=== PATIENT | male | born 1940 | race Caucasian/White ===

== ENCOUNTER 2019-07-18 09:27 | Inpatient (IN) | payer MEDICARE, OTHER ==
--- NOTE | 2019-07-18 09:59 | EDM.PDOC ---
ED HPI GENERAL MEDICAL PROBLEM - General Chief Complaint: Abdominal Pain Stated Complaint: INFECTED COLOSTOMY BAG/MASSES ON LUNGS Time Seen by Provider: 07/18/19 09:49 - History of Present Illness INITIAL COMMENTS - FREE TEXT/NARRATIVE: 78-year-old male presents the emergency room with abdominal discomfort and what he believes is an infected colostomy bag. She has not had any significant fecal output from his colostomy site in 6 days now. He is developed significant swelling around the area he has not noticed any fevers or chills. 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 The patient has had any nausea or vomiting she has had decreased appetite however he has not eaten anything today. Patient has a complicated history he has what sounds like pretty advanced COPD he is on supplemental oxygen 2 to 3 L. He is on 3 L at this point saturating around 90-95 %. 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 He has been evaluated by Dr. Rangel at this time. Abdominal Pain Score (Numeric/FACES): 7 - Related Data Allergies Allergy/AdvReac Type Severity Reaction Status Date / Time ciprofloxacin [From Cipro] Allergy Rash Verified 07/18/19 09:44 ciprofloxacin HCl Allergy Rash Verified 07/18/19 09:44 [From Cipro] shellfish derived Allergy Rash Verified 07/18/19 09:44 ED ROS GENERAL - Review of Systems Review Of Systems: See Below Constitutional: Reports: No Symptoms. Denies: Fever, Chills HEENT: Reports: No Symptoms Respiratory: Reports: Shortness of Breath (This is chronic no new cough. No worsening breathing symptoms at this time) Cardiovascular: Reports: No Symptoms (He does have chronic dyspnea with exertion ). Denies: Chest Pain Endocrine: Reports: No Symptoms GI/Abdominal: Reports: Abdominal Pain, Decreased Appetite. Denies: Nausea, Vomiting : Reports: No Symptoms Musculoskeletal: Reports: No Symptoms Skin: Reports: No Symptoms Neurological: Reports: No Symptoms ED EXAM, GI/ABD - Physical Exam Exam: See Below Exam Limited By: No Limitations General Appearance: Alert, No Apparent Distress, Other (On supplemental oxygen otherwise seems to be doing okay. His pulse was little fast at 110 when he came in I have watched it for short time is down to 105. He will receive some fluids anticipating a CT and given he keeps developing pleural effusions we will give him fluid as needed but watch this cautiously.) Head: Atraumatic, Normocephalic Neck: Normal Inspection, Supple, Non-Tender. No: Lymphadenopathy (L), Lymphadenopathy (R) Respiratory/Chest: No Respiratory Distress, Decreased Breath Sounds (Much more on the R). No: Crackles, Rales, Rhonchi Cardiovascular: Regular Rate, Rhythm, No Edema, No Murmur GI/Abdominal Exam: Normal Bowel Sounds, Soft, Other (Is a reported hernia around his colostomy site he has quite a bit of swelling around this area and fullness. I tried to do a digital exam on this and could not get in deeper than 2 cm he has a piece of hard stool in there that I could not dislodge. He is got significant back up behind this just from exam has another abdominal wall hernia on the right side up a little higher than his colostomy this is nontender with palpation. The area around the colostomy is tender no surrounding redness or warmth.) Course - Vital Signs Last Recorded V/S: Last Vital Signs Temp 36.8 C 07/18/19 09:40 Pulse 110 H 07/18/19 09:40 Resp 20 07/18/19 09:40 BP 125/68 07/18/19 09:40 Pulse Ox 92 L 07/18/19 09:40 - Orders/Labs/Meds Orders: Active Orders 24 hr Category Date Time Status Chest Abdomen Pelvis w Cont [CT] Stat Exams 07/18/19 10:19 Taken Sodium Chloride 0.9% [Normal Saline] 1,000 ml Med 07/18/19 10:30 Active IV ASDIRECTED Sodium Chloride 0.9% [Saline Flush] Med 07/18/19 11:39 Active 10 ml FLUSH ONETIME PRN Medication Orders Sodium Chloride (Normal Saline) 1,000 mls @ 125 mls/hr IV ASDIRECTED OBED Sodium Chloride (Saline Flush) 10 ml FLUSH ONETIME PRN PRN Reason: Keep Vein Open Last Admin: 07/18/19 11:47 Dose: 10 ml Labs: Laboratory Tests 07/18/19 07/18/19 07/18/19 Range/Units 10:15 10:15 12:15 WBC 16.07 H (4.23-9.07) K/mm3 RBC 4.65 (4.63-6.08) M/mm3 Hgb 15.2 (13.7-17.5) gm/dl Hct 45.6 (40.1-51.0) % MCV 98.1 H (79.0-92.2) fl MCH 32.7 H (25.7-32.2) pg MCHC 33.3 (32.2-35.5) g/dl RDW Std Deviation 44.6 H (35.1-43.9) fL Plt Count 260 (163-337) K/mm3 MPV 8.8 L (9.4-12.3) fl Neut % (Auto) 88.5 H (34.0-67.9) % Lymph % (Auto) 2.4 L (21.8-53.1) % [place] % (Auto) 8.6 (5.3-12.2) % Eos % (Auto) 0.1 L (0.8-7.0) Baso % (Auto) 0.2 (0.1-1.2) % Neut # (Auto) 14.21 H (1.78-5.38) K/mm3 Lymph # (Auto) 0.38 L (1.32-3.57) K/mm3 [place] # (Auto) 1.39 H (0.30-0.82) K/mm3 Eos # (Auto) 0.02 L (0.04-0.54) K/mm3 Baso # (Auto) 0.03 (0.01-0.08) K/mm3 Manual Slide Review Abnormal smear Sodium 140 (136-145) mEq/L Potassium 4.1 (3.5-5.1) mEq/L Chloride 101 (98-107) mEq/L Carbon Dioxide 31 (21-32) mEq/L Anion Gap 12.1 (5-15) BUN 17 (7-18) mg/dL Creatinine 0.9 (0.7-1.3) mg/dL Est Cr Clr Drug Dosing 58.65 mL/min Estimated GFR (MDRD) > 60 (>60) mL/min BUN/Creatinine Ratio 18.9 H (14-18) Glucose 114 (83-115) mg/dL Calcium 9.4 (8.5-10.1) mg/dL Total Bilirubin 0.5 (0.2-1.0) mg/dL AST 28 (15-37) U/L ALT 25 (16-63) U/L Alkaline Phosphatase 79 (46-116) U/L Total Protein 6.5 (6.4-8.2) g/dl Albumin 2.6 L (3.4-5.0) g/dl Globulin 3.9 gm/dL Albumin/Globulin Ratio 0.7 L (1-2) Lipase 170 (73-393) U/L Urine Color Yellow (Yellow) Urine Appearance Clear (Clear) Urine pH 7.0 (5.0-8.0) Ur Specific [place] 1.015 (1.005-1.030) Urine Protein Trace H (Negative) Urine Glucose (UA) Negative (Negative) Urine Ketones 1+ H (Negative) Urine Occult Blood Trace-intact H (Negative) Urine Nitrite Negative (Negative) Urine Bilirubin 1+ H (Negative) Urine Urobilinogen 1.0 (0.2-1.0) Ur Leukocyte Esterase Negative (Negative) Urine RBC 0-5 (0-5) /hpf Urine WBC 0-5 (0-5) /hpf Ur Epithelial Cells 0-5 (0-5) /hpf Amorphous Sediment Moderate H (NOT SEEN) /hpf Urine Bacteria Moderate H (FEW) /hpf Urine Mucus Many H (FEW) /hpf Meds: Medications Generic Name Dose Route Start Last Admin Trade Name Freq PRN Reason Stop Dose Admin Sodium Chloride 1,000 mls @ 125 mls/hr 07/18/19 10:30 Normal Saline IV ASDIRECTED OBED Sodium Chloride 10 ml 07/18/19 11:39 07/18/19 11:47 Saline Flush FLUSH 10 ml ONETIME PRN Administration Keep Vein Open Discontinued Medications Generic Name Dose Route Start Last Admin Trade Name Freq PRN Reason Stop Dose Admin Diatrizoate Meglum/Diatrizoate Sod 60 ml 07/18/19 11:47 07/18/19 11:49 Gastrografin 37% PO 07/18/19 11:48 60 ml ONETIME ONE Administration Sodium Chloride 500 mls @ 999 mls/hr 07/18/19 10:18 07/18/19 10:35 Normal Saline IV 07/18/19 10:48 999 mls/hr .BOLUS ONE Administration Iopamidol 100 ml 07/18/19 11:39 07/18/19 11:47 Isovue-300 (61%) IVPUSH 07/18/19 11:40 100 ml ONETIME ONE Administration Ondansetron HCl 4 mg 07/18/19 10:44 07/18/19 10:48 Zofran IVPUSH 07/18/19 10:45 4 mg ONETIME ONE Administration - Re-Assessments/Exams Free Text/Narrative Re-Assessment/Exam: 07/18/19 14:00 Case was discussed with Dr. Thornton regarding his apparent blocked up colostomy of concern on his CT as he is got a complete collapse of the right lung. He had pretty good expansion of the lung on the of this month looking at his x-ray from that time. I did discuss situation with [facility] and they have no recent records on him did discuss situation with [facility] in [place] and a IR saw him on the of this month did a thoracentesis awaiting cytology at which point he is to follow-up with his regular provider, Yumi Buenrostro in [place] for cytology results. With regards to his lung Dr. Thornton to discuss this with the patient and patient's daughter they request that chest to be placed here and Dr. Thornton will assume care of the patient with regards to the chest tube insertion and management as well as treatment. I did attempt to contact the patient's oncologist but had no success with this I discussed it with [facility] who has not seen the patient in nearly 5 years and I discussed it with [facility] who informing that the patient was seen by interventional radiology on the of this month had 1.4 L of chest fluid removed awaiting cytology. Departure - Departure Time of Disposition: 13:04 Disposition: Refer to Observation Clinical Impression: Hemothorax on right, Colostomy complication, Constipation - Discharge Information Referrals: Yumi Buenrostro, [employer] ADVISOR [Primary Care Provider] - Forms: ED Department Discharge Sepsis Event Note - Evaluation Sepsis Screening Result: No Definite Risk - Focused Exam Vital Signs: Vital Signs Temp Pulse Resp BP Pulse Ox 07/18/19 09:40 36.8 C 110 H 20 125/68 92 L Date Exam was Performed: 07/18/19 Time Exam was Performed: 14:00 - My Orders Last 24 Hours: My Active Orders 07/18/19 10:19 Chest Abdomen Pelvis w Cont [CT] Stat 07/18/19 10:30 Sodium Chloride 0.9% [Normal Saline] 1,000 ml IV ASDIRECTED 07/18/19 11:39 Sodium Chloride 0.9% [Saline Flush] 10 ml FLUSH ONETIME PRN - Assessment/Plan Last 24 Hours: My Active Orders 07/18/19 10:19 Chest Abdomen Pelvis w Cont [CT] Stat 07/18/19 10:30 Sodium Chloride 0.9% [Normal Saline] 1,000 ml IV ASDIRECTED 07/18/19 11:39 Sodium Chloride 0.9% [Saline Flush] 10 ml FLUSH ONETIME PRN
[2019-07-18] MEDS ORDERED: Sodium Chloride 0.9% 500 ML IV ONE (10:18)
[2019-07-18] MEDS ORDERED: Sodium Chloride 0.9% 1,000 ML IV SCH (10:30)
[2019-07-18] MEDS ORDERED: Ondansetron 4 MG/2 ML SDV IVPUSH ONE (10:44)
[2019-07-18] MEDS ORDERED: Iopamidol 612 MG/ML 100 ML Bottle IVPUSH ONE (11:39)
[2019-07-18] MEDS ORDERED: Sodium Chloride 0.9% 10 ML Syringe FLUSH PRN (11:39)
[2019-07-18] MEDS ORDERED: Diatrizoate Meglumine/Diatrizoate Sodium 37% 120 ML Bottle PO ONE (11:47)
--- NOTE | 2019-07-18 13:39 | PCM.HP.2 ---
H&P History of Present Illness - General Date of Service: 07/18/19 Admit Problem/Dx: right hydrothorax Source of Information: Patient, Family - History of Present Illness Initial Comments - Free Text/Narative: Mr. Coats is a a chronically ill, complex patient who I was called to evaluate for large bowel obstruction. He has a history of perforated diverticulitis with subsequent partial colectomy/ colostomy which has never been reversed after 10 years. He reports abdominal distention and discomfort for the past 6 days without hardly any stool output. He has had gas come out as recently as today. 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 Of note, the patient was in [place] for right lung biopsy last week, and on imaging today there appears to be complete lung collapse with right hydro/ hemothorax with mediastinal shift to the right. His vitals including O2 saturation are normal on his baseline of 3L/m supplemental oxygen via nasal cannula. Abdominal Pain Score (Numeric/FACES): 7 - Related Data Allergies/Adverse Reactions: Allergies Allergy/AdvReac Type Severity Reaction Status Date / Time ciprofloxacin [From Cipro] Allergy Rash Verified 07/18/19 09:44 ciprofloxacin HCl Allergy Rash Verified 07/18/19 09:44 [From Cipro] shellfish derived Allergy Rash Verified 07/18/19 09:44 Past Medical History Respiratory History: Reports: Other (See Below) Other Respiratory History: reports fluid on his lungs and in testing stages for lung cancer - Past Surgical History GI Surgical History: Reports: Colostomy Social & Family History - Tobacco Use Smoking Status *Q: Current Every Day Smoker Years of Tobacco use: 57 Packs/Tins Daily: 0.1 H&P Review of Systems - Review of Systems: Review Of Systems: See Below General: Reports: Malaise, Weakness HEENT: Reports: No Symptoms Pulmonary: Reports: Shortness of Breath Cardiovascular: Reports: Dyspnea on Exertion Gastrointestinal: Reports: Constipation Genitourinary: Reports: No Symptoms Musculoskeletal: Reports: No Symptoms Skin: Reports: No Symptoms Psychiatric: Reports: No Symptoms Neurological: Reports: No Symptoms Hematologic/Lymphatic: Reports: No Symptoms Immunologic: Reports: No Symptoms Exam - Exam Exam: See Below - Vital Signs Vital Signs: Last Vital Signs Temp 36.8 C 07/18/19 09:40 Pulse 110 H 07/18/19 09:40 Resp 20 07/18/19 09:40 BP 125/68 07/18/19 09:40 Pulse Ox 92 L 07/18/19 09:40 Weight: 60.328 kg - Exam Quality Assessment: Supplemental Oxygen General: Alert, Oriented, Cooperative HEENT: Conjunctiva Clear Neck: Supple Lungs: Other (dull to percussion on right side. [place] on anterior right chest from biopsy site) GI/Abdominal Exam: Other (epigastric hernia, soft and reducible. LLQ colostomy appears healthy, no prolapse. Exam finger passes deep to fascia easily. Lots of inspissated stool. parastomal hernia. No significant tenderness. ) Skin: Warm, Dry Physical Exam Comments:: looks frail and cachectic - Patient Data Lab Results Last 24 hrs: Laboratory Results - last 24 hr 07/18/19 07/18/19 07/18/19 Range/Units 10:15 10:15 12:15 WBC 16.07 H (4.23-9.07) K/mm3 RBC 4.65 (4.63-6.08) M/mm3 Hgb 15.2 (13.7-17.5) gm/dl Hct 45.6 (40.1-51.0) % MCV 98.1 H (79.0-92.2) fl MCH 32.7 H (25.7-32.2) pg MCHC 33.3 (32.2-35.5) g/dl RDW Std Deviation 44.6 H (35.1-43.9) fL Plt Count 260 (163-337) K/mm3 MPV 8.8 L (9.4-12.3) fl Neut % (Auto) 88.5 H (34.0-67.9) % Lymph % (Auto) 2.4 L (21.8-53.1) % [place] % (Auto) 8.6 (5.3-12.2) % Eos % (Auto) 0.1 L (0.8-7.0) Baso % (Auto) 0.2 (0.1-1.2) % Neut # (Auto) 14.21 H (1.78-5.38) K/mm3 Lymph # (Auto) 0.38 L (1.32-3.57) K/mm3 [place] # (Auto) 1.39 H (0.30-0.82) K/mm3 Eos # (Auto) 0.02 L (0.04-0.54) K/mm3 Baso # (Auto) 0.03 (0.01-0.08) K/mm3 Manual Slide Review Abnormal smear Sodium 140 (136-145) mEq/L Potassium 4.1 (3.5-5.1) mEq/L Chloride 101 (98-107) mEq/L Carbon Dioxide 31 (21-32) mEq/L Anion Gap 12.1 (5-15) BUN 17 (7-18) mg/dL Creatinine 0.9 (0.7-1.3) mg/dL Est Cr Clr Drug Dosing 58.65 mL/min Estimated GFR (MDRD) > 60 (>60) mL/min BUN/Creatinine Ratio 18.9 H (14-18) Glucose 114 (83-115) mg/dL Calcium 9.4 (8.5-10.1) mg/dL Total Bilirubin 0.5 (0.2-1.0) mg/dL AST 28 (15-37) U/L ALT 25 (16-63) U/L Alkaline Phosphatase 79 (46-116) U/L Total Protein 6.5 (6.4-8.2) g/dl Albumin 2.6 L (3.4-5.0) g/dl Globulin 3.9 gm/dL Albumin/Globulin Ratio 0.7 L (1-2) Lipase 170 (73-393) U/L Urine Color Yellow (Yellow) Urine Appearance Clear (Clear) Urine pH 7.0 (5.0-8.0) Ur Specific [place] 1.015 (1.005-1.030) Urine Protein Trace H (Negative) Urine Glucose (UA) Negative (Negative) Urine Ketones 1+ H (Negative) Urine Occult Blood Trace-intact H (Negative) Urine Nitrite Negative (Negative) Urine Bilirubin 1+ H (Negative) Urine Urobilinogen 1.0 (0.2-1.0) Ur Leukocyte Esterase Negative (Negative) Urine RBC 0-5 (0-5) /hpf Urine WBC 0-5 (0-5) /hpf Ur Epithelial Cells 0-5 (0-5) /hpf Amorphous Sediment Moderate H (NOT SEEN) /hpf Urine Bacteria Moderate H (FEW) /hpf Urine Mucus Many H (FEW) /hpf Result Diagrams: 07/18/19 10:15 07/18/19 10:15 Sepsis Event Note - Evaluation Sepsis Screening Result: No Definite Risk - Focused Exam Vital Signs: Vital Signs Temp Pulse Resp BP Pulse Ox 07/18/19 09:40 36.8 C 110 H 20 125/68 92 L Date Exam was Performed: 07/18/19 Time Exam was Performed: 13:34 *Q Meaningful Use (ADM) - VTE *Q VTE Mechanical Contraindications *Q: At Risk for Falls - VTE Risk Assess *Q Each Risk Factor Represents 3 Points: Age 75 Years or Greater Total Score 3 Point Risk Factors: 3 Problem List Initiated/Reviewed/Updated: Yes Orders Last 24hrs: Active Orders 24 hr Category Date Time Status Chest Abdomen Pelvis w Cont [CT] Stat Exams 07/18/19 10:19 Taken Sodium Chloride 0.9% [Normal Saline] 1,000 ml Med 07/18/19 10:30 Active IV ASDIRECTED Sodium Chloride 0.9% [Saline Flush] Med 07/18/19 11:39 Active 10 ml FLUSH ONETIME PRN Medication Orders Sodium Chloride (Normal Saline) 1,000 mls @ 125 mls/hr IV ASDIRECTED OBED Sodium Chloride (Saline Flush) 10 ml FLUSH ONETIME PRN PRN Reason: Keep Vein Open Last Admin: 07/18/19 11:47 Dose: 10 ml Assessment/Plan Comment:: Chronically ill, frail, cachectic man presents with iatrogenic right lung collapse following biopsy for suspected malignancy. He also appears to have partial large bowel obstruction related to fecal impaction/constipation. Plan for admission following right tube thoracostomy. Plan to start bowel regimen including miralax and colace. Gentle fluid resuscitation Recheck labs in AM Clear liquid diet for now - Mortality Measure Prognosis:: Poor
[2019-07-18] MEDS ORDERED: Lidocaine 1% 50 ML MDV INJECT ONE (14:00)
[2019-07-18] MEDS ORDERED: Lidocaine 1% 50 ML MDV ONE (14:03)
[2019-07-18] MEDS ORDERED: Docusate Sodium 100 MG Cap PO PRN (14:34)
[2019-07-18] MEDS ORDERED: Polyethylene Glycol 3350 Powder 17 GM Packet PO SCH (14:45)
[2019-07-18] MEDS: Lactated Ringers 1,000 ML IV SCH (16:31)
[2019-07-18] MEDS: Polyethylene Glycol 3350 Powder 17 GM Packet PO SCH ×2 (16:35→20:50)
[2019-07-18] MEDS ORDERED: traZODone 50 MG Tab PO PRN (16:56)
--- NOTE | 2019-07-18 20:08 | PCM.PRNOTE ---
- Free Text/Narrative Note: Date: 07/18/2019 Procedure: Right tube thoracostomy Indication: large pleural effusion with complete right lung collapse Detailed Report: Consent was obtained, and the patient was positioned supine with his right hand held behind his head. The right lateral chest was prepped and draped in sterile fashion. The 5th intercostal space, in line with the nipple, was palpated, and 1 % lidocaine was injected intradermally at this point, in line with the mid- axilla. The tract into the pleural cavity was also anesthetized. The scalpel was used to make a 3 cm transverse incision down to the subcutaneous fat. A Clamp was used to dissect to the intercostal muscle, and the pleural cavity was entered with the clamp.A kwok of serous fluid was encountered. A 28 F chest tube was threaded into the pleural cavity, directed up towards the head. This came to rest at about 14 cm deep. The tube was connected to a PleuraVac container, and immediately about 1300 cc fluid was drained. The tube was secured at the skin with two anchoring silk sutures. A dressing of gauze and tape was applied. A post-procedure CXR showed some improvement in lung aeration with the tube in good position. The patient tolerated the procedure well. Allen Thornton MD General Surgery
[2019-07-18] MEDS ORDERED: Enoxaparin 30 MG/0.3 ML Syringe SUBCUT ONE (22:00)
[2019-07-18] MEDS: Morphine 2 MG/ML Syringe IVPUSH PRN (23:00)
[2019-07-19] MEDS: Morphine 2 MG/ML Syringe IVPUSH PRN ×2 (02:48→08:10)
--- NOTE | 2019-07-19 07:17 | CR ---
Chest: Portable view of the chest was obtained. Comparison: Prior chest x-ray of 07/18/19. Right-sided chest tube is seen. No pneumothorax is appreciated. Decreased pleural effusion is noted from previous exam. Improved aeration of the right lung is seen. Pleural thickening noted along the right lateral chest. Left lung shows no acute parenchymal change. Heart size is normal. Tortuous thoracic aorta is seen. Bony structures are grossly intact. Impression: 1. Right-sided chest tube with no pneumothorax. 2. Slight parenchymal density within the right base remains. Right lung shows better aeration than on prior study. 3. Left lung is clear. 4. Pleural thickening along the right lateral chest. Diagnostic code #3 This report was dictated in MDT
[2019-07-19] MEDS: Polyethylene Glycol 3350 Powder 17 GM Packet PO SCH ×2 (08:11→20:04)
--- NOTE | 2019-07-19 08:46 | PCM.SN.2 ---
- Free Text/Narrative Note: 78 yo man presented to ER yesterday with obstipation and dyspnea, found to have heavy colonic stool burden without evidence of obstruction and marked right hydrothorax with complete lung collapse. S: No acute events. Breathing easier, abdomen less tender. Flatus but no stool from colostomy. O: Afebrile, sinus tachycardia 100s, SBP 100s, SpO2 97=4% on baseline 3 L/m supplemental O2 Chest tube output: ~2400 cc serous output since placement Awake and alert, no distress Right chest tube to suction, no leak, serous output Abdomen soft, nontender, mild distention. Colostomy appears healthy, no stool output noted A: Feeling better with right chest tube placement Still with feelings of obstipation, on miralax and colace BID P: -oral analgesics -continue chest tube to suction and monitor output. Repeat CXR in AM -add Mg citrate to bowel regimen -lovenox 40 mg SC daily for dvt ppx -anticipate discharge to home in 1-2 days when chest tube is ready for removal
[2019-07-19] MEDS ORDERED: Enoxaparin 30 MG/0.3 ML Syringe SUBCUT SCH (09:00)
[2019-07-19] MEDS: Docusate Sodium 100 MG Cap PO SCH ×2 (09:30→20:04)
[2019-07-19] MEDS: Magnesium Citrate Solution 296 ML Bottle PO SCH (09:30)
[2019-07-19] MEDS: Enoxaparin 40 MG/0.4 ML Syringe SUBCUT SCH (09:30)
--- NOTE | 2019-07-19 09:50 | CR ---
Chest: Portable view of the chest was obtained. Comparison: Prior chest CT performed earlier on the same day (11:46 AM). Prior chest x-ray of 07/07/19 is available. Right sided chest tube is seen. Right sided pneumothorax is noted. Collapse of the right lung is seen. Left lungs are clear. Heart size is difficult to evaluate due to shifting into the right chest. Bony structures are grossly intact. Impression: 1. Collapse of the right lung with pneumothorax and right-sided chest tube. 2. Left lung is clear. Diagnostic code #3 Study was dictated in MDT
--- NOTE | 2019-07-19 09:56 | CT ---
CT chest Technique: Multiple axial sections through the chest were obtained. Intravenous contrast was utilized. Comparison: Prior chest x-ray of 07/07/19. Findings: Pleural-based nodularity is seen suspicious for pleural metastasis. Large right-sided pleural effusion is noted. Collapse of the right lung is seen making further evaluation of the right lung and possible. Diffuse emphysematous change is seen within the left lung. Small pleural-based nodule identified within the left upper lung or lingula measuring 4 mm. Parenchymal density noted within the left upper lung with associated spiculation measuring 9 mm. Uncertain if this represents a mass or more likely represents focal scarring. Nodule is identified within the left lower lobe adjacent to the major fissure measuring approximately 8 mm. Enlarged lymph node noted within the right paratracheal region measuring 2.5 cm. Bone window settings were reviewed which shows no acute osseous finding within the chest. Degenerative change is seen within the visualized lower cervical spine. Impression: 1. Nodularity within the right side pleura highly suspicious for pleural metastasis. 2. Multiple nodules within the left chest. These are nonspecific with no previous study available to determine stability. 3. Enlarged right paratracheal lymph node measuring 2.5 cm. 4. Large right-sided pleural effusion causing collapse of the right lung. Further evaluation of the right lung is impossible. Diagnostic code #9 This report was dictated in MDT I agree with preliminary report from [facility], finalized on 07/18/19, 1:[address] Time CT abdomen and pelvis Technique: Multiple axial sections were obtained from above the dome of the diaphragm inferiorly through the pubic symphysis. Intravenous contrast was utilized. Oral contrast has also been given. Findings: Liver shows no discrete abnormality. Spleen appears within normal limits. Adrenal glands show no discrete nodule. Kidneys show symmetric contrast enhancement without hydronephrosis or mass. Aorta shows aneurysmal dilatation with intraluminal thrombus. Maximum AP dimension is 5.0 cm. Aneurysm is 10 cm in length and begins below the renal arteries. No retroperitoneal adenopathy is seen. Ostomy is noted. Fair amount of stool is noted within the cecum and right colon with lesser stool and gas within the transverse and descending colon. Appendix not visualized. Bone window settings were reviewed which shows scattered degenerative change within the spine. No acute osseous finding is appreciated. Impression: 1. Abdominal aortic aneurysm which begins below the abdominal aorta with AP maximal length of 5.0 cm. 2. Ostomy is seen. 3. Moderate amount of increased stool within the right colon as well as lesser stool within the transverse and left colon. Diagnostic code #3 This report was dictated in MDT I agree with preliminary report from [facility], finalized on 07/18/19, 1:16 PM Central Daylight Time
[2019-07-19] MEDS: Lactated Ringers 1,000 ML IV SCH (13:08)
[2019-07-19] MEDS: Aluminum Hydroxide/Magnesium Hydroxide/Simethicone Susp 30 ML Cup PO PRN ×2 (18:16→22:47)
[2019-07-19] MEDS: oxyCODONE 5 MG Tab PO PRN (19:50)
[2019-07-20] MEDS: oxyCODONE 5 MG Tab PO PRN ×3 (04:59→21:27)
--- NOTE | 2019-07-20 08:01 | CR ---
Chest: Portable view of the chest was obtained. Comparison: Prior chest x-ray of 07/19/19. Right-sided chest tube is seen. Minimal blunting of the lateral right costophrenic angle is again noted which is stable. No acute parenchymal change is seen when compared to prior study within either lung. Heart size is normal. There is some shifting of the mediastinum into the right side of the chest. Bony structures are grossly intact. Impression: 1. Right-sided chest tube. 2. Other portions of the chest are felt to be stable. Nothing acute is seen from prior chest x-ray. Diagnostic code #2 This report was dictated in MDT
[2019-07-20] MEDS: Docusate Sodium 100 MG Cap PO SCH ×2 (08:23→21:26)
[2019-07-20] MEDS: Enoxaparin 40 MG/0.4 ML Syringe SUBCUT SCH (08:23)
[2019-07-20] MEDS: Polyethylene Glycol 3350 Powder 17 GM Packet PO SCH ×2 (08:24→21:27)
[2019-07-20] MEDS: Aluminum Hydroxide/Magnesium Hydroxide/Simethicone Susp 30 ML Cup PO PRN (08:24)
--- NOTE | 2019-07-20 08:46 | PCM.SN.2 ---
- Free Text/Narrative Note: Hospital Day 3, presenting with symptomatic right hydrothorax after lung biopsy. S: No acute events. Stool output from colostomy now. O: AF-sinus tachycardia, stable BP, SpO2 mid 90% on 3 L NC O2 Chest tube to wet suction without leak. Output about 1 L since yesterday AM, serous. No significant interval change in CXR. Abdomen less distended, reducible epigastric hernia. Colostomy appears pink and healthy, now with more stool output A: Some symptomatic relief with right chest tube. Right lung appears expanded, though with diminished size and associated right mediastinal shift. Fluid output significant. No air leak on suction. Constipation improved with bowel regimen. P: Place chest tube to water seal and repeat CXR this afternoon. If no significant change, and output is acceptably low, plan for chest tube removal today, possible discharge to home today. Continue current bowel regimen.
[2019-07-20] MEDS ORDERED: Nicotine 14 MG/24 Hr Patch TRDERM PRN (09:00)
[2019-07-20] MEDS: Magnesium Citrate Solution 296 ML Bottle PO SCH (09:46)
--- NOTE | 2019-07-20 12:22 | CR ---
Chest: Portable view of the chest is obtained. Comparison: Prior chest x-ray performed earlier on the same day (7:10 AM). Right-sided chest tube is seen. No pneumothorax is noted. Stable parenchymal densities within the right chest is seen. Left lung is clear. Heart size and mediastinum are unchanged. Continuing shifting of the mediastinum into the right chest is seen. Impression: 1. No pneumothorax is seen. Right-sided chest tube remains in place. 2. Other portions of the chest are stable from previous exam. Diagnostic code # This report was dictated in MDT
[2019-07-20] MEDS ORDERED: Albuterol 6.7 GM Inhaler **PTOM INH PRN (14:34)
[2019-07-20] MEDS: Lactated Ringers 1,000 ML IV SCH (15:54)
--- NOTE | 2019-07-20 17:18 | CR ---
Chest: Portable view of the chest was obtained. Comparison: Prior chest x-ray performed earlier on the same day (11:49 AM). Right chest tube has been removed. Continued increased parenchymal density within right mid and lower lung. Left lung is clear. Heart size is normal. Tortuous thoracic aorta is seen. Impression: 1. Removal of right chest tube. 2. Continuing parenchymal density within the right chest and other stable findings as noted above. Diagnostic code #3 This report was dictated in MDT
[2019-07-20] MEDS: Magnesium Hydroxide 400 MG/5 ML Susp 30 ML Cup PO SCH (18:06)
[2019-07-20] MEDS ORDERED: SALMETEROL IH SCH (21:00)
[2019-07-20] MEDS ORDERED: FLUTICASONE IH SCH (21:00)
[2019-07-20] MEDS: Sennosides 8.6 MG Tab PO SCH (21:27)
[2019-07-21] MEDS: Magnesium Hydroxide 400 MG/5 ML Susp 30 ML Cup PO SCH ×3 (00:35→11:20)
[2019-07-21] MEDS: oxyCODONE 5 MG Tab PO PRN ×4 (07:08→23:47)
[2019-07-21] MEDS: Docusate Sodium 100 MG Cap PO SCH ×2 (08:11→20:22)
[2019-07-21] MEDS: Polyethylene Glycol 3350 Powder 17 GM Packet PO SCH ×2 (08:11→20:23)
[2019-07-21] MEDS: Enoxaparin 40 MG/0.4 ML Syringe SUBCUT SCH (08:13)
[2019-07-21] MEDS: Formoterol/Mometasone 200-5 MCG 8.8 GM Inhaler IH SCH ×2 (08:41→20:00)
--- NOTE | 2019-07-21 10:07 | CR ---
Chest: Portable view of the chest was obtained. Comparison: Prior chest x-ray of 07/13 6-20. Diffuse increased parenchymal density within the right chest is noted. This appears to be stable from recent study. Left lung remains clear. Heart size and mediastinum are unchanged. Bony structures are also unchanged. Impression: 1. Findings as noted above. 2. No significant change from previous chest x-ray is seen. Diagnostic code #2 This report was dictated in MDT
[2019-07-21] MEDS: Sennosides 8.6 MG Tab PO SCH (20:22)
[2019-07-22] MEDS: oxyCODONE 5 MG Tab PO PRN ×3 (03:50→11:46)
[2019-07-22] MEDS: Formoterol/Mometasone 200-5 MCG 8.8 GM Inhaler IH SCH (07:59)
[2019-07-22] MEDS: Docusate Sodium 100 MG Cap PO SCH (08:16)
[2019-07-22] MEDS: Polyethylene Glycol 3350 Powder 17 GM Packet PO SCH (08:17)
[2019-07-22] MEDS: Enoxaparin 40 MG/0.4 ML Syringe SUBCUT SCH (08:17)
--- NOTE | 2019-07-22 08:36 | PCM.SN.2 ---
- Free Text/Narrative Note: Date: 07/21/2019 S: No acute events. More stool output from colostomy. 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 Likely with malignant pleural effusion, parietal pleural involvement and right paratracheal lymph node involvement. Clinically better than when admitted with regard to right hydrothorax and constipation. Working with PT/OT, case management to ensure appropriate discharge. P: Plan for discharge with home health services tomorrow. Follow up planned next week in oncology clinic.
--- NOTE | 2019-07-22 09:05 | PCM.DCSUM1 ---
Discharge Summary - Hospital Course Free Text/Narrative:: Briefly: Admitted with right lung collapse and large pleural effusion after lung biopsy for now-confirmed small cell lung carcinoma. A right chest tube was placed to help lung re-expand. Bowel regimen was started which helped with constipation. The patient's chest tube was removed and subsequent CXRs showed stability. PT/OT and case management evaluated and assisted with appropriate discharge. Plan for follow up in oncology clinic next week. - Discharge Data Discharge Date: 07/22/19 Discharge Disposition: Home, W Home Health Agency 06 Condition: Stable - Referral to Home Health Date of Face to Face Encounter: 07/22/19 Reason for Homebound Status: Face to Face meeting with pt and or family. Pt has cancer, right hemothorax, weakness, difficulty walking and decreased coordination . Pt is in need Home Health Care services for, low activity tolerance, functional mobility, standing balance, strength, transfers. Nursing for pain management, vitals, skilled assessment, disease education, disease management. Physical therapy for pt for balance training, gait training, neuromuscular reduction, therapeutic exercises, and transfer training. Occupational therapy for activity tolerance, self-care training, ADLs and t/f training, functional mobility training, safety education, therapeutic activities and therapeutic exercises. Pt is currently homebound related to decreased activity tolerance and a decreased level of endurance. Pt will be followed by his primary provider. Primary Care Physician: Yumi Buenrostro NP Skilled Need: yes - Patient Summary/Data Consults: Consultations 07/21/19 08:57 Consult to Physical Therapy [PT Evaluation and Treatment] [CONS] Routine 07/21/19 13:43 Consult to Occupational Therapy [OT Evaluation and Treatment] [CONS] Routine - Patient Instructions Diet: Regular Diet as Tolerated Showering/Bathing: May Shower Wound/Incision Care: Keep Operative Site/Wound Site Clean and Dry Wound/Incision, Other: take right chest dressing off today. Apply band-aid. Change daily. - Discharge Plan *PRESCRIPTION DRUG MONITORING PROGRAM REVIEWED*: Not Applicable *COPY OF PRESCRIPTION DRUG MONITORING REPORT IN PATIENT DA: Not Applicable Prescriptions/Med Rec: Docusate Sodium [Colace] 100 mg PO BID #30 capsule oxyCODONE 5 mg PO Q6H PRN #30 tab PRN Reason: Pain polyethylene glycoL 3350 [MiraLAX] 17 gm PO BID #30 packet Home Medications: Home Meds Albuterol [Proventil HFA] 2 puff IH Q4H PRN 07/20/19 [History] Fluticasone/Salmeterol [Advair 250-50] 1 puff IH BID 07/20/19 [History] Docusate Sodium [Colace] 100 mg PO BID #30 capsule 07/22/19 [Rx] oxyCODONE 5 mg PO Q6H PRN #30 tab 07/22/19 [Rx] polyethylene glycoL 3350 [MiraLAX] 17 gm PO BID #30 packet 07/22/19 [Rx] Oxygen Therapy Mode: Nasal Cannula Oxygen Flow Rate (L/min): 3 Patient Handouts: Hemothorax, Constipation, Adult, Steps to Quit Smoking Forms: ED Department Discharge Referrals: Yumi Buenrostro [employer] [Primary Care Provider] - - Discharge Summary/Plan Comment DC Time >30 min.: Yes - Patient Data Vitals - Most Recent: Last Vital Signs Temp 36.6 C 07/22/19 03:48 Pulse 82 07/22/19 03:48 Resp 16 07/22/19 03:48 BP 104/56 L 07/22/19 03:48 Pulse Ox 92 L 07/22/19 07:59 Weight - Most Recent: 59.194 kg I&O - Last 24 hours: Intake & Output 07/21/19 07/22/19 07/22/19 22:59 06:59 14:59 Intake Total 2102 300 240 Output Total 2725 1100 Balance -623 -800 240 Med Orders - Current: Current Medications Al Hydroxide/Mg Hydroxide (Mag-Al Plus) 30 ml PO Q4H PRN PRN Reason: Indigestion Last Admin: 07/20/19 08:24 Dose: 30 ml Albuterol (Proventil Hfa) 0 gm INH Q4H PRN PRN Reason: wheeze Docusate Sodium (Colace) 100 mg PO BID [facility] Last Admin: 07/22/19 08:16 Dose: 100 mg Enoxaparin Sodium (Lovenox) 40 mg SUBCUT DAILY [facility] Last Admin: 07/22/19 08:17 Dose: 40 mg Mometasone Furoate/Formoterol Fumar (Dulera 200-5 Mcg) 2 puff IH BID [facility] Last Admin: 07/22/19 07:59 Dose: 2 puff Nicotine (Habitrol) 14 mg TRDERM DAILY PRN PRN Reason: Withdrawal Symptoms Oxycodone HCl (Oxycodone) 5 mg PO Q4H PRN PRN Reason: Pain (moderate 4-6) Last Admin: 07/22/19 08:33 Dose: 5 mg Polyethylene Glycol (Miralax) 17 gm PO BID [facility] Last Admin: 07/22/19 08:17 Dose: 17 gm Senna (Senna) 17.2 mg PO BEDTIME [facility] Last Admin: 07/21/19 20:22 Dose: 17.2 mg Sodium Chloride (Saline Flush) 10 ml FLUSH ONETIME PRN PRN Reason: Keep Vein Open Last Admin: 07/18/19 11:47 Dose: 10 ml Trazodone HCl (Trazodone) 50 mg PO BEDTIME PRN PRN Reason: Insomnia Last Admin: 07/18/19 22:56 Dose: 50 mg Discontinued Medications Diatrizoate Meglum/Diatrizoate Sod (Gastrografin 37%) 60 ml PO ONETIME ONE Stop: 07/18/19 11:48 Last Admin: 07/18/19 11:49 Dose: 60 ml Docusate Sodium (Colace) 100 mg PO BID PRN PRN Reason: Constipation Enoxaparin Sodium (Lovenox) 30 mg SUBCUT Q12H [facility] Enoxaparin Sodium (Lovenox) 30 mg SUBCUT ONETIME ONE Stop: 07/18/19 22:01 Last Admin: 07/18/19 22:55 Dose: 30 mg Sodium Chloride (Normal Saline) 500 mls @ 999 mls/hr IV .BOLUS ONE Stop: 07/18/19 10:48 Last Admin: 07/18/19 10:35 Dose: 999 mls/hr Sodium Chloride (Normal Saline) 1,000 mls @ 125 mls/hr IV ASDIRECTED [facility] Lactated Ringer's (Ringers, Lactated) 1,000 mls @ 50 mls/hr IV ASDIRECTED [facility] Last Admin: 07/20/19 15:54 Dose: 50 mls/hr Iopamidol (Isovue-300 (61%)) 100 ml IVPUSH ONETIME ONE Stop: 07/18/19 11:40 Last Admin: 07/18/19 11:47 Dose: 100 ml Lidocaine HCl (Xylocaine 1%) Confirm Administered Dose 50 ml .ROUTE .STK-MED ONE Stop: 07/18/19 14:04 Last Admin: 07/18/19 14:33 Dose: Not Given Lidocaine HCl (Xylocaine 1%) 50 ml INJECT ONETIME ONE Stop: 07/18/19 14:01 Last Admin: 07/18/19 16:50 Dose: Not Given Magnesium Citrate (Citrate Of Magnesia) 296 ml PO DAILY [facility] Last Admin: 07/20/19 09:46 Dose: 296 ml Magnesium Hydroxide (Milk Of Magnesia) 30 ml PO Q6H [facility] Last Admin: 07/21/19 11:20 Dose: 30 ml Morphine Sulfate (Morphine) 0.5 mg IVPUSH Q4H PRN PRN Reason: Pain (severe 7-10) Last Admin: 07/19/19 08:10 Dose: 0.5 mg Fluticasone/Salmeterol [Advair 250-50] Ptom 1 puff IH BID [facility] Last Admin: 07/20/19 22:20 Dose: Not Given Ondansetron HCl (Zofran) 4 mg IVPUSH ONETIME ONE Stop: 07/18/19 10:45 Last Admin: 07/18/19 10:48 Dose: 4 mg Polyethylene Glycol (Miralax) 17 gm PO BID [facility] Last Admin: 07/18/19 16:50 Dose: Not Given *Q Meaningful Use (DIS) - VTE *Q VTE Mechanical Contraindications *Q: At Risk for Falls
== END 2019-07-22 11:57 | disposition home health service (06) | DRG 181 ==
LOC: JD.ED 09:27 → JD.MS 14:30 → OBSVTOIN 07-20 14:40
PROVIDERS: ADMIT Surgery; ATTEND Surgery
PROC: 0W9900Z Drainage of Right Pleural Cavity with Drainage Device, Open Approach (ICD-10-PCS; principal; 2019-07-18)
DX: J94.8 Other specified pleural conditions (principal); J94.2 Hemothorax; J98.19 Other pulmonary collapse; K56.690 Other partial intestinal obstruction; Z93.3 Colostomy status; C34.91 Malignant neoplasm of unspecified part of right bronchus or lung; J91.0 Malignant pleural effusion; K59.00 Constipation, unspecified; Z99.81 Dependence on supplemental oxygen; F17.200 Nicotine dependence, unspecified, uncomplicated; Z88.1 Allergy status to other antibiotic agents; Z91.013 Allergy to seafood
CPT/HCPCS: 32551; 36415 ×2; 71045 ×4; 71260; 74177; 80048; 80053; 81001; 83690; 85025 ×2; 96361; 96374; 99285; A9270 ×16; J1650 ×3; J2270 ×3; J2405; J7030; J7120 ×2; Q9963; Q9967; 94640; 94760; 97116-GP; 97162-GP; 97165-GO; 97530-GO; 99284

== ENCOUNTER 2019-07-26 09:36 | Inpatient (IN) | payer MEDICARE, OTHER ==
--- NOTE | 2019-07-26 10:07 | EDM.PDOC ---
<Andrea Toledo - Last Filed: 07/28/19 07:49> ED HPI GENERAL MEDICAL PROBLEM - General Chief Complaint: Respiratory Problem Stated Complaint: SOB Time Seen by Provider: 07/26/19 09:46 - History of Present Illness Onset: Gradual Duration: Day(s): (No bowel movement for 4 days.), Getting Worse Quality: Reports: Other (Dyspnea intermittent cramping abdominal pain) Severity: Moderate Improves with: Reports: None Worsens with: Reports: Eating Context: Denies: Activity, Exercise, Lifting, Sick Contact Associated Symptoms: Reports: Loss of Appetite, Malaise, Nausea/Vomiting, Shortness of Breath (Nausea without vomiting), Other (Cough nonproductive) Treatments [employer]: Reports: Other (see below) - Related Data Allergies Allergy/AdvReac Type Severity Reaction Status Date / Time ciprofloxacin [From Cipro] Allergy Rash Verified 07/26/19 09:47 ciprofloxacin HCl Allergy Rash Verified 07/26/19 09:47 [From Cipro] shellfish derived Allergy Rash Verified 07/26/19 09:47 Home Meds: Home Meds Albuterol [Proventil HFA] 2 puff IH Q4H PRN 07/20/19 [History] Fluticasone/Salmeterol [Advair 250-50] 1 puff IH BID 07/20/19 [History] Docusate Sodium [Colace] 100 mg PO BID #30 capsule 07/22/19 [Rx] polyethylene glycoL 3350 [MiraLAX] 17 gm PO BID #30 packet 07/22/19 [Rx] oxyCODONE 5 mg PO Q6H PRN 07/26/19 [History] Magnesium Oxide 400 mg PO BID #30 tablet 07/27/19 [Rx] Sennosides [Senna] 17.2 mg PO BID #60 tablet 07/27/19 [Rx] oxyCODONE 10 mg PO Q4H PRN tablet 07/27/19 [Rx] Past Medical History Respiratory History: Reports: Other (See Below) (Newly diagnosed with lung cancer) ED ROS GENERAL - Review of Systems Review Of Systems: See Below Course - Vital Signs Last Recorded V/S: Last Vital Signs Temp 36.7 C 07/27/19 12:22 Pulse 84 07/27/19 13:57 Resp 22 H 07/27/19 12:22 BP 122/65 07/27/19 13:57 Pulse Ox 96 07/27/19 13:57 - Orders/Labs/Meds Labs: Laboratory Tests 07/26/19 07/26/19 07/26/19 Range/Units 10:20 10:20 10:20 WBC 8.98 (4.23-9.07) K/mm3 RBC 3.97 L (4.63-6.08) M/mm3 Hgb 12.9 L D (13.7-17.5) gm/dl Hct 40.2 (40.1-51.0) % MCV 101.3 H (79.0-92.2) fl MCH 32.5 H (25.7-32.2) pg MCHC 32.1 L (32.2-35.5) g/dl RDW Std Deviation 44.7 H (35.1-43.9) fL Plt Count 303 (163-337) K/mm3 MPV 8.7 L (9.4-12.3) fl Neutrophils % (Manual) 81 H (40-60) % Band Neutrophils % 0 (0-10) % Lymphocytes % (Manual) 12 L (20-40) % Atypical Lymphs % 0 % Monocytes % (Manual) 7 (2-10) % Eosinophils % (Manual) 0 L (0.8-7.0) % Basophils % (Manual) 0 L (0.2-1.2) Platelet Estimate Adequate Plt Morphology Comment Normal Anisocytosis 1+ slight RBC Morph Comment Not Reportable PT (9.7-12.0) SECONDS INR APTT (22-31) SECONDS Sodium 139 (136-145) mEq/L Potassium 4.4 (3.5-5.1) mEq/L Chloride 103 (98-107) mEq/L Carbon Dioxide 29 (21-32) mEq/L Anion Gap 11.4 (5-15) BUN 18 (7-18) mg/dL Creatinine 1.0 (0.7-1.3) mg/dL Est Cr Clr Drug Dosing 54.77 mL/min Estimated GFR (MDRD) > 60 (>60) mL/min BUN/Creatinine Ratio 18.0 (14-18) Glucose 100 (83-115) mg/dL Lactic Acid (0.4-2.0) mmol/L Calcium 8.9 (8.5-10.1) mg/dL Total Bilirubin 0.3 (0.2-1.0) mg/dL AST 41 H (15-37) U/L ALT 42 (16-63) U/L Alkaline Phosphatase 74 (46-116) U/L Lactate Dehydrogenase (85-227) U/L Troponin I < 0.017 (0.00-0.056) ng/mL C-Reactive Protein (<1.0) mg/dL NT-Pro-B Natriuret Pep 402 (0-450) pg/mL Total Protein 6.0 L (6.4-8.2) g/dl Albumin 2.0 L (3.4-5.0) g/dl Globulin 4.0 gm/dL Albumin/Globulin Ratio 0.5 L (1-2) Triglycerides (<150) mg/dL Cholesterol (<200) mg/dL Lipase (73-393) U/L Procalcitonin (<0.10) ng/mL 07/26/19 07/26/19 07/26/19 Range/Units 10:20 10:20 10:20 WBC (4.23-9.07) K/mm3 RBC (4.63-6.08) M/mm3 Hgb (13.7-17.5) gm/dl Hct (40.1-51.0) % MCV (79.0-92.2) fl MCH (25.7-32.2) pg MCHC (32.2-35.5) g/dl RDW Std Deviation (35.1-43.9) fL Plt Count (163-337) K/mm3 MPV (9.4-12.3) fl Neutrophils % (Manual) (40-60) % Band Neutrophils % (0-10) % Lymphocytes % (Manual) (20-40) % Atypical Lymphs % % Monocytes % (Manual) (2-10) % Eosinophils % (Manual) (0.8-7.0) % Basophils % (Manual) (0.2-1.2) Platelet Estimate Plt Morphology Comment Anisocytosis RBC Morph Comment PT 10.9 (9.7-12.0) SECONDS INR 1.00 APTT 30 (22-31) SECONDS Sodium (136-145) mEq/L Potassium (3.5-5.1) mEq/L Chloride (98-107) mEq/L Carbon Dioxide (21-32) mEq/L Anion Gap (5-15) BUN (7-18) mg/dL Creatinine (0.7-1.3) mg/dL Est Cr Clr Drug Dosing mL/min Estimated GFR (MDRD) (>60) mL/min BUN/Creatinine Ratio (14-18) Glucose (83-115) mg/dL Lactic Acid (0.4-2.0) mmol/L Calcium (8.5-10.1) mg/dL Total Bilirubin (0.2-1.0) mg/dL AST (15-37) U/L ALT (16-63) U/L Alkaline Phosphatase (46-116) U/L Lactate Dehydrogenase (85-227) U/L Troponin I (0.00-0.056) ng/mL C-Reactive Protein 17.2 H* (<1.0) mg/dL NT-Pro-B Natriuret Pep (0-450) pg/mL Total Protein (6.4-8.2) g/dl Albumin (3.4-5.0) g/dl Globulin gm/dL Albumin/Globulin Ratio (1-2) Triglycerides (<150) mg/dL Cholesterol (<200) mg/dL Lipase 163 (73-393) U/L Procalcitonin 0.13 H (<0.10) ng/mL 07/26/19 07/26/19 07/26/19 Range/Units 10:20 10:20 12:42 WBC (4.23-9.07) K/mm3 RBC (4.63-6.08) M/mm3 Hgb (13.7-17.5) gm/dl Hct (40.1-51.0) % MCV (79.0-92.2) fl MCH (25.7-32.2) pg MCHC (32.2-35.5) g/dl RDW Std Deviation (35.1-43.9) fL Plt Count (163-337) K/mm3 MPV (9.4-12.3) fl Neutrophils % (Manual) (40-60) % Band Neutrophils % (0-10) % Lymphocytes % (Manual) (20-40) % Atypical Lymphs % % Monocytes % (Manual) (2-10) % Eosinophils % (Manual) (0.8-7.0) % Basophils % (Manual) (0.2-1.2) Platelet Estimate Plt Morphology Comment Anisocytosis RBC Morph Comment PT (9.7-12.0) SECONDS INR APTT (22-31) SECONDS Sodium (136-145) mEq/L Potassium (3.5-5.1) mEq/L Chloride (98-107) mEq/L Carbon Dioxide (21-32) mEq/L Anion Gap (5-15) BUN (7-18) mg/dL Creatinine (0.7-1.3) mg/dL Est Cr Clr Drug Dosing mL/min Estimated GFR (MDRD) (>60) mL/min BUN/Creatinine Ratio (14-18) Glucose (83-115) mg/dL Lactic Acid 0.9 (0.4-2.0) mmol/L Calcium (8.5-10.1) mg/dL Total Bilirubin (0.2-1.0) mg/dL AST (15-37) U/L ALT (16-63) U/L Alkaline Phosphatase (46-116) U/L Lactate Dehydrogenase 357 H (85-227) U/L Troponin I (0.00-0.056) ng/mL C-Reactive Protein (<1.0) mg/dL NT-Pro-B Natriuret Pep (0-450) pg/mL Total Protein (6.4-8.2) g/dl Albumin (3.4-5.0) g/dl Globulin gm/dL Albumin/Globulin Ratio (1-2) Triglycerides 94 (<150) mg/dL Cholesterol 158 (<200) mg/dL Lipase (73-393) U/L Procalcitonin (<0.10) ng/mL Meds: Medications Discontinued Medications Generic Name Dose Route Start Last Admin Trade Name Freq PRN Reason Stop Dose Admin Acetaminophen/Codeine Phosphate 2 tab 07/26/19 16:50 07/27/19 08:01 Tylenol With Codeine No.3 300mg/30mg PO 2 tab Q6H PRN Administration Pain (mild 1-3) Albuterol 0 gm 07/27/19 08:08 Proventil Hfa INH Q4H PRN wheeze Albuterol/Ipratropium 3 ml 07/26/19 17:37 07/26/19 17:45 Duoneb 3.0-0.5 Mg/3 Ml NEB 06/01/20 17:38 3 ml ONETIME ONE Administration Diatrizoate Meglum/Diatrizoate Sod 120 ml 07/26/19 13:12 07/26/19 15:25 Gastrografin 37% PO 07/26/19 13:13 120 ml ONETIME ONE Administration Docusate Sodium 100 mg 07/27/19 09:00 07/27/19 09:27 Colace PO 100 mg BID OBED Administration Hydromorphone HCl 0.25 mg 07/26/19 12:35 07/26/19 12:44 Dilaudid IVPUSH 07/26/19 12:36 0.25 mg ONETIME ONE Administration Sodium Chloride 1,000 mls @ 125 mls/hr 07/26/19 12:45 07/26/19 12:45 Normal Saline IV 125 mls/hr ASDIRECTED OBED Administration Lactated Ringer's 1,000 mls @ 125 mls/hr 07/26/19 17:00 07/27/19 02:17 Ringers, Lactated IV 125 mls/hr ASDIRECTED OBED Administration Lactulose 20 gm 07/26/19 15:30 07/26/19 16:08 Cephulac PO 07/26/19 15:31 20 gm ONETIME ONE Administration Magnesium Citrate 150 ml 07/26/19 15:30 07/26/19 16:08 Citrate Of Magnesia PO 07/26/19 15:31 150 ml ONETIME ONE Administration Magnesium Oxide 400 mg 07/27/19 09:00 07/27/19 09:27 Magnesium Oxide PO 400 mg BID OBED Administration Metoclopramide HCl 7.5 mg 07/26/19 12:35 07/26/19 12:43 Reglan IVPUSH 07/26/19 12:36 7.5 mg ONETIME ONE Administration Miscellaneous Information 0 ea 07/28/19 09:00 Remove Patch TRDERM DAILY [facility] Morphine Sulfate 2 mg 07/26/19 16:50 07/26/19 17:31 Morphine IVPUSH 07/27/19 16:55 2 mg Q2H PRN Administration Pain (severe 7-10) Nicotine 21 mg 07/27/19 09:00 07/27/19 08:00 Habitrol TRDERM Not Given DAILY [facility] Ondansetron HCl 4 mg 07/26/19 16:50 Zofran IV Q6H PRN Nausea/Vomiting Oxycodone HCl 10 mg 07/26/19 16:50 07/27/19 14:59 Oxycodone PO 10 mg Q4H PRN Administration Pain (moderate 4-6) Polyethylene Glycol 17 gm 07/27/19 09:00 07/27/19 09:27 Miralax PO 17 gm BID OBED Administration Senna 17.2 mg 07/27/19 11:00 07/27/19 11:21 Senna PO 17.2 mg BID OBED Administration - Re-Assessments/Exams Free Text/Narrative Re-Assessment/Exam: 07/26/19 12:[address] Liao at change of shift. Patient is in the ED primarily because of abdominal pain and inability to have a bowel movement for the last 4 days. Was recently hospitalized last week and required disimpaction of his ostomy and josh dismpaction. -- believe through a red rectal tube introduced into the ostomy. Bowels are working well until he went home and then he has become constipated once again. X-rays of the chest reveal recurrence of a moderate right-sided pleural effusion which takes up 45 to 50% of the right lung field. The left lung is clear. The abdomen shows a hernia which is easily reducible medial to the colostomy in the right yoselyn-abdomen in the midline. The ostomy otherwise looks okay. It is in the left mid lower quadrant. Bowel sounds are active. X-rays of the abdomen reveal a large dilated segment of colon in the left upper quadrant of the abdomen. There is scattered air throughout slightly dilated loops of small bowel as well in the mid abdomen suggestive of partial bowel obstruction. Plan patient will be given Dilaudid 0.25 mg IV for pain relief with Reglan 7.5 mg IV. I am going to give him oral contrast and then CT his abdomen to see if there is a true obstruction of the colon i.e. a twist. This may relieve the constipation with oral contrast alone if not I will give him an enema through his ostomy. Dr. Liao had spoken with Dr. Mayo -on-call surgeon and she is requested the patient be admitted via hospitalist and she will consult. 07/26/19 13:04 [address] able to place approximately 30 mils of Fleet enema into his ostomy. I could not palpate any stool in the initial 3 inches of the colon or at least the length of my index finger. Small amount of liquid stool in the ostomy bag which he states has developed over the last 6 hours. 07/26/19 15:12 CT of the abdomen and pelvis has been completed with oral contrast only. There is a moderate right-sided pleural effusion seen. Areas of consolidation are seen within the right lower lung. Left lung is clear. Diffuse emphysematous changes are appreciated. CT of the abdomen shows liver to show no discrete abnormalities. Spleen shows normal note no abnormalities. Adrenal glands show no nodules. Mid and distal abdominal aortic aneurysm is seen measuring 4.5 cm in greatest dimension. This appears similar to previous exam. Kidneys show no abnormality calcifications. Slight vascular calcification is believed to be present. No retroperitoneal adenopathy or mesenteric abnormalities are seen. Ostomy is noted within the left lower abdomen. Probable peristomal hernia is appreciated. Contrast is noted within the small bowel which is slightly prominent in size but no findings of small bowel obstruction are seen. Increased stool is noted within the right hemicolon. Anterior abdominal wall hernia is seen containing a loop of contrast-filled small bowel. No pelvic mass or adenopathy is seen. I will discuss the case with on-call hospitalist Dr. Quintanilla per Dr. Mayo`s request. 07/26/19 15:26 When I check with the patient and his daughter he is starting to pass some flatus into his ostomy bag. he is hungry and asking for something to eat as he has not eaten since yesterday. He is requesting some carbone and eggs in order to see what we can have the kitchen with up for him. I am going to give him 20 g of lactulose mixed with a ounces of magnesium citrate to provide bowel cleanse. These compounds should cause an excess amount of abdominal cramping. We mixed with 6 ounces of Gatorade or Powerade. Present he states the pain is pretty well controlled. Departure - Departure Time of Disposition: 17:00 Disposition: Admitted As Inpatient 67 Condition: Poor Clinical Impression: Recurrent right pleural effusion, Constipation by delayed colonic transit Cancer of right lung Qualifiers: Lung location: lower lobe of lung Qualified Code(s): C34.31 - Malignant neoplasm of lower lobe, right bronchus or lung - Discharge Information Sepsis Event Note - Focused Exam Date Exam was Performed: 07/28/19 Time Exam was Performed: 07:49 <Prakash Liao - Last Filed: 07/28/19 20:02> ED HPI GENERAL MEDICAL PROBLEM - General Source of Information: Reports: Patient, Family (Daughter) History Limitations: Reports: No Limitations - History of Present Illness INITIAL COMMENTS - FREE TEXT/NARRATIVE: Mr. 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 He also has not had any stool output from his ostomy site since approximately , 07/22/2019. The patient had previously had a right -sided chest tube placed for a pleural effusion, but the patient's daughter tells me that it was removed 6 days ago, 07/20/2019. Other than the dyspnea and possible constipation, the patient denies recent fever, chills, sore throat, ear pain, nasal or sinus congestion, cough, chest pain, palpitations, nausea, vomiting, diarrhea, abdominal pain, urinary symptoms , recent weight gain or weight loss, recent bloody bowel movements or black bowel movements, recent joint aches, headaches, or rashes. Here in the ED, the patient is found to be slightly tachypneic at 22 rpm, otherwise, he is hemodynamically stable, afebrile, saturating 97% on 3 L of oxygen per nasal cannula. The patient's PCP is Yumi Buenrostro NP. His Oncologist is Dr. Suleman Swan. His Surgeon is Dr. Allen Thornton. Abdominal Pain Score (Numeric/FACES): 5 Past Medical History Respiratory History: Reports: COPD (3L O2 continuously) Gastrointestinal History: Reports: Diverticulosis (perforated diverticulitis around 2009) Genitourinary History: Reports: BPH (untreated) Musculoskeletal History: Reports: Fracture (left clavicle) Oncologic (Cancer) History: Reports: Lung (small cell) - Infectious Disease History Infectious Disease History: Reports: Chicken Pox, Influenza, Measles - Past Surgical History HEENT Surgical History: Reports: Tonsillectomy GI Surgical History: Reports: Appendectomy (incidental, arond 2009), Colon ( hemicolectomy around 2009), Colostomy (around 2009) Social & Family History - Family History Family Medical History: Noncontributory - Tobacco Use Smoking Status *Q: Former Smoker Tobacco Use Within Last Twelve Months: Cigars (1-2 per day) Years of Tobacco use: 46 Packs/Tins Daily: 1 Month/Year Tobacco Last Used: Quit around 2004 - Caffeine Use Caffeine Use: Reports: Coffee Other Caffeine Use: 1 pot a day - Alcohol Use Alcohol Use History: Yes Alcohol Use Frequency: Rarely - Recreational Drug Use Recreational Drug Use: No - Living Situation & Occupation Living situation: Reports: , Alone Occupation: Retired ED ROS GENERAL - Review of Systems Review Of Systems: Comprehensive ROS is negative, except as noted in HPI. ED EXAM, GENERAL - Physical Exam Exam: See Below Exam Limited By: No Limitations General Appearance: Alert, No Apparent Distress, Thin Eye Exam: Bilateral Eye: EOMI, Normal Inspection Ears: Normal External Exam, Hearing Grossly Normal Nose: Normal Inspection Throat/Mouth: Normal Inspection, Normal Lips, Normal Voice, No Airway Compromise Head: Atraumatic, Normocephalic Neck: Normal Inspection, Full Range of Motion Respiratory/Chest: No Respiratory Distress, Lungs Clear, Normal Breath Sounds, No Accessory Muscle Use Cardiovascular: Normal Peripheral Pulses, Regular Rate, Rhythm, No Edema, No Gallop, No JVD, No Murmur, No Rub Peripheral Pulses: 3+: Radial (L), Radial (R) GI/Abdominal: Normal Bowel Sounds, Soft, Non-Tender, No Organomegaly, No Distention, No Abnormal Bruit, No Mass, Other (There is a colostomy to the left abdomen. There is an easily reducible hernia immediately associated with the colostomy site. 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4-12.3) fl Neutrophils % (Manual) 81 H (40-60) % Band Neutrophils % 0 (0-10) % Lymphocytes % (Manual) 12 L (20-40) % Atypical Lymphs % 0 % Monocytes % (Manual) 7 (2-10) % Eosinophils % (Manual) 0 L (0.8-7.0) % Basophils % (Manual) 0 L (0.2-1.2) Platelet Estimate Adequate Plt Morphology Comment Normal Anisocytosis 1+ slight RBC Morph Comment Not Reportable PT (9.7-12.0) SECONDS INR APTT (22-31) SECONDS Sodium 139 (136-145) mEq/L Potassium 4.4 (3.5-5.1) mEq/L Chloride 103 (98-107) mEq/L Carbon Dioxide 29 (21-32) mEq/L Anion Gap 11.4 (5-15) BUN 18 (7-18) mg/dL Creatinine 1.0 (0.7-1.3) mg/dL Est Cr Clr Drug Dosing 54.77 mL/min Estimated GFR (MDRD) > 60 (>60) mL/min BUN/Creatinine Ratio 18.0 (14-18) Glucose 100 (83-115) mg/dL Lactic Acid (0.4-2.0) mmol/L Calcium 8.9 (8.5-10.1) mg/dL Total Bilirubin 0.3 (0.2-1.0) mg/dL AST 41 H (15-37) U/L ALT 42 (16-63) U/L Alkaline Phosphatase 74 (46-116) U/L Lactate Dehydrogenase (85-227) U/L Troponin I < 0.017 (0.00-0.056) ng/mL C-Reactive Protein (<1.0) mg/dL NT-Pro-B Natriuret Pep 402 (0-450) pg/mL Total Protein 6.0 L (6.4-8.2) g/dl Albumin 2.0 L (3.4-5.0) g/dl Globulin 4.0 gm/dL Albumin/Globulin Ratio 0.5 L (1-2) Triglycerides (<150) mg/dL Cholesterol (<200) mg/dL Lipase (73-393) U/L Procalcitonin (<0.10) ng/mL 07/26/19 07/26/19 07/26/19 Range/Units 10:20 10:20 10:20 WBC (4.23-9.07) K/mm3 RBC (4.63-6.08) M/mm3 Hgb (13.7-17.5) gm/dl Hct (40.1-51.0) % MCV (79.0-92.2) fl MCH (25.7-32.2) pg MCHC (32.2-35.5) g/dl RDW Std Deviation (35.1-43.9) fL Plt Count (163-337) K/mm3 MPV (9.4-12.3) fl Neutrophils % (Manual) (40-60) % Band Neutrophils % (0-10) % Lymphocytes % (Manual) (20-40) % Atypical Lymphs % % Monocytes % (Manual) (2-10) % Eosinophils % (Manual) (0.8-7.0) % Basophils % (Manual) (0.2-1.2) Platelet Estimate Plt Morphology Comment Anisocytosis RBC Morph Comment PT 10.9 (9.7-12.0) SECONDS INR 1.00 APTT 30 (22-31) SECONDS Sodium (136-145) mEq/L Potassium (3.5-5.1) mEq/L Chloride (98-107) mEq/L Carbon Dioxide (21-32) mEq/L Anion Gap (5-15) BUN (7-18) mg/dL Creatinine (0.7-1.3) mg/dL Est Cr Clr Drug Dosing mL/min Estimated GFR (MDRD) (>60) mL/min BUN/Creatinine Ratio (14-18) Glucose (83-115) mg/dL Lactic Acid (0.4-2.0) mmol/L Calcium (8.5-10.1) mg/dL Total Bilirubin (0.2-1.0) mg/dL AST (15-37) U/L ALT (16-63) U/L Alkaline Phosphatase (46-116) U/L Lactate Dehydrogenase (85-227) U/L Troponin I (0.00-0.056) ng/mL C-Reactive Protein 17.2 H* (<1.0) mg/dL NT-Pro-B Natriuret Pep (0-450) pg/mL Total Protein (6.4-8.2) g/dl Albumin (3.4-5.0) g/dl Globulin gm/dL Albumin/Globulin Ratio (1-2) Triglycerides (<150) mg/dL Cholesterol (<200) mg/dL Lipase 163 (73-393) U/L Procalcitonin 0.13 H (<0.10) ng/mL 07/26/19 07/26/19 07/26/19 Range/Units 10:20 10:20 12:42 WBC (4.23-9.07) K/mm3 RBC (4.63-6.08) M/mm3 Hgb (13.7-17.5) gm/dl Hct (40.1-51.0) % MCV (79.0-92.2) fl MCH (25.7-32.2) pg MCHC (32.2-35.5) g/dl RDW Std Deviation (35.1-43.9) fL Plt Count (163-337) K/mm3 MPV (9.4-12.3) fl Neutrophils % (Manual) (40-60) % Band Neutrophils % (0-10) % Lymphocytes % (Manual) (20-40) % Atypical Lymphs % % Monocytes % (Manual) (2-10) % Eosinophils % (Manual) (0.8-7.0) % Basophils % (Manual) (0.2-1.2) Platelet Estimate Plt Morphology Comment Anisocytosis RBC Morph Comment PT (9.7-12.0) SECONDS INR APTT (22-31) SECONDS Sodium (136-145) mEq/L Potassium (3.5-5.1) mEq/L Chloride (98-107) mEq/L Carbon Dioxide (21-32) mEq/L Anion Gap (5-15) BUN (7-18) mg/dL Creatinine (0.7-1.3) mg/dL Est Cr Clr Drug Dosing mL/min Estimated GFR (MDRD) (>60) mL/min BUN/Creatinine Ratio (14-18) Glucose (83-115) mg/dL Lactic Acid 0.9 (0.4-2.0) mmol/L Calcium (8.5-10.1) mg/dL Total Bilirubin (0.2-1.0) mg/dL AST (15-37) U/L ALT (16-63) U/L Alkaline Phosphatase (46-116) U/L Lactate Dehydrogenase 357 H (85-227) U/L Troponin I (0.00-0.056) ng/mL C-Reactive Protein (<1.0) mg/dL NT-Pro-B Natriuret Pep (0-450) pg/mL Total Protein (6.4-8.2) g/dl Albumin (3.4-5.0) g/dl Globulin gm/dL Albumin/Globulin Ratio (1-2) Triglycerides 94 (<150) mg/dL Cholesterol 158 (<200) mg/dL Lipase (73-393) U/L Procalcitonin (<0.10) ng/mL Meds: Medications Discontinued Medications Generic Name Dose Route Start Last Admin Trade Name Freq PRN Reason Stop Dose Admin Acetaminophen/Codeine Phosphate 2 tab 07/26/19 16:50 07/27/19 08:01 Tylenol With Codeine No.3 300mg/30mg PO 2 tab Q6H PRN Administration Pain (mild 1-3) Albuterol 0 gm 06/02/20 08:08 Proventil Hfa INH Q4H PRN wheeze Albuterol/Ipratropium 3 ml 07/26/19 17:37 07/26/19 17:45 Duoneb 3.0-0.5 Mg/3 Ml NEB 07/26/19 17:38 3 ml ONETIME ONE Administration Diatrizoate Meglum/Diatrizoate Sod 120 ml 07/26/19 13:12 07/26/19 15:25 Gastrografin 37% PO 07/26/19 13:13 120 ml ONETIME ONE Administration Docusate Sodium 100 mg 07/27/19 09:00 07/27/19 09:27 Colace PO 100 mg BID OBED Administration Hydromorphone HCl 0.25 mg 07/26/19 12:35 07/26/19 12:44 Dilaudid IVPUSH 07/26/19 12:36 0.25 mg ONETIME ONE Administration Sodium Chloride 1,000 mls @ 125 mls/hr 07/26/19 12:45 07/26/19 12:45 Normal Saline IV 125 mls/hr ASDIRECTED OBED Administration Lactated Ringer's 1,000 mls @ 125 mls/hr 07/26/19 17:00 07/27/19 02:17 Ringers, Lactated IV 125 mls/hr ASDIRECTED OBED Administration Lactulose 20 gm 07/26/19 15:30 07/26/19 16:08 Cephulac PO 07/26/19 15:31 20 gm ONETIME ONE Administration Magnesium Citrate 150 ml 07/26/19 15:30 07/26/19 16:08 Citrate Of Magnesia PO 07/26/19 15:31 150 ml ONETIME ONE Administration Magnesium Oxide 400 mg 07/27/19 09:00 07/27/19 09:27 Magnesium Oxide PO 400 mg BID OBED Administration Metoclopramide HCl 7.5 mg 07/26/19 12:35 07/26/19 12:43 Reglan IVPUSH 07/26/19 12:36 7.5 mg ONETIME ONE Administration Miscellaneous Information 0 ea 07/28/19 09:00 Remove Patch TRDERM DAILY OBED Morphine Sulfate 2 mg 07/26/19 16:50 07/26/19 17:31 Morphine IVPUSH 07/27/19 16:55 2 mg Q2H PRN Administration Pain (severe 7-10) Nicotine 21 mg 07/27/19 09:00 07/27/19 08:00 Habitrol TRDERM Not Given DAILY OBED Ondansetron HCl 4 mg 07/26/19 16:50 Zofran IV Q6H PRN Nausea/Vomiting Oxycodone HCl 10 mg 07/26/19 16:50 07/27/19 14:59 Oxycodone PO 10 mg Q4H PRN Administration Pain (moderate 4-6) Polyethylene Glycol 17 gm 07/27/19 09:00 07/27/19 09:27 Miralax PO 17 gm BID OBED Administration Senna 17.2 mg 07/27/19 11:00 07/27/19 11:21 Senna PO 17.2 mg BID OBED Administration - Re-Assessments/Exams Free Text/Narrative Re-Assessment/Exam: 07/26/19 10:07 As above, the patient has chronic dyspnea that he reports to be worse over the past few days, along with possible constipation with no stool output from his colostomy for the past 4 days. I have ordered a work-up that includes blood work, a chest x-ray, an upright abdominal x-ray, and an ECG. 07/26/19 11:07 Two-view chest radiograph reviewed. The cardiac silhouette is within normal limits. No pulmonary vascular congestion. There is a moderate sized pleural effusion on the right, with likely atelectasis at the right lung base. No focal infiltrate. No pneumothorax. Formal read per the Radiologist pending. 07/26/19 11:10 Upright radiograph of the abdomen is read by Dr. Colon as: 1. Findings suspicious for mid small bowel obstruction. 07/26/19 11:42 With respect to the patient's dyspnea, I do not believe that anything needs to be done at this time. His pleural effusion is not large enough to warrant immediate drainage, and his oxygen requirements are no greater than his baseline. With respect to the patient's constipation, as above, he may have a small bowel obstruction. Dr. Thornton is not on today, but I will discuss the case with Dr. Mayo. 07/26/19 12:[address] Mayo at 12:13. She recommended that the patient be admitted to the Hospitalist, with her on consult. Case discussed with Dr. Toledo, and care of the patient turned over to him at this time, for change of shift. He will arrange for the patient to be admitted. Departure - Discharge Information *PRESCRIPTION DRUG MONITORING PROGRAM REVIEWED*: Not Applicable *COPY OF PRESCRIPTION DRUG MONITORING REPORT IN PATIENT DA: Not Applicable Sepsis Event Note - Evaluation Sepsis Screening Result: No Definite Risk - Focused Exam Date Exam was Performed: 07/28/19 Time Exam was Performed: 20:02
--- NOTE | 2019-07-26 10:49 | CR ---
Abdomen: This upright view of the abdomen was obtained. Comparison: Prior abdominal x-ray of 06/05/09. Small bowel gas is noted with small bowel dilatation. Findings are suspicious for mid small bowel obstruction. No free air is seen. Bony structures are osteopenic with mild degenerative change within the spine. Colostomy noted overlying the left pelvis. Impression: 1. Findings suspicious for mid small bowel obstruction. Diagnostic code #3 This report was dictated in MDT
--- NOTE | 2019-07-26 10:50 | CR ---
Chest: 2 views of the chest were obtained. Comparison: Prior chest x-ray of 07/20/19. Elevated right hemidiaphragm is seen. Difficult to exclude loculated pleural effusion. Increased parenchymal density within the right chest is seen which appears slightly improved from previous exam. Heart size does not appear enlarged. Left lung is clear. Bony structures are grossly intact. Impression: 1. Elevated right hemidiaphragm, difficult to exclude loculated pleural effusion within the right lung base. 2. Increased parenchymal density which is felt to be slightly improved from previous exam. Diagnostic code #3 This report was dictated in MDT
[2019-07-26] MEDS ORDERED: Metoclopramide 10 MG/2 ML SDV IVPUSH ONE (12:35)
[2019-07-26] MEDS ORDERED: HYDROmorphone 0.5 MG/0.5 ML Syringe IVPUSH ONE (12:35)
[2019-07-26] MEDS ORDERED: Sodium Chloride 0.9% 1,000 ML IV SCH (12:45)
[2019-07-26] MEDS ORDERED: Diatrizoate Meglumine/Diatrizoate Sodium 37% 120 ML Bottle PO ONE (13:12)
--- NOTE | 2019-07-26 14:33 | CT ---
CT abdomen and pelvis Technique: Multiple axial sections were obtained from above the dome of the diaphragm inferiorly through the pubic symphysis. Intravenous contrast was not utilized. Oral contrast has been given. Findings: Prior CT abdomen and pelvis exam of 07/18/19. Mild to moderate right-sided pleural effusion is seen. Areas of consolidation is seen within the right lower lung. Left lung is clear. Diffuse emphysematous change is seen. Liver shows no discrete abnormality. Spleen shows no discrete abnormality. Adrenal glands show no nodule. Mid and distal abdominal aortic aneurysm is seen measuring 4.5 cm. This appears similar to previous exam. Kidneys show no abnormal calcifications. Slight vascular calcification is believed to be present. No retroperitoneal adenopathy or mesenteric abnormalities are seen. Ostomy is noted within the left lower abdomen. Probable peristomal hernia is seen. Contrast is noted within small bowel which show slightly prominent size but no findings of small bowel obstruction are seen. Increased stool is noted within the right colon. Anterior abdominal wall hernia is seen containing loop of contrast-filled small bowel. No pelvic mass or adenopathy is seen. Bone window settings were reviewed which shows degenerative change spine. Impression: 1. Anterior abdominal wall hernia containing a loop of small bowel showing contrast. Probable peristomal hernia is noted next to ostomy site. 2. Slightly prominent size of small bowel but no findings of small bowel obstruction is seen. 3. Mild to moderate right-sided pleural effusion with consolidation within portions of the right lung base. Emphysematous change is seen within both lungs. 4. Stable abdominal aortic aneurysm. Diagnostic code #3 This report was dictated in MDT
[2019-07-26] MEDS ORDERED: Magnesium Citrate Solution 296 ML Bottle PO ONE (15:30)
[2019-07-26] MEDS ORDERED: Lactulose Soln 10 GM/15 ML 30 ML UD Cup PO ONE (15:30)
[2019-07-26] MEDS ORDERED: Morphine 2 MG/ML Syringe IVPUSH PRN (16:50)
[2019-07-26] MEDS ORDERED: oxyCODONE 5 MG Tab PO PRN (16:50)
[2019-07-26] MEDS ORDERED: Ondansetron 4 MG/2 ML SDV IV PRN (16:50)
--- NOTE | 2019-07-26 17:02 | PCM.HP.2 ---
H&P History of Present Illness - General Date of Service: 07/26/19 Admit Problem/Dx: Admission Diagnosis/Problem Admission Diagnosis/Problem Constipation - History of Present Illness Initial Comments - Free Text/Narative: Mr. 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 He also has not had any stool output from his ostomy site since approximately , 07/22/2019. The patient had previously had a right -sided chest tube placed for a pleural effusion, but the patient's daughter tells me that it was removed 6 days ago, 07/20/2019. Other than the dyspnea and possible constipation, the patient denies recent fever, chills, sore throat, ear pain, nasal or sinus congestion, cough, chest pain, palpitations, nausea, vomiting, diarrhea, abdominal pain, urinary symptoms , recent weight gain or weight loss, recent bloody bowel movements or black bowel movements, recent joint aches, headaches, or rashes. Here in the ED, the patient is found to be slightly tachypneic at 22 rpm, otherwise, he is hemodynamically stable, afebrile, saturating 97% on 3 L of oxygen per nasal cannula. Abdominal Pain Score (Numeric/FACES): 5 - Related Data Allergies/Adverse Reactions: Allergies Allergy/AdvReac Type Severity Reaction Status Date / Time ciprofloxacin [From Cipro] Allergy Rash Verified 07/26/19 09:47 ciprofloxacin HCl Allergy Rash Verified 07/26/19 09:47 [From Cipro] shellfish derived Allergy Rash Verified 07/26/19 09:47 Home Medications: Home Meds Albuterol [Proventil HFA] 2 puff IH Q4H PRN 07/20/19 [History] Fluticasone/Salmeterol [Advair 250-50] 1 puff IH BID 07/20/19 [History] Docusate Sodium [Colace] 100 mg PO BID #30 capsule 07/22/19 [Rx] polyethylene glycoL 3350 [MiraLAX] 17 gm PO BID #30 packet 07/22/19 [Rx] oxyCODONE 5 mg PO Q6H PRN 07/26/19 [History] Past Medical History Cardiovascular History: Reports: SOB on Exertion Respiratory History: Reports: COPD (3L O2 continuously) Other Respiratory History: reports fluid on his lungs and in testing stages for lung cancer. on 3L/NC at home Gastrointestinal History: Reports: Diverticulosis (perforated diverticulitis around 2009) Other Gastrointestinal History: diverticulitis Genitourinary History: Reports: BPH (untreated) Musculoskeletal History: Reports: Fracture (left clavicle) Oncologic (Cancer) History: Reports: Lung (small cell) Other Oncologic History: in the early stages of receiving Lung cancer diagnosis. stated he will find out his diagnosis next week - Infectious Disease History Infectious Disease History: Reports: Chicken Pox, Influenza, Measles - Past Surgical History HEENT Surgical History: Reports: Tonsillectomy GI Surgical History: Reports: Appendectomy (incidental, arond 2009), Colon ( hemicolectomy around 2009), Colostomy (around 2009) Social & Family History - Family History Family Medical History: Noncontributory - Tobacco Use Smoking Status *Q: Former Smoker Years of Tobacco use: 46 Packs/Tins Daily: 1 Month/Year Tobacco Last Used: Quit around 2004 - Caffeine Use Caffeine Use: Reports: Coffee Other Caffeine Use: 1 pot a day - Recreational Drug Use Recreational Drug Use: No - Living Situation & Occupation Living situation: Reports: , Alone Occupation: Retired H&P Review of Systems - Review of Systems: Review Of Systems: See Below Exam - Exam Exam: See Below - Vital Signs Vital Signs: Last Vital Signs Temp 99.5 F 07/26/19 09:43 Pulse 86 07/26/19 09:43 Resp 22 H 07/26/19 09:43 BP 110/74 07/26/19 09:43 Pulse Ox 97 07/26/19 09:43 Weight: 62.596 kg - Exam Quality Assessment: Supplemental Oxygen General: Alert, Oriented, Cooperative, Moderate Distress, Severe Distress, Other (bitemporal muscle wasting) HEENT: Conjunctiva Clear, EACs Clear, EOMI, Mucosa Moist & Tomas De Castro, Other (eyes sunken in). No: Hearing Intact Neck: Supple, Trachea Midline, +2 Carotid Pulse wo Bruit, Full Range of Motion. No: Lymphadenopathy Lungs: Other (intercostal muscle wasting, unable to asucultate sounds on R lung field; left lung field with crackles throughout, no wheezing, audible gargling cough, unable to expectorate) Cardiovascular: Regular Rate, Regular Rhythm, Other (unable to auscultate clearly over constant coughing) GI/Abdominal Exam: Other (Left hemiabdomen colostomy, no lesions visible, colostomy bag is empty, audible BS, no tenderness to palpation) Extremities: Slow Capillary Refill. No: Normal Inspection (significant muscle wasting) Peripheral Pulses: 2+: Radial (L), Radial (R) Skin: Dry, Cool - Patient Data Result Diagrams: 07/26/19 10:20 07/26/19 10:20 Sepsis Event Note - Evaluation Sepsis Screening Result: No Definite Risk - Problem List (1) Colostomy complication SNOMED Code(s): 86926200602477 ICD Code: K94.00 - COLOSTOMY COMPLICATION, UNSPECIFIED Status: Acute Current Visit: No (2) Constipation SNOMED Code(s): 71772928 ICD Code: K59.00 - CONSTIPATION, UNSPECIFIED Status: Acute Current Visit : No (3) Colostomy in place SNOMED Code(s): 151946388, 372137329 ICD Code: Z93.3 - COLOSTOMY STATUS Status: Acute Current Visit: Yes (4) Small cell lung cancer SNOMED Code(s): 056967627 ICD Code: C34.90 - MALIGNANT NEOPLASM OF UNSP PART OF UNSP BRONCHUS OR LUNG Status: Acute Current Visit: Yes (5) Recurrent right pleural effusion SNOMED Code(s): 14044467, 61813410 ICD Code: J90 - PLEURAL EFFUSION, NOT ELSEWHERE CLASSIFIED Status: Acute Current Visit: Yes (6) Chronic hypoxemic respiratory failure SNOMED Code(s): 794520611 ICD Code: J96.11 - CHRONIC RESPIRATORY FAILURE WITH HYPOXIA Status: Acute Current Visit: Yes (7) Abnormal weight loss SNOMED Code(s): 982049193 ICD Code: R63.4 - ABNORMAL WEIGHT LOSS Status: Acute Current Visit: Yes (8) Cigar smoker SNOMED Code(s): 71653363 ICD Code: F17.290 - NICOTINE DEPENDENCE, OTHER TOBACCO PRODUCT, UNCOMPLICATED Status: Acute Current Visit: Yes (9) Macrocytic anemia SNOMED Code(s): 74881613 ICD Code: D53.9 - NUTRITIONAL ANEMIA, UNSPECIFIED Status: Acute Current Visit: Yes (10) Cachexia SNOMED Code(s): 803380307 ICD Code: R64 - CACHEXIA Status: Acute Current Visit: Yes (11) Ascites SNOMED Code(s): 745639374 ICD Code: R18.8 - OTHER ASCITES Status: Acute Current Visit: Yes Problem List Initiated/Reviewed/Updated: Yes Assessment/Plan Comment:: ASSESSMENT - Worsening shortness of breath and no bowel movements - Once in ED CXR and KUB ordered --> result with possible SBO - CT abdomen without obstruction - 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 - Had an episode of constipation about a week ago for which he came to the ED and required disimpaction by surgery - He was discharged and that day was the last BM he had - Digital examination of colostomy negative for stool - CT abdomen with significant coprostasis, however this is not close to the ostomy location - Given fleet enema and magnesium citrate in ED - Patient had been having worsening shortness of breath for which he was evaluated as an outpatient - Biopsy performed - Diagnosis of small cell lung cancer made 5 days ago - Scheduled appointment with oncology within the next couple of days - Has been having thoracentesis in the past month x 2--> no results were given to family Colostomy complication Constipation - Fleet enema and magnesium citrate - If no response will give Golytely Small cell lung cancer Recurrent right pleural effusion Chronic hypoxemic respiratory failure Abnormal weight loss Cachexia Cigar smoker - Request records - Consult Dr. Swan to see if patient can get some of the imaging needed during admission - Continue O2 via NC - RT assessment and treatment - PRN DuoNebs - Monitor pulse oximetry - Thoracentesis - Dietary consult Macrocytic anemia - Work up PROPHYLAXIS: DVT- compression stockings GI- not indicated CODE STATUS: FULL CODE DISPOSITION: Patient will be admitted to medical floor for thoracentesis as well as laxatives. Lives in [place] by himself. Fully independent in ADLs and IADLs - Mortality Measure Prognosis:: Poor
[2019-07-26] MEDS ORDERED: Albuterol/Ipratropium 3.0-0.5 MG/3 ML Neb Soln NEB ONE (17:37)
--- NOTE | 2019-07-26 18:13 | PCM.PRNOTE ---
- Free Text/Narrative Note: Thoracentesis Date: 07/2019 Time: 17:05 Indication: Large right pleural effusion Attending: Idania Quintanilla MD A time-out was completed verifying correct patient, procedure, site, positioning , and special equipment if applicable. The patients right side was prepped and draped in a sterile manner after the appropriate infiltration level was confirmed by ultrasound. 1% lidocaine was used anesthetize the surrounding skin. A finder needle was then used to locate fluidand clear yellow fluid was obtained. A 10-blade scalpel used to make the incision. The thoracentesis catheter was then threaded without difficulty. The patient had 1750mL of bloody fluid removed A post-procedure chest x-ray was ordered and the fluid will be sent for several studies. Estimated Blood Loss: unable to quantify due to fluid characteristics The patient tolerated the procedure well and there were no complications.
[2019-07-26] MEDS: Lactated Ringers 1,000 ML IV SCH (18:42)
[2019-07-27] MEDS: Acetaminophen/Codeine 300-30 MG Tab PO PRN ×2 (00:58→08:01)
[2019-07-27] MEDS: Lactated Ringers 1,000 ML IV SCH (02:17)
[2019-07-27] MEDS ORDERED: Albuterol 6.7 GM Inhaler INH PRN (08:08)
--- NOTE | 2019-07-27 08:40 | CR ---
Chest: Portable view of the chest was obtained. Comparison: Previous chest x-ray of 07/26/19. Diffuse parenchymal density within the right chest is seen. Decreased pleural effusion is noted from previous exam. Lucency is noted along the left chest wall which shows lung markings within this lucency and this is most likely artifact. Heart does not appear enlarged. Impression: 1. Decreased right-sided pleural effusion. 2. Continuing increased density throughout the right chest. 3. Left lung is clear. Diagnostic code #3 This report was dictated in MDT
[2019-07-27] MEDS ORDERED: Docusate Sodium 100 MG Cap PO SCH (09:00)
[2019-07-27] MEDS ORDERED: Nicotine 21 MG/24 Hr Patch TRDERM SCH (09:00)
[2019-07-27] MEDS ORDERED: Polyethylene Glycol 3350 Powder 17 GM Packet PO SCH (09:00)
[2019-07-27] MEDS ORDERED: Magnesium Oxide 400 MG Tab PO SCH (09:00)
--- NOTE | 2019-07-27 09:26 | PCM.PN ---
- General Info Date of Service: 07/27/19 Admission Dx/Problem (Free Text): Admission Diagnosis/Problem Admission Diagnosis/Problem Constipation Subjective Update: Patient states that he thinks he is slightly better. He is having some stool from his ostomy. He states he is not getting as much air out of it as normal. Patient has an appointment with Dr. Swan at 10 tomorrow. - Review of Systems General: Reports: Fatigue HEENT: Reports: No Symptoms Pulmonary: Reports: Shortness of Breath Cardiovascular: Reports: No Symptoms Gastrointestinal: Reports: Constipation. Denies: Abdominal Pain - Patient Data Vitals - Most Recent: Last Vital Signs Temp 97.3 F 07/27/19 08:00 Pulse 98 07/27/19 08:00 Resp 20 07/27/19 08:00 BP 140/68 07/27/19 08:00 Pulse Ox 93 L 07/27/19 08:00 Weight - Most Recent: 136 lb I&O - Last 24 Hours: Intake & Output 07/26/19 07/27/19 07/27/19 22:59 06:59 14:59 Intake Total 180 1502 Output Total 775 Balance 180 727 Lab Results Last 24 Hours: Laboratory Results - last 24 hr 07/26/19 07/26/19 07/26/19 Range/Units 10:20 10:20 10:20 WBC 8.98 (4.23-9.07) K/mm3 RBC 3.97 L (4.63-6.08) M/mm3 Hgb 12.9 L D (13.7-17.5) gm/dl Hct 40.2 (40.1-51.0) % MCV 101.3 H (79.0-92.2) fl MCH 32.5 H (25.7-32.2) pg MCHC 32.1 L (32.2-35.5) g/dl RDW Std Deviation 44.7 H (35.1-43.9) fL Plt Count 303 (163-337) K/mm3 MPV 8.7 L (9.4-12.3) fl Neut % (Auto) (34.0-67.9) % Lymph % (Auto) (21.8-53.1) % Yates % (Auto) (5.3-12.2) % Eos % (Auto) (0.8-7.0) Baso % (Auto) (0.1-1.2) % Neut # (Auto) (1.78-5.38) K/mm3 Lymph # (Auto) (1.32-3.57) K/mm3 Yates # (Auto) (0.30-0.82) K/mm3 Eos # (Auto) (0.04-0.54) K/mm3 Baso # (Auto) (0.01-0.08) K/mm3 Neutrophils % (Manual) 81 H (40-60) % Band Neutrophils % 0 (0-10) % Lymphocytes % (Manual) 12 L (20-40) % Atypical Lymphs % 0 % Monocytes % (Manual) 7 (2-10) % Eosinophils % (Manual) 0 L (0.8-7.0) % Basophils % (Manual) 0 L (0.2-1.2) Manual Slide Review Platelet Estimate Adequate Plt Morphology Comment Normal Anisocytosis 1+ slight RBC Morph Comment Not Reportable PT (9.7-12.0) SECONDS INR APTT (22-31) SECONDS Sodium 139 (136-145) mEq/L Potassium 4.4 (3.5-5.1) mEq/L Chloride 103 (98-107) mEq/L Carbon Dioxide 29 (21-32) mEq/L Anion Gap 11.4 (5-15) BUN 18 (7-18) mg/dL Creatinine 1.0 (0.7-1.3) mg/dL Est Cr Clr Drug Dosing 54.77 mL/min Estimated GFR (MDRD) > 60 (>60) mL/min BUN/Creatinine Ratio 18.0 (14-18) Glucose 100 (83-115) mg/dL Lactic Acid (0.4-2.0) mmol/L Calcium 8.9 (8.5-10.1) mg/dL Phosphorus (2.6-4.7) mg/dL Magnesium (1.8-2.4) mg/dl Total Bilirubin 0.3 (0.2-1.0) mg/dL AST 41 H (15-37) U/L ALT 42 (16-63) U/L Alkaline Phosphatase 74 (46-116) U/L Lactate Dehydrogenase (85-227) U/L Troponin I < 0.017 (0.00-0.056) ng/mL C-Reactive Protein (<1.0) mg/dL NT-Pro-B Natriuret Pep 402 (0-450) pg/mL Total Protein 6.0 L (6.4-8.2) g/dl Albumin 2.0 L (3.4-5.0) g/dl Globulin 4.0 gm/dL Albumin/Globulin Ratio 0.5 L (1-2) Triglycerides (<150) mg/dL Cholesterol (<200) mg/dL Lipase (73-393) U/L Body Fluid Site Fluid Type Fluid Volume ML Fluid Color Fluid Appearance Fluid pH (4.5-10.0) Fluid WBC (0.20-0.60) k/mm*3 Fluid RBC (0.00-0.010) 10*6/uL Fluid Diff Comment Fluid Seg Neutrophils (0-25) % Fluid Lymphocytes (0-78) % Fluid Monocytes (0-71) % Fl Polymorphonucl Cell Fluid Glucose mg/dL Fluid Total Protein gm/dl Fluid LDH U/L Fluid Amylase U/L Fluid Triglycerides mg/dl 07/26/19 07/26/19 07/26/19 Range/Units 10:20 10:20 10:20 WBC (4.23-9.07) K/mm3 RBC (4.63-6.08) M/mm3 Hgb (13.7-17.5) gm/dl Hct (40.1-51.0) % MCV (79.0-92.2) fl MCH (25.7-32.2) pg MCHC (32.2-35.5) g/dl RDW Std Deviation (35.1-43.9) fL Plt Count (163-337) K/mm3 MPV (9.4-12.3) fl Neut % (Auto) (34.0-67.9) % Lymph % (Auto) (21.8-53.1) % Yates % (Auto) (5.3-12.2) % Eos % (Auto) (0.8-7.0) Baso % (Auto) (0.1-1.2) % Neut # (Auto) (1.78-5.38) K/mm3 Lymph # (Auto) (1.32-3.57) K/mm3 Yates # (Auto) (0.30-0.82) K/mm3 Eos # (Auto) (0.04-0.54) K/mm3 Baso # (Auto) (0.01-0.08) K/mm3 Neutrophils % (Manual) (40-60) % Band Neutrophils % (0-10) % Lymphocytes % (Manual) (20-40) % Atypical Lymphs % % Monocytes % (Manual) (2-10) % Eosinophils % (Manual) (0.8-7.0) % Basophils % (Manual) (0.2-1.2) Manual Slide Review Platelet Estimate Plt Morphology Comment Anisocytosis RBC Morph Comment PT 10.9 (9.7-12.0) SECONDS INR 1.00 APTT 30 (22-31) SECONDS Sodium (136-145) mEq/L Potassium (3.5-5.1) mEq/L Chloride (98-107) mEq/L Carbon Dioxide (21-32) mEq/L Anion Gap (5-15) BUN (7-18) mg/dL Creatinine (0.7-1.3) mg/dL Est Cr Clr Drug Dosing mL/min Estimated GFR (MDRD) (>60) mL/min BUN/Creatinine Ratio (14-18) Glucose (83-115) mg/dL Lactic Acid (0.4-2.0) mmol/L Calcium (8.5-10.1) mg/dL Phosphorus (2.6-4.7) mg/dL Magnesium (1.8-2.4) mg/dl Total Bilirubin (0.2-1.0) mg/dL AST (15-37) U/L ALT (16-63) U/L Alkaline Phosphatase (46-116) U/L Lactate Dehydrogenase 357 H (85-227) U/L Troponin I (0.00-0.056) ng/mL C-Reactive Protein 17.2 H* (<1.0) mg/dL NT-Pro-B Natriuret Pep (0-450) pg/mL Total Protein (6.4-8.2) g/dl Albumin (3.4-5.0) g/dl Globulin gm/dL Albumin/Globulin Ratio (1-2) Triglycerides 94 (<150) mg/dL Cholesterol (<200) mg/dL Lipase 163 (73-393) U/L Body Fluid Site Fluid Type Fluid Volume ML Fluid Color Fluid Appearance Fluid pH (4.5-10.0) Fluid WBC (0.20-0.60) k/mm*3 Fluid RBC (0.00-0.010) 10*6/uL Fluid Diff Comment Fluid Seg Neutrophils (0-25) % Fluid Lymphocytes (0-78) % Fluid Monocytes (0-71) % Fl Polymorphonucl Cell Fluid Glucose mg/dL Fluid Total Protein gm/dl Fluid LDH U/L Fluid Amylase U/L Fluid Triglycerides mg/dl 07/26/19 07/26/19 07/26/19 Range/Units 10:20 12:42 17:30 WBC (4.23-9.07) K/mm3 RBC (4.63-6.08) M/mm3 Hgb (13.7-17.5) gm/dl Hct (40.1-51.0) % MCV (79.0-92.2) fl MCH (25.7-32.2) pg MCHC (32.2-35.5) g/dl RDW Std Deviation (35.1-43.9) fL Plt Count (163-337) K/mm3 MPV (9.4-12.3) fl Neut % (Auto) (34.0-67.9) % Lymph % (Auto) (21.8-53.1) % Yates % (Auto) (5.3-12.2) % Eos % (Auto) (0.8-7.0) Baso % (Auto) (0.1-1.2) % Neut # (Auto) (1.78-5.38) K/mm3 Lymph # (Auto) (1.32-3.57) K/mm3 Yates # (Auto) (0.30-0.82) K/mm3 Eos # (Auto) (0.04-0.54) K/mm3 Baso # (Auto) (0.01-0.08) K/mm3 Neutrophils % (Manual) (40-60) % Band Neutrophils % (0-10) % Lymphocytes % (Manual) (20-40) % Atypical Lymphs % % Monocytes % (Manual) (2-10) % Eosinophils % (Manual) (0.8-7.0) % Basophils % (Manual) (0.2-1.2) Manual Slide Review Platelet Estimate Plt Morphology Comment Anisocytosis RBC Morph Comment PT (9.7-12.0) SECONDS INR APTT (22-31) SECONDS Sodium (136-145) mEq/L Potassium (3.5-5.1) mEq/L Chloride (98-107) mEq/L Carbon Dioxide (21-32) mEq/L Anion Gap (5-15) BUN (7-18) mg/dL Creatinine (0.7-1.3) mg/dL Est Cr Clr Drug Dosing mL/min Estimated GFR (MDRD) (>60) mL/min BUN/Creatinine Ratio (14-18) Glucose (83-115) mg/dL Lactic Acid 0.9 (0.4-2.0) mmol/L Calcium (8.5-10.1) mg/dL Phosphorus (2.6-4.7) mg/dL Magnesium (1.8-2.4) mg/dl Total Bilirubin (0.2-1.0) mg/dL AST (15-37) U/L ALT (16-63) U/L Alkaline Phosphatase (46-116) U/L Lactate Dehydrogenase (85-227) U/L Troponin I (0.00-0.056) ng/mL C-Reactive Protein (<1.0) mg/dL NT-Pro-B Natriuret Pep (0-450) pg/mL Total Protein (6.4-8.2) g/dl Albumin (3.4-5.0) g/dl Globulin gm/dL Albumin/Globulin Ratio (1-2) Triglycerides (<150) mg/dL Cholesterol 158 (<200) mg/dL Lipase (73-393) U/L Body Fluid Site Pleural fluid Fluid Type Pleural fluid Fluid Volume 1960 ML Fluid Color Red Fluid Appearance Turbid Fluid pH 8 (4.5-10.0) Fluid WBC 0.48 (0.20-0.60) k/mm*3 Fluid RBC 0.028 H (0.00-0.010) 10*6/uL Fluid Diff Comment Not Reportable Fluid Seg Neutrophils 14.0 (0-25) % Fluid Lymphocytes 79.0 H (0-78) % Fluid Monocytes 7.0 (0-71) % Fl Polymorphonucl Cell Not Reportable Fluid Glucose 84 mg/dL Fluid Total Protein 2.7 gm/dl Fluid LDH 421 U/L Fluid Amylase 30 U/L Fluid Triglycerides 8 mg/dl 07/27/19 07/27/19 Range/Units 05:14 05:14 WBC 7.64 (4.23-9.07) K/mm3 RBC 3.76 L (4.63-6.08) M/mm3 Hgb 12.2 L (13.7-17.5) gm/dl Hct 37.7 L (40.1-51.0) % MCV 100.3 H (79.0-92.2) fl MCH 32.4 H (25.7-32.2) pg MCHC 32.4 (32.2-35.5) g/dl RDW Std Deviation 43.6 (35.1-43.9) fL Plt Count 284 (163-337) K/mm3 MPV 8.6 L (9.4-12.3) fl Neut % (Auto) 73.6 H (34.0-67.9) % Lymph % (Auto) 9.0 L (21.8-53.1) % Yates % (Auto) 14.4 H (5.3-12.2) % Eos % (Auto) 2.2 (0.8-7.0) Baso % (Auto) 0.3 (0.1-1.2) % Neut # (Auto) 5.62 H (1.78-5.38) K/mm3 Lymph # (Auto) 0.69 L (1.32-3.57) K/mm3 Yates # (Auto) 1.10 H (0.30-0.82) K/mm3 Eos # (Auto) 0.17 (0.04-0.54) K/mm3 Baso # (Auto) 0.02 (0.01-0.08) K/mm3 Neutrophils % (Manual) (40-60) % Band Neutrophils % (0-10) % Lymphocytes % (Manual) (20-40) % Atypical Lymphs % % Monocytes % (Manual) (2-10) % Eosinophils % (Manual) (0.8-7.0) % Basophils % (Manual) (0.2-1.2) Manual Slide Review Abnormal smear Platelet Estimate Plt Morphology Comment Anisocytosis RBC Morph Comment PT (9.7-12.0) SECONDS INR APTT (22-31) SECONDS Sodium 139 (136-145) mEq/L Potassium 4.8 (3.5-5.1) mEq/L Chloride 105 (98-107) mEq/L Carbon Dioxide 30 (21-32) mEq/L Anion Gap 8.8 (5-15) BUN 18 (7-18) mg/dL Creatinine 0.9 (0.7-1.3) mg/dL Est Cr Clr Drug Dosing 59.97 mL/min Estimated GFR (MDRD) > 60 (>60) mL/min BUN/Creatinine Ratio 20.0 H (14-18) Glucose 83 (83-115) mg/dL Lactic Acid (0.4-2.0) mmol/L Calcium 8.4 L (8.5-10.1) mg/dL Phosphorus 2.9 (2.6-4.7) mg/dL Magnesium 1.8 (1.8-2.4) mg/dl Total Bilirubin (0.2-1.0) mg/dL AST (15-37) U/L ALT (16-63) U/L Alkaline Phosphatase (46-116) U/L Lactate Dehydrogenase (85-227) U/L Troponin I (0.00-0.056) ng/mL C-Reactive Protein (<1.0) mg/dL NT-Pro-B Natriuret Pep (0-450) pg/mL Total Protein (6.4-8.2) g/dl Albumin (3.4-5.0) g/dl Globulin gm/dL Albumin/Globulin Ratio (1-2) Triglycerides (<150) mg/dL Cholesterol (<200) mg/dL Lipase (73-393) U/L Body Fluid Site Fluid Type Fluid Volume ML Fluid Color Fluid Appearance Fluid pH (4.5-10.0) Fluid WBC (0.20-0.60) k/mm*3 Fluid RBC (0.00-0.010) 10*6/uL Fluid Diff Comment Fluid Seg Neutrophils (0-25) % Fluid Lymphocytes (0-78) % Fluid Monocytes (0-71) % Fl Polymorphonucl Cell Fluid Glucose mg/dL Fluid Total Protein gm/dl Fluid LDH U/L Fluid Amylase U/L Fluid Triglycerides mg/dl Med Orders - Current: Current Medications Acetaminophen/Codeine Phosphate (Tylenol With Codeine No.3 300mg/30mg) 2 tab PO Q6H PRN PRN Reason: Pain (mild 1-3) Last Admin: 07/27/19 08:01 Dose: 2 tab Albuterol (Proventil Hfa) 0 gm INH Q4H PRN PRN Reason: wheeze Docusate Sodium (Colace) 100 mg PO BID [facility] Magnesium Oxide (Magnesium Oxide) 400 mg PO BID [facility] Miscellaneous Information (Remove Patch) 0 ea TRDERM DAILY [facility] Morphine Sulfate (Morphine) 2 mg IVPUSH Q2H PRN PRN Reason: Pain (severe 7-10) Stop: 07/27/19 16:55 Last Admin: 07/26/19 17:31 Dose: 2 mg Nicotine (Habitrol) 21 mg TRDERM DAILY [facility] Last Admin: 07/27/19 08:00 Dose: Not Given Ondansetron HCl (Zofran) 4 mg IV Q6H PRN PRN Reason: Nausea/Vomiting Oxycodone HCl (Oxycodone) 10 mg PO Q4H PRN PRN Reason: Pain (moderate 4-6) Polyethylene Glycol (Miralax) 17 gm PO BID [facility] Discontinued Medications Albuterol/Ipratropium (Duoneb 3.0-0.5 Mg/3 Ml) 3 ml NEB ONETIME ONE Stop: 07/26/19 17:38 Last Admin: 07/26/19 17:45 Dose: 3 ml Diatrizoate Meglum/Diatrizoate Sod (Gastrografin 37%) 120 ml PO ONETIME ONE Stop: 07/26/19 13:13 Last Admin: 07/26/19 15:25 Dose: 120 ml Hydromorphone HCl (Dilaudid) 0.25 mg IVPUSH ONETIME ONE Stop: 07/26/19 12:36 Last Admin: 07/26/19 12:44 Dose: 0.25 mg Sodium Chloride (Normal Saline) 1,000 mls @ 125 mls/hr IV ASDIRECTED [facility] Last Admin: 07/26/19 12:45 Dose: 125 mls/hr Lactated Ringer's (Ringers, Lactated) 1,000 mls @ 125 mls/hr IV ASDIRECTED [facility] Last Admin: 07/27/19 02:17 Dose: 125 mls/hr Lactulose (Cephulac) 20 gm PO ONETIME ONE Stop: 07/26/19 15:31 Last Admin: 07/26/19 16:08 Dose: 20 gm Magnesium Citrate (Citrate Of Magnesia) 150 ml PO ONETIME ONE Stop: 07/26/19 15:31 Last Admin: 07/26/19 16:08 Dose: 150 ml Metoclopramide HCl (Reglan) 7.5 mg IVPUSH ONETIME ONE Stop: 07/26/19 12:36 Last Admin: 07/26/19 12:43 Dose: 7.5 mg - Exam Quality Assessment: Supplemental Oxygen General: Alert, Oriented HEENT: Pupils Equal, Mucous Membr. Moist/[place] Neck: Supple Lungs: Decreased Breath Sounds (Right middle and lower lobe). No: Normal Respiratory Effort (Increased respiratory rate and effort) Cardiovascular: Regular Rate, Regular Rhythm GI/Abdominal Exam: Normal Bowel Sounds, Soft, Non-Tender, No Distention, Other ( Brown liquid stool out of ostomy) Extremities: Normal Inspection, Normal Range of Motion, Non-Tender, No Pedal Edema, Normal Capillary Refill Skin: Warm, Dry, Intact Neurological: No New Focal Deficit Psy/Mental Status: Alert, Normal Affect, Normal Mood Sepsis Event Note - Evaluation Sepsis Screening Result: No Definite Risk - Focused Exam Vital Signs: Vital Signs Temp Pulse Resp BP Pulse Ox 07/27/19 08:00 97.3 F 98 20 140/68 93 L 07/27/19 04:55 97.7 F 79 20 126/70 98 07/27/19 00:55 97.3 F 91 20 117/62 98 07/26/19 21:59 98.1 F 96 20 119/64 98 Date Exam was Performed: 07/27/19 Time Exam was Performed: 12:08 - Problem List Review Problem List Initiated/Reviewed/Updated: Yes - My Orders Last 24 Hours: My Active Orders 07/27/19 08:08 Albuterol [Proventil HFA] 0 gm INH Q4H PRN 07/27/19 09:00 Docusate Sodium [Colace] 100 mg PO BID Magnesium Oxide 400 mg PO BID polyethylene glycoL 3350 [MiraLAX] 17 gm PO BID - Plan Plan:: ASSESSMENT - Worsening shortness of breath and no bowel movements - Once in ED CXR and KUB ordered --> result with possible SBO - CT abdomen without obstruction - 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 - Had an episode of constipation about a week ago for which he came to the ED and required disimpaction by surgery - He was discharged and that day was the last BM he had - Digital examination of colostomy negative for stool - CT abdomen with significant coprostasis, however this is not close to the ostomy location - Given fleet enema and magnesium citrate in ED - Patient had been having worsening shortness of breath for which he was evaluated as an outpatient - Biopsy performed - Diagnosis of small cell lung cancer made 5 days ago - Scheduled appointment with oncology within the next couple of days - Has been having thoracentesis in the past month x 2--> no results were given to family Colostomy complication Constipation - Fleet enema and magnesium citrate -given yesterday with some response. -300 mL of liquid stool -Start senna 2 tabs twice daily Small cell lung cancer Recurrent right pleural effusion Chronic hypoxemic respiratory failure Abnormal weight loss Cachexia Cigar smoker - Request records - Consult Dr. Swan to see if patient can get some of the imaging needed during admission - Continue O2 via NC - RT assessment and treatment - PRN DuoNebs - Monitor pulse oximetry - Dietary consult -malnourished screen Macrocytic anemia - Work up PROPHYLAXIS: DVT- compression stockings GI- not indicated CODE STATUS: FULL CODE DISPOSITION: Patient will be discharged home with his daughter to follow-up with oncology, Dr. Swan, tomorrow. He may need repeat thoracentesis. Lives in [place] by himself. Fully independent in ADLs and IADLs
[2019-07-27] MEDS ORDERED: Sennosides 8.6 MG Tab PO SCH (11:00)
--- NOTE | 2019-07-27 12:15 | PCM.DCSUM1 ---
Discharge Summary - Hospital Course HPI Initial Comments: Mr. 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 He also has not had any stool output from his ostomy site since approximately , 07/22/2019. The patient had previously had a right -sided chest tube placed for a pleural effusion, but the patient's daughter tells me that it was removed 6 days ago, 07/20/2019. Other than the dyspnea and possible constipation, the patient denies recent fever, chills, sore throat, ear pain, nasal or sinus congestion, cough, chest pain, palpitations, nausea, vomiting, diarrhea, abdominal pain, urinary symptoms , recent weight gain or weight loss, recent bloody bowel movements or black bowel movements, recent joint aches, headaches, or rashes. Here in the ED, the patient is found to be slightly tachypneic at 22 rpm, otherwise, he is hemodynamically stable, afebrile, saturating 97% on 3 L of oxygen per nasal cannula. Brief History: ASSESSMENT. - Worsening shortness of breath and no bowel movements. - Once in ED CXR and KUB ordered --> result with possible SBO. - CT abdomen without obstruction. - 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. - Had an episode of constipation about a week ago for which he came to the ED and required disimpaction by surgery. - He was discharged and that day was the last BM he had. - Digital examination of colostomy negative for stool. - CT abdomen with significant coprostasis, however this is not close to the ostomy location. - Given fleet enema and magnesium citrate in ED. - Patient had been having worsening shortness of breath for which he was evaluated as an outpatient. - Biopsy performed. - Diagnosis of small cell lung cancer made 5 days ago. - Scheduled appointment with oncology within the next couple of days. - Has been having thoracentesis in the past month x 2--> no results were given to family. Colostomy complication. Constipation. - Fleet enema and magnesium citrate. - If no response will give Golytely. Small cell lung cancer. Recurrent right pleural effusion. Chronic hypoxemic respiratory failure. Abnormal weight loss. Cachexia. Cigar smoker. - Request records. - Consult Dr. Swan to see if patient can get some of the imaging needed during admission. - Continue O2 via NC. - RT assessment and treatment. - PRN DuoNebs. - Monitor pulse oximetry. - Thoracentesis. - Dietary consult. Macrocytic anemia. - Work up. PROPHYLAXIS: DVT- compression stockings. GI- not indicated. CODE STATUS: FULL CODE. DISPOSITION: Patient will be admitted to medical floor for thoracentesis as well as laxatives. Lives in [place] by himself. Fully independent in ADLs and IADLs Diagnosis: Stroke: No - Discharge Data Discharge Date: 07/27/19 Discharge Disposition: Home, Self-Care 01 Condition: Fair - Referral to Home Health Primary Care Physician: Yumi Buenrostro NP - Patient Summary/Data Consults: Consultations 07/27/19 10:09 PT Evaluation and Treatment [CONS] Routine Hospital Course: Patient was admitted and started on milk of magnesia and enemas for his constipation. He had a right-sided thoracentesis that removed over 1700 mL. There were no complications. Patient was feeling better the next day and requested to go home. He will follow-up with his oncologist tomorrow. Patient will likely need repeat thoracentesis. Chest x-ray on day of discharge showed significant improvement in the right sided pleural effusion. Continuing increased density throughout the right chest. Left lung is clear. - Patient Instructions Diet: Usual Diet as Tolerated Activity: As Tolerated Driving: Do Not Drive Showering/Bathing: May Shower Notify Provider of: Fever, Nausea and/or Vomiting Other/Special Instructions: Follow-up with Dr. Swan tomorrow. Return to the hospital if you develop worsening shortness of breath. - Discharge Plan *PRESCRIPTION DRUG MONITORING PROGRAM REVIEWED*: Not Applicable *COPY OF PRESCRIPTION DRUG MONITORING REPORT IN PATIENT DA: Not Applicable Prescriptions/Med Rec: Magnesium Oxide 400 mg PO BID #30 tablet Sennosides [Senna] 17.2 mg PO BID #60 tablet Home Medications: Home Meds Albuterol [Proventil HFA] 2 puff IH Q4H PRN 07/20/19 [History] Fluticasone/Salmeterol [Advair 250-50] 1 puff IH BID 07/20/19 [History] Docusate Sodium [Colace] 100 mg PO BID #30 capsule 07/22/19 [Rx] polyethylene glycoL 3350 [MiraLAX] 17 gm PO BID #30 packet 07/22/19 [Rx] oxyCODONE 5 mg PO Q6H PRN 07/26/19 [History] Magnesium Oxide 400 mg PO BID #30 tablet 07/27/19 [Rx] Sennosides [Senna] 17.2 mg PO BID #60 tablet 07/27/19 [Rx] oxyCODONE 10 mg PO Q4H PRN tablet 07/27/19 [Rx] Patient Handouts: Chronic Constipation, Thoracentesis, Care After, Steps to Quit Smoking Referrals: Yumi Buenrostro NP [Primary Care Provider] - (Follow up with Yumi Buenrostro NP as needed. ) Allen Thornton MD [Physician] - Suleman Swan MD [Ordering Only Provider] - (Please keep your appointment with Dr. Swan for tomorrow. ) - Discharge Summary/Plan Comment DC Time >30 min.: Yes Discharge Summary/Plan Comment: Discharged home in fair condition to follow-up with his oncologist. Start senna 2 tablets twice a day as a laxative. - General Info Subjective Update: See progress note from today. - Patient Data Vitals - Most Recent: Last Vital Signs Temp 97.3 F 07/27/19 08:00 Pulse 98 07/27/19 08:00 Resp 20 07/27/19 08:00 BP 140/68 07/27/19 08:00 Pulse Ox 93 L 07/27/19 08:00 Weight - Most Recent: 136 lb I&O - Last 24 hours: Intake & Output 07/26/19 07/27/19 07/27/19 22:59 06:59 14:59 Intake Total 180 1502 Output Total 775 Balance 180 727 Lab Results - Last 24 hrs: Laboratory Results - last 24 hr 07/26/19 07/26/19 07/26/19 Range/Units 10:20 10:20 10:20 WBC (4.23-9.07) K/mm3 RBC (4.63-6.08) M/mm3 Hgb (13.7-17.5) gm/dl Hct (40.1-51.0) % MCV (79.0-92.2) fl MCH (25.7-32.2) pg MCHC (32.2-35.5) g/dl RDW Std Deviation (35.1-43.9) fL Plt Count (163-337) K/mm3 MPV (9.4-12.3) fl Neut % (Auto) (34.0-67.9) % Lymph % (Auto) (21.8-53.1) % Stark % (Auto) (5.3-12.2) % Eos % (Auto) (0.8-7.0) Baso % (Auto) (0.1-1.2) % Neut # (Auto) (1.78-5.38) K/mm3 Lymph # (Auto) (1.32-3.57) K/mm3 Stark # (Auto) (0.30-0.82) K/mm3 Eos # (Auto) (0.04-0.54) K/mm3 Baso # (Auto) (0.01-0.08) K/mm3 Manual Slide Review PT 10.9 (9.7-12.0) SECONDS INR 1.00 APTT 30 (22-31) SECONDS Sodium (136-145) mEq/L Potassium (3.5-5.1) mEq/L Chloride (98-107) mEq/L Carbon Dioxide (21-32) mEq/L Anion Gap (5-15) BUN (7-18) mg/dL Creatinine (0.7-1.3) mg/dL Est Cr Clr Drug Dosing mL/min Estimated GFR (MDRD) (>60) mL/min BUN/Creatinine Ratio (14-18) Glucose (83-115) mg/dL Lactic Acid (0.4-2.0) mmol/L Calcium (8.5-10.1) mg/dL Phosphorus (2.6-4.7) mg/dL Magnesium (1.8-2.4) mg/dl Lactate Dehydrogenase (85-227) U/L C-Reactive Protein 17.2 H* (<1.0) mg/dL NT-Pro-B Natriuret Pep 402 (0-450) pg/mL Triglycerides (<150) mg/dL Cholesterol (<200) mg/dL Lipase 163 (73-393) U/L Body Fluid Site Fluid Type Fluid Volume ML Fluid Color Fluid Appearance Fluid pH (4.5-10.0) Fluid WBC (0.20-0.60) k/mm*3 Fluid RBC (0.00-0.010) 10*6/uL Fluid Diff Comment Fluid Seg Neutrophils (0-25) % Fluid Lymphocytes (0-78) % Fluid Monocytes (0-71) % Fl Polymorphonucl Cell Fluid Glucose mg/dL Fluid Total Protein gm/dl Fluid LDH U/L Fluid Amylase U/L Fluid Triglycerides mg/dl 07/26/19 07/26/19 07/26/19 Range/Units 10:20 10:20 12:42 WBC (4.23-9.07) K/mm3 RBC (4.63-6.08) M/mm3 Hgb (13.7-17.5) gm/dl Hct (40.1-51.0) % MCV (79.0-92.2) fl MCH (25.7-32.2) pg MCHC (32.2-35.5) g/dl RDW Std Deviation (35.1-43.9) fL Plt Count (163-337) K/mm3 MPV (9.4-12.3) fl Neut % (Auto) (34.0-67.9) % Lymph % (Auto) (21.8-53.1) % Stark % (Auto) (5.3-12.2) % Eos % (Auto) (0.8-7.0) Baso % (Auto) (0.1-1.2) % Neut # (Auto) (1.78-5.38) K/mm3 Lymph # (Auto) (1.32-3.57) K/mm3 Stark # (Auto) (0.30-0.82) K/mm3 Eos # (Auto) (0.04-0.54) K/mm3 Baso # (Auto) (0.01-0.08) K/mm3 Manual Slide Review PT (9.7-12.0) SECONDS INR APTT (22-31) SECONDS Sodium (136-145) mEq/L Potassium (3.5-5.1) mEq/L Chloride (98-107) mEq/L Carbon Dioxide (21-32) mEq/L Anion Gap (5-15) BUN (7-18) mg/dL Creatinine (0.7-1.3) mg/dL Est Cr Clr Drug Dosing mL/min Estimated GFR (MDRD) (>60) mL/min BUN/Creatinine Ratio (14-18) Glucose (83-115) mg/dL Lactic Acid 0.9 (0.4-2.0) mmol/L Calcium (8.5-10.1) mg/dL Phosphorus (2.6-4.7) mg/dL Magnesium (1.8-2.4) mg/dl Lactate Dehydrogenase 357 H (85-227) U/L C-Reactive Protein (<1.0) mg/dL NT-Pro-B Natriuret Pep (0-450) pg/mL Triglycerides 94 (<150) mg/dL Cholesterol 158 (<200) mg/dL Lipase (73-393) U/L Body Fluid Site Fluid Type Fluid Volume ML Fluid Color Fluid Appearance Fluid pH (4.5-10.0) Fluid WBC (0.20-0.60) k/mm*3 Fluid RBC (0.00-0.010) 10*6/uL Fluid Diff Comment Fluid Seg Neutrophils (0-25) % Fluid Lymphocytes (0-78) % Fluid Monocytes (0-71) % Fl Polymorphonucl Cell Fluid Glucose mg/dL Fluid Total Protein gm/dl Fluid LDH U/L Fluid Amylase U/L Fluid Triglycerides mg/dl 07/26/19 07/27/19 07/27/19 Range/Units 17:30 05:14 05:14 WBC 7.64 (4.23-9.07) K/mm3 RBC 3.76 L (4.63-6.08) M/mm3 Hgb 12.2 L (13.7-17.5) gm/dl Hct 37.7 L (40.1-51.0) % MCV 100.3 H (79.0-92.2) fl MCH 32.4 H (25.7-32.2) pg MCHC 32.4 (32.2-35.5) g/dl RDW Std Deviation 43.6 (35.1-43.9) fL Plt Count 284 (163-337) K/mm3 MPV 8.6 L (9.4-12.3) fl Neut % (Auto) 73.6 H (34.0-67.9) % Lymph % (Auto) 9.0 L (21.8-53.1) % Stark % (Auto) 14.4 H (5.3-12.2) % Eos % (Auto) 2.2 (0.8-7.0) Baso % (Auto) 0.3 (0.1-1.2) % Neut # (Auto) 5.62 H (1.78-5.38) K/mm3 Lymph # (Auto) 0.69 L (1.32-3.57) K/mm3 Stark # (Auto) 1.10 H (0.30-0.82) K/mm3 Eos # (Auto) 0.17 (0.04-0.54) K/mm3 Baso # (Auto) 0.02 (0.01-0.08) K/mm3 Manual Slide Review Abnormal smear PT (9.7-12.0) SECONDS INR APTT (22-31) SECONDS Sodium 139 (136-145) mEq/L Potassium 4.8 (3.5-5.1) mEq/L Chloride 105 (98-107) mEq/L Carbon Dioxide 30 (21-32) mEq/L Anion Gap 8.8 (5-15) BUN 18 (7-18) mg/dL Creatinine 0.9 (0.7-1.3) mg/dL Est Cr Clr Drug Dosing 59.97 mL/min Estimated GFR (MDRD) > 60 (>60) mL/min BUN/Creatinine Ratio 20.0 H (14-18) Glucose 83 (83-115) mg/dL Lactic Acid (0.4-2.0) mmol/L Calcium 8.4 L (8.5-10.1) mg/dL Phosphorus 2.9 (2.6-4.7) mg/dL Magnesium 1.8 (1.8-2.4) mg/dl Lactate Dehydrogenase (85-227) U/L C-Reactive Protein (<1.0) mg/dL NT-Pro-B Natriuret Pep (0-450) pg/mL Triglycerides (<150) mg/dL Cholesterol (<200) mg/dL Lipase (73-393) U/L Body Fluid Site Pleural fluid Fluid Type Pleural fluid Fluid Volume 1960 ML Fluid Color Red Fluid Appearance Turbid Fluid pH 8 (4.5-10.0) Fluid WBC 0.48 (0.20-0.60) k/mm*3 Fluid RBC 0.028 H (0.00-0.010) 10*6/uL Fluid Diff Comment Not Reportable Fluid Seg Neutrophils 14.0 (0-25) % Fluid Lymphocytes 79.0 H (0-78) % Fluid Monocytes 7.0 (0-71) % Fl Polymorphonucl Cell Not Reportable Fluid Glucose 84 mg/dL Fluid Total Protein 2.7 gm/dl Fluid LDH 421 U/L Fluid Amylase 30 U/L Fluid Triglycerides 8 mg/dl JESSICA Results - Last 24 hrs: Microbiology 07/26/19 17:30 Body Fluid Culture - Preliminary Pleural Fluid NO GROWTH AFTER 1 DAY Med Orders - Current: Current Medications Acetaminophen/Codeine Phosphate (Tylenol With Codeine No.3 300mg/30mg) 2 tab PO Q6H PRN PRN Reason: Pain (mild 1-3) Last Admin: 07/27/19 08:01 Dose: 2 tab Albuterol (Proventil Hfa) 0 gm INH Q4H PRN PRN Reason: wheeze Docusate Sodium (Colace) 100 mg PO BID [facility] Last Admin: 07/27/19 09:27 Dose: 100 mg Magnesium Oxide (Magnesium Oxide) 400 mg PO BID [facility] Last Admin: 07/27/19 09:27 Dose: 400 mg Miscellaneous Information (Remove Patch) 0 ea TRDERM DAILY [facility] Morphine Sulfate (Morphine) 2 mg IVPUSH Q2H PRN PRN Reason: Pain (severe 7-10) Stop: 07/27/19 16:55 Last Admin: 07/26/19 17:31 Dose: 2 mg Nicotine (Habitrol) 21 mg TRDERM DAILY [facility] Last Admin: 07/27/19 08:00 Dose: Not Given Ondansetron HCl (Zofran) 4 mg IV Q6H PRN PRN Reason: Nausea/Vomiting Oxycodone HCl (Oxycodone) 10 mg PO Q4H PRN PRN Reason: Pain (moderate 4-6) Polyethylene Glycol (Miralax) 17 gm PO BID [facility] Last Admin: 07/27/19 09:27 Dose: 17 gm Senna (Senna) 17.2 mg PO BID [facility] Last Admin: 07/27/19 11:21 Dose: 17.2 mg Discontinued Medications Albuterol/Ipratropium (Duoneb 3.0-0.5 Mg/3 Ml) 3 ml NEB ONETIME ONE Stop: 07/26/19 17:38 Last Admin: 07/26/19 17:45 Dose: 3 ml Diatrizoate Meglum/Diatrizoate Sod (Gastrografin 37%) 120 ml PO ONETIME ONE Stop: 07/26/19 13:13 Last Admin: 07/26/19 15:25 Dose: 120 ml Hydromorphone HCl (Dilaudid) 0.25 mg IVPUSH ONETIME ONE Stop: 07/26/19 12:36 Last Admin: 07/26/19 12:44 Dose: 0.25 mg Sodium Chloride (Normal Saline) 1,000 mls @ 125 mls/hr IV ASDIRECTED [facility] Last Admin: 07/26/19 12:45 Dose: 125 mls/hr Lactated Ringer's (Ringers, Lactated) 1,000 mls @ 125 mls/hr IV ASDIRECTED [facility] Last Admin: 07/27/19 02:17 Dose: 125 mls/hr Lactulose (Cephulac) 20 gm PO ONETIME ONE Stop: 07/26/19 15:31 Last Admin: 07/26/19 16:08 Dose: 20 gm Magnesium Citrate (Citrate Of Magnesia) 150 ml PO ONETIME ONE Stop: 07/26/19 15:31 Last Admin: 07/26/19 16:08 Dose: 150 ml Metoclopramide HCl (Reglan) 7.5 mg IVPUSH ONETIME ONE Stop: 07/26/19 12:36 Last Admin: 07/26/19 12:43 Dose: 7.5 mg
== END 2019-07-27 15:00 | disposition home or self-care (01) | DRG 394 ==
LOC: JD.ED 09:36 → JD.MS 16:31
PROVIDERS: ADMIT Internal Medicine; ATTEND Internal Medicine
PROC: 0W993ZZ Drainage of Right Pleural Cavity, Percutaneous Approach (ICD-10-PCS; principal; 2019-07-26)
DX: J90 Pleural effusion, not elsewhere classified (principal); K94.03 Colostomy malfunction; Z93.3 Colostomy status; K56.600 Partial intestinal obstruction, unspecified as to cause; C34.91 Malignant neoplasm of unspecified part of right bronchus or lung; J91.8 Pleural effusion in other conditions classified elsewhere; C34.90 Malignant neoplasm of unspecified part of unspecified bronchus or lung; Z87.891 Personal history of nicotine dependence; J96.11 Chronic respiratory failure with hypoxia; R64 Cachexia; J44.9 Chronic obstructive pulmonary disease, unspecified; Z99.81 Dependence on supplemental oxygen; K59.00 Constipation, unspecified; N40.0 Benign prostatic hyperplasia without lower urinary tract symptoms; Y83.8 Other surgical procedures as the cause of abnormal reaction of the patient, or of later complication, without mention of misadventure at the time of the procedure; D64.9 Anemia, unspecified; F17.210 Nicotine dependence, cigarettes, uncomplicated; Z91.013 Allergy to seafood; Z79.899 Other long term (current) drug therapy; Z90.49 Acquired absence of other specified parts of digestive tract; Z88.1 Allergy status to other antibiotic agents
CPT/HCPCS: 36415; 71046; 74018; 74176; 80053; 82465; 83605; 83615; 83690; 83880; 84145; 84478; 84484; 85007; 85027; 85610; 85730; 86140; 93005; A9270 ×2; J1170; J2765; J7030; Q9963; 71045; 71045-26; 80048; 82150; 82945; 83735; 83986; 84100; 84157; 85025; 87070; 87205; 89050; 93010; 94640; 94760; 96361; 96374; 96375; 97162-GP; 99284; 99285-25; J2270; J7120; J7620-GY

== ENCOUNTER 2019-08-09 05:35 | Emergency (ER) | payer MEDICARE, OTHER ==
--- NOTE | 2019-08-09 05:54 | EDM.PDOC ---
ED HPI GENERAL MEDICAL PROBLEM - General Chief Complaint: Respiratory Problem Stated Complaint: SOB Time Seen by Provider: 08/09/19 05:42 - History of Present Illness INITIAL COMMENTS - FREE TEXT/NARRATIVE: 78-year-old male returns to the emergency room with shortness of breath. Patient was discharged from [facility] a couple days ago. He was started on chemotherapy for his small cell lung cancer. I saw this gentleman little over 2 weeks ago and he was admitted with a large effusion on the right with a new diagnosis of lung cancer. Patient did try his inhaler before coming in this did not seem to help. His shortness of breath is been getting worse over the last couple of days. He has not had good breathing for quite some time he has had a longstanding history of COPD and a long smoking history. He denies any fevers or chills he has some chest discomfort mostly in the right side is been present for some time now but no new chest pain or chest pressure. According to the daughter his appetite is really diminished and never really picked back up after his last admission. Right Chest Pain Score (Numeric/FACES): 4 - Related Data Allergies Allergy/AdvReac Type Severity Reaction Status Date / Time ciprofloxacin [From Cipro] Allergy Rash Verified 08/09/19 05:50 ciprofloxacin HCl Allergy Rash Verified 08/09/19 05:50 [From Cipro] shellfish derived Allergy Rash Verified 08/09/19 05:50 Home Meds: Home Meds Albuterol [Proventil HFA] 2 puff IH Q4H PRN 07/20/19 [History] Fluticasone/Salmeterol [Advair 250-50] 1 puff IH BID 07/20/19 [History] Docusate Sodium [Colace] 100 mg PO BID #30 capsule 07/22/19 [Rx] polyethylene glycoL 3350 [MiraLAX] 17 gm PO BID #30 packet 07/22/19 [Rx] oxyCODONE 5 mg PO Q6H PRN 07/26/19 [History] Magnesium Oxide 400 mg PO BID #30 tablet 07/27/19 [Rx] Sennosides [Senna] 17.2 mg PO BID #60 tablet 07/27/19 [Rx] oxyCODONE 10 mg PO Q4H PRN tablet 07/27/19 [Rx] Albuterol/Ipratropium [DuoNeb 3.0-0.5 MG/3 ML] 3 ml .XX Q6H #120 neb 08/09/19 [ Rx] LORazepam [Ativan] 0.5 mg PO Q6H PRN #60 tablet 08/09/19 [Rx] dexAMETHasone [Dexamethasone] 8 mg PO ASDIRECTED 08/09/19 [History] Past Medical History Cardiovascular History: Reports: SOB on Exertion Respiratory History: Reports: COPD Other Respiratory History: reports fluid on his lungs and in testing stages for lung cancer. on 3L/NC at home Gastrointestinal History: Reports: Diverticulosis Other Gastrointestinal History: diverticulitis Genitourinary History: Reports: BPH Musculoskeletal History: Reports: Fracture Oncologic (Cancer) History: Reports: Lung Other Oncologic History: in the early stages of receiving Lung cancer diagnosis. stated he will find out his diagnosis next week - Infectious Disease History Infectious Disease History: Reports: Chicken Pox, Influenza, Measles - Past Surgical History HEENT Surgical History: Reports: Tonsillectomy GI Surgical History: Reports: Appendectomy, Colon, Colostomy Social & Family History - Family History Family Medical History: Noncontributory - Tobacco Use Smoking Status *Q: Current Some Day Smoker Years of Tobacco use: 50 Packs/Tins Daily: 0.5 - Caffeine Use Caffeine Use: Reports: None Other Caffeine Use: 1 pot a day - Recreational Drug Use Recreational Drug Use: No - Living Situation & Occupation Living situation: Reports: , Alone Occupation: Retired ED ROS GENERAL - Review of Systems Review Of Systems: See Below Constitutional: Reports: Weakness, Fatigue. Denies: Fever, Chills HEENT: Reports: No Symptoms Respiratory: Reports: Shortness of Breath, Pleuritic Chest Pain, Cough. Denies : Wheezing, Sputum, Hemoptysis Cardiovascular: Reports: No Symptoms Endocrine: Reports: No Symptoms GI/Abdominal: Reports: Other (Has a colostomy he has had problems with constipation this seems to be a little bit better however he is not eating much) : Reports: No Symptoms Musculoskeletal: Reports: No Symptoms Skin: Reports: No Symptoms Neurological: Reports: No Symptoms Psychiatric: Reports: Anxiety Hematologic/Lymphatic: Reports: No Symptoms ED EXAM, GENERAL - Physical Exam Exam: See Below Exam Limited By: Other General Appearance: Alert, Mild Distress (Shortness of breath), Cachetic Head: Atraumatic, Normocephalic Neck: Normal Inspection, Supple, Non-Tender, Full Range of Motion Respiratory/Chest: Decreased Breath Sounds (Worse on the right compared to the left) Cardiovascular: Regular Rate, Rhythm, No Edema, No Murmur GI/Abdominal: Normal Bowel Sounds, Soft, Non-Tender Back Exam: Normal Inspection. No: CVA Tenderness (L), CVA Tenderness (R) Extremities: Normal Inspection, No Pedal Edema Neurological: Alert, Oriented, Normal Cognition Psychiatric: Normal Affect, Normal Mood Course - Vital Signs Last Recorded V/S: Last Vital Signs Temp 36.3 C 08/09/19 05:47 Pulse 69 08/09/19 05:47 Resp 26 H 08/09/19 05:47 BP 106/92 H 08/09/19 05:47 Pulse Ox 100 08/09/19 06:17 - Orders/Labs/Meds Orders: Active Orders 24 hr Category Date Time Status EKG Documentation Completion [RC] STAT Care 08/09/19 06:06 Active RT Aerosol Therapy [RC] ASDIRECTED Care 08/09/19 06:05 Active Labs: Laboratory Tests 08/09/19 08/09/19 Range/Units 06:15 06:15 WBC 5.97 (4.23-9.07) K/mm3 RBC 3.57 L (4.63-6.08) M/mm3 Hgb 11.4 L (13.7-17.5) gm/dl Hct 35.1 L (40.1-51.0) % MCV 98.3 H (79.0-92.2) fl MCH 31.9 (25.7-32.2) pg MCHC 32.5 (32.2-35.5) g/dl RDW Std Deviation 42.1 (35.1-43.9) fL Plt Count 180 D (163-337) K/mm3 MPV 8.5 L (9.4-12.3) fl Neut % (Auto) 89.5 H (34.0-67.9) % Lymph % (Auto) 6.5 L (21.8-53.1) % Warren % (Auto) 0.5 L (5.3-12.2) % Eos % (Auto) 1.7 (0.8-7.0) Baso % (Auto) 0.3 (0.1-1.2) % Neut # (Auto) 5.34 (1.78-5.38) K/mm3 Lymph # (Auto) 0.39 L (1.32-3.57) K/mm3 Warren # (Auto) 0.03 L (0.30-0.82) K/mm3 Eos # (Auto) 0.10 (0.04-0.54) K/mm3 Baso # (Auto) 0.02 (0.01-0.08) K/mm3 Manual Slide Review Sodium 135 L (136-145) mEq/L Potassium 4.2 (3.5-5.1) mEq/L Chloride 99 (98-107) mEq/L Carbon Dioxide 28 (21-32) mEq/L Anion Gap 12.2 (5-15) BUN 14 (7-18) mg/dL Creatinine 0.6 L (0.7-1.3) mg/dL Est Cr Clr Drug Dosing 88.64 mL/min Estimated GFR (MDRD) > 60 (>60) mL/min BUN/Creatinine Ratio 23.3 H (14-18) Glucose 88 (83-115) mg/dL Calcium 8.4 L (8.5-10.1) mg/dL Total Bilirubin 0.5 (0.2-1.0) mg/dL AST 34 (15-37) U/L ALT 34 (16-63) U/L Alkaline Phosphatase 82 (46-116) U/L Troponin I < 0.017 (0.00-0.056) ng/mL Total Protein 5.4 L (6.4-8.2) g/dl Albumin 2.0 L (3.4-5.0) g/dl Globulin 3.4 gm/dL Albumin/Globulin Ratio 0.6 L (1-2) Meds: Medications Discontinued Medications Generic Name Dose Route Start Last Admin Trade Name Freq PRN Reason Stop Dose Admin Albuterol/Ipratropium 3 ml 08/09/19 06:05 08/09/19 06:13 Duoneb 3.0-0.5 Mg/3 Ml NEB 08/09/19 06:06 3 ml ONETIME ONE Administration Lorazepam 0.5 mg 08/09/19 06:05 08/09/19 06:20 Ativan IVPUSH 08/09/19 06:06 0.5 mg ONETIME ONE Administration - Re-Assessments/Exams Free Text/Narrative Re-Assessment/Exam: 08/09/19 06:29 Patient is feeling a little bit better after a DuoNeb treatment, he appears to be quite pleased with the improvement. 08/09/19 07:14 Patient is doing somewhat better. He is breathing better after the nebulizer treatment and he was given 1/2 mg of Ativan and this is really helping to I reviewed his chest x-ray and it does not appear acutely worse than what he has been doing the effusion might be slightly larger. I did review the findings of the chest x-ray with the radiologist. I will see if I can get the patient set up for a nebulizer he is using puffers at home, and start him on duo nebs 4 times a day. And given a prescription for Ativan 0.5 mg every 6 hours as needed. I have reviewed his inhalers and he is on a steroid inhaler he will not change the dose of this. He is also on an albuterol inhaler we will change this to 2 puffs as needed between the nebulizers. Discussed the situation with [facility] rehab they will situated with a bubble chamber and a nebulizer machine. The patient has follow-up with Dr. Rangel on Friday. Departure - Departure Time of Disposition: 07:22 Disposition: Home, Self-Care 01 Clinical Impression: Small cell lung cancer, Anxiety, COPD (chronic obstructive pulmonary disease) - Discharge Information Prescriptions: Albuterol/Ipratropium [DuoNeb 3.0-0.5 MG/3 ML] 3 ml .XX Q6H #120 neb LORazepam [Ativan] 0.5 mg PO Q6H PRN #60 tablet PRN Reason: Anxiety Instructions: Shortness of Breath, Adult, [place] Referrals: Yumi Buenrostro SUPPORT TEAM MEMBER [Primary Care Provider] - Forms: ED Department Discharge Additional Instructions: Return to the emergency room with any questions problems or worsening symptoms. Use the nebulizer machine every 6 hours. Use the steroid inhaler as directed. Use the albuterol inhaler as needed in between the nebulizer treatments. You have been given a prescription for lorazepam, Ativan is another name for the same medication. Use this every 6 hours as directed for anxiety. If he is getting very good control you may try backing it off to every 8 hours and see how he does. This medication can be used on an as-needed basis but for now I would use it fairly regularly to ensure good control of his anxiety. Follow-up with Dr. Rangel on Friday as scheduled. Sepsis Event Note (ED) - Evaluation Sepsis Screening Result: No Definite Risk - Focused Exam Vital Signs: Vital Signs Temp Pulse Resp BP Pulse Ox 08/09/19 06:17 100 08/09/19 05:47 36.3 C 69 26 H 106/92 H - My Orders Last 24 Hours: My Active Orders 08/09/19 06:05 RT Aerosol Therapy [RC] ASDIRECTED 08/09/19 06:06 EKG Documentation Completion [RC] STAT - Assessment/Plan Last 24 Hours: My Active Orders 08/09/19 06:05 RT Aerosol Therapy [RC] ASDIRECTED 08/09/19 06:06 EKG Documentation Completion [RC] STAT
[2019-08-09] MEDS ORDERED: LORazepam 2 MG/ML SDV IVPUSH ONE (06:05)
[2019-08-09] MEDS ORDERED: Albuterol/Ipratropium 3.0-0.5 MG/3 ML Neb Soln NEB ONE (06:05)
--- NOTE | 2019-08-09 07:12 | CR ---
Chest: Frontal and lateral views the chest are obtained. Comparison: Prior chest x-ray of 07/27/19. Lucency is seen along portions of the left chest believed to be artifact. Diffuse increased density within the right chest is seen believed to be fairly stable. Pleural thickening is noted noted along the right lateral chest presumably from previous chest tube placement. Minimal blunting of the lateral left costophrenic angle is seen which may represent minimal pleural effusion or atelectasis. Left lung shows emphysematous change. Right-sided PICC line is seen. Tip lies within the superior vena cava. Heart does not appear enlarged. Upper mediastinum is grossly within normal limits. Impression: 1. Emphysematous change. 2. Increased density within the right chest believed to be fairly stable. 3. Minimal left-sided pleural effusion or atelectasis. 4. Satisfactory position of right-sided PICC line. Nothing acute is definitely appreciated. Diagnostic code #3 Study was dictated in MDT
== END 2019-08-09 07:45 | disposition home or self-care (01) ==
LOC: JD.ED 05:35
DX: F41.9 Anxiety disorder, unspecified (principal); J44.9 Chronic obstructive pulmonary disease, unspecified; C34.90 Malignant neoplasm of unspecified part of unspecified bronchus or lung; F17.210 Nicotine dependence, cigarettes, uncomplicated; Z88.1 Allergy status to other antibiotic agents; Z91.013 Allergy to seafood; Z99.81 Dependence on supplemental oxygen; Z79.899 Other long term (current) drug therapy
CPT/HCPCS: 36415; 71046; 80053; 84484; 85025; 93005; 94640; 96374; 99285; J2060; 99284; J7620-GY

== ENCOUNTER 2020-04-02 08:23 | Inpatient (IN) | payer MEDICARE, OTHER ==
[2020-04-02] MEDS ORDERED: Sodium Chloride 0.9% 10 ML Syringe FLUSH PRN ×2 (08:39→10:56)
--- NOTE | 2020-04-02 09:25 | EDM.PDOC ---
ED HPI GENERAL MEDICAL PROBLEM - General Chief Complaint: Chest Pain Stated Complaint: [facility] Time Seen by Provider: 04/02/20 08:28 Source of Information: Reports: Patient, EMS History Limitations: Reports: No Limitations - History of Present Illness INITIAL COMMENTS - FREE TEXT/NARRATIVE: The patient presents by [facility] for chest pain. He has small cell lung cancer and is currently getting chemotherapy every 3 weeks. He is on home oxygen. For the past week he has been getting chest pain in the mornings. He said today was worse so he called the ambulance. They gave him dilaudid and he feels better. He has a cough normally but he has more of one lately. He has no fever, chills, abdominal pain, nausea or vomiting. He has shortness of breath but no more then normal. He is on 3L NC and doing well on that here. The patient has been tested twice and recently for COVID 19. Onset: Gradual Duration: Week(s): Location: Reports: Chest Quality: Reports: Sharp Severity: Moderate Improves with: Reports: None Worsens with: Reports: None Associated Symptoms: Reports: Chest Pain, Cough, Shortness of Breath. Denies: Fever/Chills, Headaches, Nausea/Vomiting Chest Pain Score (Numeric/FACES): 1 - Related Data Allergies Allergy/AdvReac Type Severity Reaction Status Date / Time ciprofloxacin [From Cipro] Allergy Rash Verified 04/02/20 10:48 ciprofloxacin HCl Allergy Rash Verified 04/02/20 10:48 [From Cipro] shellfish derived Allergy Rash Verified 04/02/20 10:48 Home Meds: Home Meds Albuterol [Proventil HFA] 2 puff IH Q4H PRN 07/20/19 [History] Fluticasone/Salmeterol [Advair 250-50] 1 puff IH BID 07/20/19 [History] Docusate Sodium [Colace] 100 mg PO BID #30 capsule 07/22/19 [Rx] oxyCODONE 5 mg PO Q4HR PRN 07/26/19 [History] Sennosides [Senna] 17.2 mg PO BID #60 tablet 07/27/19 [Rx] Albuterol/Ipratropium [DuoNeb 3.0-0.5 MG/3 ML] 3 ml .XX Q6H #120 neb 08/09/19 [Rx] dexAMETHasone [Dexamethasone] 8 mg PO ASDIRECTED 08/09/19 [History] Acetaminophen [Pain Relief] 650 mg PO Q6HR PRN 04/02/20 [History] Doxycycline [Vibramycin] 100 mg PO BID 04/02/20 [History] LORazepam [Ativan] 0.5 mg PO TID 04/02/20 [History] Ondansetron [Zofran] 8 mg PO TID PRN 04/02/20 [History] polyethylene glycoL 3350 [MiraLAX] 17 gm PO DAILY PRN 04/02/20 [History] Past Medical History Cardiovascular History: Reports: SOB on Exertion Respiratory History: Reports: COPD Other Respiratory History: reports fluid on his lungs and in testing stages for lung cancer. on 3L/NC at home Gastrointestinal History: Reports: Diverticulosis Other Gastrointestinal History: diverticulitis, colostomy bag Genitourinary History: Reports: BPH Musculoskeletal History: Reports: Fracture Oncologic (Cancer) History: Reports: Lung Other Oncologic History: in the early stages of receiving Lung cancer diagnosis. stated he will find out his diagnosis next week - Infectious Disease History Infectious Disease History: Reports: Chicken Pox, Influenza, Measles - Past Surgical History HEENT Surgical History: Reports: Tonsillectomy GI Surgical History: Reports: Appendectomy, Colon, Colostomy Social & Family History - Family History Family Medical History: No Pertinent Family History - Tobacco Use Tobacco Use Status *Q: Current Every Day Tobacco User Years of Tobacco use: 65 Packs/Tins Daily: 0.2 - Caffeine Use Caffeine Use: Reports: Coffee Other Caffeine Use: 1 pot a day - Recreational Drug Use Recreational Drug Use: No - Living Situation & Occupation Living situation: Reports: , Alone Occupation: Retired ED ROS GENERAL - Review of Systems Review Of Systems: See Below Constitutional: Reports: No Symptoms HEENT: Reports: No Symptoms Respiratory: Reports: Shortness of Breath, Cough Cardiovascular: Reports: Chest Pain Endocrine: Reports: No Symptoms GI/Abdominal: Reports: No Symptoms : Reports: No Symptoms Musculoskeletal: Reports: No Symptoms Skin: Reports: No Symptoms Neurological: Reports: No Symptoms ED EXAM, GENERAL - Physical Exam Exam: See Below Exam Limited By: No Limitations General Appearance: Alert, No Apparent Distress Ears: Normal External Exam Nose: Normal Inspection Head: Atraumatic, Normocephalic Neck: Normal Inspection Respiratory/Chest: No Respiratory Distress, Decreased Breath Sounds, Wheezing (mild) Cardiovascular: Regular Rate, Rhythm, No Edema, No Murmur GI/Abdominal: Soft, Non-Tender, No Organomegaly, No Mass Back Exam: Normal Inspection Extremities: Normal Inspection #1 Interpretation EKG Date: 04/02/20 Time: 08:30 Rhythm: NSR Rate (Beats/Min): 65 [place]: Normal P-Wave: Present QRS: RBBB ST-T: Normal QT: Normal Course - Vital Signs Last Recorded V/S: Last Vital Signs Temp 97.1 F 04/02/20 10:34 Pulse 67 04/02/20 10:34 Resp 13 04/02/20 10:34 BP 117/58 L 04/02/20 10:34 Pulse Ox 99 04/02/20 10:34 - Orders/Labs/Meds Orders: Active Orders 24 hr Category Date Time Status Cardiac Monitoring [RC] . DIRECTED Care 04/02/20 08:39 Active EKG Documentation Completion [RC] STAT Care 04/02/20 08:39 Active Oxygen Therapy [RC] PRN Care 04/02/20 08:39 Active Peripheral IV Care [RC] . DIRECTED Care 04/02/20 08:40 Active CULTURE BLOOD [BC] Stat Lab 04/02/20 10:30 Received CULTURE BLOOD [BC] Stat Lab 04/02/20 10:37 Received Sodium Chloride 0.9% [Normal Saline] 100 ml Med 04/02/20 11:00 Active IV ASDIRECTED Sodium Chloride 0.9% [Saline Flush] Med 04/02/20 08:39 Active 10 ml FLUSH ASDIRECTED PRN Sodium Chloride 0.9% [Saline Flush] Med 04/02/20 10:56 Active 10 ml FLUSH ONETIME PRN Blood Culture x2 Reflex Set [OM.PC] Stat Oth 04/02/20 10:12 Ordered Peripheral IV Insertion Adult [OM.PC] Stat Oth 04/02/20 08:39 Ordered Code Status [Resuscitation Status] Stat Resus Stat 04/02/20 12:18 Ordered Medication Orders Sodium Chloride (Normal Saline) 100 mls @ 75 mls/hr IV ASDIRECTED OBED Last Admin: 04/02/20 11:27 Dose: 75 mls/hr Documented by: CATHY Sodium Chloride (Saline Flush) 10 ml FLUSH ASDIRECTED PRN PRN Reason: Keep Vein Open Last Admin: 04/02/20 08:51 Dose: 10 ml Documented by: LIV Sodium Chloride (Saline Flush) 10 ml FLUSH ONETIME PRN PRN Reason: IV FLUSH Last Admin: 04/02/20 11:27 Dose: 10 ml Documented by: CATHY Labs: Laboratory Tests 04/02/20 04/02/20 04/02/20 Range/Units 08:40 08:40 10:20 WBC 8.96 (4.23-9.07) K/mm3 RBC 3.80 L (4.63-6.08) M/mm3 Hgb 12.2 L D (13.7-17.5) gm/dl Hct 37.1 L (40.1-51.0) % MCV 97.6 H (79.0-92.2) fl MCH 32.1 (25.7-32.2) pg MCHC 32.9 (32.2-35.5) g/dl RDW Std Deviation 46.7 H (35.1-43.9) fL Plt Count 237 D (163-337) K/mm3 MPV 8.2 L (9.4-12.3) fl Neut % (Auto) 82.9 H (34.0-67.9) % Lymph % (Auto) 4.9 L (21.8-53.1) % Smith % (Auto) 11.5 (5.3-12.2) % Eos % (Auto) 0.3 L (0.8-7.0) Baso % (Auto) 0.1 (0.1-1.2) % Neut # (Auto) 7.42 H (1.78-5.38) K/mm3 Lymph # (Auto) 0.44 L (1.32-3.57) K/mm3 Smith # (Auto) 1.03 H (0.30-0.82) K/mm3 Eos # (Auto) 0.03 L (0.04-0.54) K/mm3 Baso # (Auto) 0.01 (0.01-0.08) K/mm3 Manual Slide Review Abnormal smear Sodium 137 (136-145) mEq/L Potassium 4.0 (3.5-5.1) mEq/L Chloride 99 (98-107) mEq/L Carbon Dioxide 28 (21-32) mEq/L Anion Gap 14.0 (5-15) BUN 18 (7-18) mg/dL Creatinine 0.9 (0.7-1.3) mg/dL Est Cr Clr Drug Dosing 57.29 mL/min Estimated GFR (MDRD) > 60 (>60) mL/min BUN/Creatinine Ratio 20.0 H (14-18) Glucose 102 (83-115) mg/dL Lactic Acid (0.4-2.0) mmol/L Calcium 9.6 (8.5-10.1) mg/dL Total Bilirubin 0.4 (0.2-1.0) mg/dL AST 15 (15-37) U/L ALT 22 (16-63) U/L Alkaline Phosphatase 71 (46-116) U/L Troponin I < 0.017 (0.00-0.056) ng/mL C-Reactive Protein 1.4 H* (<1.0) mg/dL Total Protein 7.1 (6.4-8.2) g/dl Albumin 3.7 (3.4-5.0) g/dl Globulin 3.4 gm/dL Albumin/Globulin Ratio 1.1 (1-2) Influenza Type A RNA Negative (NEGATIVE) Influenza Type B RNA Negative (NEGATIVE) SARS-CoV-2 RNA ([place]) Positive H (NEGATIVE) 04/02/20 Range/Units 10:30 WBC (4.23-9.07) K/mm3 RBC (4.63-6.08) M/mm3 Hgb (13.7-17.5) gm/dl Hct (40.1-51.0) % MCV (79.0-92.2) fl MCH (25.7-32.2) pg MCHC (32.2-35.5) g/dl RDW Std Deviation (35.1-43.9) fL Plt Count (163-337) K/mm3 MPV (9.4-12.3) fl Neut % (Auto) (34.0-67.9) % Lymph % (Auto) (21.8-53.1) % Smith % (Auto) (5.3-12.2) % Eos % (Auto) (0.8-7.0) Baso % (Auto) (0.1-1.2) % Neut # (Auto) (1.78-5.38) K/mm3 Lymph # (Auto) (1.32-3.57) K/mm3 Smith # (Auto) (0.30-0.82) K/mm3 Eos # (Auto) (0.04-0.54) K/mm3 Baso # (Auto) (0.01-0.08) K/mm3 Manual Slide Review Sodium (136-145) mEq/L Potassium (3.5-5.1) mEq/L Chloride (98-107) mEq/L Carbon Dioxide (21-32) mEq/L Anion Gap (5-15) BUN (7-18) mg/dL Creatinine (0.7-1.3) mg/dL Est Cr Clr Drug Dosing mL/min Estimated GFR (MDRD) (>60) mL/min BUN/Creatinine Ratio (14-18) Glucose (83-115) mg/dL Lactic Acid 1.2 (0.4-2.0) mmol/L Calcium (8.5-10.1) mg/dL Total Bilirubin (0.2-1.0) mg/dL AST (15-37) U/L ALT (16-63) U/L Alkaline Phosphatase (46-116) U/L Troponin I (0.00-0.056) ng/mL C-Reactive Protein (<1.0) mg/dL Total Protein (6.4-8.2) g/dl Albumin (3.4-5.0) g/dl Globulin gm/dL Albumin/Globulin Ratio (1-2) Influenza Type A RNA (NEGATIVE) Influenza Type B RNA (NEGATIVE) SARS-CoV-2 RNA ([place]) (NEGATIVE) Meds: Medications Generic Name Dose Route Start Last Admin Trade Name Freq PRN Reason Stop Dose Admin Sodium Chloride 100 mls @ 75 mls/hr 04/02/20 11:00 04/02/20 11:27 Normal Saline IV 75 mls/hr ASDIRECTED OBED Administration Sodium Chloride 10 ml 04/02/20 08:39 04/02/20 08:51 Saline Flush FLUSH 10 ml ASDIRECTED PRN Administration Keep Vein Open Sodium Chloride 10 ml 04/02/20 10:56 04/02/20 11:27 Saline Flush FLUSH 10 ml ONETIME PRN Administration IV FLUSH Discontinued Medications Generic Name Dose Route Start Last Admin Trade Name Elsi PRN Reason Stop Dose Admin Ceftriaxone Sodium 2 gm/ 100 mls @ 200 mls/hr 04/02/20 10:12 04/02/20 10:38 Sodium Chloride IV 04/02/20 10:41 200 mls/hr ONETIME ONE Administration Iopamidol 100 ml 04/02/20 10:56 04/02/20 11:27 Isovue-370 (76%) IVPUSH 04/02/20 10:57 100 ml ONETIME ONE Administration - Re-Assessments/Exams Free Text/Narrative Re-Assessment/Exam: 04/02/20 10:01 I ordered oxygen, IV saline lock, CXR, EKG, and labs. His EKG shows a NSR RBBB with no acute changes. His WBC was normal. His Hgb was low slightly at 12.2. His CMP was negative. His troponin was normal. His CRP was slightly elevated at 1.4. His CXR shows an old density to the mid right lung. There is a new appearing infiltrate at the base of the lung on the right. He does have a cough. 04/02/20 10:17 I talked to his daughter and she said he is getting immunologic therapy for the cancer every 3 weeks. She did not have his med list with her. She is out of town. I have ordered a CT angio of his chest, blood cultures, lactic acid, COVID 19 with influenza and rocephin 2 grams IV. 04/02/20 12:[address] of his chest shows no findings of pulmonary embolism. Right hilar adenopathy. Mild adenopathy suggested to the inferior subcarinal region. Nodular pleural thickening on the right side which most likely representing metastatic disease. Old healed right-sided rib fractures with previous healed bony trauma. Diffuse emphysematous change is seen. No acute parenchymal change is seen within either lung. Stable 5.1 cm mid abdominal aortic aneurysm. I talked with Dr Quinonez our hospitalist and he agreed to the admission. I called his daughter Kary to update her. Departure - Departure Time of Disposition: 12:30 Disposition: Admitted As Inpatient 67 Condition: Fair Clinical Impression: COVID-19, Small cell lung cancer COPD (chronic obstructive pulmonary disease) Qualifiers: COPD type: unspecified COPD Qualified Code(s): J44.9 - Chronic obstructive pulmonary disease, unspecified Cancer of right lung Qualifiers: Lung location: lower lobe of lung Qualified Code(s): C34.31 - Malignant neoplasm of lower lobe, right bronchus or lung Referrals: Suleman Swan MD [Primary Care Provider] - Forms: ED Department Discharge Sepsis Event Note (ED) - Evaluation Sepsis Screening Result: No Definite Risk - Focused Exam Vital Signs: Vital Signs Temp Pulse Resp BP Pulse Ox 04/02/20 10:34 97.1 F 67 13 117/58 L 99 04/02/20 09:30 97.1 F 70 12 113/64 100 04/02/20 08:28 97.1 F 76 13 132/70 97 - My Orders Last 24 Hours: My Active Orders 04/02/20 08:39 Cardiac Monitoring [RC] . DIRECTED EKG Documentation Completion [RC] STAT Oxygen Therapy [RC] PRN Sodium Chloride 0.9% [Saline Flush] 10 ml FLUSH ASDIRECTED PRN Peripheral IV Insertion Adult [OM.PC] Stat 04/02/20 08:40 Peripheral IV Care [RC] . DIRECTED 04/02/20 10:12 Blood Culture x2 Reflex Set [OM.PC] Stat 04/02/20 10:30 CULTURE BLOOD [BC] Stat 04/02/20 10:37 CULTURE BLOOD [BC] Stat 04/02/20 10:56 Sodium Chloride 0.9% [Saline Flush] 10 ml FLUSH ONETIME PRN 04/02/20 11:00 Sodium Chloride 0.9% [Normal Saline] 100 ml IV ASDIRECTED 04/02/20 12:18 Code Status [Resuscitation Status] Stat - Assessment/Plan Last 24 Hours: My Active Orders 04/02/20 08:39 Cardiac Monitoring [RC] . DIRECTED EKG Documentation Completion [RC] STAT Oxygen Therapy [RC] PRN Sodium Chloride 0.9% [Saline Flush] 10 ml FLUSH ASDIRECTED PRN Peripheral IV Insertion Adult [OM.PC] Stat 04/02/20 08:40 Peripheral IV Care [RC] . DIRECTED 04/02/20 10:12 Blood Culture x2 Reflex Set [OM.PC] Stat 04/02/20 10:30 CULTURE BLOOD [BC] Stat 04/02/20 10:37 CULTURE BLOOD [BC] Stat 04/02/20 10:56 Sodium Chloride 0.9% [Saline Flush] 10 ml FLUSH ONETIME PRN 04/02/20 11:00 Sodium Chloride 0.9% [Normal Saline] 100 ml IV ASDIRECTED 04/02/20 12:18 Code Status [Resuscitation Status] Stat
[2020-04-02] MEDS ORDERED: cefTRIAXone 2 GM in Sodium Chloride 0.9% 100 ML IV ONE (10:12)
--- NOTE | 2020-04-02 10:39 | CR ---
Chest: Portable view of the chest was obtained. Comparison: Prior chest imaging of 08/09/19. Heart size and mediastinum are within normal limits. Slight area of increased density within the right lung base. Uncertain if this is chronic or due to a small area of new infiltrate. Lesser density is noted within other portions of the right chest which are most likely chronic. Left lung is clear. Right-sided PICC line is seen with tip lying within the superior vena cava. No acute bony abnormality is appreciated. Impression: 1. Slight density within the right chest most of which appears to represent chronic change. Slight increased density within the right lung base is either due to chronic change or new area of small pneumonia if patient has infectious symptoms. 2. Right-sided PICC line. 3. Nothing acute is otherwise seen. Diagnostic code #3
[2020-04-02] MEDS ORDERED: Iopamidol 755 Mg/ML 100 ML Bottle IVPUSH ONE (10:56)
[2020-04-02] MEDS ORDERED: Sodium Chloride 0.9% 100 ML IV SCH (11:00)
[2020-04-02 11:28] LABS: CORONAVIRUS COVID-19 NAA POSITIVE (NEGATIVE)
--- NOTE | 2020-04-02 12:06 | CT ---
CT chest Technique: Multiple axial sections through the chest were obtained. Intravenous contrast was utilized. Study performed as a pulmonary angiogram protocol. Comparison: Prior chest CT of 07/18/19. Findings: Old right-sided rib fractures with evidence of old healed surgery is noted. Mediastinum is shifted to the right side which is stable. There is mild adenopathy within the right hilar region measuring up to 3.3 cm. Diffuse nodular pleural thickening is noted on the right side which is most likely metastatic. Slightly prominent subcarinal is seen presumably due to slight adenopathy. Both lungs show diffuse emphysematous change. No definite acute parenchymal change is appreciated. There is a partially visualized mid abdominal aortic aneurysm measuring approximately 5.1 cm which is stable from prior exam. Slight increased stool is seen within visualized portions of the colon. Pulmonary arteries show no filling defects to indicate pulmonary embolism. Impression: 1. No findings of pulmonary embolism. 2. Right hilar adenopathy. Mild adenopathy suggested to the inferior subcarinal region. 3. Nodular pleural thickening on the right side which most likely representing metastatic disease. 4. Old healed right-sided rib fractures with previous healed bony trauma. 5. Diffuse emphysematous change is seen. No acute parenchymal change is seen within either lung. 6. Stable 5.1 cm mid abdominal aortic aneurysm. Diagnostic code #9
[2020-04-02] MEDS ORDERED: Morphine 2 MG/ML SYRINGE IVPUSH PRN (12:29)
[2020-04-02] MEDS ORDERED: Promethazine 12.5 MG in Sodium Chloride 0.9% 50 ML IV PRN (12:29)
[2020-04-02] MEDS ORDERED: Polyethylene Glycol 3350 Powder 17 GM Packet PO PRN (12:56)
[2020-04-02] MEDS ORDERED: Doxycycline 100 MG in Sodium Chloride 0.9% 100 ML IV SCH (13:00)
--- NOTE | 2020-04-02 13:03 | PCM.HP.2 ---
H&P History of Present Illness - General Date of Service: 04/02/20 Admit Problem/Dx: Admission Diagnosis/Problem Admission Diagnosis/Problem Hypoxia Source of Information: Patient History Limitations: Reports: Other (ER physician) - History of Present Illness Initial Comments - Free Text/Narative: Patient is a 79-year-old male with history of COPD, small cell lung cancer, r eceiving any new therapy every 3 weeks who was brought to the ER due to chest pain and worsening shortness of breath. As per patient, patient has been having chest pain at times over the past 2 weeks. He has baseline shortness of breath which has been worsening over the past 2 weeks associated with dry cough. She is on home oxygen 3 L. She she had a positive COVID-19 test. In the ER, CT angio chest negative for PE. Chest x-ray showed possible right lower lobe pneumonia. 1 dose of ceftriaxone was given in the ER. She has been on oral doxycycline 100 mg twice daily at home. EKG no ST elevation and troponin was negative when in the ER. Chest Pain Score (Numeric/FACES): 1 - Related Data Allergies/Adverse Reactions: Allergies Allergy/AdvReac Type Severity Reaction Status Date / Time ciprofloxacin [From Cipro] Allergy Rash Verified 04/02/20 10:48 ciprofloxacin HCl Allergy Rash Verified 04/02/20 10:48 [From Cipro] shellfish derived Allergy Rash Verified 04/02/20 10:48 Home Medications: Home Meds Albuterol [Proventil HFA] 2 puff IH Q4H PRN 07/20/19 [History] Fluticasone/Salmeterol [Advair 250-50] 1 puff IH BID 07/20/19 [History] Docusate Sodium [Colace] 100 mg PO BID #30 capsule 07/22/19 [Rx] oxyCODONE 5 mg PO Q4HR PRN 07/26/19 [History] Sennosides [Senna] 17.2 mg PO BID #60 tablet 07/27/19 [Rx] Albuterol/Ipratropium [DuoNeb 3.0-0.5 MG/3 ML] 3 ml .XX Q6H #120 neb 08/09/19 [Rx] dexAMETHasone [Dexamethasone] 8 mg PO ASDIRECTED 08/09/19 [History] Acetaminophen [Pain Relief] 650 mg PO Q6HR PRN 02/07/21 [History] Doxycycline [Vibramycin] 100 mg PO BID 04/02/20 [History] LORazepam [Ativan] 0.5 mg PO TID 04/02/20 [History] Ondansetron [Zofran] 8 mg PO TID PRN 04/02/20 [History] polyethylene glycoL 3350 [MiraLAX] 17 gm PO DAILY PRN 04/02/20 [History] Past Medical History Cardiovascular History: Reports: SOB on Exertion Respiratory History: Reports: COPD, SOB Other Respiratory History: reports fluid on his lungs and in testing stages for lung cancer. on 3L/NC at home Gastrointestinal History: Reports: Diverticulosis Other Gastrointestinal History: diverticulitis, colostomy bag Genitourinary History: Reports: BPH Musculoskeletal History: Reports: Fracture Oncologic (Cancer) History: Reports: Lung Other Oncologic History: in the early stages of receiving Lung cancer diagnosis. stated he will find out his diagnosis next week - Infectious Disease History Infectious Disease History: Reports: Chicken Pox, Influenza, Measles - Past Surgical History HEENT Surgical History: Reports: Tonsillectomy GI Surgical History: Reports: Appendectomy, Colon, Colostomy Social & Family History - Family History Family Medical History: No Pertinent Family History - Tobacco Use Tobacco Use Status *Q: Current Every Day Tobacco User Years of Tobacco use: 65 Packs/Tins Daily: 0.2 - Caffeine Use Caffeine Use: Reports: Coffee Other Caffeine Use: 1 pot a day - Recreational Drug Use Recreational Drug Use: No - Living Situation & Occupation Living situation: Reports: , Alone Occupation: Retired H&P Review of Systems - Review of Systems: Review Of Systems: See Below (Positive for shortness of breath and chest pain. All other systems were reviewed and negative.) Exam - Exam Exam: See Below - Vital Signs Vital Signs: Last Vital Signs Temp 36.2 C 04/02/20 10:34 Pulse 67 04/02/20 10:34 Resp 13 04/02/20 10:34 BP 117/58 L 04/02/20 10:34 Pulse Ox 99 04/02/20 10:34 Weight: 59.874 kg - Exam Physical Exam Comments:: Physical Exam: General: No acute distress HEENT: Conjunctiva Clear, EOMI, Mucosa Moist & [place] Neck: Supple, Trachea Midline, NO JVD Lungs: Diminished breathing sounds, normal Respiratory Effort, no Wheezing Cardiovascular: Regular Rate, Regular Rhythm GI/Abdominal Exam: Normal Bowel Sounds, Soft, Non-Tender, No Organomegaly, No Distention, No Abnormal Bruit, No Mass Extremities: Normal Inspection, Non-Tender, No Pedal Edema, Normal Capillary Refill Skin: Warm, Dry, Intact Neurology: A+O x 3, no focal neurological deficits Psychiatric: Normal Mood - Patient Data Lab Results Last 24 hrs: Laboratory Results - last 24 hr 04/02/20 04/02/20 04/02/20 Range/Units 08:40 08:40 10:20 WBC 8.96 (4.23-9.07) K/mm3 RBC 3.80 L (4.63-6.08) M/mm3 Hgb 12.2 L D (13.7-17.5) gm/dl Hct 37.1 L (40.1-51.0) % MCV 97.6 H (79.0-92.2) fl MCH 32.1 (25.7-32.2) pg MCHC 32.9 (32.2-35.5) g/dl RDW Std Deviation 46.7 H (35.1-43.9) fL Plt Count 237 D (163-337) K/mm3 MPV 8.2 L (9.4-12.3) fl Neut % (Auto) 82.9 H (34.0-67.9) % Lymph % (Auto) 4.9 L (21.8-53.1) % [place] % (Auto) 11.5 (5.3-12.2) % Eos % (Auto) 0.3 L (0.8-7.0) Baso % (Auto) 0.1 (0.1-1.2) % Neut # (Auto) 7.42 H (1.78-5.38) K/mm3 Lymph # (Auto) 0.44 L (1.32-3.57) K/mm3 [place] # (Auto) 1.03 H (0.30-0.82) K/mm3 Eos # (Auto) 0.03 L (0.04-0.54) K/mm3 Baso # (Auto) 0.01 (0.01-0.08) K/mm3 Manual Slide Review Abnormal smear Sodium 137 (136-145) mEq/L Potassium 4.0 (3.5-5.1) mEq/L Chloride 99 (98-107) mEq/L Carbon Dioxide 28 (21-32) mEq/L Anion Gap 14.0 (5-15) BUN 18 (7-18) mg/dL Creatinine 0.9 (0.7-1.3) mg/dL Est Cr Clr Drug Dosing 57.29 mL/min Estimated GFR (MDRD) > 60 (>60) mL/min BUN/Creatinine Ratio 20.0 H (14-18) Glucose 102 (83-115) mg/dL Lactic Acid (0.4-2.0) mmol/L Calcium 9.6 (8.5-10.1) mg/dL Total Bilirubin 0.4 (0.2-1.0) mg/dL AST 15 (15-37) U/L ALT 22 (16-63) U/L Alkaline Phosphatase 71 (46-116) U/L Troponin I < 0.017 (0.00-0.056) ng/mL C-Reactive Protein 1.4 H* (<1.0) mg/dL Total Protein 7.1 (6.4-8.2) g/dl Albumin 3.7 (3.4-5.0) g/dl Globulin 3.4 gm/dL Albumin/Globulin Ratio 1.1 (1-2) Influenza Type A RNA Negative (NEGATIVE) Influenza Type B RNA Negative (NEGATIVE) SARS-CoV-2 RNA ([place]) Positive H (NEGATIVE) 04/02/20 Range/Units 10:30 WBC (4.23-9.07) K/mm3 RBC (4.63-6.08) M/mm3 Hgb (13.7-17.5) gm/dl Hct (40.1-51.0) % MCV (79.0-92.2) fl MCH (25.7-32.2) pg MCHC (32.2-35.5) g/dl RDW Std Deviation (35.1-43.9) fL Plt Count (163-337) K/mm3 MPV (9.4-12.3) fl Neut % (Auto) (34.0-67.9) % Lymph % (Auto) (21.8-53.1) % [place] % (Auto) (5.3-12.2) % Eos % (Auto) (0.8-7.0) Baso % (Auto) (0.1-1.2) % Neut # (Auto) (1.78-5.38) K/mm3 Lymph # (Auto) (1.32-3.57) K/mm3 [place] # (Auto) (0.30-0.82) K/mm3 Eos # (Auto) (0.04-0.54) K/mm3 Baso # (Auto) (0.01-0.08) K/mm3 Manual Slide Review Sodium (136-145) mEq/L Potassium (3.5-5.1) mEq/L Chloride (98-107) mEq/L Carbon Dioxide (21-32) mEq/L Anion Gap (5-15) BUN (7-18) mg/dL Creatinine (0.7-1.3) mg/dL Est Cr Clr Drug Dosing mL/min Estimated GFR (MDRD) (>60) mL/min BUN/Creatinine Ratio (14-18) Glucose (83-115) mg/dL Lactic Acid 1.2 (0.4-2.0) mmol/L Calcium (8.5-10.1) mg/dL Total Bilirubin (0.2-1.0) mg/dL AST (15-37) U/L ALT (16-63) U/L Alkaline Phosphatase (46-116) U/L Troponin I (0.00-0.056) ng/mL C-Reactive Protein (<1.0) mg/dL Total Protein (6.4-8.2) g/dl Albumin (3.4-5.0) g/dl Globulin gm/dL Albumin/Globulin Ratio (1-2) Influenza Type A RNA (NEGATIVE) Influenza Type B RNA (NEGATIVE) SARS-CoV-2 RNA ([place]) (NEGATIVE) Result Diagrams: 04/02/20 08:40 04/02/20 08:40 Sepsis Event Note - Evaluation Sepsis Screening Result: No Definite Risk - Focused Exam Vital Signs: Vital Signs Temp Pulse Resp BP Pulse Ox 04/02/20 10:34 36.2 C 67 13 117/58 L 99 04/02/20 09:30 36.2 C 70 12 113/64 100 04/02/20 08:28 36.2 C 76 13 132/70 97 Problem List Initiated/Reviewed/Updated: Yes Orders Last 24hrs: Active Orders 24 hr Category Date Time Status Admission Status [Patient Status] [ADT] Routine ADT 04/02/20 12:57 Ordered Bedrest Bedside Commode [RC] ASDIRECTED Care 04/02/20 12:29 Ordered Cardiac Monitoring [RC] . DIRECTED Care 04/02/20 08:39 Active Cardiac Monitoring [RC] CONTINUOUS Care 04/02/20 12:41 Ordered EKG Documentation Completion [RC] STAT Care 04/02/20 08:39 Active Intake and Output [RC] QSHIFT Care 04/02/20 12:41 Ordered Oxygen Therapy [RC] PRN Care 04/02/20 08:39 Active Oxygen Therapy [RC] PRN Care 04/02/20 12:30 Ordered Peripheral IV Care [RC] . DIRECTED Care 04/02/20 08:40 Active Pulse Oximetry [RC] CONTINUOUS Care 04/02/20 12:41 Ordered RT Aerosol Therapy [RC] ASDIRECTED Care 04/02/20 12:46 Ordered Up to Chair [RC] ASDIRECTED Care 04/02/20 12:29 Ordered VTE/DVT Education [RC] PER UNIT ROUTINE Care 04/02/20 12:30 Ordered Vital Signs [RC] Q4H Care 04/02/20 12:30 Ordered OT Evaluation and Treatment [CONS] Routine Cons 04/02/20 12:46 Ordered PT Evaluation and Treatment [CONS] Routine Cons 04/02/20 12:46 Ordered Regular Diet [DIET] Diet 04/02/20 Lunch Ordered A1C [GLYCOSYLATED HEMOGLOBIN,HGBA1C] [CHEM] Stat Lab 04/02/20 12:53 Ordered CBC WITH AUTO DIFF [HEME] DAILY Lab 04/03/20 05:00 Ordered CBC WITH AUTO DIFF [HEME] DAILY Lab 04/04/20 05:00 Ordered CBC WITH AUTO DIFF [HEME] DAILY Lab 04/05/20 05:00 Ordered CBC WITH AUTO DIFF [HEME] DAILY Lab 04/06/20 05:00 Ordered CBC WITH AUTO DIFF [HEME] DAILY Lab 04/07/20 05:00 Ordered COMPREHENSIVE METABOLIC PN,CMP [CHEM] DAILY Lab 04/03/20 05:00 Ordered COMPREHENSIVE METABOLIC PN,CMP [CHEM] DAILY Lab 04/04/20 05:00 Ordered COMPREHENSIVE METABOLIC PN,CMP [CHEM] DAILY Lab 04/05/20 05:00 Ordered COMPREHENSIVE METABOLIC PN,CMP [CHEM] DAILY Lab 04/06/20 05:00 Ordered COMPREHENSIVE METABOLIC PN,CMP [CHEM] DAILY Lab 04/07/20 05:00 Ordered CRP [C-REACTIVE PROTEIN] [CHEM] DAILY Lab 04/03/20 05:00 Ordered CRP [C-REACTIVE PROTEIN] [CHEM] DAILY Lab 04/04/20 05:00 Ordered CRP [C-REACTIVE PROTEIN] [CHEM] DAILY Lab 04/05/20 05:00 Ordered CRP [C-REACTIVE PROTEIN] [CHEM] DAILY Lab 04/06/20 05:00 Ordered CRP [C-REACTIVE PROTEIN] [CHEM] DAILY Lab 04/07/20 05:00 Ordered CULTURE BLOOD [BC] Stat Lab 04/02/20 10:30 Received CULTURE BLOOD [BC] Stat Lab 04/02/20 10:37 Received CULTURE MRSA [RM] Stat Lab 04/02/20 12:46 Ordered CULTURE SPUTUM + SMEAR [RM] Stat Lab 04/02/20 12:46 Ordered D-DIMER QUANTITATIVE [COAG] DAILY Lab 04/03/20 05:00 Ordered D-DIMER QUANTITATIVE [COAG] DAILY Lab 04/04/20 05:00 Ordered D-DIMER QUANTITATIVE [COAG] DAILY Lab 04/05/20 05:00 Ordered D-DIMER QUANTITATIVE [COAG] DAILY Lab 04/06/20 05:00 Ordered D-DIMER QUANTITATIVE [COAG] DAILY Lab 04/07/20 05:00 Ordered FERRITIN [CHEM] Stat Lab 04/02/20 12:55 Ordered INFLUENZA A+B AG SCREEN [RM] Stat Lab 04/02/20 12:56 Ordered INR,PT,PROTHROMBIN TIME [COAG] Routine Lab 04/02/20 12:46 Ordered LACTIC ACID [CHEM] Stat Lab 04/02/20 12:55 Ordered MAGNESIUM [CHEM] Routine Lab 04/02/20 12:46 Ordered PHOSPHORUS [CHEM] Routine Lab 04/02/20 12:46 Ordered TROPONIN I [CHEM] Routine Lab 04/02/20 12:46 Ordered VITAMIN D,25-HYDROXY [CHEM] Stat Lab 04/02/20 12:53 Ordered Acetaminophen [TylenoL] Med 04/02/20 12:29 Ordered 650 mg PO Q6H PRN Acetaminophen/oxyCODONE [Percocet 325-5 MG] Med 04/02/20 12:29 Ordered 1 tab PO Q8H PRN Albuterol Med 04/02/20 12:56 Ordered 2 puff IH Q4H PRN Albuterol/Ipratropium [DuoNeb 3.0-0.5 MG/3 ML] Med 04/02/20 12:29 Ordered 3 ml NEB Q4H PRN Azithromycin [Zithromax] 500 mg Med 04/02/20 13:00 Ordered Sodium Chloride 0.9% [Normal Saline (AdvBag)] 250 ml IV Q24H Docusate Sodium [Colace] Med 04/02/20 21:00 Ordered 100 mg PO BID Enoxaparin [Lovenox] Med 04/02/20 12:45 Ordered 40 mg SUBCUT DAILY Fluticasone/Salmeterol Med 04/02/20 21:00 Ordered 1 puff IH BID LORazepam Med 04/02/20 15:00 Ordered 0.5 mg PO TID Morphine Med 04/02/20 12:29 Ordered 2 mg IVPUSH Q4H PRN Promethazine [Phenergan] 12.5 mg Med 04/02/20 12:29 Ordered Sodium Chloride 0.9% [Normal Saline] 50 ml IV Q6H Sennosides [Senna] Med 04/02/20 21:00 Ordered 17.2 mg PO BID Sodium Chloride 0.9% [Normal Saline] 100 ml Med 04/02/20 11:00 Active IV ASDIRECTED Sodium Chloride 0.9% [Saline Flush] Med 04/02/20 08:39 Active 10 ml FLUSH ASDIRECTED PRN Sodium Chloride 0.9% [Saline Flush] Med 04/02/20 10:56 Active 10 ml FLUSH ONETIME PRN cefTRIAXone [Rocephin] 1 gm Med 04/02/20 13:00 Ordered Sodium Chloride 0.9% [Normal Saline] 100 ml IV Q24H dexAMETHasone Med 04/02/20 13:00 Ordered 8 mg PO ASDIRECTED polyethylene glycoL 3350 [MiraLAX] Med 04/02/20 12:56 Ordered 17 gm PO DAILY PRN Blood Culture x2 Reflex Set [OM.PC] Stat Oth 04/02/20 10:12 Ordered Isolation [COMM] Routine Oth 04/02/20 12:56 Ordered Peripheral IV Insertion Adult [OM.PC] Stat Oth 04/02/20 08:39 Ordered Code Status [Resuscitation Status] Stat Resus Stat 04/02/20 12:18 Ordered Medication Orders Acetaminophen (Tylenol) 650 mg PO Q6H PRN PRN Reason: Pain (Mild 1-3)/fever Albuterol/Ipratropium (Duoneb 3.0-0.5 Mg/3 Ml) 3 ml NEB Q4H PRN PRN Reason: Shortness Of Breath/wheezing Dexamethasone (Dexamethasone) 8 mg PO ASDIRECTED [facility] Docusate Sodium (Colace) 100 mg PO BID [facility] Enoxaparin Sodium (Lovenox) 40 mg SUBCUT DAILY [facility] Sodium Chloride (Normal Saline) 100 mls @ 75 mls/hr IV ASDIRECTED OBED Last Admin: 04/02/20 11:27 Dose: 75 mls/hr Documented by: CATHY Promethazine HCl 12.5 mg/ (Sodium Chloride) 50.5 mls @ 100 mls/hr IV Q6H PRN PRN Reason: Nausea/Vomiting Ceftriaxone Sodium 1 gm/ (Sodium Chloride) 100 mls @ 200 mls/hr IV Q24H OBED Azithromycin 500 mg/ Sodium (Chloride) 250 mls @ 250 mls/hr IV Q24H [facility] Lorazepam (Ativan) 0.5 mg PO TID [facility] Morphine Sulfate (Morphine) 2 mg IVPUSH Q4H PRN PRN Reason: Pain (severe 7-10) Stop: 04/03/20 12:44 Non-Formulary Medication (Albuterol) 2 puff IH Q4H PRN PRN Reason: wheeze Non-Formulary Medication (Fluticasone/Salmeterol) 1 puff IH BID [facility] Oxycodone/Acetaminophen (Percocet 325-5 Mg) 1 tab PO Q8H PRN PRN Reason: Pain (moderate 4-6) Polyethylene Glycol (Miralax) 17 gm PO DAILY PRN PRN Reason: Constipation Senna (Senna) 17.2 mg PO BID [facility] Sodium Chloride (Saline Flush) 10 ml FLUSH ASDIRECTED PRN PRN Reason: Keep Vein Open Last Admin: 04/02/20 08:51 Dose: 10 ml Documented by: LIV Sodium Chloride (Saline Flush) 10 ml FLUSH ONETIME PRN PRN Reason: IV FLUSH Last Admin: 04/02/20 11:27 Dose: 10 ml Documented by: CATHY Assessment/Plan Comment:: Assessment and plan: Assessment: 1. Acute on chronic hypoxic respiratory failure on home oxygen 3L Etiologies include lung cancer, possible COPD and pneumonia. Pulse ox Oxygen therapy, high flow and BiPAP as needed 2. Pneumonia, RLL, obstructive/CAP or Covid 19 3. Covid 19 positive 4. COPD exacerbation Chest x-ray showed possible right lower lobe pneumonia CT angio chest -no PE Blood culture Sputum culture Influenza screen MRSA screen Patient had been on oral doxycycline 100 mg twice daily at home Unasyn 1.5g iv Q6hrs azithromycin 500mg iv Q24hrs IV fluid mycin 500 mg IV every 24 hours Continue home dexamethasone Lovenox 40 mg subcutaneous daily (therapeutic Lovenox given none ordered because of high risk of bleeding from small cell lung cancer) I did not order Remdesivir based on NIH quideline. CRP and D-dimer daily Hemoglobin A1c Ferritin Vitamin D level 5. 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 Anemia Etiology could be due to malignancy Monitor CBC in morning 7. Chest pain Etiology unknown EKG no ST elevation Troponin negative in the ER, repeat a troponin CT angio chest negative for PE. But imaging did show possible right lower lobe pneumonia Aspirin and Lipitor 8. Abdominal aortic aneurysm, relatively stable Control blood pressure Follow with PCP as an outpatient 9. S/p Colectomy due to perforated bowel routine management 10. DVT prophylaxis: Lovenox - Mortality Measure Prognosis:: Poor
[2020-04-02 13:15] LABS: HEMOGLOBIN A1C 5.3 %
[2020-04-02] MEDS ORDERED: hydrALAZINE 20 MG/ML SDV IVPUSH PRN (13:26)
[2020-04-02] MEDS: Azithromycin 500 MG in Sodium Chloride 0.9% 250 ML IV SCH (13:55)
[2020-04-02] MEDS: Sodium Chloride 0.9% 1,000 ML IV SCH (13:56)
[2020-04-02] MEDS: Enoxaparin 40 MG/0.4 ML Syringe SUBCUT SCH (13:56)
[2020-04-02] MEDS: Ampicillin/Sulbactam Na 1.5 GM in Sodium Chloride 0.9% 100 ML IV SCH ×2 (15:49→20:24)
[2020-04-02] MEDS: LORazepam 0.5 MG Tab PO SCH ×2 (15:49→20:28)
[2020-04-02] MEDS: Acetaminophen/oxyCODONE 325-5 MG Tab PO PRN (18:31)
[2020-04-02] MEDS: Albuterol 6.7 GM Inhaler INH PRN (20:19)
[2020-04-02] MEDS: Formoterol/Mometasone 200-5 MCG 8.8 GM Inhaler IH SCH (20:19)
[2020-04-02] MEDS: Aspirin 81 MG Tab.Chew PO SCH (20:26)
[2020-04-02] MEDS: Simvastatin 10 MG Tab PO SCH (20:27)
[2020-04-02] MEDS: Docusate Sodium 100 MG Cap PO SCH (20:27)
[2020-04-02] MEDS: Sennosides 8.6 MG Tab PO SCH (20:28)
[2020-04-02] MEDS: HYDROmorphone 1 MG/ML Syringe IVPUSH PRN (23:05)
[2020-04-03] MEDS: Ampicillin/Sulbactam Na 1.5 GM in Sodium Chloride 0.9% 100 ML IV SCH ×4 (03:29→20:30)
[2020-04-03] MEDS: HYDROmorphone 1 MG/ML Syringe IVPUSH PRN ×4 (03:29→21:49)
[2020-04-03] MEDS: Enoxaparin 40 MG/0.4 ML Syringe SUBCUT SCH (08:26)
[2020-04-03] MEDS: Sennosides 8.6 MG Tab PO SCH ×2 (08:27→20:19)
[2020-04-03] MEDS: Docusate Sodium 100 MG Cap PO SCH ×2 (08:27→20:20)
[2020-04-03] MEDS: Cholecalciferol (Vitamin D3) 5,000 UNIT Cap PO SCH (08:27)
[2020-04-03] MEDS: LORazepam 0.5 MG Tab PO SCH ×3 (08:28→20:20)
[2020-04-03] MEDS: Formoterol/Mometasone 200-5 MCG 8.8 GM Inhaler IH SCH ×2 (08:50→20:12)
[2020-04-03] MEDS ORDERED: Ampicillin/Sulbactam Na 1.5 GM in Sodium Chloride 0.9% 100 ML IV SCH (09:30)
[2020-04-03] MEDS: Sodium Chloride 0.9% 1,000 ML IV SCH (09:40)
[2020-04-03] MEDS: Nicotine 14 MG/24 Hr Patch TRDERM SCH (09:47)
[2020-04-03] MEDS ORDERED: cefTRIAXone 1 GM in Sodium Chloride 0.9% 100 ML IV SCH (10:00)
--- NOTE | 2020-04-03 10:04 | PCM.PN ---
- General Info Date of Service: 04/03/20 Admission Dx/Problem (Free Text): Admission Diagnosis/Problem Admission Diagnosis/Problem Hypoxia Subjective Update: Patient does not have any new complaints. He still has a right-sided test the pain. Patient told me that he had been having right-sided chest pain for the past 2 to 3 months but it has been worsening over the past 3 to 4 days. Denies fever, chills, nausea, or vomiting. He is on home oxygen. He is now on 3 L with good oxygen saturation WBC 5.31, hemoglobin 11.5 D-dimer 3.27, CRP 1.5 Ferritin 986, Vitamin D 13.2 Troponin less than 0.0 17 x 2 - Review of Systems Systems Review Comment:: Positive for chest pain and shortness of breath. All other systems were reviewed and negative. - Patient Data Vitals - Most Recent: Last Vital Signs Temp 36.4 C 04/03/20 07:47 Pulse 65 04/03/20 07:47 Resp 20 04/03/20 07:47 BP 124/90 04/03/20 07:47 Pulse Ox 88 L 04/03/20 09:28 Weight - Most Recent: 56.608 kg I&O - Last 24 Hours: Intake & Output 04/02/20 04/03/20 04/03/20 22:59 06:59 14:59 Intake Total 630 1100 Output Total 100 750 Balance 530 350 Lab Results Last 24 Hours: Laboratory Results - last 24 hr 04/02/20 04/02/20 04/02/20 Range/Units 08:40 10:20 10:30 WBC (4.23-9.07) K/mm3 RBC (4.63-6.08) M/mm3 Hgb (13.7-17.5) gm/dl Hct (40.1-51.0) % MCV (79.0-92.2) fl MCH (25.7-32.2) pg MCHC (32.2-35.5) g/dl RDW Std Deviation (35.1-43.9) fL Plt Count (163-337) K/mm3 MPV (9.4-12.3) fl Neut % (Auto) (34.0-67.9) % Lymph % (Auto) (21.8-53.1) % [place] % (Auto) (5.3-12.2) % Eos % (Auto) (0.8-7.0) Baso % (Auto) (0.1-1.2) % Neut # (Auto) (1.78-5.38) K/mm3 Lymph # (Auto) (1.32-3.57) K/mm3 [place] # (Auto) (0.30-0.82) K/mm3 Eos # (Auto) (0.04-0.54) K/mm3 Baso # (Auto) (0.01-0.08) K/mm3 Manual Slide Review PT (9.7-12.0) SECONDS INR D-Dimer, Quantitative (0.19-0.50) mg/L Sodium (136-145) mEq/L Potassium (3.5-5.1) mEq/L Chloride (98-107) mEq/L Carbon Dioxide (21-32) mEq/L Anion Gap (5-15) BUN (7-18) mg/dL Creatinine (0.7-1.3) mg/dL Est Cr Clr Drug Dosing mL/min Estimated GFR (MDRD) (>60) mL/min BUN/Creatinine Ratio (14-18) Glucose (83-115) mg/dL Hemoglobin A1c 5.3 ( - 5.6) % Lactic Acid 1.2 (0.4-2.0) mmol/L Calcium (8.5-10.1) mg/dL Phosphorus (2.6-4.7) mg/dL Magnesium (1.8-2.4) mg/dl Ferritin (26-388) ng/ml Total Bilirubin (0.2-1.0) mg/dL AST (15-37) U/L ALT (16-63) U/L Alkaline Phosphatase (46-116) U/L Troponin I (0.00-0.056) ng/mL C-Reactive Protein (<1.0) mg/dL Total Protein (6.4-8.2) g/dl Albumin (3.4-5.0) g/dl Globulin gm/dL Albumin/Globulin Ratio (1-2) Vitamin D 25-Hydroxy (30.0-100.0) ng/ml Influenza Type A RNA Negative (NEGATIVE) Influenza Type B RNA Negative (NEGATIVE) SARS-CoV-2 RNA ([place]) Positive H (NEGATIVE) MRSA (PCR) 04/02/20 04/02/20 04/02/20 Range/Units 10:30 13:08 13:08 WBC (4.23-9.07) K/mm3 RBC (4.63-6.08) M/mm3 Hgb (13.7-17.5) gm/dl Hct (40.1-51.0) % MCV (79.0-92.2) fl MCH (25.7-32.2) pg MCHC (32.2-35.5) g/dl RDW Std Deviation (35.1-43.9) fL Plt Count (163-337) K/mm3 MPV (9.4-12.3) fl Neut % (Auto) (34.0-67.9) % Lymph % (Auto) (21.8-53.1) % [place] % (Auto) (5.3-12.2) % Eos % (Auto) (0.8-7.0) Baso % (Auto) (0.1-1.2) % Neut # (Auto) (1.78-5.38) K/mm3 Lymph # (Auto) (1.32-3.57) K/mm3 [place] # (Auto) (0.30-0.82) K/mm3 Eos # (Auto) (0.04-0.54) K/mm3 Baso # (Auto) (0.01-0.08) K/mm3 Manual Slide Review PT 11.5 (9.7-12.0) SECONDS INR 1.08 D-Dimer, Quantitative (0.19-0.50) mg/L Sodium (136-145) mEq/L Potassium (3.5-5.1) mEq/L Chloride (98-107) mEq/L Carbon Dioxide (21-32) mEq/L Anion Gap (5-15) BUN (7-18) mg/dL Creatinine (0.7-1.3) mg/dL Est Cr Clr Drug Dosing mL/min Estimated GFR (MDRD) (>60) mL/min BUN/Creatinine Ratio (14-18) Glucose (83-115) mg/dL Hemoglobin A1c ( - 5.6) % Lactic Acid (0.4-2.0) mmol/L Calcium (8.5-10.1) mg/dL Phosphorus 3.7 (2.6-4.7) mg/dL Magnesium 2.0 (1.8-2.4) mg/dl Ferritin (26-388) ng/ml Total Bilirubin (0.2-1.0) mg/dL AST (15-37) U/L ALT (16-63) U/L Alkaline Phosphatase (46-116) U/L Troponin I < 0.017 (0.00-0.056) ng/mL C-Reactive Protein (<1.0) mg/dL Total Protein (6.4-8.2) g/dl Albumin (3.4-5.0) g/dl Globulin gm/dL Albumin/Globulin Ratio (1-2) Vitamin D 25-Hydroxy 13.2 L (30.0-100.0) ng/ml Influenza Type A RNA (NEGATIVE) Influenza Type B RNA (NEGATIVE) SARS-CoV-2 RNA ([place]) (NEGATIVE) MRSA (PCR) 04/02/20 04/02/20 04/02/20 Range/Units 13:08 13:08 13:50 WBC (4.23-9.07) K/mm3 RBC (4.63-6.08) M/mm3 Hgb (13.7-17.5) gm/dl Hct (40.1-51.0) % MCV (79.0-92.2) fl MCH (25.7-32.2) pg MCHC (32.2-35.5) g/dl RDW Std Deviation (35.1-43.9) fL Plt Count (163-337) K/mm3 MPV (9.4-12.3) fl Neut % (Auto) (34.0-67.9) % Lymph % (Auto) (21.8-53.1) % [place] % (Auto) (5.3-12.2) % Eos % (Auto) (0.8-7.0) Baso % (Auto) (0.1-1.2) % Neut # (Auto) (1.78-5.38) K/mm3 Lymph # (Auto) (1.32-3.57) K/mm3 [place] # (Auto) (0.30-0.82) K/mm3 Eos # (Auto) (0.04-0.54) K/mm3 Baso # (Auto) (0.01-0.08) K/mm3 Manual Slide Review PT (9.7-12.0) SECONDS INR D-Dimer, Quantitative (0.19-0.50) mg/L Sodium (136-145) mEq/L Potassium (3.5-5.1) mEq/L Chloride (98-107) mEq/L Carbon Dioxide (21-32) mEq/L Anion Gap (5-15) BUN (7-18) mg/dL Creatinine (0.7-1.3) mg/dL Est Cr Clr Drug Dosing mL/min Estimated GFR (MDRD) (>60) mL/min BUN/Creatinine Ratio (14-18) Glucose (83-115) mg/dL Hemoglobin A1c ( - 5.6) % Lactic Acid 1.6 (0.4-2.0) mmol/L Calcium (8.5-10.1) mg/dL Phosphorus (2.6-4.7) mg/dL Magnesium (1.8-2.4) mg/dl Ferritin 986 H (26-388) ng/ml Total Bilirubin (0.2-1.0) mg/dL AST (15-37) U/L ALT (16-63) U/L Alkaline Phosphatase (46-116) U/L Troponin I (0.00-0.056) ng/mL C-Reactive Protein (<1.0) mg/dL Total Protein (6.4-8.2) g/dl Albumin (3.4-5.0) g/dl Globulin gm/dL Albumin/Globulin Ratio (1-2) Vitamin D 25-Hydroxy (30.0-100.0) ng/ml Influenza Type A RNA (NEGATIVE) Influenza Type B RNA (NEGATIVE) SARS-CoV-2 RNA ([place]) (NEGATIVE) MRSA (PCR) Negative 04/02/20 04/03/20 04/03/20 Range/Units 17:40 06:12 06:12 WBC 5.31 (4.23-9.07) K/mm3 RBC 3.65 L (4.63-6.08) M/mm3 Hgb 11.5 L (13.7-17.5) gm/dl Hct 36.6 L (40.1-51.0) % MCV 100.3 H (79.0-92.2) fl MCH 31.5 (25.7-32.2) pg MCHC 31.4 L (32.2-35.5) g/dl RDW Std Deviation 48.9 H (35.1-43.9) fL Plt Count 214 (163-337) K/mm3 MPV 8.3 L (9.4-12.3) fl Neut % (Auto) 63.3 (34.0-67.9) % Lymph % (Auto) 15.4 L (21.8-53.1) % [place] % (Auto) 17.3 H (5.3-12.2) % Eos % (Auto) 3.0 (0.8-7.0) Baso % (Auto) 0.6 (0.1-1.2) % Neut # (Auto) 3.36 (1.78-5.38) K/mm3 Lymph # (Auto) 0.82 L (1.32-3.57) K/mm3 [place] # (Auto) 0.92 H (0.30-0.82) K/mm3 Eos # (Auto) 0.16 (0.04-0.54) K/mm3 Baso # (Auto) 0.03 (0.01-0.08) K/mm3 Manual Slide Review Abnormal smear PT (9.7-12.0) SECONDS INR D-Dimer, Quantitative (0.19-0.50) mg/L Sodium 142 (136-145) mEq/L Potassium 4.0 (3.5-5.1) mEq/L Chloride 103 (98-107) mEq/L Carbon Dioxide 29 (21-32) mEq/L Anion Gap 14.0 (5-15) BUN 18 (7-18) mg/dL Creatinine 0.8 (0.7-1.3) mg/dL Est Cr Clr Drug Dosing 60.93 mL/min Estimated GFR (MDRD) > 60 (>60) mL/min BUN/Creatinine Ratio 22.5 H (14-18) Glucose 86 (83-115) mg/dL Hemoglobin A1c ( - 5.6) % Lactic Acid (0.4-2.0) mmol/L Calcium 9.2 (8.5-10.1) mg/dL Phosphorus (2.6-4.7) mg/dL Magnesium (1.8-2.4) mg/dl Ferritin (26-388) ng/ml Total Bilirubin 0.3 (0.2-1.0) mg/dL AST 16 (15-37) U/L ALT 20 (16-63) U/L Alkaline Phosphatase 62 (46-116) U/L Troponin I < 0.017 (0.00-0.056) ng/mL C-Reactive Protein 1.5 H* (<1.0) mg/dL Total Protein 6.2 L (6.4-8.2) g/dl Albumin 3.2 L (3.4-5.0) g/dl Globulin 3.0 gm/dL Albumin/Globulin Ratio 1.1 (1-2) Vitamin D 25-Hydroxy (30.0-100.0) ng/ml Influenza Type A RNA (NEGATIVE) Influenza Type B RNA (NEGATIVE) SARS-CoV-2 RNA ([place]) (NEGATIVE) MRSA (PCR) 04/03/20 Range/Units 06:12 WBC (4.23-9.07) K/mm3 RBC (4.63-6.08) M/mm3 Hgb (13.7-17.5) gm/dl Hct (40.1-51.0) % MCV (79.0-92.2) fl MCH (25.7-32.2) pg MCHC (32.2-35.5) g/dl RDW Std Deviation (35.1-43.9) fL Plt Count (163-337) K/mm3 MPV (9.4-12.3) fl Neut % (Auto) (34.0-67.9) % Lymph % (Auto) (21.8-53.1) % [place] % (Auto) (5.3-12.2) % Eos % (Auto) (0.8-7.0) Baso % (Auto) (0.1-1.2) % Neut # (Auto) (1.78-5.38) K/mm3 Lymph # (Auto) (1.32-3.57) K/mm3 [place] # (Auto) (0.30-0.82) K/mm3 Eos # (Auto) (0.04-0.54) K/mm3 Baso # (Auto) (0.01-0.08) K/mm3 Manual Slide Review PT (9.7-12.0) SECONDS INR D-Dimer, Quantitative 3.27 H (0.19-0.50) mg/L Sodium (136-145) mEq/L Potassium (3.5-5.1) mEq/L Chloride (98-107) mEq/L Carbon Dioxide (21-32) mEq/L Anion Gap (5-15) BUN (7-18) mg/dL Creatinine (0.7-1.3) mg/dL Est Cr Clr Drug Dosing mL/min Estimated GFR (MDRD) (>60) mL/min BUN/Creatinine Ratio (14-18) Glucose (83-115) mg/dL Hemoglobin A1c ( - 5.6) % Lactic Acid (0.4-2.0) mmol/L Calcium (8.5-10.1) mg/dL Phosphorus (2.6-4.7) mg/dL Magnesium (1.8-2.4) mg/dl Ferritin (26-388) ng/ml Total Bilirubin (0.2-1.0) mg/dL AST (15-37) U/L ALT (16-63) U/L Alkaline Phosphatase (46-116) U/L Troponin I (0.00-0.056) ng/mL C-Reactive Protein (<1.0) mg/dL Total Protein (6.4-8.2) g/dl Albumin (3.4-5.0) g/dl Globulin gm/dL Albumin/Globulin Ratio (1-2) Vitamin D 25-Hydroxy (30.0-100.0) ng/ml Influenza Type A RNA (NEGATIVE) Influenza Type B RNA (NEGATIVE) SARS-CoV-2 RNA ([place]) (NEGATIVE) MRSA (PCR) Med Orders - Current: Current Medications Acetaminophen (Tylenol) 650 mg PO Q6H PRN PRN Reason: Pain (Mild 1-3)/fever Albuterol (Proventil Hfa) 0 gm INH Q4H PRN PRN Reason: wheeze Last Admin: 04/02/20 20:19 Dose: 2 puff Documented by: Albuterol/Ipratropium (Duoneb 3.0-0.5 Mg/3 Ml) 3 ml NEB Q4H PRN PRN Reason: Shortness Of Breath/wheezing Aspirin (Aspirin) 81 mg PO BEDTIME OBED Last Admin: 04/02/20 20:26 Dose: 81 mg Documented by: Cholecalciferol (Vitamin D3) 5,000 unit PO DAILY [facility] Last Admin: 04/03/20 08:27 Dose: 5,000 unit Documented by: Dexamethasone (Dexamethasone) 8 mg PO ASDIRECTED [facility] Docusate Sodium (Colace) 100 mg PO BID [facility] Last Admin: 04/03/20 08:27 Dose: 100 mg Documented by: Enoxaparin Sodium (Lovenox) 40 mg SUBCUT DAILY [facility] Last Admin: 04/03/20 08:26 Dose: 40 mg Documented by: Hydralazine HCl (Apresoline) 10 mg IVPUSH Q4H PRN PRN Reason: Hypertension Hydromorphone HCl (Dilaudid) 0.5 - 1 mg IVPUSH Q4H PRN PRN Reason: Pain Last Admin: 04/03/20 08:23 Dose: 1 mg Documented by: Promethazine HCl 12.5 mg/ (Sodium Chloride) 50.5 mls @ 100 mls/hr IV Q6H PRN PRN Reason: Nausea/Vomiting Azithromycin 500 mg/ Sodium (Chloride) 250 mls @ 250 mls/hr IV Q24H [facility] Last Admin: 04/02/20 13:55 Dose: 250 mls/hr Documented by: Sodium Chloride (Normal Saline) 1,000 mls @ 50 mls/hr IV ASDIRECTED [facility] Last Admin: 04/03/20 09:40 Dose: 50 mls/hr Documented by: Ampicillin Sodium/Sulbactam (Sodium 1.5 gm/ Sodium Chloride) 100 mls @ 200 mls/hr IV Q6H [facility] Last Admin: 04/03/20 08:31 Dose: 200 mls/hr Documented by: Lorazepam (Ativan) 0.5 mg PO TID [facility] Last Admin: 04/03/20 08:28 Dose: 0.5 mg Documented by: Miscellaneous Information (Remove Patch) 0 ea TRDERM Q24H [facility] Mometasone Furoate/Formoterol Fumar (Dulera 200-5 Mcg) 2 puff IH BID [facility] Last Admin: 04/03/20 08:50 Dose: 2 puff Documented by: Nicotine (Habitrol) 14 mg TRDERM DAILY [facility] Last Admin: 04/03/20 09:47 Dose: Not Given Documented by: Oxycodone/Acetaminophen (Percocet 325-5 Mg) 1 tab PO Q8H PRN PRN Reason: Pain (moderate 4-6) Last Admin: 04/02/20 18:31 Dose: 1 tab Documented by: Polyethylene Glycol (Miralax) 17 gm PO DAILY PRN PRN Reason: Constipation Senna (Senna) 17.2 mg PO BID [facility] Last Admin: 04/03/20 08:27 Dose: 17.2 mg Documented by: Simvastatin (Zocor) 10 mg PO BEDTIME [facility] Last Admin: 04/02/20 20:27 Dose: 10 mg Documented by: Sodium Chloride (Saline Flush) 10 ml FLUSH ASDIRECTED PRN PRN Reason: Keep Vein Open Last Admin: 04/02/20 08:51 Dose: 10 ml Documented by: Sodium Chloride (Saline Flush) 10 ml FLUSH ONETIME PRN PRN Reason: IV FLUSH Last Admin: 04/02/20 11:27 Dose: 10 ml Documented by: Discontinued Medications Ceftriaxone Sodium 2 gm/ (Sodium Chloride) 100 mls @ 200 mls/hr IV ONETIME ONE Stop: 04/02/20 10:41 Last Admin: 04/02/20 10:38 Dose: 200 mls/hr Documented by: Sodium Chloride (Normal Saline) 100 mls @ 75 mls/hr IV ASDIRECTED [facility] Last Admin: 04/02/20 11:27 Dose: 75 mls/hr Documented by: Ceftriaxone Sodium 1 gm/ (Sodium Chloride) 100 mls @ 200 mls/hr IV Q24H [facility] Doxycycline Hyclate 100 mg/ (Sodium Chloride) 100 mls @ 100 mls/hr IV Q12HR [facility] Ampicillin Sodium/Sulbactam (Sodium 1.5 gm/ Sodium Chloride) 100 mls @ 200 mls/hr IV Q6H [facility] Last Admin: 04/03/20 03:29 Dose: 200 mls/hr Documented by: Ampicillin Sodium/Sulbactam (Sodium 1.5 gm/ Sodium Chloride) 100 mls @ 200 mls/hr IV Q6H [facility] Iopamidol (Isovue-370 (76%)) 100 ml IVPUSH ONETIME ONE Stop: 04/02/20 10:57 Last Admin: 04/02/20 11:27 Dose: 100 ml Documented by: Morphine Sulfate (Morphine) 2 mg IVPUSH Q4H PRN PRN Reason: Pain (severe 7-10) Stop: 04/03/20 12:44 Last Admin: 04/02/20 20:29 Dose: 2 mg Documented by: - Exam Physical Findings Comments:: Physical Exam: General: No acute distress, cachectic HEENT: Conjunctiva Clear, EOMI, Mucosa Moist & [place] Neck: Supple, Trachea Midline, NO JVD Chest: No tenderness Lungs: Diminished breathing sounds, normal Respiratory Effort, no Wheezing Cardiovascular: Regular Rate, Regular Rhythm GI/Abdominal Exam: Normal Bowel Sounds, Soft, Non-Tender, No Organomegaly, No Distention, No Abnormal Bruit, No Mass Extremities: Normal Inspection, Non-Tender, No Pedal Edema, Normal Capillary Refill Skin: Warm, Dry, Intact Neurology: A+O x 3, no focal neurological deficits Psychiatric: Normal Mood Sepsis Event Note - Evaluation Sepsis Screening Result: No Definite Risk - Focused Exam Vital Signs: Vital Signs Temp Pulse Resp BP Pulse Ox Pulse Ox 04/03/20 09:28 88 L 04/03/20 08:50 98 04/03/20 07:47 36.4 C 65 20 124/90 98 04/03/20 03:26 36.7 C 76 14 112/65 100 04/02/20 23:11 36.7 C 78 14 99/57 L 100 - Problem List Review Problem List Initiated/Reviewed/Updated: Yes - My Orders Last 24 Hours: My Active Orders 04/02/20 Lunch Regular Diet [DIET] 04/02/20 12:29 Bedrest Bedside Commode [RC] ASDIRECTED Up to Chair [RC] ASDIRECTED Acetaminophen [TylenoL] 650 mg PO Q6H PRN Acetaminophen/oxyCODONE [Percocet 325-5 MG] 1 tab PO Q8H PRN Albuterol/Ipratropium [DuoNeb 3.0-0.5 MG/3 ML] 3 ml NEB Q4H PRN Promethazine [Phenergan] 12.5 mg Sodium Chloride 0.9% [Normal Saline] 50 ml IV Q6H 04/02/20 12:30 Oxygen Therapy [RC] PRN VTE/DVT Education [RC] PER UNIT ROUTINE Vital Signs [RC] Q4HR 04/02/20 12:41 Cardiac Monitoring [RC] CONTINUOUS Intake and Output [RC] 04,16 Pulse Oximetry [RC] CONTINUOUS 04/02/20 12:45 Enoxaparin [Lovenox] 40 mg SUBCUT DAILY 04/02/20 12:46 RT Aerosol Therapy [RC] ASDIRECTED OT Evaluation and Treatment [CONS] Routine PT Evaluation and Treatment [CONS] Routine CULTURE SPUTUM + SMEAR [RM] Stat 04/02/20 12:56 Albuterol [Proventil HFA] 0 gm INH Q4H PRN polyethylene glycoL 3350 [MiraLAX] 17 gm PO DAILY PRN Isolation [COMM] Routine 04/02/20 13:00 Azithromycin [Zithromax] 500 mg Sodium Chloride 0.9% [Normal Saline (AdvBag)] 250 ml IV Q24H dexAMETHasone 8 mg PO ASDIRECTED 04/02/20 13:26 hydrALAZINE [Apresoline] 10 mg IVPUSH Q4H PRN 04/02/20 13:30 Sodium Chloride 0.9% [Normal Saline] 1,000 ml IV ASDIRECTED 04/02/20 15:00 LORazepam [Ativan] 0.5 mg PO TID 04/02/20 21:00 Aspirin 81 mg PO BEDTIME Docusate Sodium [Colace] 100 mg PO BID Mometasone/Formoterol [Dulera 200-5 MCG] 2 puff IH BID Sennosides [Senna] 17.2 mg PO BID Simvastatin [Zocor] 10 mg PO BEDTIME 04/02/20 22:51 HYDROmorphone [Dilaudid] 0.5 - 1 mg IVPUSH Q4H PRN 04/03/20 09:00 Cholecalciferol (Vitamin D3) [Vitamin D3] 5,000 unit PO DAILY 04/03/20 09:15 Nicotine [Habitrol] 14 mg TRDERM DAILY 04/03/20 09:30 Ampicillin/Sulbactam Na [Unasyn] 1.5 gm Sodium Chloride 0.9% [Normal Saline] 100 ml IV Q6H 04/04/20 05:00 CBC WITH AUTO DIFF [HEME] DAILY COMPREHENSIVE METABOLIC PN,CMP [CHEM] DAILY CRP [C-REACTIVE PROTEIN] [CHEM] DAILY D-DIMER QUANTITATIVE [COAG] DAILY 04/04/20 09:15 Remove Patch 0 ea TRDERM Q24H 04/05/20 05:00 CBC WITH AUTO DIFF [HEME] DAILY COMPREHENSIVE METABOLIC PN,CMP [CHEM] DAILY CRP [C-REACTIVE PROTEIN] [CHEM] DAILY D-DIMER QUANTITATIVE [COAG] DAILY 04/06/20 05:00 CBC WITH AUTO DIFF [HEME] DAILY COMPREHENSIVE METABOLIC PN,CMP [CHEM] DAILY CRP [C-REACTIVE PROTEIN] [CHEM] DAILY D-DIMER QUANTITATIVE [COAG] DAILY 04/07/20 05:00 CBC WITH AUTO DIFF [HEME] DAILY COMPREHENSIVE METABOLIC PN,CMP [CHEM] DAILY CRP [C-REACTIVE PROTEIN] [CHEM] DAILY D-DIMER QUANTITATIVE [COAG] DAILY - Plan Plan:: Assessment and plan: Assessment: 1. Acute on chronic hypoxic respiratory failure on home oxygen 3L Etiologies include lung cancer, possible COPD and pneumonia. Pulse ox Oxygen therapy, high flow and BiPAP as needed 2. Pneumonia, RLL, obstructive/CAP or Covid 19 3. Covid 19 positive 4. COPD exacerbation Chest x-ray showed possible right lower lobe pneumonia CT angio chest -no PE Blood culture - no growth so far Sputum culture - no growth so far Influenza screen - negative MRSA screen - negative Patient had been on oral doxycycline 100 mg twice daily at home Unasyn 1.5g iv Q6hrs azithromycin 500mg iv Q24hrs Continue home dexamethasone Lovenox 40 mg subcutaneous daily (therapeutic Lovenox given none ordered because of high risk of bleeding from small cell lung cancer) I did not order Remdesivir based on NIH quideline. CRP and D-dimer daily 5. 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 Anemia Etiology could be due to malignancy Monitor CBC in morning 7. Chest pain Etiology unknown. I feel the pain is less likely related to the cardiac ischemia. As per patient, he has been having the right-sided chest pain for 2 to 3 months, worsening over the past 3 to [address] elevation Troponin < 0.[address] angio chest negative for PE. But imaging did show possible right lower lobe pneumonia Pain management including IV Dilaudid Aspirin and Lipitor 8. Abdominal aortic aneurysm, relatively stable Control blood pressure Follow with PCP as an outpatient 9. S/p Colectomy due to perforated bowel routine management 10. Tobacco dependence Smoking cessation counseling Nicotine patch 11. Vitamin D deficiency Vitamin d 12. DVT prophylaxis: Lovenox
[2020-04-03] MEDS: Dexamethasone 4 MG Tab PO SCH (12:10)
[2020-04-03] MEDS: Azithromycin 500 MG in Sodium Chloride 0.9% 250 ML IV SCH (12:10)
[2020-04-03] MEDS: Acetaminophen/oxyCODONE 325-5 MG Tab PO PRN (12:11)
[2020-04-03] MEDS ORDERED: Ondansetron 4 MG/2 ML SDV IVPUSH ONE (14:00)
[2020-04-03] MEDS: Albuterol 6.7 GM Inhaler INH PRN (20:12)
[2020-04-03] MEDS: Aspirin 81 MG Tab.Chew PO SCH (20:19)
[2020-04-03] MEDS: Simvastatin 10 MG Tab PO SCH (20:20)
[2020-04-04] MEDS: Ampicillin/Sulbactam Na 1.5 GM in Sodium Chloride 0.9% 100 ML IV SCH ×4 (04:47→20:47)
[2020-04-04] MEDS: Sodium Chloride 0.9% 1,000 ML IV SCH (05:28)
[2020-04-04] MEDS: Acetaminophen/oxyCODONE 325-5 MG Tab PO PRN ×2 (05:28→14:33)
[2020-04-04] MEDS: Dexamethasone 4 MG Tab PO SCH (08:36)
[2020-04-04] MEDS: Sennosides 8.6 MG Tab PO SCH ×2 (08:38→20:10)
[2020-04-04] MEDS: LORazepam 0.5 MG Tab PO SCH ×3 (08:38→21:10)
[2020-04-04] MEDS: Cholecalciferol (Vitamin D3) 5,000 UNIT Cap PO SCH (08:39)
[2020-04-04] MEDS: Docusate Sodium 100 MG Cap PO SCH ×2 (08:39→20:10)
[2020-04-04] MEDS: Enoxaparin 40 MG/0.4 ML Syringe SUBCUT SCH (08:43)
[2020-04-04] MEDS: Nicotine 14 MG/24 Hr Patch TRDERM SCH (08:47)
[2020-04-04] MEDS: Formoterol/Mometasone 200-5 MCG 8.8 GM Inhaler IH SCH ×2 (09:21→20:36)
[2020-04-04] MEDS: HYDROmorphone 1 MG/ML Syringe IVPUSH PRN ×3 (09:39→22:10)
[2020-04-04] MEDS: Azithromycin 500 MG in Sodium Chloride 0.9% 250 ML IV SCH (13:17)
--- NOTE | 2020-04-04 15:27 | PCM.PN ---
- General Info Date of Service: 04/04/20 Admission Dx/Problem (Free Text): Admission Diagnosis/Problem Admission Diagnosis/Problem Hypoxia Subjective Update: Patient does not have any new complaints. He still has shortness of breath and right-sided test the pain which seems to be improved. Denies fever, chills, nausea, or vomiting. He is on home oxygen, 3 L. He is now on 3 L with good oxygen saturation Hemoglobin 11.0 CRP 1.9, D-dimer 4.24 - Review of Systems Systems Review Comment:: Positive for shortness of breath and right-sided chest pain. All other systems were reviewed and negative. - Patient Data Vitals - Most Recent: Last Vital Signs Temp 36.3 C 04/04/20 11:27 Pulse 73 04/04/20 11:27 Resp 20 04/04/20 11:27 BP 114/47 L 04/04/20 11:27 Pulse Ox 98 04/04/20 11:27 Weight - Most Recent: 58.105 kg I&O - Last 24 Hours: Intake & Output 04/04/20 04/04/20 04/04/20 06:59 14:59 22:59 Intake Total 1595 120 Output Total 450 Balance 1145 120 Lab Results Last 24 Hours: Laboratory Results - last 24 hr 04/04/20 04/04/20 04/04/20 Range/Units 06:03 06:03 06:03 WBC 7.64 (4.23-9.07) K/mm3 RBC 3.41 L (4.63-6.08) M/mm3 Hgb 11.0 L (13.7-17.5) gm/dl Hct 33.5 L (40.1-51.0) % MCV 98.2 H (79.0-92.2) fl MCH 32.3 H (25.7-32.2) pg MCHC 32.8 (32.2-35.5) g/dl RDW Std Deviation 45.7 H (35.1-43.9) fL Plt Count 219 (163-337) K/mm3 MPV 8.5 L (9.4-12.3) fl Neut % (Auto) 80.8 H (34.0-67.9) % Lymph % (Auto) 8.4 L (21.8-53.1) % [place] % (Auto) 10.2 (5.3-12.2) % Eos % (Auto) 0.1 L (0.8-7.0) Baso % (Auto) 0.1 (0.1-1.2) % Neut # (Auto) 6.17 H (1.78-5.38) K/mm3 Lymph # (Auto) 0.64 L (1.32-3.57) K/mm3 [place] # (Auto) 0.78 (0.30-0.82) K/mm3 Eos # (Auto) 0.01 L (0.04-0.54) K/mm3 Baso # (Auto) 0.01 (0.01-0.08) K/mm3 Manual Slide Review Abnormal smear D-Dimer, Quantitative 4.24 H (0.19-0.50) mg/L Sodium 137 (136-145) mEq/L Potassium 4.3 (3.5-5.1) mEq/L Chloride 101 (98-107) mEq/L Carbon Dioxide 26 (21-32) mEq/L Anion Gap 14.3 (5-15) BUN 15 (7-18) mg/dL Creatinine 0.8 (0.7-1.3) mg/dL Est Cr Clr Drug Dosing 62.54 mL/min Estimated GFR (MDRD) > 60 (>60) mL/min BUN/Creatinine Ratio 18.8 H (14-18) Glucose 95 (83-115) mg/dL Calcium 9.3 (8.5-10.1) mg/dL Total Bilirubin 0.3 (0.2-1.0) mg/dL AST 14 L (15-37) U/L ALT 21 (16-63) U/L Alkaline Phosphatase 65 (46-116) U/L C-Reactive Protein 1.9 H* (<1.0) mg/dL Total Protein 6.2 L (6.4-8.2) g/dl Albumin 3.1 L (3.4-5.0) g/dl Globulin 3.1 gm/dL Albumin/Globulin Ratio 1.0 (1-2) Js Results Last 24 Hours: Microbiology 04/03/20 13:50 Gram Stain - Final Sputum - Expectorated Sputum Culture - Preliminary 04/02/20 10:37 Aerobic Blood Culture - Preliminary Blood - Venous - Lab Draw NO GROWTH AFTER 2 DAYS Anaerobic Blood Culture - Preliminary NO GROWTH AFTER 2 DAYS 04/02/20 10:30 Aerobic Blood Culture - Preliminary Blood - Venous NO GROWTH AFTER 2 DAYS Anaerobic Blood Culture - Preliminary NO GROWTH AFTER 2 DAYS Med Orders - Current: Current Medications Acetaminophen (Tylenol) 650 mg PO Q6H PRN PRN Reason: Pain (Mild 1-3)/fever Albuterol (Proventil Hfa) 0 gm INH Q4H PRN PRN Reason: wheeze Last Admin: 04/03/20 20:12 Dose: 2 puff Documented by: Albuterol/Ipratropium (Duoneb 3.0-0.5 Mg/3 Ml) 3 ml NEB Q4H PRN PRN Reason: Shortness Of Breath/wheezing Aspirin (Aspirin) 81 mg PO BEDTIME [facility] Last Admin: 04/03/20 20:19 Dose: 81 mg Documented by: Cholecalciferol (Vitamin D3) 5,000 unit PO DAILY [facility] Last Admin: 04/04/20 08:39 Dose: 5,000 unit Documented by: Dexamethasone (Dexamethasone) 6 mg PO DAILY [facility] Stop: 04/12/20 09:01 Last Admin: 04/04/20 08:36 Dose: 6 mg Documented by: Docusate Sodium (Colace) 100 mg PO BID [facility] Last Admin: 04/04/20 08:39 Dose: 100 mg Documented by: Enoxaparin Sodium (Lovenox) 40 mg SUBCUT DAILY [facility] Last Admin: 04/04/20 08:43 Dose: 40 mg Documented by: Hydralazine HCl (Apresoline) 10 mg IVPUSH Q4H PRN PRN Reason: Hypertension Hydromorphone HCl (Dilaudid) 0.5 - 1 mg IVPUSH Q4H PRN PRN Reason: Pain Last Admin: 04/04/20 09:39 Dose: 0.5 mg Documented by: Promethazine HCl 12.5 mg/ (Sodium Chloride) 50.5 mls @ 100 mls/hr IV Q6H PRN PRN Reason: Nausea/Vomiting Azithromycin 500 mg/ Sodium (Chloride) 250 mls @ 250 mls/hr IV Q24H [facility] Last Admin: 04/04/20 13:17 Dose: 250 mls/hr Documented by: Sodium Chloride (Normal Saline) 1,000 mls @ 50 mls/hr IV ASDIRECTED [facility] Last Admin: 04/04/20 05:28 Dose: 50 mls/hr Documented by: Ampicillin Sodium/Sulbactam (Sodium 1.5 gm/ Sodium Chloride) 100 mls @ 200 mls/hr IV Q6H [facility] Last Admin: 04/04/20 14:34 Dose: 200 mls/hr Documented by: Lorazepam (Ativan) 0.5 mg PO TID [facility] Last Admin: 04/04/20 14:33 Dose: 0.5 mg Documented by: Miscellaneous Information (Remove Patch) 0 ea TRDERM Q24H [facility] Last Admin: 04/04/20 08:47 Dose: Not Given Documented by: Mometasone Furoate/Formoterol Fumar (Dulera 200-5 Mcg) 2 puff IH BID [facility] Last Admin: 04/04/20 09:21 Dose: 2 puff Documented by: Nicotine (Habitrol) 14 mg TRDERM DAILY [facility] Last Admin: 04/04/20 08:47 Dose: Not Given Documented by: Oxycodone/Acetaminophen (Percocet 325-5 Mg) 1 tab PO Q8H PRN PRN Reason: Pain (moderate 4-6) Last Admin: 04/04/20 14:33 Dose: 1 tab Documented by: Polyethylene Glycol (Miralax) 17 gm PO DAILY PRN PRN Reason: Constipation Senna (Senna) 17.2 mg PO BID [facility] Last Admin: 04/04/20 08:38 Dose: 17.2 mg Documented by: Simvastatin (Zocor) 10 mg PO BEDTIME [facility] Last Admin: 04/03/20 20:20 Dose: 10 mg Documented by: Sodium Chloride (Saline Flush) 10 ml FLUSH ASDIRECTED PRN PRN Reason: Keep Vein Open Last Admin: 04/02/20 08:51 Dose: 10 ml Documented by: Discontinued Medications Ceftriaxone Sodium 2 gm/ (Sodium Chloride) 100 mls @ 200 mls/hr IV ONETIME ONE Stop: 04/02/20 10:41 Last Admin: 04/02/20 10:38 Dose: 200 mls/hr Documented by: Sodium Chloride (Normal Saline) 100 mls @ 75 mls/hr IV ASDIRECTED [facility] Last Admin: 04/02/20 11:27 Dose: 75 mls/hr Documented by: Ceftriaxone Sodium 1 gm/ (Sodium Chloride) 100 mls @ 200 mls/hr IV Q24H [facility] Doxycycline Hyclate 100 mg/ (Sodium Chloride) 100 mls @ 100 mls/hr IV Q12HR [facility] Ampicillin Sodium/Sulbactam (Sodium 1.5 gm/ Sodium Chloride) 100 mls @ 200 mls/hr IV Q6H [facility] Last Admin: 04/03/20 03:29 Dose: 200 mls/hr Documented by: Ampicillin Sodium/Sulbactam (Sodium 1.5 gm/ Sodium Chloride) 100 mls @ 200 mls/hr IV Q6H [facility] Iopamidol (Isovue-370 (76%)) 100 ml IVPUSH ONETIME ONE Stop: 04/02/20 10:57 Last Admin: 04/02/20 11:27 Dose: 100 ml Documented by: Morphine Sulfate (Morphine) 2 mg IVPUSH Q4H PRN PRN Reason: Pain (severe 7-10) Stop: 04/03/20 12:44 Last Admin: 04/02/20 20:29 Dose: 2 mg Documented by: Ondansetron HCl (Zofran) 4 mg IVPUSH ONETIME ONE Stop: 04/03/20 14:01 Last Admin: 04/03/20 14:00 Dose: 4 mg Documented by: Sodium Chloride (Saline Flush) 10 ml FLUSH ONETIME PRN PRN Reason: IV FLUSH Last Admin: 04/02/20 11:27 Dose: 10 ml Documented by: - Exam Physical Findings Comments:: Physical Exam: General: No acute distress, cachectic HEENT: Conjunctiva Clear, EOMI, Mucosa Moist & [place] Neck: Supple, Trachea Midline, NO JVD Chest: No tenderness Lungs: Diminished breathing sounds, normal Respiratory Effort, no Wheezing Cardiovascular: Regular Rate, Regular Rhythm GI/Abdominal Exam: Normal Bowel Sounds, Soft, Non-Tender, No Organomegaly, No Distention, No Abnormal Bruit, No Mass. Colostomy bag in place with dark-green fecal matter. Extremities: Normal Inspection, Non-Tender, No Pedal Edema, Normal Capillary Refill Skin: Warm, Dry, Intact Neurology: A+O x 3, no focal neurological deficits Psychiatric: Normal Mood Sepsis Event Note - Evaluation Sepsis Screening Result: No Definite Risk - Focused Exam Vital Signs: Vital Signs Temp Pulse Resp BP Pulse Ox Pulse Ox 04/04/20 11:27 36.3 C 73 20 114/47 L 98 04/04/20 09:23 97 04/04/20 08:39 36.5 C 80 22 H 90/59 L 96 - Problem List Review Problem List Initiated/Reviewed/Updated: Yes - My Orders Last 24 Hours: My Active Orders 04/03/20 Dinner Regular Diet [DIET] 04/04/20 09:15 Remove Patch 0 ea TRDERM Q24H 04/05/20 05:00 CBC WITH AUTO DIFF [HEME] DAILY COMPREHENSIVE METABOLIC PN,CMP [CHEM] DAILY CRP [C-REACTIVE PROTEIN] [CHEM] DAILY D-DIMER QUANTITATIVE [COAG] DAILY 04/06/20 05:00 CBC WITH AUTO DIFF [HEME] DAILY COMPREHENSIVE METABOLIC PN,CMP [CHEM] DAILY CRP [C-REACTIVE PROTEIN] [CHEM] DAILY D-DIMER QUANTITATIVE [COAG] DAILY 04/07/20 05:00 CBC WITH AUTO DIFF [HEME] DAILY COMPREHENSIVE METABOLIC PN,CMP [CHEM] DAILY CRP [C-REACTIVE PROTEIN] [CHEM] DAILY D-DIMER QUANTITATIVE [COAG] DAILY - Plan Plan:: Assessment and plan: Assessment: 1. Acute on chronic hypoxic respiratory failure on home oxygen 3L Etiologies include lung cancer, possible COPD and pneumonia. Pulse ox Oxygen therapy, he is now on 3 L via nasal cannula 2. Pneumonia, RLL, obstructive/CAP or Covid 19 3. Covid 19 positive 4. COPD exacerbation Chest x-ray showed possible right lower lobe pneumonia CT angio chest -no PE Blood culture - no growth so far Sputum culture - no growth so far Influenza screen - negative MRSA screen - negative Patient had been on oral doxycycline 100 mg twice daily at home Unasyn 1.5g iv Q6hrs and azithromycin 500mg iv Q24hrs Continue home dexamethasone 6 mg p.o. daily (pharmacy verified) Aspirin 81 mg daily Lovenox 40 mg subcutaneous daily (did not order therapeutic Lovenox because of high risk of bleeding from small cell lung cancer) I did not order Remdesivir based on NIH quideline. CRP and D-dimer daily 5. 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 Anemia Etiology could be due to malignancy Monitor CBC in morning 7. Chest pain Etiology unknown. I feel the pain is less likely related to the cardiac ischemia. As per patient, he has been having the right-sided chest pain for 2 to 3 months, worsening over the past 3 to [address] elevation Troponin < 0.[address] angio chest negative for PE. But CXR did show possible right lower lobe pneumonia Pain management including IV Dilaudid Aspirin and Lipitor 8. Abdominal aortic aneurysm, relatively stable Control blood pressure Follow with PCP as an outpatient 9. S/p Colectomy due to perforated bowel routine management 10. Tobacco dependence Smoking cessation counseling Nicotine patch 11. Vitamin D deficiency Vitamin d 12. DVT prophylaxis: Lovenox
[2020-04-04] MEDS: Albuterol 6.7 GM Inhaler INH PRN (15:30)
[2020-04-04] MEDS: Albuterol/Ipratropium 3.0-0.5 MG/3 ML Neb Soln NEB PRN (17:52)
[2020-04-04] MEDS: Aspirin 81 MG Tab.Chew PO SCH (20:09)
[2020-04-04] MEDS: Simvastatin 10 MG Tab PO SCH (20:11)
[2020-04-05] MEDS: Sodium Chloride 0.9% 1,000 ML IV SCH (02:06)
[2020-04-05] MEDS: HYDROmorphone 1 MG/ML Syringe IVPUSH PRN ×3 (02:27→17:57)
[2020-04-05] MEDS: Ampicillin/Sulbactam Na 1.5 GM in Sodium Chloride 0.9% 100 ML IV SCH ×2 (02:31→08:29)
[2020-04-05] MEDS: Acetaminophen/oxyCODONE 325-5 MG Tab PO PRN ×2 (03:17→11:50)
[2020-04-05] MEDS: Formoterol/Mometasone 200-5 MCG 8.8 GM Inhaler IH SCH ×2 (08:09→20:57)
[2020-04-05] MEDS: Acetaminophen 325 MG Tab PO PRN (08:22)
[2020-04-05] MEDS: Sennosides 8.6 MG Tab PO SCH ×2 (08:23→20:08)
[2020-04-05] MEDS: Dexamethasone 4 MG Tab PO SCH (08:23)
[2020-04-05] MEDS: LORazepam 0.5 MG Tab PO SCH ×3 (08:23→20:08)
[2020-04-05] MEDS: Nicotine 14 MG/24 Hr Patch TRDERM SCH (08:23)
[2020-04-05] MEDS: Docusate Sodium 100 MG Cap PO SCH ×2 (08:23→20:08)
[2020-04-05] MEDS: Cholecalciferol (Vitamin D3) 5,000 UNIT Cap PO SCH (08:23)
[2020-04-05] MEDS: Enoxaparin 40 MG/0.4 ML Syringe SUBCUT SCH (08:24)
--- NOTE | 2020-04-05 10:57 | PCM.PN ---
- General Info Date of Service: 04/05/20 Admission Dx/Problem (Free Text): Admission Diagnosis/Problem Admission Diagnosis/Problem Hypoxia - Patient Data Vitals - Most Recent: Last Vital Signs Temp 97.7 F 04/05/20 08:37 Pulse 71 04/05/20 08:37 Resp 23 H 04/05/20 08:37 BP 114/54 L 04/05/20 08:37 Pulse Ox 93 L 04/05/20 08:37 Weight - Most Recent: 129 lb 14.4 oz I&O - Last 24 Hours: Intake & Output 04/04/20 04/05/20 04/05/20 22:59 06:59 14:59 Intake Total 1600 1493 Output Total 815 905 Balance 785 588 Lab Results Last 24 Hours: Laboratory Results - last 24 hr 04/05/20 04/05/20 04/05/20 Range/Units 05:57 05:57 05:57 WBC 8.17 (4.23-9.07) K/mm3 RBC 3.53 L (4.63-6.08) M/mm3 Hgb 11.2 L (13.7-17.5) gm/dl Hct 34.8 L (40.1-51.0) % MCV 98.6 H (79.0-92.2) fl MCH 31.7 (25.7-32.2) pg MCHC 32.2 (32.2-35.5) g/dl RDW Std Deviation 46.4 H (35.1-43.9) fL Plt Count 227 (163-337) K/mm3 MPV 8.8 L (9.4-12.3) fl Neut % (Auto) 80.1 H (34.0-67.9) % Lymph % (Auto) 9.2 L (21.8-53.1) % [place] % (Auto) 9.8 (5.3-12.2) % Eos % (Auto) 0.4 L (0.8-7.0) Baso % (Auto) 0.1 (0.1-1.2) % Neut # (Auto) 6.55 H (1.78-5.38) K/mm3 Lymph # (Auto) 0.75 L (1.32-3.57) K/mm3 [place] # (Auto) 0.80 (0.30-0.82) K/mm3 Eos # (Auto) 0.03 L (0.04-0.54) K/mm3 Baso # (Auto) 0.01 (0.01-0.08) K/mm3 Manual Slide Review Normal smear D-Dimer, Quantitative 4.11 H (0.19-0.50) mg/L Sodium 139 (136-145) mEq/L Potassium 3.9 (3.5-5.1) mEq/L Chloride 101 (98-107) mEq/L Carbon Dioxide 30 (21-32) mEq/L Anion Gap 11.9 (5-15) BUN 15 (7-18) mg/dL Creatinine 0.8 (0.7-1.3) mg/dL Est Cr Clr Drug Dosing 63.42 mL/min Estimated GFR (MDRD) > 60 (>60) mL/min BUN/Creatinine Ratio 18.8 H (14-18) Glucose 87 (83-115) mg/dL Calcium 9.2 (8.5-10.1) mg/dL Total Bilirubin 0.3 (0.2-1.0) mg/dL AST 15 (15-37) U/L ALT 19 (16-63) U/L Alkaline Phosphatase 64 (46-116) U/L C-Reactive Protein 1.2 H* (<1.0) mg/dL Total Protein 6.3 L (6.4-8.2) g/dl Albumin 3.2 L (3.4-5.0) g/dl Globulin 3.1 gm/dL Albumin/Globulin Ratio 1.0 (1-2) Js Results Last 24 Hours: Microbiology 04/02/20 10:37 Aerobic Blood Culture - Preliminary Blood - Venous - Lab Draw NO GROWTH AFTER 3 DAYS Anaerobic Blood Culture - Preliminary NO GROWTH AFTER 3 DAYS 04/02/20 10:30 Aerobic Blood Culture - Preliminary Blood - Venous NO GROWTH AFTER 3 DAYS Anaerobic Blood Culture - Preliminary NO GROWTH AFTER 3 DAYS 04/03/20 13:50 Gram Stain - Final Sputum - Expectorated Sputum Culture - Preliminary NORMAL RESPIRATORY LEAH 2 DAYS Med Orders - Current: Current Medications Acetaminophen (Tylenol) 650 mg PO Q6H PRN PRN Reason: Pain (Mild 1-3)/fever Last Admin: 04/05/20 08:22 Dose: 650 mg Documented by: Albuterol (Proventil Hfa) 0 gm INH Q4H PRN PRN Reason: wheeze Last Admin: 04/04/20 15:30 Dose: 2 puff Documented by: Albuterol/Ipratropium (Duoneb 3.0-0.5 Mg/3 Ml) 3 ml NEB Q4H PRN PRN Reason: Shortness Of Breath/wheezing Last Admin: 04/04/20 17:52 Dose: 3 ml Documented by: Aspirin (Aspirin) 81 mg PO BEDTIME [facility] Last Admin: 04/04/20 20:09 Dose: 81 mg Documented by: Cholecalciferol (Vitamin D3) 5,000 unit PO DAILY [facility] Last Admin: 04/05/20 08:23 Dose: 5,000 unit Documented by: Dexamethasone (Dexamethasone) 6 mg PO DAILY [facility] Stop: 04/12/20 09:01 Last Admin: 04/05/20 08:23 Dose: 6 mg Documented by: Docusate Sodium (Colace) 100 mg PO BID [facility] Last Admin: 04/05/20 08:23 Dose: 100 mg Documented by: Enoxaparin Sodium (Lovenox) 40 mg SUBCUT DAILY [facility] Last Admin: 04/05/20 08:24 Dose: 40 mg Documented by: Hydralazine HCl (Apresoline) 10 mg IVPUSH Q4H PRN PRN Reason: Hypertension Hydromorphone HCl (Dilaudid) 0.5 - 1 mg IVPUSH Q4H PRN PRN Reason: Pain Last Admin: 04/05/20 08:22 Dose: 1 mg Documented by: Promethazine HCl 12.5 mg/ (Sodium Chloride) 50.5 mls @ 100 mls/hr IV Q6H PRN PRN Reason: Nausea/Vomiting Azithromycin 500 mg/ Sodium (Chloride) 250 mls @ 250 mls/hr IV Q24H [facility] Last Admin: 04/04/20 13:17 Dose: 250 mls/hr Documented by: Sodium Chloride (Normal Saline) 1,000 mls @ 50 mls/hr IV ASDIRECTED [facility] Last Admin: 04/05/20 02:06 Dose: 50 mls/hr Documented by: Ampicillin Sodium/Sulbactam (Sodium 1.5 gm/ Sodium Chloride) 100 mls @ 200 mls/hr IV Q6H [facility] Last Admin: 04/05/20 08:29 Dose: 200 mls/hr Documented by: Lorazepam (Ativan) 0.5 mg PO TID [facility] Last Admin: 04/05/20 08:23 Dose: 0.5 mg Documented by: Miscellaneous Information (Remove Patch) 0 ea TRDERM Q24H [facility] Last Admin: 04/05/20 08:24 Dose: Not Given Documented by: Mometasone Furoate/Formoterol Fumar (Dulera 200-5 Mcg) 2 puff IH BID [facility] Last Admin: 04/05/20 08:09 Dose: 2 puff Documented by: Nicotine (Habitrol) 14 mg TRDERM DAILY [facility] Last Admin: 04/05/20 08:23 Dose: Not Given Documented by: Oxycodone/Acetaminophen (Percocet 325-5 Mg) 1 tab PO Q8H PRN PRN Reason: Pain (moderate 4-6) Last Admin: 04/05/20 03:17 Dose: 1 tab Documented by: Polyethylene Glycol (Miralax) 17 gm PO DAILY PRN PRN Reason: Constipation Senna (Senna) 17.2 mg PO BID [facility] Last Admin: 04/05/20 08:23 Dose: 17.2 mg Documented by: Simvastatin (Zocor) 10 mg PO BEDTIME [facility] Last Admin: 04/04/20 20:11 Dose: 10 mg Documented by: Sodium Chloride (Saline Flush) 10 ml FLUSH ASDIRECTED PRN PRN Reason: Keep Vein Open Last Admin: 04/02/20 08:51 Dose: 10 ml Documented by: Discontinued Medications Ceftriaxone Sodium 2 gm/ (Sodium Chloride) 100 mls @ 200 mls/hr IV ONETIME ONE Stop: 04/02/20 10:41 Last Admin: 04/02/20 10:38 Dose: 200 mls/hr Documented by: Sodium Chloride (Normal Saline) 100 mls @ 75 mls/hr IV ASDIRECTED [facility] Last Admin: 04/02/20 11:27 Dose: 75 mls/hr Documented by: Ceftriaxone Sodium 1 gm/ (Sodium Chloride) 100 mls @ 200 mls/hr IV Q24H [facility] Doxycycline Hyclate 100 mg/ (Sodium Chloride) 100 mls @ 100 mls/hr IV Q12HR [facility] Ampicillin Sodium/Sulbactam (Sodium 1.5 gm/ Sodium Chloride) 100 mls @ 200 mls/hr IV Q6H [facility] Last Admin: 04/03/20 03:29 Dose: 200 mls/hr Documented by: Ampicillin Sodium/Sulbactam (Sodium 1.5 gm/ Sodium Chloride) 100 mls @ 200 mls/hr IV Q6H [facility] Iopamidol (Isovue-370 (76%)) 100 ml IVPUSH ONETIME ONE Stop: 04/02/20 10:57 Last Admin: 04/02/20 11:27 Dose: 100 ml Documented by: Morphine Sulfate (Morphine) 2 mg IVPUSH Q4H PRN PRN Reason: Pain (severe 7-10) Stop: 04/03/20 12:44 Last Admin: 04/02/20 20:29 Dose: 2 mg Documented by: Ondansetron HCl (Zofran) 4 mg IVPUSH ONETIME ONE Stop: 04/03/20 14:01 Last Admin: 04/03/20 14:00 Dose: 4 mg Documented by: Sodium Chloride (Saline Flush) 10 ml FLUSH ONETIME PRN PRN Reason: IV FLUSH Last Admin: 04/02/20 11:27 Dose: 10 ml Documented by: Sepsis Event Note - Evaluation Sepsis Screening Result: No Definite Risk - Focused Exam Vital Signs: Vital Signs Temp Pulse Resp BP Pulse Ox Pulse Ox 04/05/20 08:37 97.7 F 71 23 H 114/54 L 93 L 04/05/20 08:14 99 04/05/20 06:02 98 04/05/20 03:23 97.3 F 59 L 20 142/70 H 99 04/04/20 23:54 128/61 04/04/20 23:19 97.5 F 70 16 86/32 L 100 - Problem List & Annotations (1) COPD (chronic obstructive pulmonary disease) SNOMED Code(s): 17651157 Code(s): J44.9 - CHRONIC OBSTRUCTIVE PULMONARY DISEASE, UNSPECIFIED Status: Acute Current Visit: Yes Qualifiers: COPD type: unspecified COPD Qualified Code(s): J44.9 - Chronic obstructive pulmonary disease, unspecified (2) COVID-19 SNOMED Code(s): 590722329 Code(s): U07.1 - COVID-19 Status: Acute Current Visit: Yes (3) Cancer of right lung SNOMED Code(s): 314794638 Code(s): C34.91 - MALIGNANT NEOPLASM OF UNSP PART OF RIGHT BRONCHUS OR LUNG Status: Acute Current Visit: Yes Qualifiers: Lung location: lower lobe of lung Qualified Code(s): C34.31 - Malignant neoplasm of lower lobe, right bronchus or lung (4) Small cell lung cancer SNOMED Code(s): 448557167 Code(s): C34.90 - MALIGNANT NEOPLASM OF UNSP PART OF UNSP BRONCHUS OR LUNG Status: Acute Current Visit: Yes - Problem List Review Problem List Initiated/Reviewed/Updated: Yes - Plan Plan:: Assessment and plan: April 04, 2020 Assessment: 1. Acute on chronic hypoxic respiratory failure on home oxygen 3L Etiologies include lung cancer, possible COPD and pneumonia. Pulse ox Oxygen therapy, he is now on 3 L via nasal cannula 2. Pneumonia, RLL, obstructive/CAP or Covid 19 3. Covid 19 positive 4. COPD exacerbation Chest x-ray showed possible right lower lobe pneumonia CT angio chest -no PE Blood culture - no growth so far Sputum culture - no growth so far Influenza screen - negative MRSA screen - negative Patient had been on oral doxycycline 100 mg twice daily at home Unasyn 1.5g iv Q6hrs and azithromycin 500mg iv Q24hrs Continue home dexamethasone 6 mg p.o. daily (pharmacy verified) Aspirin 81 mg daily Lovenox 40 mg subcutaneous daily (did not order therapeutic Lovenox because of high risk of bleeding from small cell lung cancer) I did not order Remdesivir based on NIH quideline. CRP and D-dimer daily 5. 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 Anemia Etiology could be due to malignancy Monitor CBC in morning 7. Chest pain Etiology unknown. I feel the pain is less likely related to the cardiac ischemia. As per patient, he has been having the right-sided chest pain for 2 to 3 months, worsening over the past 3 to [address] elevation Troponin < 0.[address] angio chest negative for PE. But CXR did show possible right lower lobe pneumonia Pain management including IV Dilaudid Aspirin and Lipitor 8. Abdominal aortic aneurysm, relatively stable Control blood pressure Follow with PCP as an outpatient 9. S/p Colectomy due to perforated bowel routine management 10. Tobacco dependence Smoking cessation counseling Nicotine patch 11. Vitamin D deficiency Vitamin d 12. DVT prophylaxis: Lovenox April 05, 2020 1. Acute on chronic hypoxic respiratory failure -acute aspect resolved. on home oxygen 3L Likely secondary to some bronchitis but majority from his carcinoma. Oxygen therapy, he is now on 3 L via nasal cannula 2. Pneumonia, RLL, ruled out based on CT angiogram 3. Covid 19 positive 4. COPD exacerbationimproved CT angio chest -no PE, no infiltrate, Right hilar adenopathy. Mild adenopathy suggested to the inferior subcarinal region. Nodular pleural thickening on the right side which most likely represents metastatic disease. This is also possibly the cause of his right-sided chest pain. Old healed right-sided rib fractures with previous healed bony trauma. Diffuse emphysematous change is seen. No acute parenchymal change is seen within either lung. Stable 5.1 cm mid abdominal aortic aneurysm. Blood culture - no growth so far Sputum culture - no growth so far Influenza screen - negative MRSA screen - negative Switch Unasyn 1.5g iv Q6hrs to Augmentin 875 mg twice daily Completed course of azithromycin Continue home dexamethasone 6 mg p.o. daily Lovenox 40 mg subcutaneous daily CRP Stop D-dimer daily and switch to every second or third day. D-dimer will continue to be elevated secondary to his cancer. 5. 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 Anemia Etiology could be due to malignancy Monitor CBC in morning 7. Chest pain Etiology unknown. I feel the pain is less likely related to the cardiac ischemia. As per patient, he has been having the right-sided chest pain for 2 to 3 months, worsening over the past 3 to [address] elevation Troponin < 0.[address] angio chest negative for PE. But CXR did show possible right lower lobe pneumonia Pain management including IV Dilaudid Aspirin and Lipitor 8. Abdominal aortic aneurysm, relatively stable Control blood pressure Follow with PCP as an outpatient 9. S/p Colectomy due to perforated bowel routine management 10. Tobacco dependence Smoking cessation counseling Nicotine patch 11. Vitamin D deficiency Vitamin d 5,000 units daily 12. DVT prophylaxis: Lovenox Length of stay greater than 96 hours secondary to weakness and cachexia from his cancer.
[2020-04-05] MEDS ORDERED: fentaNYL 12 MCG/HR Transdermal Patch TRDERM SCH (15:00)
[2020-04-05] MEDS: oxyCODONE 5 MG Tab PO PRN ×2 (16:11→20:09)
[2020-04-05] MEDS ORDERED: Amoxicillin/Clavulanate K 875-125 MG Tab PO ONE (17:00)
[2020-04-05] MEDS: Albuterol/Ipratropium 3.0-0.5 MG/3 ML Neb Soln NEB PRN (18:18)
[2020-04-05] MEDS: Simvastatin 10 MG Tab PO SCH (20:08)
[2020-04-05] MEDS: Aspirin 81 MG Tab.Chew PO SCH (20:08)
[2020-04-05] MEDS: Albuterol 6.7 GM Inhaler INH PRN (20:57)
[2020-04-06] MEDS: HYDROmorphone 1 MG/ML Syringe IVPUSH PRN ×2 (00:13→06:54)
[2020-04-06] MEDS: Formoterol/Mometasone 200-5 MCG 8.8 GM Inhaler IH SCH ×3 (07:53→21:32)
[2020-04-06] MEDS: Enoxaparin 40 MG/0.4 ML Syringe SUBCUT SCH (08:40)
[2020-04-06] MEDS: oxyCODONE 5 MG Tab PO PRN ×2 (08:42→12:41)
[2020-04-06] MEDS: LORazepam 0.5 MG Tab PO SCH ×3 (08:42→20:25)
[2020-04-06] MEDS: Cholecalciferol (Vitamin D3) 5,000 UNIT Cap PO SCH (08:42)
[2020-04-06] MEDS: Amoxicillin/Clavulanate K 875-125 MG Tab PO SCH ×2 (08:43→20:23)
[2020-04-06] MEDS: Docusate Sodium 100 MG Cap PO SCH ×2 (08:43→21:49)
[2020-04-06] MEDS: Sennosides 8.6 MG Tab PO SCH ×2 (08:43→20:24)
[2020-04-06] MEDS: Dexamethasone 4 MG Tab PO SCH (08:43)
[2020-04-06] MEDS: Acetaminophen 325 MG Tab PO PRN (08:43)
[2020-04-06] MEDS: Nicotine 14 MG/24 Hr Patch TRDERM SCH (08:49)
--- NOTE | 2020-04-06 11:35 | PCM.PN ---
- General Info Date of Service: 04/06/20 Admission Dx/Problem (Free Text): Admission Diagnosis/Problem Admission Diagnosis/Problem Hypoxia Subjective Update: Karel continues to complain of right sided chest pain. Patient did tell nursing that his pain was 2 out of 10, but there certainly seems to be exacerbations where it is more severe. He is concerned that he is not ready to go home because of the pain and shortness of breath. Unfortunate this is chronic in nature and is not likely to be able to be resolved in a few days in the hospital. He was started on fentanyl just last night which will take 3 days for study state. He will also likely need a higher dose than the 12 mcg dose. Functional Status: Denies: Pain Controlled - Review of Systems General: Reports: Fatigue HEENT: Reports: No Symptoms Pulmonary: Reports: Shortness of Breath Cardiovascular: Reports: No Symptoms Gastrointestinal: Reports: No Symptoms Psychiatric: Reports: Depression - Patient Data Vitals - Most Recent: Last Vital Signs Temp 98.4 F 04/06/20 07:19 Pulse 77 04/06/20 07:19 Resp 16 04/06/20 07:19 BP 112/67 04/06/20 07:19 Pulse Ox 98 04/06/20 09:31 Weight - Most Recent: 128 lb 4.8 oz I&O - Last 24 Hours: Intake & Output 04/05/20 04/06/20 04/06/20 22:59 06:59 14:59 Intake Total 955 600 180 Output Total 600 750 Balance 355 -150 180 Lab Results Last 24 Hours: Laboratory Results - last 24 hr 04/06/20 04/06/20 Range/Units 06:13 06:13 WBC 7.54 (4.23-9.07) K/mm3 RBC 3.65 L (4.63-6.08) M/mm3 Hgb 11.4 L (13.7-17.5) gm/dl Hct 35.9 L (40.1-51.0) % MCV 98.4 H (79.0-92.2) fl MCH 31.2 (25.7-32.2) pg MCHC 31.8 L (32.2-35.5) g/dl RDW Std Deviation 47.5 H (35.1-43.9) fL Plt Count 199 (163-337) K/mm3 MPV 8.4 L (9.4-12.3) fl Neut % (Auto) 75.5 H (34.0-67.9) % Lymph % (Auto) 11.5 L (21.8-53.1) % [place] % (Auto) 12.1 (5.3-12.2) % Eos % (Auto) 0.5 L (0.8-7.0) Baso % (Auto) 0.1 (0.1-1.2) % Neut # (Auto) 5.69 H (1.78-5.38) K/mm3 Lymph # (Auto) 0.87 L (1.32-3.57) K/mm3 [place] # (Auto) 0.91 H (0.30-0.82) K/mm3 Eos # (Auto) 0.04 (0.04-0.54) K/mm3 Baso # (Auto) 0.01 (0.01-0.08) K/mm3 Sodium 138 (136-145) mEq/L Potassium 4.1 (3.5-5.1) mEq/L Chloride 101 (98-107) mEq/L Carbon Dioxide 30 (21-32) mEq/L Anion Gap 11.1 (5-15) BUN 14 (7-18) mg/dL Creatinine 0.8 (0.7-1.3) mg/dL Est Cr Clr Drug Dosing 62.64 mL/min Estimated GFR (MDRD) > 60 (>60) mL/min BUN/Creatinine Ratio 17.5 (14-18) Glucose 85 (83-115) mg/dL Calcium 9.0 (8.5-10.1) mg/dL Total Bilirubin 0.3 (0.2-1.0) mg/dL AST 17 (15-37) U/L ALT 23 (16-63) U/L Alkaline Phosphatase 60 (46-116) U/L C-Reactive Protein 0.9 (<1.0) mg/dL Total Protein 6.2 L (6.4-8.2) g/dl Albumin 3.1 L (3.4-5.0) g/dl Globulin 3.1 gm/dL Albumin/Globulin Ratio 1.0 (1-2) Js Results Last 24 Hours: Microbiology 04/02/20 10:37 Aerobic Blood Culture - Preliminary Blood - Venous - Lab Draw NO GROWTH AFTER 4 DAYS Anaerobic Blood Culture - Preliminary NO GROWTH AFTER 4 DAYS 04/02/20 10:30 Aerobic Blood Culture - Preliminary Blood - Venous NO GROWTH AFTER 4 DAYS Anaerobic Blood Culture - Preliminary NO GROWTH AFTER 4 DAYS 04/03/20 13:50 Gram Stain - Final Sputum - Expectorated Sputum Culture - Final Normal [place] Med Orders - Current: Current Medications Acetaminophen (Tylenol) 650 mg PO Q6H [facility] Albuterol (Proventil Hfa) 0 gm INH Q4H PRN PRN Reason: wheeze Last Admin: 04/05/20 20:57 Dose: 2 puff Documented by: Albuterol/Ipratropium (Duoneb 3.0-0.5 Mg/3 Ml) 3 ml NEB Q4H PRN PRN Reason: Shortness Of Breath/wheezing Last Admin: 04/05/20 18:18 Dose: 3 ml Documented by: Amoxicillin/Clavulanate Potassium (Augmentin 875 Mg/125 Mg) 1 tab PO BID [facility] Last Admin: 04/06/20 08:43 Dose: 1 tab Documented by: Aspirin (Aspirin) 81 mg PO BEDTIME [facility] Last Admin: 04/05/20 20:08 Dose: 81 mg Documented by: Cholecalciferol (Vitamin D3) 5,000 unit PO DAILY [facility] Last Admin: 04/06/20 08:42 Dose: 5,000 unit Documented by: Dexamethasone (Dexamethasone) 6 mg PO DAILY [facility] Stop: 04/12/20 09:01 Last Admin: 04/06/20 08:43 Dose: 6 mg Documented by: Docusate Sodium (Colace) 100 mg PO BID [facility] Last Admin: 04/06/20 08:43 Dose: 100 mg Documented by: Enoxaparin Sodium (Lovenox) 40 mg SUBCUT DAILY [facility] Last Admin: 04/06/20 08:40 Dose: 40 mg Documented by: Fentanyl (Duragesic) 12 mcg TRDERM Q72H [facility] Last Admin: 04/05/20 14:47 Dose: 12 mcg Documented by: Hydralazine HCl (Apresoline) 10 mg IVPUSH Q4H PRN PRN Reason: Hypertension Promethazine HCl 12.5 mg/ (Sodium Chloride) 50.5 mls @ 100 mls/hr IV Q6H PRN PRN Reason: Nausea/Vomiting Lorazepam (Ativan) 0.5 mg PO TID [facility] Last Admin: 04/06/20 08:42 Dose: 0.5 mg Documented by: Miscellaneous Information (Remove Patch) 0 ea TRDERM Q24H [facility] Last Admin: 04/06/20 08:49 Dose: Not Given Documented by: Miscellaneous Information (Remove Patch) 1 ea TRDERM Q72H [facility] Mometasone Furoate/Formoterol Fumar (Dulera 200-5 Mcg) 2 puff IH BID [facility] Last Admin: 04/06/20 08:16 Dose: Not Given Documented by: Nicotine (Habitrol) 14 mg TRDERM DAILY [facility] Last Admin: 04/06/20 08:49 Dose: Not Given Documented by: Oxycodone HCl (Oxycodone) 10 mg PO Q4H PRN PRN Reason: Pain Polyethylene Glycol (Miralax) 17 gm PO DAILY PRN PRN Reason: Constipation Senna (Senna) 17.2 mg PO BID [facility] Last Admin: 04/06/20 08:43 Dose: 17.2 mg Documented by: Simvastatin (Zocor) 10 mg PO BEDTIME [facility] Last Admin: 04/05/20 20:08 Dose: 10 mg Documented by: Sodium Chloride (Saline Flush) 10 ml FLUSH ASDIRECTED PRN PRN Reason: Keep Vein Open Last Admin: 04/02/20 08:51 Dose: 10 ml Documented by: Discontinued Medications Acetaminophen (Tylenol) 650 mg PO Q6H PRN PRN Reason: Pain (Mild 1-3)/fever Last Admin: 04/06/20 08:43 Dose: 650 mg Documented by: Amoxicillin/Clavulanate Potassium (Augmentin 875 Mg/125 Mg) 1 tab PO ONETIME ONE Stop: 04/05/20 17:01 Last Admin: 04/05/20 16:11 Dose: 1 tab Documented by: Hydromorphone HCl (Dilaudid) 0.5 - 1 mg IVPUSH Q4H PRN PRN Reason: Pain Last Admin: 04/06/20 06:54 Dose: 1 mg Documented by: Ceftriaxone Sodium 2 gm/ (Sodium Chloride) 100 mls @ 200 mls/hr IV ONETIME ONE Stop: 04/02/20 10:41 Last Admin: 04/02/20 10:38 Dose: 200 mls/hr Documented by: Sodium Chloride (Normal Saline) 100 mls @ 75 mls/hr IV ASDIRECTED [facility] Last Admin: 04/02/20 11:27 Dose: 75 mls/hr Documented by: Ceftriaxone Sodium 1 gm/ (Sodium Chloride) 100 mls @ 200 mls/hr IV Q24H [facility] Doxycycline Hyclate 100 mg/ (Sodium Chloride) 100 mls @ 100 mls/hr IV Q12HR [facility] Azithromycin 500 mg/ Sodium (Chloride) 250 mls @ 250 mls/hr IV Q24H [facility] Last Admin: 04/04/20 13:17 Dose: 250 mls/hr Documented by: Sodium Chloride (Normal Saline) 1,000 mls @ 50 mls/hr IV ASDIRECTED [facility] Last Admin: 04/05/20 02:06 Dose: 50 mls/hr Documented by: Ampicillin Sodium/Sulbactam (Sodium 1.5 gm/ Sodium Chloride) 100 mls @ 200 mls/hr IV Q6H [facility] Last Admin: 04/03/20 03:29 Dose: 200 mls/hr Documented by: Ampicillin Sodium/Sulbactam (Sodium 1.5 gm/ Sodium Chloride) 100 mls @ 200 mls/hr IV Q6H [facility] Ampicillin Sodium/Sulbactam (Sodium 1.5 gm/ Sodium Chloride) 100 mls @ 200 mls/hr IV Q6H [facility] Last Admin: 04/05/20 08:29 Dose: 200 mls/hr Documented by: Iopamidol (Isovue-370 (76%)) 100 ml IVPUSH ONETIME ONE Stop: 04/02/20 10:57 Last Admin: 04/02/20 11:27 Dose: 100 ml Documented by: Morphine Sulfate (Morphine) 2 mg IVPUSH Q4H PRN PRN Reason: Pain (severe 7-10) Stop: 04/03/20 12:44 Last Admin: 04/02/20 20:29 Dose: 2 mg Documented by: Ondansetron HCl (Zofran) 4 mg IVPUSH ONETIME ONE Stop: 04/03/20 14:01 Last Admin: 04/03/20 14:00 Dose: 4 mg Documented by: Oxycodone HCl (Oxycodone) 5 mg PO Q4H PRN PRN Reason: Pain Last Admin: 04/06/20 08:42 Dose: 5 mg Documented by: Oxycodone/Acetaminophen (Percocet 325-5 Mg) 1 tab PO Q8H PRN PRN Reason: Pain (moderate 4-6) Last Admin: 04/05/20 11:50 Dose: 1 tab Documented by: Sodium Chloride (Saline Flush) 10 ml FLUSH ONETIME PRN PRN Reason: IV FLUSH Last Admin: 04/02/20 11:27 Dose: 10 ml Documented by: - Exam Quality Assessment: Supplemental Oxygen General: Alert, Oriented HEENT: Pupils Equal, Mucous Membr. Moist/[place] Neck: Supple Lungs: Normal Respiratory Effort, Rales Cardiovascular: Regular Rate, Regular Rhythm GI/Abdominal Exam: Normal Bowel Sounds, Soft, Non-Tender, No Distention Extremities: Normal Inspection, Normal Range of Motion, Non-Tender, No Pedal Edema, Normal Capillary Refill Skin: Warm, Dry, Intact Psy/Mental Status: Alert, Depressed Sepsis Event Note - Evaluation Sepsis Screening Result: No Definite Risk - Focused Exam Vital Signs: Vital Signs Temp Pulse Resp BP Pulse Ox Pulse Ox 04/06/20 09:31 98 04/06/20 07:53 97 04/06/20 07:19 98.4 F 77 16 112/67 95 04/06/20 03:47 97.5 F 60 16 119/70 100 - Problem List & Annotations (1) COPD (chronic obstructive pulmonary disease) SNOMED Code(s): 42974999 Code(s): J44.9 - CHRONIC OBSTRUCTIVE PULMONARY DISEASE, UNSPECIFIED Status: Acute Current Visit: Yes Qualifiers: COPD type: unspecified COPD Qualified Code(s): J44.9 - Chronic obstructive pulmonary disease, unspecified (2) COVID-19 SNOMED Code(s): 119719144 Code(s): U07.1 - COVID-19 Status: Acute Current Visit: Yes (3) Cancer of right lung SNOMED Code(s): 396643534 Code(s): C34.91 - MALIGNANT NEOPLASM OF UNSP PART OF RIGHT BRONCHUS OR LUNG Status: Acute Current Visit: Yes Qualifiers: Lung location: lower lobe of lung Qualified Code(s): C34.31 - Malignant neoplasm of lower lobe, right bronchus or lung (4) Small cell lung cancer SNOMED Code(s): 816775677 Code(s): C34.90 - MALIGNANT NEOPLASM OF UNSP PART OF UNSP BRONCHUS OR LUNG Status: Acute Current Visit: Yes - Problem List Review Problem List Initiated/Reviewed/Updated: Yes - My Orders Last 24 Hours: My Active Orders 04/05/20 15:00 fentaNYL [Duragesic] 12 mcg TRDERM Q72H 04/06/20 09:00 Amoxicillin/Clavulanate K [Augmentin 875 MG/125 MG] 1 tab PO BID 04/06/20 10:59 oxyCODONE 10 mg PO Q4H PRN 04/06/20 15:00 Acetaminophen [TylenoL] 650 mg PO Q6H 04/08/20 15:00 Remove Patch 1 ea TRDERM Q72H - Plan Plan:: Assessment and plan: April 04, 2020 Assessment: 1. Acute on chronic hypoxic respiratory failure on home oxygen 3L Etiologies include lung cancer, possible COPD and pneumonia. Pulse ox Oxygen therapy, he is now on 3 L via nasal cannula 2. Pneumonia, RLL, obstructive/CAP or Covid 19 3. Covid 19 positive 4. COPD exacerbation Chest x-ray showed possible right lower lobe pneumonia CT angio chest -no PE Blood culture - no growth so far Sputum culture - no growth so far Influenza screen - negative MRSA screen - negative Patient had been on oral doxycycline 100 mg twice daily at home Unasyn 1.5g iv Q6hrs and azithromycin 500mg iv Q24hrs Continue home dexamethasone 6 mg p.o. daily (pharmacy verified) Aspirin 81 mg daily Lovenox 40 mg subcutaneous daily (did not order therapeutic Lovenox because of high risk of bleeding from small cell lung cancer) I did not order Remdesivir based on NIH quideline. CRP and D-dimer daily 5. 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 Anemia Etiology could be due to malignancy Monitor CBC in morning 7. Chest pain Etiology unknown. I feel the pain is less likely related to the cardiac ische russ. As per patient, he has been having the right-sided chest pain for 2 to 3 months, worsening over the past 3 to [address] elevation Troponin < 0.[address] angio chest negative for PE. But CXR did show possible right lower lobe pneumonia Pain management including IV Dilaudid Aspirin and Lipitor 8. Abdominal aortic aneurysm, relatively stable Control blood pressure Follow with PCP as an outpatient 9. S/p Colectomy due to perforated bowel routine management 10. Tobacco dependence Smoking cessation counseling Nicotine patch 11. Vitamin D deficiency Vitamin d 12. DVT prophylaxis: Lovenox April 05, 2020 1. Acute on chronic hypoxic respiratory failure -acute aspect resolved. on home oxygen 3L Likely secondary to some bronchitis but majority from his carcinoma. Oxygen therapy, he is now on 3 L via nasal cannula 2. Pneumonia, RLL, ruled out based on CT angiogram 3. Covid 19 positive 4. COPD exacerbationimproved CT angio chest -no PE, no infiltrate, Right hilar adenopathy. Mild adenopathy suggested to the inferior subcarinal region. Nodular pleural thickening on the right side which most likely represents metastatic disease. This is also possibly the cause of his right-sided chest pain. Old healed right-sided rib fractures with previous healed bony trauma. Diffuse emphysematous change is seen. No acute parenchymal change is seen within either lung. Stable 5.1 cm mid abdominal aortic aneurysm. Blood culture - no growth so far Sputum culture - no growth so far Influenza screen - negative MRSA screen - negative Switch Unasyn 1.5g iv Q6hrs to Augmentin 875 mg twice daily Completed course of azithromycin Continue home dexamethasone 6 mg p.o. daily Lovenox 40 mg subcutaneous daily CRP Stop D-dimer daily and switch to every second or third day. D-dimer will continue to be elevated secondary to his cancer. 5. 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 Anemia Etiology could be due to malignancy Monitor CBC in morning 7. Chest pain Etiology unknown. I feel the pain is less likely related to the cardiac ischemia. As per patient, he has been having the right-sided chest pain for 2 to 3 months, worsening over the past 3 to [address] elevation Troponin < 0.[address] angio chest negative for PE. But CXR did show possible right lower lobe pneumonia Pain management including IV Dilaudid Aspirin and Lipitor 8. Abdominal aortic aneurysm, relatively stable Control blood pressure Follow with PCP as an outpatient 9. S/p Colectomy due to perforated bowel routine management 10. Tobacco dependence Smoking cessation counseling Nicotine patch 11. Vitamin D deficiency Vitamin d 5,000 units daily 12. DVT prophylaxis: Lovenox 04/06/2020 1. Acute on chronic hypoxic respiratory failure -acute aspect resolved. COPD exacerbation COVID-19 positiveno signs of parenchymal change consistent with Covid pneumonia on CT scan On home amount of O2 of 3 L Continue Augmentin Continue home dexamethasone 6 mg p.o. daily Lovenox 40 mg subcutaneous daily 2. Small cell lung cancer, possibly metastatic status, on immunotherapy every 3 weeks. Last dose was 3 weeks ago. He was scheduled for his most recent dose yesterday. Follow with PCP and oncologist after he is discharged 3. Anemia Hemoglobin stable at 11.4 Etiology likely be due to malignancy Stop daily monitoring of lab work secondary to iatrogenic anemia 4. Chest pain Likely secondary to nodular pleural thickening on the right side seen on CT angio. This is likely metastatic disease. As per patient, he has been having the right-sided chest pain for 2 to 3 months, worsening over the past 3 to 4 days Increase oxycodone to 10 mg every 4 hours as needed. Started fentanyl patch 12 mcg yesterday. 5. Abdominal aortic aneurysm, 5.1 cm, stable from prior exam Follow with PCP as an outpatient 6. Tobacco dependence Smoking cessation counseling Nicotine patch 7. Vitamin D deficiency Vitamin d 5,000 units daily 8. DVT prophylaxis: Lovenox Length of stay greater than 96 hours secondary to weakness and cachexia from his cancer.
[2020-04-06] MEDS ORDERED: Magnesium Hydroxide 400 MG/5 ML Susp 30 ML Cup PO ONE (12:45)
[2020-04-06] MEDS: Acetaminophen 325 MG Tab PO SCH ×2 (15:03→20:25)
[2020-04-06] MEDS: Aspirin 81 MG Tab.Chew PO SCH (20:23)
[2020-04-06] MEDS: Simvastatin 10 MG Tab PO SCH (20:26)
[2020-04-06] MEDS: Albuterol 6.7 GM Inhaler INH PRN (21:32)
[2020-04-07] MEDS: oxyCODONE 5 MG Tab PO PRN ×3 (04:02→11:40)
[2020-04-07] MEDS: Acetaminophen 325 MG Tab PO SCH ×2 (04:03→08:55)
[2020-04-07] MEDS: Formoterol/Mometasone 200-5 MCG 8.8 GM Inhaler IH SCH (08:22)
[2020-04-07] MEDS: Cholecalciferol (Vitamin D3) 5,000 UNIT Cap PO SCH (08:54)
[2020-04-07] MEDS: Sennosides 8.6 MG Tab PO SCH (08:54)
[2020-04-07] MEDS: Dexamethasone 4 MG Tab PO SCH (08:55)
[2020-04-07] MEDS: Docusate Sodium 100 MG Cap PO SCH (08:56)
[2020-04-07] MEDS: LORazepam 0.5 MG Tab PO SCH (08:56)
[2020-04-07] MEDS: Enoxaparin 40 MG/0.4 ML Syringe SUBCUT SCH (08:56)
[2020-04-07] MEDS: Nicotine 14 MG/24 Hr Patch TRDERM SCH (09:00)
--- NOTE | 2020-04-07 10:10 | PCM.DCSUM1 ---
Discharge Summary - Hospital Course HPI Initial Comments: Patient is a 79-year-old male with history of COPD, small cell lung cancer, receiving any new therapy every 3 weeks who was brought to the ER due to chest pain and worsening shortness of breath. As per patient, patient has been having chest pain at times over the past 2 weeks. He has baseline shortness of breath which has been worsening over the past 2 weeks associated with dry cough. She is on home oxygen 3 L. She she had a positive COVID-19 test. In the ER, CT angio chest negative for PE. Chest x-ray showed possible right lower lobe pneumonia. 1 dose of ceftriaxone was given in the ER. She has been on oral doxycycline 100 mg twice daily at home. EKG no ST elevation and troponin was negative when in the ER. Assessment: 1. Acute on chronic hypoxic respiratory failure on home oxygen 3L Etiologies include lung cancer, possible COPD and pneumonia. Pulse ox Oxygen therapy, high flow and BiPAP as needed 2. Pneumonia, RLL, obstructive/CAP or Covid 19 3. Covid 19 positive 4. COPD exacerbation Chest x-ray showed possible right lower lobe pneumonia CT angio chest -no PE Blood culture Sputum culture Influenza screen MRSA screen Patient had been on oral doxycycline 100 mg twice daily at home Unasyn 1.5g iv Q6hrs azithromycin 500mg iv Q24hrs IV fluid mycin 500 mg IV every 24 hours Continue home dexamethasone Lovenox 40 mg subcutaneous daily (therapeutic Lovenox given none ordered because of high risk of bleeding from small cell lung cancer) I did not order Remdesivir based on NIH quideline. CRP and D-dimer daily Hemoglobin A1c Ferritin Vitamin D level 5. 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 Anemia Etiology could be due to malignancy Monitor CBC in morning 7. Chest pain Etiology unknown EKG no ST elevation Troponin negative in the ER, repeat a troponin CT angio chest negative for PE. But imaging did show possible right lower lobe pneumonia Aspirin and Lipitor 8. Abdominal aortic aneurysm, relatively stable Control blood pressure Follow with PCP as an outpatient 9. S/p Colectomy due to perforated bowel routine management 10. DVT prophylaxis: Lovenox - Mortality Measure Prognosis:: Poor Diagnosis: Stroke: No - Discharge Data Discharge Date: 04/07/20 Discharge Disposition: Home, Self-Care 01 Condition: Good - Referral to Home Health Primary Care Physician: Suleman Swan MD - Discharge Diagnosis/Problem(s) (1) COPD (chronic obstructive pulmonary disease) SNOMED Code(s): 34855576 ICD Code: J44.9 - CHRONIC OBSTRUCTIVE PULMONARY DISEASE, UNSPECIFIED Status: Acute Current Visit: Yes Qualifiers: COPD type: unspecified COPD Qualified Code(s): J44.9 - Chronic obstructive pulmonary disease, unspecified (2) COVID-19 SNOMED Code(s): 650693121 ICD Code: U07.1 - COVID-19 Status: Acute Current Visit: Yes (3) Cancer of right lung SNOMED Code(s): 530584678 ICD Code: C34.91 - MALIGNANT NEOPLASM OF UNSP PART OF RIGHT BRONCHUS OR LUNG Status: Acute Current Visit: Yes Qualifiers: Lung location: lower lobe of lung Qualified Code(s): C34.31 - Malignant neoplasm of lower lobe, right bronchus or lung (4) Small cell lung cancer SNOMED Code(s): 057578278 ICD Code: C34.90 - MALIGNANT NEOPLASM OF UNSP PART OF UNSP BRONCHUS OR LUNG Status: Acute Current Visit: Yes - Patient Summary/Data Consults: Consultations 04/02/20 12:46 OT Evaluation and Treatment [CONS] Routine PT Evaluation and Treatment [CONS] Routine Hospital Course: Assessment and plan: April 04, 2020 Assessment: 1. Acute on chronic hypoxic respiratory failure on home oxygen 3L Etiologies include lung cancer, possible COPD and pneumonia. Pulse ox Oxygen therapy, he is now on 3 L via nasal cannula 2. Pneumonia, RLL, obstructive/CAP or Covid 19 3. Covid 19 positive 4. COPD exacerbation Chest x-ray showed possible right lower lobe pneumonia CT angio chest -no PE Blood culture - no growth so far Sputum culture - no growth so far Influenza screen - negative MRSA screen - negative Patient had been on oral doxycycline 100 mg twice daily at home Unasyn 1.5g iv Q6hrs and azithromycin 500mg iv Q24hrs Continue home dexamethasone 6 mg p.o. daily (pharmacy verified) Aspirin 81 mg daily Lovenox 40 mg subcutaneous daily (did not order therapeutic Lovenox because of high risk of bleeding from small cell lung cancer) I did not order Remdesivir based on NIH quideline. CRP and D-dimer daily 5. 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 Anemia Etiology could be due to malignancy Monitor CBC in morning 7. Chest pain Etiology unknown. I feel the pain is less likely related to the cardiac ischemia. As per patient, he has been having the right-sided chest pain for 2 to 3 months, worsening over the past 3 to [address] elevation Troponin < 0.[address] angio chest negative for PE. But CXR did show possible right lower lobe pneumonia Pain management including IV Dilaudid Aspirin and Lipitor 8. Abdominal aortic aneurysm, relatively stable Control blood pressure Follow with PCP as an outpatient 9. S/p Colectomy due to perforated bowel routine management 10. Tobacco dependence Smoking cessation counseling Nicotine patch 11. Vitamin D deficiency Vitamin d 12. DVT prophylaxis: Lovenox April 05, 2020 1. Acute on chronic hypoxic respiratory failure -acute aspect resolved. on home oxygen 3L Likely secondary to some bronchitis but majority from his carcinoma. Oxygen therapy, he is now on 3 L via nasal cannula 2. Pneumonia, RLL, ruled out based on CT angiogram 3. Covid 19 positive 4. COPD exacerbationimproved CT angio chest -no PE, no infiltrate, Right hilar adenopathy. Mild adenopathy suggested to the inferior subcarinal region. Nodular pleural thickening on the right side which most likely represents metastatic disease. This is also possibly the cause of his right-sided chest pain. Old healed right-sided rib fractures with previous healed bony trauma. Diffuse emphysematous change is seen. No acute parenchymal change is seen within either lung. Stable 5.1 cm mid abdominal aortic aneurysm. Blood culture - no growth so far Sputum culture - no growth so far Influenza screen - negative MRSA screen - negative Switch Unasyn 1.5g iv Q6hrs to Augmentin 875 mg twice daily Completed course of azithromycin Continue home dexamethasone 6 mg p.o. daily Lovenox 40 mg subcutaneous daily CRP Stop D-dimer daily and switch to every second or third day. D-dimer will continue to be elevated secondary to his cancer. 5. 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 Anemia Etiology could be due to malignancy Monitor CBC in morning 7. Chest pain Etiology unknown. I feel the pain is less likely related to the cardiac ischemia. As per patient, he has been having the right-sided chest pain for 2 to 3 months, worsening over the past 3 to [address] elevation Troponin < 0.[address] angio chest negative for PE. But CXR did show possible right lower lobe pneumonia Pain management including IV Dilaudid Aspirin and Lipitor 8. Abdominal aortic aneurysm, relatively stable Control blood pressure Follow with PCP as an outpatient 9. S/p Colectomy due to perforated bowel routine management 10. Tobacco dependence Smoking cessation counseling Nicotine patch 11. Vitamin D deficiency Vitamin d 5,000 units daily 12. DVT prophylaxis: Lovenox 04/06/2020 1. Acute on chronic hypoxic respiratory failure -acute aspect resolved. COPD exacerbation COVID-19 positiveno signs of parenchymal change consistent with Covid pneumonia on CT scan On home amount of O2 of 3 L Continue Augmentin Continue home dexamethasone 6 mg p.o. daily Lovenox 40 mg subcutaneous daily 2. Small cell lung cancer, possibly metastatic status, on immunotherapy every 3 weeks. Last dose was 3 weeks ago. He was scheduled for his most recent dose yesterday. Follow with PCP and oncologist after he is discharged 3. Anemia Hemoglobin stable at 11.4 Etiology likely be due to malignancy Stop daily monitoring of lab work secondary to iatrogenic anemia 4. Chest pain Likely secondary to nodular pleural thickening on the right side seen on CT angio. This is likely metastatic disease. As per patient, he has been having the right-sided chest pain for 2 to 3 months, worsening over the past 3 to 4 days Increase oxycodone to 10 mg every 4 hours as needed. Started fentanyl patch 12 mcg yesterday. 5. Abdominal aortic aneurysm, 5.1 cm, stable from prior exam Follow with PCP as an outpatient 6. Tobacco dependence Smoking cessation counseling Nicotine patch 7. Vitamin D deficiency Vitamin d 5,000 units daily 8. DVT prophylaxis: Lovenox 04/07/2020 Patient is doing very well. His respiratory failure has resolved and he is on home O2 of 3 L. Anemia has stabilized, and pain has improved. He is now on fentanyl patch 12 mcg/h every 72 hours and oxycodone 10 mg every 4 hours as needed. He is also getting Tylenol. Patient will be discharged today to assisted living. - Patient Instructions Diet: Regular Diet as Tolerated Activity: As Tolerated Driving: Do Not Drive Showering/Bathing: May Shower Other/Special Instructions: Follow-up with your oncologist and primary care provider within 1 week. - Discharge Plan *PRESCRIPTION DRUG MONITORING PROGRAM REVIEWED*: No *COPY OF PRESCRIPTION DRUG MONITORING REPORT IN PATIENT DA: No Prescriptions/Med Rec: Fluticasone/Salmeterol [Advair 250-50] 1 puff IH BID #1 inhaler Aspirin 81 mg PO BEDTIME #30 tab.chew LORazepam [Ativan] 0.5 mg PO TID #10 Amoxicillin/Clavulanate K [Augmentin 875-125 MG] 1 tab PO BID #4 tablet Docusate Sodium [Colace] 100 mg PO BID #30 capsule dexAMETHasone [Dexamethasone] 8 mg PO ASDIRECTED #6 Albuterol/Ipratropium [DuoNeb 3.0-0.5 MG/3 ML] 3 ml NEB Q4H PRN #90 neb PRN Reason: Shortness Of Breath/wheezing fentaNYL [Duragesic] 12 mcg TRDERM Q72H #10 patch Nicotine [Habitrol] 14 mg TRDERM DAILY #30 patch polyethylene glycoL 3350 [MiraLAX] 17 gm PO DAILY PRN #30 packet PRN Reason: Constipation oxyCODONE 10 mg PO Q4H PRN #30 tablet PRN Reason: Pain Albuterol [Proventil HFA] 2 puff IH Q4H PRN #100 inhaler PRN Reason: wheeze Sennosides [Senna] 17.2 mg PO BID #60 tablet Cholecalciferol (Vitamin D3) [Vitamin D3] 5,000 unit PO DAILY #30 cap Home Medications: Home Meds Albuterol [Proventil HFA] 2 puff IH Q4H PRN #100 inhaler 04/07/20 [Rx] Albuterol/Ipratropium [DuoNeb 3.0-0.5 MG/3 ML] 3 ml NEB Q4H PRN #90 neb 04/07/20 [Rx] Amoxicillin/Clavulanate K [Augmentin 875-125 MG] 1 tab PO BID #4 tablet 04/07/20 [Rx] Aspirin 81 mg PO BEDTIME #30 tab.chew 04/07/20 [Rx] Cholecalciferol (Vitamin D3) [Vitamin D3] 5,000 unit PO DAILY #30 cap 04/07/20 [Rx] Docusate Sodium [Colace] 100 mg PO BID #30 capsule 04/07/20 [Rx] Fluticasone/Salmeterol [Advair 250-50] 1 puff IH BID #1 inhaler 04/07/20 [Rx] LORazepam [Ativan] 0.5 mg PO TID #10 04/07/20 [Rx] Nicotine [Habitrol] 14 mg TRDERM DAILY #30 patch 04/07/20 [Rx] Remove Patch 0 ea TRDERM Q24H each 04/07/20 [Rx] Remove Patch 1 ea TRDERM Q72H each 04/07/20 [Rx] Sennosides [Senna] 17.2 mg PO BID #60 tablet 04/07/20 [Rx] dexAMETHasone [Dexamethasone] 8 mg PO ASDIRECTED #6 04/07/20 [Rx] fentaNYL [Duragesic] 12 mcg TRDERM Q72H #10 patch 04/07/20 [Rx] oxyCODONE 10 mg PO Q4H PRN #30 tablet 04/07/20 [Rx] polyethylene glycoL 3350 [MiraLAX] 17 gm PO DAILY PRN #30 packet 04/07/20 [Rx] Patient Handouts: 10 Things You Can Do to Manage Your COVID-19 Symptoms at Home - CDC, Sepsis, Diagnosis, Adult, Steps to Quit Smoking Forms: ED Department Discharge Referrals: Audra Li PA-C [Physician Dot Compliance Manager] - 04/13/20 10:00 am (come 10 minutes prior to the appointment to register.) Suleman Swan MD [Primary Care Provider] - (Keep your schedule appts) - Discharge Summary/Plan Comment DC Time >30 min.: Yes - General Info Date of Service: 04/07/20 Admission Dx/Problem (Free Text: Admission Diagnosis/Problem Admission Diagnosis/Problem Hypoxia Subjective Update: Patient is doing well. Functional Status: Reports: Pain Controlled - Review of Systems General: Reports: No Symptoms HEENT: Reports: No Symptoms Pulmonary: Reports: No Symptoms Cardiovascular: Reports: No Symptoms Gastrointestinal: Reports: No Symptoms Musculoskeletal: Reports: No Symptoms Neurological: Reports: No Symptoms Psychiatric: Reports: No Symptoms - Patient Data Vitals - Most Recent: Last Vital Signs Temp 97.9 F 04/07/20 07:30 Pulse 65 04/07/20 07:30 Resp 16 04/07/20 07:30 BP 117/82 04/07/20 07:30 Pulse Ox 99 04/07/20 08:22 Weight - Most Recent: 126 lb 6.4 oz I&O - Last 24 hours: Intake & Output 04/06/20 04/07/20 04/07/20 22:59 06:59 14:59 Intake Total 760 200 Output Total 700 450 Balance 60 -250 Lab Results - Last 24 hrs: Laboratory Results - last 24 hr 04/07/20 Range/Units 06:00 Urine Color Yellow (Yellow) Urine Appearance Slt cloudy H (Clear) Urine pH 7.0 (5.0-8.0) Ur Specific [place] 1.025 (1.005-1.030) Urine Protein Negative (Negative) Urine Glucose (UA) Negative (Negative) Urine Ketones Negative (Negative) Urine Occult Blood Negative (Negative) Urine Nitrite Negative (Negative) Urine Bilirubin Negative (Negative) Urine Urobilinogen 0.2 (0.2-1.0) Ur Leukocyte Esterase Negative (Negative) JESSICA Results - Last 24 hrs: Microbiology 04/02/20 10:37 Aerobic Blood Culture - Preliminary Blood - Venous - Lab Draw NO GROWTH AFTER 4 DAYS Anaerobic Blood Culture - Preliminary NO GROWTH AFTER 4 DAYS 04/02/20 10:30 Aerobic Blood Culture - Preliminary Blood - Venous NO GROWTH AFTER 4 DAYS Anaerobic Blood Culture - Preliminary NO GROWTH AFTER 4 DAYS 04/03/20 13:50 Gram Stain - Final Sputum - Expectorated Sputum Culture - Final Normal [place] Med Orders - Current: Current Medications Acetaminophen (Tylenol) 650 mg PO Q6H [facility] Last Admin: 04/07/20 08:55 Dose: 650 mg Documented by: Albuterol (Proventil Hfa) 0 gm INH Q4H PRN PRN Reason: wheeze Last Admin: 04/06/20 21:32 Dose: 2 puff Documented by: Albuterol/Ipratropium (Duoneb 3.0-0.5 Mg/3 Ml) 3 ml NEB Q4H PRN PRN Reason: Shortness Of Breath/wheezing Last Admin: 04/05/20 18:18 Dose: 3 ml Documented by: Amoxicillin/Clavulanate Potassium (Augmentin 875 Mg/125 Mg) 1 tab PO BID [facility] Last Admin: 04/06/20 20:23 Dose: 1 tab Documented by: Aspirin (Aspirin) 81 mg PO BEDTIME [facility] Last Admin: 04/06/20 20:23 Dose: 81 mg Documented by: Cholecalciferol (Vitamin D3) 5,000 unit PO DAILY [facility] Last Admin: 04/07/20 08:54 Dose: 5,000 unit Documented by: Dexamethasone (Dexamethasone) 6 mg PO DAILY [facility] Stop: 04/12/20 09:01 Last Admin: 04/07/20 08:55 Dose: 6 mg Documented by: Docusate Sodium (Colace) 100 mg PO BID [facility] Last Admin: 04/07/20 08:56 Dose: 100 mg Documented by: Enoxaparin Sodium (Lovenox) 40 mg SUBCUT DAILY [facility] Last Admin: 04/07/20 08:56 Dose: 40 mg Documented by: Fentanyl (Duragesic) 12 mcg TRDERM Q72H [facility] Last Admin: 04/05/20 14:47 Dose: 12 mcg Documented by: Hydralazine HCl (Apresoline) 10 mg IVPUSH Q4H PRN PRN Reason: Hypertension Promethazine HCl 12.5 mg/ (Sodium Chloride) 50.5 mls @ 100 mls/hr IV Q6H PRN PRN Reason: Nausea/Vomiting Lorazepam (Ativan) 0.5 mg PO TID [facility] Last Admin: 04/07/20 08:56 Dose: 0.5 mg Documented by: Miscellaneous Information (Remove Patch) 0 ea TRDERM Q24H [facility] Last Admin: 04/07/20 09:00 Dose: Not Given Documented by: Miscellaneous Information (Remove Patch) 1 ea TRDERM Q72H [facility] Mometasone Furoate/Formoterol Fumar (Dulera 200-5 Mcg) 2 puff IH BID [facility] Last Admin: 04/07/20 08:22 Dose: 2 puff Documented by: Nicotine (Habitrol) 14 mg TRDERM DAILY [facility] Last Admin: 04/07/20 09:00 Dose: Not Given Documented by: Oxycodone HCl (Oxycodone) 10 mg PO Q4H PRN PRN Reason: Pain Last Admin: 04/07/20 08:55 Dose: 10 mg Documented by: Polyethylene Glycol (Miralax) 17 gm PO DAILY PRN PRN Reason: Constipation Senna (Senna) 17.2 mg PO BID [facility] Last Admin: 04/07/20 08:54 Dose: 17.2 mg Documented by: Simvastatin (Zocor) 10 mg PO BEDTIME [facility] Last Admin: 04/06/20 20:26 Dose: 10 mg Documented by: Sodium Chloride (Saline Flush) 10 ml FLUSH ASDIRECTED PRN PRN Reason: Keep Vein Open Last Admin: 04/02/20 08:51 Dose: 10 ml Documented by: Discontinued Medications Acetaminophen (Tylenol) 650 mg PO Q6H PRN PRN Reason: Pain (Mild 1-3)/fever Last Admin: 04/06/20 08:43 Dose: 650 mg Documented by: Amoxicillin/Clavulanate Potassium (Augmentin 875 Mg/125 Mg) 1 tab PO ONETIME ONE Stop: 04/05/20 17:01 Last Admin: 04/05/20 16:11 Dose: 1 tab Documented by: Hydromorphone HCl (Dilaudid) 0.5 - 1 mg IVPUSH Q4H PRN PRN Reason: Pain Last Admin: 04/06/20 06:54 Dose: 1 mg Documented by: Ceftriaxone Sodium 2 gm/ (Sodium Chloride) 100 mls @ 200 mls/hr IV ONETIME ONE Stop: 04/02/20 10:41 Last Admin: 04/02/20 10:38 Dose: 200 mls/hr Documented by: Sodium Chloride (Normal Saline) 100 mls @ 75 mls/hr IV ASDIRECTED [facility] Last Admin: 04/02/20 11:27 Dose: 75 mls/hr Documented by: Ceftriaxone Sodium 1 gm/ (Sodium Chloride) 100 mls @ 200 mls/hr IV Q24H [facility] Doxycycline Hyclate 100 mg/ (Sodium Chloride) 100 mls @ 100 mls/hr IV Q12HR [facility] Azithromycin 500 mg/ Sodium (Chloride) 250 mls @ 250 mls/hr IV Q24H [facility] Last Admin: 04/04/20 13:17 Dose: 250 mls/hr Documented by: Sodium Chloride (Normal Saline) 1,000 mls @ 50 mls/hr IV ASDIRECTED [facility] Last Admin: 04/05/20 02:06 Dose: 50 mls/hr Documented by: Ampicillin Sodium/Sulbactam (Sodium 1.5 gm/ Sodium Chloride) 100 mls @ 200 mls/hr IV Q6H [facility] Last Admin: 04/03/20 03:29 Dose: 200 mls/hr Documented by: Ampicillin Sodium/Sulbactam (Sodium 1.5 gm/ Sodium Chloride) 100 mls @ 200 mls/hr IV Q6H OBED Ampicillin Sodium/Sulbactam (Sodium 1.5 gm/ Sodium Chloride) 100 mls @ 200 mls/hr IV Q6H OBED Last Admin: 04/05/20 08:29 Dose: 200 mls/hr Documented by: Iopamidol (Isovue-370 (76%)) 100 ml IVPUSH ONETIME ONE Stop: 04/02/20 10:57 Last Admin: 04/02/20 11:27 Dose: 100 ml Documented by: Magnesium Hydroxide (Milk Of Magnesia) 30 ml PO ONETIME ONE Stop: 04/06/20 12:46 Last Admin: 04/06/20 12:41 Dose: 30 ml Documented by: Morphine Sulfate (Morphine) 2 mg IVPUSH Q4H PRN PRN Reason: Pain (severe 7-10) Stop: 04/03/20 12:44 Last Admin: 04/02/20 20:29 Dose: 2 mg Documented by: Ondansetron HCl (Zofran) 4 mg IVPUSH ONETIME ONE Stop: 04/03/20 14:01 Last Admin: 04/03/20 14:00 Dose: 4 mg Documented by: Oxycodone HCl (Oxycodone) 5 mg PO Q4H PRN PRN Reason: Pain Last Admin: 04/06/20 08:42 Dose: 5 mg Documented by: Oxycodone/Acetaminophen (Percocet 325-5 Mg) 1 tab PO Q8H PRN PRN Reason: Pain (moderate 4-6) Last Admin: 04/05/20 11:50 Dose: 1 tab Documented by: Sodium Chloride (Saline Flush) 10 ml FLUSH ONETIME PRN PRN Reason: IV FLUSH Last Admin: 04/02/20 11:27 Dose: 10 ml Documented by: - Exam Quality Assessment: Reports: Supplemental Oxygen General: Reports: Alert, Oriented HEENT: Reports: Pupils Equal, Mucous Membr. Moist/Broussard Neck: Reports: Supple Lungs: Reports: Clear to Auscultation, Normal Respiratory Effort Cardiovascular: Reports: Regular Rate, Regular Rhythm GI/Abdominal Exam: Normal Bowel Sounds, Non-Tender, No Distention, No Abnormal Bruit Extremities: Normal Inspection, Normal Range of Motion, No Pedal Edema, Normal Capillary Refill Psy/Mental Status: Reports: Alert, Normal Affect, Normal Mood
[2020-04-07] MEDS: Amoxicillin/Clavulanate K 875-125 MG Tab PO SCH (11:40)
== END 2020-04-07 11:57 | disposition home or self-care (01) | DRG 177 ==
LOC: JD.ED 08:23 → JD.MS 12:57
PROVIDERS: ADMIT Internal Medicine; ATTEND Internal Medicine
PROC: 8E0ZXY6 Isolation (ICD-10-PCS; principal; 2020-04-02)
DX: U07.1 COVID-19 (principal); J44.9 Chronic obstructive pulmonary disease, unspecified; J12.82 Pneumonia due to coronavirus disease 2019; J96.21 Acute and chronic respiratory failure with hypoxia; C34.31 Malignant neoplasm of lower lobe, right bronchus or lung; Z99.81 Dependence on supplemental oxygen; J44.1 Chronic obstructive pulmonary disease with (acute) exacerbation; C34.90 Malignant neoplasm of unspecified part of unspecified bronchus or lung; D63.0 Anemia in neoplastic disease; Z93.3 Colostomy status; R07.9 Chest pain, unspecified; F17.200 Nicotine dependence, unspecified, uncomplicated; I71.4 Abdominal aortic aneurysm, without rupture; F17.210 Nicotine dependence, cigarettes, uncomplicated; E55.9 Vitamin D deficiency, unspecified; Z98.890 Other specified postprocedural states; Z79.82 Long term (current) use of aspirin; Z79.899 Other long term (current) drug therapy; Z88.1 Allergy status to other antibiotic agents; Z91.013 Allergy to seafood; N40.0 Benign prostatic hyperplasia without lower urinary tract symptoms; K57.90 Diverticulosis of intestine, part unspecified, without perforation or abscess without bleeding; Z90.89 Acquired absence of other organs; Z90.49 Acquired absence of other specified parts of digestive tract
CPT/HCPCS: 0240U; 36415; 51798; 71045; 71275; 80053; 81003; 82306; 82728; 83036; 83605; 83735; 84100; 84484; 85025; 85379; 85610; 86140; 87040; 87070; 87205; 87641; 93005; 94640; 94667; 94668; 94761; 94762; 96365; 97110; 97162; 97165; 97530; 97535; 99285; 93010; 99223; 99233; 99239; A9270-GY; J0295; J0456; J0696; J1170; J1650; J2270; J2405; J7030; J7050; J7620-GY; J8540; Q9967

== ENCOUNTER 2020-07-20 07:06 | Inpatient (IN) | payer MEDICARE, OTHER ==
[2020-07-20] MEDS ORDERED: Albuterol/Ipratropium 3.0-0.5 MG/3 ML Neb Soln NEB PRN ×3 (07:12→09:54)
[2020-07-20] MEDS ORDERED: Dextrose 5%-0.9% NaCl 1,000 ML IV SCH (07:15)
--- NOTE | 2020-07-20 07:22 | EDM.PDOC ---
ED HPI GENERAL MEDICAL PROBLEM - General Chief Complaint: Respiratory Problem Stated Complaint: [facility] Time Seen by Provider: 07/20/20 07:11 Source of Information: Reports: Patient History Limitations: Reports: No Limitations - History of Present Illness INITIAL COMMENTS - FREE TEXT/NARRATIVE: 79-year-old male presents to the ED per [facility]. He states that he fell in his own home last evening when a chair went out from underneath him as he was sitting down. He landed hard on his posterior back particularly on the left posterior lateral ribs. Increased pain with breathing all night long. He has not been able to sleep. 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 He has a diagnosis of underlying Rt lung cancer. He came in with a good deal of 02 tubing hose --greater than 25 feet connected apparently to his oxygen concentrator. He has a chronic cough usually white sputum. Denies fever or chills. Apparently had 2 mg of Dilaudid IM given to him in route to the ED per paramedics. I have to confirm this. His oxygen was increased to 3 L/min by nasal cannula. His chief complaint is pain posterior lateral ribs and increased dyspnea. He denies hitting his head or losing consciousness. Denies hurting his hips wrists hands or elbows. Injury occurred about 8:00 last night. Patient reports he has not on any blood thinners. He is on a fentanyl patch for chronic pain. Appears this is a 12 mcg/h patch. Onset: Sudden Onset Date: 07/19/20 Onset Time: 20:00 Duration: Hour(s):, Getting Worse Location: Reports: Chest (Left posterior lateral chest pain.) Quality: Reports: Ache, Sharp (Sharp stabbing pain with deep inspiration), Stabbing, Other Severity: Moderate Improves with: Reports: Rest (8 out of 10) Worsens with: Reports: Other, Movement Context: Reports: Trauma (Basically fell backwards as he was going to sit on a chair that move backwards while he was going to sit. Fell hard on his left posterior lateral chest.). Denies: Activity, Exercise, Lifting, Sick Contact Associated Symptoms: Reports: Chest Pain, Cough, cough w sputum, Loss of Appetite, Malaise, Shortness of Breath, Weakness. 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: Other (see below) (He took no medicine for pain overnight.) Left Back Pain Score (Numeric/FACES): 6 - Related Data Allergies Allergy/AdvReac Type Severity Reaction Status Date / Time ciprofloxacin [From Cipro] Allergy Rash Verified 07/20/20 07:15 ciprofloxacin HCl Allergy Rash Verified 07/20/20 07:15 [From Cipro] shellfish derived Allergy Rash Verified 07/20/20 07:15 Home Meds: Home Meds Albuterol [Proventil HFA] 2 puff IH Q4H PRN #100 inhaler 04/07/20 [Rx] Albuterol/Ipratropium [DuoNeb 3.0-0.5 MG/3 ML] 3 ml NEB Q4H PRN #90 neb 04/07/20 [Rx] Amoxicillin/Clavulanate K [Augmentin 875-125 MG] 1 tab PO BID #4 tablet 04/07/20 [Rx] Aspirin 81 mg PO BEDTIME #30 tab.chew 04/07/20 [Rx] Cholecalciferol (Vitamin D3) [Vitamin D3] 5,000 unit PO DAILY #30 cap 04/07/20 [Rx] Docusate Sodium [Colace] 100 mg PO BID #30 capsule 04/07/20 [Rx] Fluticasone/Salmeterol [Advair 250-50] 1 puff IH BID #1 inhaler 04/07/20 [Rx] LORazepam [Ativan] 0.5 mg PO TID #10 04/07/20 [Rx] Nicotine [Habitrol] 14 mg TRDERM DAILY #30 patch 04/07/20 [Rx] Remove Patch 0 ea TRDERM Q24H each 04/07/20 [Rx] Remove Patch 1 ea TRDERM Q72H each 04/07/20 [Rx] Sennosides [Senna] 17.2 mg PO BID #60 tablet 04/07/20 [Rx] dexAMETHasone [Dexamethasone] 8 mg PO ASDIRECTED #6 04/07/20 [Rx] fentaNYL [Duragesic] 12 mcg TRDERM Q72H #10 patch 04/07/20 [Rx] oxyCODONE 10 mg PO Q4H PRN #30 tablet 04/07/20 [Rx] polyethylene glycoL 3350 [MiraLAX] 17 gm PO DAILY PRN #30 packet 04/07/20 [Rx] Past Medical History HEENT History: Reports: Hard of Hearing, Other (See Below) Other HEENT History: has upper dentures Cardiovascular History: Reports: SOB on Exertion Respiratory History: Reports: COPD, SOB Other Respiratory History: lung cancer; chronic O2 use on 3L/NC at home.. Patient was admitted to our hospital in March of this year with COVID-19 illness. Gastrointestinal History: Reports: Diverticulosis, Hiatal Hernia Other Gastrointestinal History: diverticulitis, colostomy bag Genitourinary History: Reports: BPH Musculoskeletal History: Reports: Back Pain, Chronic, Fracture, Osteoarthritis Oncologic (Cancer) History: Reports: Lung Other Oncologic History: in the early stages of receiving Lung cancer diagnosis. stated he will find out his diagnosis next week - Infectious Disease History Infectious Disease History: Reports: Chicken Pox, Influenza, Measles, Novel Coronavirus - Past Surgical History HEENT Surgical History: Reports: Tonsillectomy Cardiovascular Surgical History: Reports: None GI Surgical History: Reports: Appendectomy, Colonoscopy, Colostomy Male Surgical History: Reports: None Oncologic Surgical History: Reports: None Social & Family History - Family History Family Medical History: No Pertinent Family History - Caffeine Use Caffeine Use: Reports: Coffee Other Caffeine Use: 1 pot a day - Living Situation & Occupation Living situation: Reports: , Alone Occupation: Retired ED [employer] - Review of Systems Review Of Systems: See Below Constitutional: Reports: Malaise, Weakness, Fatigue, Decreased Appetite, Weight Loss. Denies: Fever, Chills HEENT: Reports: Glasses (For reading.). Denies: Vertigo Respiratory: Reports: Shortness of Breath, Wheezing, Cough (Posterior lateral chest pain from falling last night. Injury to posterior lateral ribs.), Other (Patient is oxygen dependent at 3 L/min by nasal cannula. Patient has underlying lung cancer.). Denies: Pleuritic Chest Pain, Hemoptysis (Usually thick white sputum.) Cardiovascular: Reports: Chest Pain, Dyspnea on Exertion. Denies: Blood Pressure Problem, Claudication, Edema, Lightheadedness, Orthopnea, Palpitations Endocrine: Reports: Fatigue GI/Abdominal: Reports: Constipation, Decreased Appetite. Denies: Difficulty Swallowing, Distension, Flatus, Hematemesis, Hematochezia, Melena, Mucous in Stool : Reports: Frequency, Other Musculoskeletal: Reports: Neck Pain, Shoulder Pain, Back Pain (Nocturia x3. Known BPH.), Joint Pain Skin: Reports: Bruising (Knees and hips at times.) Neurological: Reports: No Symptoms, Difficulty Walking, Weakness. Denies: Confusion, Dizziness, Headache, Numbness, Syncope, Tingling Psychiatric: Reports: No Symptoms Hematologic/Lymphatic: Reports: No Symptoms Immunologic: Reports: No Symptoms ED EXAM, GENERAL - Physical Exam Exam: See Below Exam Limited By: Physical Impairment (Patient is splinting respirations due to pain posterior lateral left thorax. Can speak in about 3-4 word sentences.) General Appearance: Alert, Moderate Distress, Cachetic, Other (Temperature is 36.6 degrees. Heart rate 90 and sinus respiratory rate is 18 with O2 sats of 100% on 3 L/min by nasal cannula BP 137/69.) Eye Exam: Bilateral Eye: Normal Inspection (Mild blepharal pallor. No scleral icterus.), PERRL Ears: Normal External Exam Nose: Normal Inspection Throat/Mouth: Other (Dentition in poor shape. Tongue is dry and coated. No injury to the tongue noted) Head: Atraumatic, Normocephalic, Other (No outward signs of head trauma) Neck: Limited Range of Motion (Crepitus on the lateral rotation.), Tender Lateral (Mildly tender bilateral lateral neck no worse than normal.). No: Supple, Full Range of Motion, Lymphadenopathy (L), Lymphadenopathy (R) Respiratory/Chest: Respiratory Distress, Decreased Breath Sounds (Some rhonchi both upper anterior chest that clears slightly with coughing.), Rhonchi, Wheezing, Splinting (Tachypnea 18 to 24/min at rest splinting respirations), Other (Pain throughout the posterior ribs 10,11 and 12. No overlying subcutaneous emphysema or abrasions.). No: Lungs Clear ( Diminished breath sounds at lower 50% lung cook posteriorly.), Normal Breath Sounds, Rales (Wheezing throughout all lung cook.) Peripheral Pulses: 1+: Posterior Tibial (L), Posterior Tibial (R), Dorsalis Pedis (L), Dorsalis Pedis (R), 2+: Carotid (L), Carotid (R) GI/Abdominal: Normal Bowel Sounds, Soft, Non-Tender, No Organomegaly, No Mass, Pelvis Stable, Other (Patient has a colostomy left lower quadrant in the abdomen. He has an abdominal hernia adjacent to the colostomy right lower quadrant of the abdomen which is easily reducible. Scaphoid abdomen with multiple surgical scars.) Back Exam: Other (Tenderness throughout the posterior lateral ribs with minimal abrasion over ribs 6 7 and 8 posterior laterally. No subcutaneous emphysema. No palpable crepitus.). No: Normal Inspection, Full Range of Motion, CVA Tenderness (L), CVA Tenderness (R) Extremities: No Pedal Edema, Other (Osteoarthritic changes appreciated in both knees. Patient has a Neulasta sponge which is placed subcutaneously posterior aspect of his left arm.) Neurological: Alert ( No obvious injuries to his hands wrists or elbows or shoulders.), Oriented, CN II-XII Intact, Normal Cognition, No Motor/Sensory Deficits. No: Normal Gait (Not able to assess.) Psychiatric: Anxious, Other Skin Exam: Warm (And a good deal of pain.), Dry, Intact, Ecchymosis (Ecchymoses dorsal hands bilaterally worse on the right side similarly to the forearms.) #1 Interpretation EKG Date: 07/20/20 Time: 07:24 Rhythm: NSR Rate (Beats/Min): 86 [place]: RAD-Right [place] Deviation (Right axis deviation of -151 degrees) P-Wave: Present QRS: RBBB ST-T: Other (Lead aVL was not used for interpretation.) QT: Normal EKG Interpretation Comments: Abnormal ECG Course - Vital Signs Last Recorded V/S: Last Vital Signs Temp 36.6 C 07/20/20 07:15 Pulse 90 07/20/20 07:15 Resp BP 137/69 07/20/20 07:15 Pulse Ox 100 07/20/20 07:15 - Orders/Labs/Meds Orders: Active Orders 24 hr Category Date Time Status Admission Status [Patient Status] [ADT] Routine ADT 07/20/20 08:58 Active EKG Documentation Completion [RC] STAT Care 07/20/20 07:14 Active Oxygen Therapy [RC] ASDIRECTED Care 07/20/20 07:15 Active RT Aerosol Therapy [RC] ASDIRECTED Care 07/20/20 07:12 Active C-REACTIVE PROTEIN [CHEM] Stat Lab 07/20/20 07:25 Results CKMB [CHEM] Stat Lab 07/20/20 07:25 Results COMPREHENSIVE METABOLIC PN,CMP [CHEM] Stat Lab 07/20/20 07:25 Results CPK [CREATINE KINASE,CK] [CHEM] Stat Lab 07/20/20 07:25 Results CULTURE BLOOD [BC] Stat Lab 07/20/20 07:25 Received CULTURE BLOOD [BC] Stat Lab 07/20/20 07:39 Received LACTATE DEHYDROGENASE,LDH [CHEM] Stat Lab 07/20/20 07:25 Results MAGNESIUM [CHEM] Stat Lab 07/20/20 07:25 Results TROPONIN I [CHEM] Stat Lab 07/20/20 07:25 Results URINALYSIS W/MICROSCOPIC [UA W/MICROSCOPIC] [URIN] Stat Lab 07/20/20 08:55 Results Albuterol/Ipratropium [DuoNeb 3.0-0.5 MG/3 ML] Med 07/20/20 07:12 Active 3 ml NEB Q4H PRN Albuterol/Ipratropium [DuoNeb 3.0-0.5 MG/3 ML] Med 07/20/20 07:45 Active 3 ml NEB Q4H PRN Dextrose 5%-0.9% NaCl [Dextrose 5%-Normal Saline] 1,000 Med 07/20/20 08:45 Active ml IV ASDIRECTED Blood Culture x2 Reflex Set [OM.PC] Stat Oth 07/20/20 07:14 Ordered Medication Orders Albuterol/Ipratropium (Albuterol/Ipratropium 3.0-0.5 Mg/3 Ml Neb Soln) 3 ml NEB Q4H PRN PRN Reason: Shortness Of Breath/wheezing Last Admin: 07/20/20 07:36 Dose: 3 ml Documented by: YONY Albuterol/Ipratropium (Albuterol/Ipratropium 3.0-0.5 Mg/3 Ml Neb Soln) 3 ml NEB Q4H PRN PRN Reason: Shortness Of Breath/wheezing Dextrose/Sodium Chloride (Dextrose 5%-Normal Saline) 1,000 mls @ 125 mls/hr IV ASDIRECTED OBED Labs: Laboratory Tests 07/20/20 07/20/20 07/20/20 Range/Units 07:25 07:25 07:25 WBC 17.27 H (4.23-9.07) K/mm3 RBC 2.80 L (4.63-6.08) M/mm3 Hgb 9.4 L D (13.7-17.5) gm/dl Hct 30.2 L (40.1-51.0) % MCV 107.9 H D (79.0-92.2) fl MCH 33.6 H (25.7-32.2) pg MCHC 31.1 L (32.2-35.5) g/dl RDW Std Deviation 65.7 H (35.1-43.9) fL Plt Count 210 (163-337) K/mm3 MPV 8.3 L (9.4-12.3) fl Neut % (Auto) 91.9 H (34.0-67.9) % Lymph % (Auto) 3.3 L (21.8-53.1) % [place] % (Auto) 4.1 L (5.3-12.2) % Eos % (Auto) 0.3 L (0.8-7.0) Baso % (Auto) 0.2 (0.1-1.2) % Neut # (Auto) 15.89 H (1.78-5.38) K/mm3 Lymph # (Auto) 0.57 L (1.32-3.57) K/mm3 [place] # (Auto) 0.70 (0.30-0.82) K/mm3 Eos # (Auto) 0.05 (0.04-0.54) K/mm3 Baso # (Auto) 0.03 (0.01-0.08) K/mm3 Manual Slide Review Abnormal smear PT 10.7 (9.7-12.0) SECONDS INR 1.00 Puncture Site ABG pH (7.35-7.45) ABG pCO2 (35.0-45.0) mmHg ABG pO2 (80.0-100.0) mmHg ABG HCO3 (22.0-26.0) meq/L ABG O2 Saturation (96.0-97.0) % ABG Base Excess (-2-2.0) A-a Gradient mmHg O2 Delivery Device Oxygen Flow Rate FiO2 (21.00-100.00) % Sodium 140 (136-145) mEq/L Potassium 4.2 (3.5-5.1) mEq/L Chloride 105 (98-107) mEq/L Carbon Dioxide 25 (21-32) mEq/L Anion Gap 14.2 (5-15) BUN 30 H (7-18) mg/dL Creatinine 1.0 (0.7-1.3) mg/dL Est Cr Clr Drug Dosing 46.87 mL/min Estimated GFR (MDRD) > 60 (>60) mL/min BUN/Creatinine Ratio 30.0 H (14-18) Glucose 104 H (70-99) mg/dL Calcium 8.7 (8.5-10.1) mg/dL Magnesium 2.0 (1.8-2.4) mg/dL Total Bilirubin 0.4 (0.2-1.0) mg/dL AST 17 (15-37) U/L ALT 16 (16-63) U/L Alkaline Phosphatase 71 (46-116) U/L Creatine Kinase 51 (39-308) U/L CK-MB (CK-2) 1.7 (0-3.6) ng/ml Troponin I < 0.017 (0.00-0.056) ng/mL C-Reactive Protein 1.6 H* (<1.0) mg/dL NT-Pro-B Natriuret Pep (0-450) pg/mL Total Protein 6.3 L (6.4-8.2) g/dl Albumin 3.4 (3.4-5.0) g/dl Globulin 2.9 gm/dL Albumin/Globulin Ratio 1.2 (1-2) Urine Color (Yellow) Urine Appearance (Clear) Urine pH (5.0-8.0) Ur Specific [place] (1.005-1.030) Urine Protein (Negative) Urine Glucose (UA) (Negative) Urine Ketones (Negative) Urine Occult Blood (Negative) Urine Nitrite (Negative) Urine Bilirubin (Negative) Urine Urobilinogen (0.2-1.0) Ur Leukocyte Esterase (Negative) SARS-CoV-2 RNA ([place]) (NEGATIVE) 07/20/20 07/20/20 07/20/20 Range/Units 07:25 07:41 07:42 WBC (4.23-9.07) K/mm3 RBC (4.63-6.08) M/mm3 Hgb (13.7-17.5) gm/dl Hct (40.1-51.0) % MCV (79.0-92.2) fl MCH (25.7-32.2) pg MCHC (32.2-35.5) g/dl RDW Std Deviation (35.1-43.9) fL Plt Count (163-337) K/mm3 MPV (9.4-12.3) fl Neut % (Auto) (34.0-67.9) % Lymph % (Auto) (21.8-53.1) % [place] % (Auto) (5.3-12.2) % Eos % (Auto) (0.8-7.0) Baso % (Auto) (0.1-1.2) % Neut # (Auto) (1.78-5.38) K/mm3 Lymph # (Auto) (1.32-3.57) K/mm3 [place] # (Auto) (0.30-0.82) K/mm3 Eos # (Auto) (0.04-0.54) K/mm3 Baso # (Auto) (0.01-0.08) K/mm3 Manual Slide Review PT (9.7-12.0) SECONDS INR Puncture Site Lt radial ABG pH 7.37 (7.35-7.45) ABG pCO2 42.3 (35.0-45.0) mmHg ABG pO2 66.0 L (80.0-100.0) mmHg ABG HCO3 24.0 (22.0-26.0) meq/L ABG O2 Saturation 93.4 L (96.0-97.0) % ABG Base Excess -0.7 (-2-2.0) A-a Gradient 81 mmHg O2 Delivery Device Nasal cannula Oxygen Flow Rate 2.0 FiO2 28.00 (21.00-100.00) % Sodium (136-145) mEq/L Potassium (3.5-5.1) mEq/L Chloride (98-107) mEq/L Carbon Dioxide (21-32) mEq/L Anion Gap (5-15) BUN (7-18) mg/dL Creatinine (0.7-1.3) mg/dL Est Cr Clr Drug Dosing mL/min Estimated GFR (MDRD) (>60) mL/min BUN/Creatinine Ratio (14-18) Glucose (70-99) mg/dL Calcium (8.5-10.1) mg/dL Magnesium (1.8-2.4) mg/dL Total Bilirubin (0.2-1.0) mg/dL AST (15-37) U/L ALT (16-63) U/L Alkaline Phosphatase (46-116) U/L Creatine Kinase (39-308) U/L CK-MB (CK-2) (0-3.6) ng/ml Troponin I (0.00-0.056) ng/mL C-Reactive Protein (<1.0) mg/dL NT-Pro-B Natriuret Pep 441 (0-450) pg/mL Total Protein (6.4-8.2) g/dl Albumin (3.4-5.0) g/dl Globulin gm/dL Albumin/Globulin Ratio (1-2) Urine Color (Yellow) Urine Appearance (Clear) Urine pH (5.0-8.0) Ur Specific [place] (1.005-1.030) Urine Protein (Negative) Urine Glucose (UA) (Negative) Urine Ketones (Negative) Urine Occult Blood (Negative) Urine Nitrite (Negative) Urine Bilirubin (Negative) Urine Urobilinogen (0.2-1.0) Ur Leukocyte Esterase (Negative) SARS-CoV-2 RNA ([place]) Negative (NEGATIVE) 07/20/20 Range/Units 08:55 WBC (4.23-9.07) K/mm3 RBC (4.63-6.08) M/mm3 Hgb (13.7-17.5) gm/dl Hct (40.1-51.0) % MCV (79.0-92.2) fl MCH (25.7-32.2) pg MCHC (32.2-35.5) g/dl RDW Std Deviation (35.1-43.9) fL Plt Count (163-337) K/mm3 MPV (9.4-12.3) fl Neut % (Auto) (34.0-67.9) % Lymph % (Auto) (21.8-53.1) % [place] % (Auto) (5.3-12.2) % Eos % (Auto) (0.8-7.0) Baso % (Auto) (0.1-1.2) % Neut # (Auto) (1.78-5.38) K/mm3 Lymph # (Auto) (1.32-3.57) K/mm3 [place] # (Auto) (0.30-0.82) K/mm3 Eos # (Auto) (0.04-0.54) K/mm3 Baso # (Auto) (0.01-0.08) K/mm3 Manual Slide Review PT (9.7-12.0) SECONDS INR Puncture Site ABG pH (7.35-7.45) ABG pCO2 (35.0-45.0) mmHg ABG pO2 (80.0-100.0) mmHg ABG HCO3 (22.0-26.0) meq/L ABG O2 Saturation (96.0-97.0) % ABG Base Excess (-2-2.0) A-a Gradient mmHg O2 Delivery Device Oxygen Flow Rate FiO2 (21.00-100.00) % Sodium (136-145) mEq/L Potassium (3.5-5.1) mEq/L Chloride (98-107) mEq/L Carbon Dioxide (21-32) mEq/L Anion Gap (5-15) BUN (7-18) mg/dL Creatinine (0.7-1.3) mg/dL Est Cr Clr Drug Dosing mL/min Estimated GFR (MDRD) (>60) mL/min BUN/Creatinine Ratio (14-18) Glucose (70-99) mg/dL Calcium (8.5-10.1) mg/dL Magnesium (1.8-2.4) mg/dL Total Bilirubin (0.2-1.0) mg/dL AST (15-37) U/L ALT (16-63) U/L Alkaline Phosphatase (46-116) U/L Creatine Kinase (39-308) U/L CK-MB (CK-2) (0-3.6) ng/ml Troponin I (0.00-0.056) ng/mL C-Reactive Protein (<1.0) mg/dL NT-Pro-B Natriuret Pep (0-450) pg/mL Total Protein (6.4-8.2) g/dl Albumin (3.4-5.0) g/dl Globulin gm/dL Albumin/Globulin Ratio (1-2) Urine Color Yellow (Yellow) Urine Appearance Clear (Clear) Urine pH 6.0 (5.0-8.0) Ur Specific [place] 1.025 (1.005-1.030) Urine Protein 1+ H (Negative) Urine Glucose (UA) Negative (Negative) Urine Ketones Negative (Negative) Urine Occult Blood Trace-intact H (Negative) Urine Nitrite Negative (Negative) Urine Bilirubin 1+ H (Negative) Urine Urobilinogen 0.2 (0.2-1.0) Ur Leukocyte Esterase Negative (Negative) SARS-CoV-2 RNA ([place]) (NEGATIVE) Meds: Medications Generic Name Dose Route Start Last Admin Trade Name Freq PRN Reason Stop Dose Admin Albuterol/Ipratropium 3 ml 07/20/20 07:12 07/20/20 07:36 Albuterol/Ipratropium 3.0-0.5 Mg/3 Ml Neb Soln NEB 3 ml Q4H PRN Administration Shortness Of Breath/wheezing Albuterol/Ipratropium 3 ml 07/20/20 07:45 Albuterol/Ipratropium 3.0-0.5 Mg/3 Ml Neb Soln NEB Q4H PRN Shortness Of Breath/wheezing Dextrose/Sodium Chloride 1,000 mls @ 125 mls/hr 07/20/20 08:45 Dextrose 5%-Normal Saline IV ASDIRECTED OBED Discontinued Medications Generic Name Dose Route Start Last Admin Trade Name Freq PRN Reason Stop Dose Admin Hydromorphone HCl 0.5 mg 07/20/20 08:34 Hydromorphone 0.5 Mg/0.5 Ml Syringe IVPUSH 07/20/20 08:35 ONETIME ONE Dextrose/Sodium Chloride 1,000 mls @ 100 mls/hr 07/20/20 07:15 07/20/20 07:35 Dextrose 5%-Normal Saline IV 100 mls/hr ASDIRECTED OBED Administration - Radiology Interpretation Free Text/Narrative:: 79-year-old male presents to the ED by [facility] from his own home in [place]. He states the chair he was going to sit on last evening squirted out backwards behind him causing him to fall to the floor landing hard on his left posterior lateral chest. He has developed increased shortness of breath with splinting respirations and exquisite pain in the posterior lateral chest overnight. States he did not sleep at all. Of note the patient has end-stage COPD and is on oxygen at 3 L/min by nasal cannula at all times. He also carries a history of underlying lung cancer. He has a PICC line in his right upper extremity. Apparently he is still receiving chemotherapy. He denies hitting his head or losing consciousness. He is not on any blood thinners. I could find no other injuries other than to the posterior lateral left ribs particular painful for ribs 10-12 on that side. Mild overlying erythema but no ecchymoses or subcutaneous emphysema identified. Plan he is extremely wheezy at the time of my exam. Apparently paramedics gave him 2 mg of Dilaudid IM in route to [place]. He is maintained on fentanyl patch 12 mcg/h. He will have blood gases drawn. IV fluids will be normal saline 75 mils per hour. Routine labs including coags to be obtained and BNP. He will have CT of his chest without contrast. - Re-Assessments/Exams Free Text/Narrative Re-Assessment/Exam: 07/20/20 08:11 Labs reveal a elevated white count at 17.27 with a 91.9% neutrophils on the auto differential. Hemoglobin is low at 9.4 with hematocrit of 30.2. MCV elevated 107.9. Platelet count 210,000. The smear reveals 2+ macrocytosis with neutropenia and lymphopenia. ABGs revealed a pH of 7.37 with a PCO2 of 42.3 and a PO2 of 66.0. Bicarb is 24 saturations were 93.4% on 2 L by nasal cannula. Blood pressure remains low at 96/54 which he states is his normal. 07/20/20 08:12 CT scan of the chest has been performed without IV contrast.. It reveals extensive panlobular emphysema. There are numerous large blebs particularly in the right lung field. No acute parenchymal change appreciated. There is interstitial change within the right lung base representing either atelectasis or scar tissue. Cannot rule out a small pleural effusion. Nodularity that was noted on the right side on the previous study appears to be less prominent on current study. No pneumothorax identified. Patient does have fractures involving the posterior lateral aspects of ribs 11 and 12 on the left side. Diffuse atherosclerotic changes noted within the thoracic aorta. No aneurysm is seen. Coronary artery calcification is appreciated. Mediastinum shows no discrete adenopathy. Prior right hilar adenopathy is not as well seen as on current exam. No pericardial thickening is seen. Spleen appears normal. Visualized portions of the liver appears unchanged from previous exam. Patient does have a an abdominal aortic aneurysm measuring 4.3 cm. The radiologist did not comment on fractures of posterior lateral ribs 11 and 12. 07/20/20 08:17 blood pressure is fallen to 86/48. Patient will receive 100 mill normal saline fluid bolus. 07/20/20 08:34 Blood pressure is now improved to 103/52. O2 sats remained 95% on 3 L/min by nasal cannula. Patient states he was to see oncologist in [place] on July 17. It indicated that his lung cancer was responded to chemotherapy. States his pain is starting to come back in his left posterior lateral ribs. Will repeat Dilaudid 0.5 mg IV. 07/20/20 08:41 PT is 10.7 with an INR of 1.0. Sodium 140 with a potassium of 4.2. Chloride 105 with a bicarb of 25. Anion gap is 14.2. BUN is 30 with a creatinine of 1.0. GFR is greater than 60. BUN/creatinine ratio is 30.0 suggesting he is volume depleted. Glucose 104. Calcium 8.7 magnesium 2.0 liver function normal total CPK is 51. CK-MB fraction is 1.7 troponin I is less than 0.017. C-reactive protein is 1.6 total protein 6.3 with an albumin fraction of 3.4 COVID-19 screen is negative. 07/20/20 08:46 his daughter is here now and I discussed the findings with her. Decision made to admit Mr. Coats to the hospital for pain control since he has such bad COPD. His Neulasta patch that he has on the back of his left arm should come off later today. I therefore did speak with on-call hospitalist Dr. Chago Huang and the patient will be admitted to the [facility] surgery floor. Departure - Departure Time of Disposition: 09:45 Disposition: Admitted As Inpatient 67 Condition: Poor Clinical Impression: Dependence on supplemental oxygen, Primary cancer of right lung Fall as cause of accidental injury at home as place of occurrence Qualifiers: Encounter type: initial encounter Qualified Code(s): W19.XXXA - Unspecified fall, initial encounter Rib fractures Qualifiers: Encounter type: initial encounter Fracture type: closed Laterality: left Qualified Code(s): S22.42XA - Multiple fractures of ribs, left side, initial encounter for closed fracture COPD (chronic obstructive pulmonary disease) Qualifiers: COPD type: emphysema Emphysema type: panlobular Qualified Code(s): J43.1 - Panlobular emphysema Malnutrition Qualifiers: Malnutrition type: protein-calorie malnutrition Protein-calorie malnutrition severity: mild Qualified Code(s): E44.1 - Mild protein-calorie malnutrition - Discharge Information *PRESCRIPTION DRUG MONITORING PROGRAM REVIEWED*: Not Applicable *COPY OF PRESCRIPTION DRUG MONITORING REPORT IN PATIENT DA: Not Applicable Instructions: Chronic Obstructive Pulmonary Disease, Rib Fracture, Lung Cancer Referrals: Suleman Swan MD [Primary Care Provider] - Forms: ED Department Discharge Sepsis Event Note (ED) - Focused Exam Vital Signs: Vital Signs Temp Pulse BP Pulse Ox Pulse Ox 07/20/20 07:15 36.6 C 90 137/69 100 07/20/20 07:12 100 - My Orders Last 24 Hours: My Active Orders 07/20/20 07:12 RT Aerosol Therapy [RC] ASDIRECTED Albuterol/Ipratropium [DuoNeb 3.0-0.5 MG/3 ML] 3 ml NEB Q4H PRN 07/20/20 07:14 EKG Documentation Completion [RC] STAT Blood Culture x2 Reflex Set [OM.PC] Stat 07/20/20 07:15 Oxygen Therapy [RC] ASDIRECTED 07/20/20 07:25 C-REACTIVE PROTEIN [CHEM] Stat CKMB [CHEM] Stat COMPREHENSIVE METABOLIC PN,CMP [CHEM] Stat CPK [CREATINE KINASE,CK] [CHEM] Stat CULTURE BLOOD [BC] Stat LACTATE DEHYDROGENASE,LDH [CHEM] Stat MAGNESIUM [CHEM] Stat TROPONIN I [CHEM] Stat 07/20/20 07:39 CULTURE BLOOD [BC] Stat 07/20/20 07:45 Albuterol/Ipratropium [DuoNeb 3.0-0.5 MG/3 ML] 3 ml NEB Q4H PRN 07/20/20 08:45 Dextrose 5%-0.9% NaCl [Dextrose 5%-Normal Saline] 1,000 ml IV ASDIRECTED 07/20/20 08:55 URINALYSIS W/MICROSCOPIC [UA W/MICROSCOPIC] [URIN] Stat 07/20/20 08:58 Admission Status [Patient Status] [ADT] Routine - Assessment/Plan Last 24 Hours: My Active Orders 07/20/20 07:12 RT Aerosol Therapy [RC] ASDIRECTED Albuterol/Ipratropium [DuoNeb 3.0-0.5 MG/3 ML] 3 ml NEB Q4H PRN 07/20/20 07:14 EKG Documentation Completion [RC] STAT Blood Culture x2 Reflex Set [OM.PC] Stat 07/20/20 07:15 Oxygen Therapy [RC] ASDIRECTED 07/20/20 07:25 C-REACTIVE PROTEIN [CHEM] Stat CKMB [CHEM] Stat COMPREHENSIVE METABOLIC PN,CMP [CHEM] Stat CPK [CREATINE KINASE,CK] [CHEM] Stat CULTURE BLOOD [BC] Stat LACTATE DEHYDROGENASE,LDH [CHEM] Stat MAGNESIUM [CHEM] Stat TROPONIN I [CHEM] Stat 07/20/20 07:39 CULTURE BLOOD [BC] Stat 07/20/20 07:45 Albuterol/Ipratropium [DuoNeb 3.0-0.5 MG/3 ML] 3 ml NEB Q4H PRN 07/20/20 08:45 Dextrose 5%-0.9% NaCl [Dextrose 5%-Normal Saline] 1,000 ml IV ASDIRECTED 07/20/20 08:55 URINALYSIS W/MICROSCOPIC [UA W/MICROSCOPIC] [URIN] Stat 07/20/20 08:58 Admission Status [Patient Status] [ADT] Routine
--- NOTE | 2020-07-20 08:20 | CT ---
CT chest Technique: Multiple axial sections through the chest were obtained. No intravenous contrast was utilized. Reconstructed coronal and sagittal images were obtained. Comparison: Prior chest CT study of 04/02/20. Findings: Diffuse atherosclerotic change is noted within the thoracic aorta. No aneurysm is seen. Coronary artery calcification is noted. Mediastinum shows no discrete adenopathy. Prior right hilar adenopathy is not as well-seen on current exam. No pericardial thickening is seen. Interstitial change is noted within the right lung base which most likely represents fibrosis. Nodularity that was noted on the right side on previous study appears less prominent on current study. Diffuse emphysematous changes are seen. No acute parenchymal change is appreciated. No definite acute osseous abnormality is appreciated. Partially visualized abdominal aortic aneurysm of 4.3 cm is seen. Impression: 1. Adenopathy seen within the mediastinum and hilar regions appear slightly less prominent on this noncontrast study than was seen previously. 2. Nodularity within the right chest has slightly diminished from prior exam. 3. Fibrosis within the right lung base. 4. Diffuse emphysematous changes are seen. 5. Partially visualized 4.3 cm aneurysm within the abdominal aorta. 6. No acute osseous finding is seen. Diagnostic code #3
[2020-07-20] MEDS ORDERED: HYDROmorphone 0.5 MG/0.5 ML Syringe IVPUSH ONE (08:34)
--- NOTE | 2020-07-20 09:42 | PCM.HP.2 ---
<Zechariah Jauregui - Last Filed: 07/20/20 14:02> H&P History of Present Illness - General Date of Service: 07/20/20 Admit Problem/Dx: Admission Diagnosis/Problem Admission Diagnosis/Problem Fall as cause of accidental injury in home as place of occurrence Source of Information: Patient, Old Records, Provider, RN, RN Notes Reviewed History Limitations: Reports: No Limitations - History of Present Illness Initial Comments - Free Text/Narative: This is a 79-year-old male who presents to ED on 07/20/2020 via [facility] after a fall. Patient reports that he went to go sit down in the chair and the chair rolled out from under him and he fell hard on his posterior back on the left side. Since then he has been unable to sleep and has had significant pain with breathing. 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 He has right lung cancer and per the family there metastasis to other areas including the liver. He reports a chronic cough with white sputum but denies any fever or chills. He was given 2 mg of Dilaudid in route. Denies hitting his head or losing consciousness. Denies any wrist, arm, or hip pain. Reports injury occurred around 8 PM last night. Denies any blood thinner use but he is on a fentanyl patch for chronic pain. He does have a PICC line in place in his right upper extremity. He has been receiving chemotherapy for his lung cancer. In the ED twelve-lead EKG is obtained showing a sinus rhythm at 86 bpm with right axis deviation and a right bundle branch block. Temp is 36.6 Celsius. Pulse 90. Blood pressure 137/69. Pulse ox 100% on 3 L. Labs are obtained showing a leukocytosis of 17.27. Hemoglobin is 9.4. Platelet 210,000. Neutrophils are elevated 91.9%. INR is 1.0. Sodium 140. Potassium 4.2. Chloride 105. Carbon oxide 25. Anion gap 14.2. BUN is 30, creatinine 1.0, GFR greater than 60. Glucose is 104. Magnesium 2.0. Total bilirubin 0.4. AST 17, ALT 16, alkaline phosphatase 71. CK is 51. CK-MB is 1.7. Troponin is less than 0.017. CRP is 1.6. Protein is 6.3. Albumin is 3.4. proBNP is 441. ABGs obtained in the left radial with a pH of 7.37. PCO2 of 42.3. PO2 of 66.0. HCO3 is 24.0. Oxygen saturation is 93.4. Base excess is -0.7. AA gradient is 81. This is obtained while on 2 L via nasal cannula. UA is obtained and is negative however 1+ protein, trace intact occult blood, 1+ bilirubin are noted. He is given DuoNeb's and started on 125 mils of D5 NS. He is also given 0.5 mg Dilaudid for pain. CT scan of his chest shows adenopathy within the mediastinum and hilar regions which appear slightly less prominent on this noncontrast study than was seen previously. There is nodularity within the right chest which is slightly diminished from prior exam. There is fibrosis within the right lung base and diffuse emphysematous changes are noted. There is a partially visualized 4.3 cm aneurysm within the abdominal aorta. The radiologist does note that no acute osseous finding is seen however in reviewing CT scan there is an apparent fracture of the 11th and 12th ribs on the left side. He is noted to have hypotension in the ED with a blood pressure of 86/48 and this does improve with a bolus. He does have a Neulasta patch on his arm which will come off later today. He carries a history of COPD, lung cancer, chronic O2 use on 2 to 3 L at home, diverticulosis, hiatal hernia, colostomy bag, BPH, chronic back pain, osteoarthritis, prior COVID-19 pneumonia. He currently lives by himself at home in [place] and has a paid teacher vocal who splits time with the patient's daughter in providing care. He is a DNR/DNI. His primary care provider is Audra Li PA-c. His oncologist is Dr. Swan. Left Back Pain Score (Numeric/FACES): 6 - Related Data Allergies/Adverse Reactions: Allergies Allergy/AdvReac Type Severity Reaction Status Date / Time ciprofloxacin [From Cipro] Allergy Rash Verified 07/20/20 11:31 ciprofloxacin HCl Allergy Rash Verified 07/20/20 11:31 [From Cipro] shellfish derived Allergy Rash Verified 07/20/20 11:31 Home Medications: Home Meds Acetaminophen [Acetaminophen Extra Strength] 500 mg PO ASDIRECTED PRN 07/20/20 [History] Albuterol [Ventolin HFA] 2 puff INH Q4H PRN 07/20/20 [History] Aspirin [Aspirin EC] 81 mg PO BEDTIME 07/20/20 [History] Fluticasone Propion/Salmeterol [Advair 250-50 Diskus] 1 puff INH BID 07/20/20 [History] Ipratropium/Albuterol Sulfate [Iprat-Albut 0.5-3(2.5) MG/3 ML] 3 ml INH Q2H PRN 07/20/20 [History] LORazepam [Ativan] 1 - 2 tab PO QID PRN 07/20/20 [History] Ondansetron [Zofran ODT] 4 mg PO TID PRN 07/20/20 [History] Prochlorperazine [Compazine] 10 mg PO QID PRN 07/20/20 [History] fentaNYL [Duragesic] 12 mcg TRDERM Q72H 07/20/20 [History] fentaNYL [Duragesic] 25 mcg TRDERM Q72H 07/20/20 [History] oxyCODONE HCl [Oxycodone HCl] 1 - 1.5 tab PO Q4H PRN 07/20/20 [History] polyethylene glycoL 3350 [MiraLAX] 17 g PO Q48H 07/20/20 [History] Past Medical History HEENT History: Reports: Hard of Hearing, Other (See Below) Other HEENT History: has upper dentures Cardiovascular History: Reports: SOB on Exertion Respiratory History: Reports: COPD, SOB Other Respiratory History: lung cancer; chronic O2 use on 3L/NC at home.. Patient was admitted to our hospital in March of this year with COVID-19 illness. Gastrointestinal History: Reports: Diverticulosis, Hiatal Hernia Other Gastrointestinal History: diverticulitis, colostomy bag Genitourinary History: Reports: BPH Musculoskeletal History: Reports: Back Pain, Chronic, Fracture, Osteoarthritis Psychiatric History: Reports: Addiction, Other (See Below) Other Psychiatric History: smokes cigars Oncologic (Cancer) History: Reports: Lung Other Oncologic History: in the early stages of receiving Lung cancer diagnosis. stated he will find out his diagnosis next week Dermatologic History: Reports: Other (See Below) Other Dermatologic History: scattered bruising to bilateral arms - Infectious Disease History Infectious Disease History: Reports: Chicken Pox, Influenza, Measles, Novel Coronavirus - Past Surgical History HEENT Surgical History: Reports: Tonsillectomy Cardiovascular Surgical History: Reports: None GI Surgical History: Reports: Appendectomy, Colonoscopy, Colostomy Male Surgical History: Reports: None Oncologic Surgical History: Reports: None Social & Family History - Family History Family Medical History: No Pertinent Family History - Caffeine Use Caffeine Use: Reports: Coffee Other Caffeine Use: 1 pot a day - Recreational Drug Use Recreational Drug Use: No - Living Situation & Occupation Living situation: Reports: , Alone Occupation: Retired H&P Review of Systems - Review of Systems: Review Of Systems: See Below General: Reports: Malaise, Weakness, Fatigue, Decreased Appetite, Weight Loss. Denies: Fever, Chills HEENT: Reports: No Symptoms. Denies: Headaches, Sore Throat Pulmonary: Reports: Shortness of Breath, Wheezing, Pleuritic Chest Pain (Rib Fx), Cough, Sputum Cardiovascular: Reports: Chest Pain (Rib Fx ), Dyspnea on Exertion. Denies: Palpitations, Edema Gastrointestinal: Reports: Anorexia. Denies: Abdominal Pain, Constipation, Diarrhea, Nausea, Vomiting Genitourinary: Reports: No Symptoms. Denies: Pain Musculoskeletal: Reports: Back Pain (chronic ) Skin: Reports: No Symptoms Psychiatric: Reports: No Symptoms. Denies: Confusion Neurological: Reports: Difficulty Walking, Weakness, Gait Disturbance. Denies: Confusion Hematologic/Lymphatic: Reports: No Symptoms Immunologic: Reports: No Symptoms Exam - Exam Exam: See Below - Vital Signs Vital Signs: Last Vital Signs Temp 97.8 F 07/20/20 07:15 Pulse 90 07/20/20 07:15 Resp BP 137/69 07/20/20 07:15 Pulse Ox 100 07/20/20 07:15 Weight: 54.431 kg - Exam Quality Assessment: Supplemental Oxygen, DVT Prophylaxis General: Alert, Oriented, Cooperative, Other (Cachectic) HEENT: Conjunctiva Clear, EACs Clear, Mucosa Moist & [place], Posterior Pharynx Clear Neck: Supple, Trachea Midline Lungs: Decreased Breath Sounds, Rhonchi, Wheezing Cardiovascular: Regular Rate, Regular Rhythm GI/Abdominal Exam: Normal Bowel Sounds, Soft, Non-Tender, No Distention, Hernia (Bilateral hernias to left and right of ostomy), Other (Colostomy midline of abd omen) (Male) Exam: Deferred Rectal (Males) Exam: Deferred Back Exam: Normal Inspection, Decreased Range of Motion Extremities: Normal Inspection, Normal Range of Motion, Non-Tender, No Pedal Edema, Normal Capillary Refill Peripheral Pulses: 3+: Radial (L), Radial (R), Dorsalis Pedis (L), Dorsalis Pedis (R) Skin: Warm, Dry, Intact Neurological: Cranial Nerves Intact (Grossly) - Patient Data Lab Results Last 24 hrs: Laboratory Results - last 24 hr 07/20/20 07/20/20 07/20/20 Range/Units 07:25 07:25 07:25 WBC 17.27 H (4.23-9.07) K/mm3 RBC 2.80 L (4.63-6.08) M/mm3 Hgb 9.4 L D (13.7-17.5) gm/dl Hct 30.2 L (40.1-51.0) % MCV 107.9 H D (79.0-92.2) fl MCH 33.6 H (25.7-32.2) pg MCHC 31.1 L (32.2-35.5) g/dl RDW Std Deviation 65.7 H (35.1-43.9) fL Plt Count 210 (163-337) K/mm3 MPV 8.3 L (9.4-12.3) fl Neut % (Auto) 91.9 H (34.0-67.9) % Lymph % (Auto) 3.3 L (21.8-53.1) % Mccracken % (Auto) 4.1 L (5.3-12.2) % Eos % (Auto) 0.3 L (0.8-7.0) Baso % (Auto) 0.2 (0.1-1.2) % Neut # (Auto) 15.89 H (1.78-5.38) K/mm3 Lymph # (Auto) 0.57 L (1.32-3.57) K/mm3 Mccracken # (Auto) 0.70 (0.30-0.82) K/mm3 Eos # (Auto) 0.05 (0.04-0.54) K/mm3 Baso # (Auto) 0.03 (0.01-0.08) K/mm3 Manual Slide Review Abnormal smear PT 10.7 (9.7-12.0) SECONDS INR 1.00 Puncture Site ABG pH (7.35-7.45) ABG pCO2 (35.0-45.0) mmHg ABG pO2 (80.0-100.0) mmHg ABG HCO3 (22.0-26.0) meq/L ABG O2 Saturation (96.0-97.0) % ABG Base Excess (-2-2.0) A-a Gradient mmHg O2 Delivery Device Oxygen Flow Rate FiO2 (21.00-100.00) % Sodium 140 (136-145) mEq/L Potassium 4.2 (3.5-5.1) mEq/L Chloride 105 (98-107) mEq/L Carbon Dioxide 25 (21-32) mEq/L Anion Gap 14.2 (5-15) BUN 30 H (7-18) mg/dL Creatinine 1.0 (0.7-1.3) mg/dL Est Cr Clr Drug Dosing 46.87 mL/min Estimated GFR (MDRD) > 60 (>60) mL/min BUN/Creatinine Ratio 30.0 H (14-18) Glucose 104 H (70-99) mg/dL Calcium 8.7 (8.5-10.1) mg/dL Magnesium 2.0 (1.8-2.4) mg/dL Total Bilirubin 0.4 (0.2-1.0) mg/dL AST 17 (15-37) U/L ALT 16 (16-63) U/L Alkaline Phosphatase 71 (46-116) U/L Creatine Kinase 51 (39-308) U/L CK-MB (CK-2) 1.7 (0-3.6) ng/ml Troponin I < 0.017 (0.00-0.056) ng/mL C-Reactive Protein 1.6 H* (<1.0) mg/dL NT-Pro-B Natriuret Pep (0-450) pg/mL Total Protein 6.3 L (6.4-8.2) g/dl Albumin 3.4 (3.4-5.0) g/dl Globulin 2.9 gm/dL Albumin/Globulin Ratio 1.2 (1-2) Urine Color (Yellow) Urine Appearance (Clear) Urine pH (5.0-8.0) Ur Specific [place] (1.005-1.030) Urine Protein (Negative) Urine Glucose (UA) (Negative) Urine Ketones (Negative) Urine Occult Blood (Negative) Urine Nitrite (Negative) Urine Bilirubin (Negative) Urine Urobilinogen (0.2-1.0) Ur Leukocyte Esterase (Negative) Urine RBC (0-5) /hpf Urine WBC (0-5) /hpf Ur Squamous Epith Cells (0-5) /hpf Urine Bacteria (FEW) /hpf Urine Mucus (FEW) /hpf SARS-CoV-2 RNA ([place]) (NEGATIVE) 07/20/20 07/20/20 07/20/20 Range/Units 07:25 07:41 07:42 WBC (4.23-9.07) K/mm3 RBC (4.63-6.08) M/mm3 Hgb (13.7-17.5) gm/dl Hct (40.1-51.0) % MCV (79.0-92.2) fl MCH (25.7-32.2) pg MCHC (32.2-35.5) g/dl RDW Std Deviation (35.1-43.9) fL Plt Count (163-337) K/mm3 MPV (9.4-12.3) fl Neut % (Auto) (34.0-67.9) % Lymph % (Auto) (21.8-53.1) % Mccracken % (Auto) (5.3-12.2) % Eos % (Auto) (0.8-7.0) Baso % (Auto) (0.1-1.2) % Neut # (Auto) (1.78-5.38) K/mm3 Lymph # (Auto) (1.32-3.57) K/mm3 M[place]racken # (Auto) (0.30-0.82) K/mm3 Eos # (Auto) (0.04-0.54) K/mm3 Baso # (Auto) (0.01-0.08) K/mm3 Manual Slide Review PT (9.7-12.0) SECONDS INR Puncture Site Lt radial ABG pH 7.37 (7.35-7.45) ABG pCO2 42.3 (35.0-45.0) mmHg ABG pO2 66.0 L (80.0-100.0) mmHg ABG HCO3 24.0 (22.0-26.0) meq/L ABG O2 Saturation 93.4 L (96.0-97.0) % ABG Base Excess -0.7 (-2-2.0) A-a Gradient 81 mmHg O2 Delivery Device Nasal cannula Oxygen Flow Rate 2.0 FiO2 28.00 (21.00-100.00) % Sodium (136-145) mEq/L Potassium (3.5-5.1) mEq/L Chloride (98-107) mEq/L Carbon Dioxide (21-32) mEq/L Anion Gap (5-15) BUN (7-18) mg/dL Creatinine (0.7-1.3) mg/dL Est Cr Clr Drug Dosing mL/min Estimated GFR (MDRD) (>60) mL/min BUN/Creatinine Ratio (14-18) Glucose (70-99) mg/dL Calcium (8.5-10.1) mg/dL Magnesium (1.8-2.4) mg/dL Total Bilirubin (0.2-1.0) mg/dL AST (15-37) U/L ALT (16-63) U/L Alkaline Phosphatase (46-116) U/L Creatine Kinase (39-308) U/L CK-MB (CK-2) (0-3.6) ng/ml Troponin I (0.00-0.056) ng/mL C-Reactive Protein (<1.0) mg/dL NT-Pro-B Natriuret Pep 441 (0-450) pg/mL Total Protein (6.4-8.2) g/dl Albumin (3.4-5.0) g/dl Globulin gm/dL Albumin/Globulin Ratio (1-2) Urine Color (Yellow) Urine Appearance (Clear) Urine pH (5.0-8.0) Ur Specific [place] (1.005-1.030) Urine Protein (Negative) Urine Glucose (UA) (Negative) Urine Ketones (Negative) Urine Occult Blood (Negative) Urine Nitrite (Negative) Urine Bilirubin (Negative) Urine Urobilinogen (0.2-1.0) Ur Leukocyte Esterase (Negative) Urine RBC (0-5) /hpf Urine WBC (0-5) /hpf Ur Squamous Epith Cells (0-5) /hpf Urine Bacteria (FEW) /hpf Urine Mucus (FEW) /hpf SARS-CoV-2 RNA ([place]) Negative (NEGATIVE) 07/20/20 Range/Units 08:55 WBC (4.23-9.07) K/mm3 RBC (4.63-6.08) M/mm3 Hgb (13.7-17.5) gm/dl Hct (40.1-51.0) % MCV (79.0-92.2) fl MCH (25.7-32.2) pg MCHC (32.2-35.5) g/dl RDW Std Deviation (35.1-43.9) fL Plt Count (163-337) K/mm3 MPV (9.4-12.3) fl Neut % (Auto) (34.0-67.9) % Lymph % (Auto) (21.8-53.1) % Mccracken % (Auto) (5.3-12.2) % Eos % (Auto) (0.8-7.0) Baso % (Auto) (0.1-1.2) % Neut # (Auto) (1.78-5.38) K/mm3 Lymph # (Auto) (1.32-3.57) K/mm3 [place]rack[place] # (Auto) (0.30-0.82) K/mm3 Eos # (Auto) (0.04-0.54) K/mm3 Baso # (Auto) (0.01-0.08) K/mm3 Manual Slide Review PT (9.7-12.0) SECONDS INR Puncture Site ABG pH (7.35-7.45) ABG pCO2 (35.0-45.0) mmHg ABG pO2 (80.0-100.0) mmHg ABG HCO3 (22.0-26.0) meq/L ABG O2 Saturation (96.0-97.0) % ABG Base Excess (-2-2.0) A-a Gradient mmHg O2 Delivery Device Oxygen Flow Rate FiO2 (21.00-100.00) % Sodium (136-145) mEq/L Potassium (3.5-5.1) mEq/L Chloride (98-107) mEq/L Carbon Dioxide (21-32) mEq/L Anion Gap (5-15) BUN (7-18) mg/dL Creatinine (0.7-1.3) mg/dL Est Cr Clr Drug Dosing mL/min Estimated GFR (MDRD) (>60) mL/min BUN/Creatinine Ratio (14-18) Glucose (70-99) mg/dL Calcium (8.5-10.1) mg/dL Magnesium (1.8-2.4) mg/dL Total Bilirubin (0.2-1.0) mg/dL AST (15-37) U/L ALT (16-63) U/L Alkaline Phosphatase (46-116) U/L Creatine Kinase (39-308) U/L CK-MB (CK-2) (0-3.6) ng/ml Troponin I (0.00-0.056) ng/mL C-Reactive Protein (<1.0) mg/dL NT-Pro-B Natriuret Pep (0-450) pg/mL Total Protein (6.4-8.2) g/dl Albumin (3.4-5.0) g/dl Globulin gm/dL Albumin/Globulin Ratio (1-2) Urine Color Yellow (Yellow) Urine Appearance Clear (Clear) Urine pH 6.0 (5.0-8.0) Ur Specific [place] 1.025 (1.005-1.030) Urine Protein 1+ H (Negative) Urine Glucose (UA) Negative (Negative) Urine Ketones Negative (Negative) Urine Occult Blood Trace-intact H (Negative) Urine Nitrite Negative (Negative) Urine Bilirubin 1+ H (Negative) Urine Urobilinogen 0.2 (0.2-1.0) Ur Leukocyte Esterase Negative (Negative) Urine RBC 5-10 H (0-5) /hpf Urine WBC 0-5 (0-5) /hpf Ur Squamous Epith Cells 0-5 (0-5) /hpf Urine Bacteria Few (FEW) /hpf Urine Mucus Few (FEW) /hpf SARS-CoV-2 RNA ([place]) (NEGATIVE) Result Diagrams: 07/20/20 07:25 07/20/20 07:25 Sepsis Event Note - Evaluation Sepsis Screening Result: No Definite Risk Current Stage of Sepsis: Ruled Out Reason for Ruling Out Sepsis: No signs of active infection. Patient is afebrile. UA and CT scan were negative. It is felt leukocytosis and vital sign changes are likely result of patient's end-stage COPD and cancer. Patient also has rib fractures. - Focused Exam Vital Signs: Vital Signs Temp Pulse BP Pulse Ox Pulse Ox 07/20/20 07:15 97.8 F 90 137/69 100 07/20/20 07:12 100 - Problem List (1) Pulmonary cachexia due to chronic obstructive pulmonary disease SNOMED Code(s): 040949242 ICD Code: J44.9 - CHRONIC OBSTRUCTIVE PULMONARY DISEASE, UNSPECIFIED; R64 - [place] Status: Chronic Priority: High Current Visit: Yes (2) Cachexia associated with pulmonary fibrosis SNOMED Code(s): 372748278 ICD Code: J84.10 - PULMONARY FIBROSIS, UNSPECIFIED; R64 - [place] Status: Chronic Priority: High Current Visit: Yes (3) COPD exacerbation SNOMED Code(s): 801854604 ICD Code: J44.1 - CHRONIC OBSTRUCTIVE PULMONARY DISEASE W (ACUTE) EXACERBATION Status: Acute Priority: High Current Visit: Yes (4) BPH (benign prostatic hyperplasia) SNOMED Code(s): 020675238 ICD Code: N40.0 - BENIGN PROSTATIC HYPERPLASIA WITHOUT LOWER URINRY TRACT SYMP Status: Chronic Priority: Low Current Visit: No Qualifiers: Lower urinary tract symptom presence: unspecified whether lower urinary tract symptoms present Qualified Code(s): N40.0 - Benign prostatic hyperplasia without lower urinary tract symptoms (5) Chronic back pain SNOMED Code(s): 916995831 ICD Code: M54.9 - DORSALGIA, UNSPECIFIED; G89.29 - OTHER CHRONIC PAIN Status: Chronic Priority: Medium Current Visit: No Qualifiers: Back pain location: back pain in unspecified location Back pain laterality: unspecified Qualified Code(s): M54.9 - Dorsalgia, unspecified; G89.29 - Other chronic pain (6) Osteoarthritis SNOMED Code(s): 996022198 ICD Code: M19.90 - UNSPECIFIED OSTEOARTHRITIS, UNSPECIFIED SITE Status: Chronic Priority: Medium Current Visit: No Qualifiers: Osteoarthritis location: unspecified site Osteoarthritis type: unspecified Qualified Code(s): M19.90 - Unspecified osteoarthritis, unspecified site (7) COPD (chronic obstructive pulmonary disease) SNOMED Code(s): 58652510 ICD Code: J44.9 - CHRONIC OBSTRUCTIVE PULMONARY DISEASE, UNSPECIFIED Status: Chronic Priority: High Current Visit: Yes Qualifiers: COPD type: emphysema Emphysema type: panlobular Qualified Code(s): J43.1 - Panlobular emphysema (8) Dependence on supplemental oxygen SNOMED Code(s): 337009294719 ICD Code: Z99.81 - DEPENDENCE ON SUPPLEMENTAL OXYGEN Status: Chronic Priority: High Current Visit: Yes (9) Fall as cause of accidental injury at home as place of occurrence SNOMED Code(s): 68478949 ICD Code: W19.XXXA - UNSPECIFIED FALL, INITIAL ENCOUNTER; Y92.009 - UNSP PLACE IN UNSP NON-INSTITUT (PRIVATE) RESIDENCE PLACE Status: Acute Priority: High Current Visit: Yes Qualifiers: Encounter type: initial encounter Qualified Code(s): W19.XXXA - Unspecified fall, initial encounter; Y92.009 - Unspecified place in unspecified non- institutional (private) residence as the place of occurrence of the external cause (10) Malnutrition SNOMED Code(s): 38697768 ICD Code: E46 - UNSPECIFIED PROTEIN-CALORIE MALNUTRITION Status: Acute Current Visit: Yes Qualifiers: Malnutrition type: protein-calorie malnutrition Protein-calorie malnutrition severity: severe Qualified Code(s): E43 - Unspecified severe protein-calorie malnutrition (11) Primary cancer of right lung SNOMED Code(s): 812426317 ICD Code: C34.91 - MALIGNANT NEOPLASM OF UNSP PART OF RIGHT BRONCHUS OR LUNG Status: Chronic Priority: High Current Visit: Yes (12) Rib fractures SNOMED Code(s): 1033795 ICD Code: S22.49XA - MULTIPLE FRACTURES OF RIBS, UNSP SIDE, INIT FOR CLOS FX Status: Acute Priority: High Current Visit: Yes Qualifiers: Encounter type: initial encounter Fracture type: closed Laterality: left Qualified Code(s): S22.42XA - Multiple fractures of ribs, left side, initial encounter for closed fracture (13) Abnormal weight loss SNOMED Code(s): 185876111 ICD Code: R63.4 - ABNORMAL WEIGHT LOSS Status: Chronic Priority: High Current Visit: Yes (14) Anxiety SNOMED Code(s): 50566548 ICD Code: F41.9 - ANXIETY DISORDER, UNSPECIFIED Status: Chronic Priority: Medium Current Visit: Yes (15) Chronic hypoxemic respiratory failure SNOMED Code(s): 003356121 ICD Code: J96.11 - CHRONIC RESPIRATORY FAILURE WITH HYPOXIA Status: Chronic Priority: High Current Visit: Yes (16) Colostomy in place SNOMED Code(s): 849786901, 176584279 ICD Code: Z93.3 - COLOSTOMY STATUS Status: Chronic Priority: Medium Current Visit: No (17) Abdominal hernia SNOMED Code(s): 80778524 ICD Code: K46.9 - UNSPECIFIED ABDOMINAL HERNIA WITHOUT OBSTRUCTION OR GANGRENE Status: Chronic Priority: Low Current Visit: No Qualifiers: Hernia type: unspecified Obstruction and gangrene presence: without obstruction or gangrene Recurrence: not specified as recurrent Qualified Code(s): K46.9 - Unspecified abdominal hernia without obstruction or gangrene (18) Generalized weakness SNOMED Code(s): 66268447 ICD Code: R53.1 - WEAKNESS Status: Acute Priority: High Current Visit: Yes (19) Failure to thrive SNOMED Code(s): 77441687 ICD Code: SDA5953 - Status: Acute Priority: High Current Visit: Yes Qualifiers: Failure to thrive age range: in adult Qualified Code(s): R62.7 - Adult failure to thrive (20) S/P PICC central line placement SNOMED Code(s): 077737658, 284212803, 396071050, 231543305 ICD Code: Z95.828 - PRESENCE OF OTHER VASCULAR IMPLANTS AND GRAFTS Status: Chronic Priority: Low Current Visit: No (21) Aortic aneurysm SNOMED Code(s): 46216026 ICD Code: I71.9 - AORTIC ANEURYSM OF UNSPECIFIED SITE, WITHOUT RUPTURE Status: Chronic Priority: Medium Current Visit: Yes Qualifiers: Aortic location: unspecified Presence of rupture: without rupture Qualified Code(s): I71.9 - Aortic aneurysm of unspecified site, without rupture Problem List Initiated/Reviewed/Updated: Yes Orders Last 24hrs: Active Orders 24 hr Category Date Time Status Admission Status [Patient Status] [ADT] Routine ADT 07/20/20 08:58 Active EKG Documentation Completion [RC] STAT Care 07/20/20 07:14 Active Oxygen Therapy [RC] ASDIRECTED Care 07/20/20 07:15 Active RT Aerosol Therapy [RC] ASDIRECTED Care 07/20/20 07:12 Active C-REACTIVE PROTEIN [CHEM] Stat Lab 07/20/20 07:25 Results CKMB [CHEM] Stat Lab 07/20/20 07:25 Results COMPREHENSIVE METABOLIC PN,CMP [CHEM] Stat Lab 07/20/20 07:25 Results CPK [CREATINE KINASE,CK] [CHEM] Stat Lab 07/20/20 07:25 Results CULTURE BLOOD [BC] Stat Lab 07/20/20 07:25 Received CULTURE BLOOD [BC] Stat Lab 07/20/20 07:39 Received LACTATE DEHYDROGENASE,LDH [CHEM] Stat Lab 07/20/20 07:25 Results MAGNESIUM [CHEM] Stat Lab 07/20/20 07:25 Results TROPONIN I [CHEM] Stat Lab 07/20/20 07:25 Results Albuterol/Ipratropium [DuoNeb 3.0-0.5 MG/3 ML] Med 07/20/20 07:12 Active 3 ml NEB Q4H PRN Albuterol/Ipratropium [DuoNeb 3.0-0.5 MG/3 ML] Med 07/20/20 07:45 Active 3 ml NEB Q4H PRN Dextrose 5%-0.9% NaCl [Dextrose 5%-Normal Saline] 1,000 Med 07/20/20 08:45 Active ml IV ASDIRECTED Blood Culture x2 Reflex Set [OM.PC] Stat Oth 07/20/20 07:14 Ordered Medication Orders Albuterol/Ipratropium (Albuterol/Ipratropium 3.0-0.5 Mg/3 Ml Neb Soln) 3 ml NEB Q4H PRN PRN Reason: Shortness Of Breath/wheezing Last Admin: 07/20/20 07:36 Dose: 3 ml Documented by: YONY Albuterol/Ipratropium (Albuterol/Ipratropium 3.0-0.5 Mg/3 Ml Neb Soln) 3 ml NEB Q4H PRN PRN Reason: Shortness Of Breath/wheezing Dextrose/Sodium Chloride (Dextrose 5%-Normal Saline) 1,000 mls @ 125 mls/hr IV ASDIRECTED OBED Assessment/Plan Comment:: Assessment - day of admission 07/20/2020 * 79-year-old male presents via [facility] after fall at home * Reports chair rolled out from underneath him and he fell on left back with resulting pain with inspiration * History of COPD on 2 to 3 L chronic O2, prior COVID-19 illness, diverticulosis, hiatal hernia, colostomy bag, BPH, chronic back pain, osteo arthritis, lung cancer, abdominal hernia. Has PICC line in place and right arm. Neulasta sponge in place on posterior left arm. * He is reportedly undergoing chemotherapy for his lung cancer with Dr. Swan. * Denies any infectious symptoms but states he does have a chronic productive cough and chronic dyspnea. * Twelve-lead EKG obtained in ED shows sinus rhythm at 86 bpm with right axis deviation and a left bundle branch block. * CT of the chest shows adenopathy within the mediastinum and hilar regions which appear less prominent on this noncontrast study than was seen previously. Nodularity within the right chest has slightly diminished from prior exam. Fibrosis is noted within the right lung base and there is diffuse emphysematous change noted. There is a partially visualized 4.3 cm aneurysm within the abdominal aorta. Radiologist states no acute osseous finding is seen however there is fracture noted in 11th and 12th left posterior ribs. * Labs are obtained: * WBC 17.27 (likely elevated from stress and neulasta sponge) * Hemoglobin 9.4 * Platelet 210,000 * Neutrophils 91.9% * INR 1.0 * Sodium 140 * Potassium 4.2 * Chloride 105 * Carbon dioxide 25 * Anion gap 14.2 * BUN 30, creatinine 1.0, GFR greater than 60. * Glucose 104 * Calcium 8.7 * Magnesium 2.0 * Total bilirubin 0.4 * AST 17, ALT 16, alkaline phosphatase 71. * Creatinine kinase 51 * CK-MB 1.7 * Troponin less than 0.017 * CRP 1.6 * Protein 6.3 * Albumin 3.4 * proBNP 441 * SARS Covid 2 RNA negative * ABG obtained in the left radial with pH of 7.37, PCO2 42.3, PO2 of 66.0, HCO3 of 24, O2 saturation 93.4, base excess -0.7, AA gradient 81, obtained on 2 L via NC * Patient given Dilaudid for pain and DuoNebs in the ED. Started on IV fluids. * Patient admitted to medical surgical floor for pain management due to rib f ractures and worsening dyspnea. Patient also is severely malnourished. 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 Swan - patient reportedly recently underwent a PET scan * PT/OT * Access PICC Line * Await blood cultures BPH (benign prostatic hyperplasia) * No acute concerns * Continue home Flomax Chronic back pain * No acute concerns * Continue home fentanyl patch * Pain medications as ordered * PT/OT Anxiety * No acute cancers * Home Ativan PRN as ordered Colostomy in place Abdominal hernia Chronic constipation * Home and PRN laxatives/stool softeners as ordered * Colostomy cares by nursing * Monitor intake and output Aortic aneurism * No acute concerns * PCP to monitor Code Status: DNR/DNI PCP: Audra Li PA-C Oncology: Dr. Swan DVT prophylaxis: Lovenox Social[place] and has paid teacher vocal and daughter who check in on him and help him with things. Will likely require placement. Disposition: Patient admitted to medical floor for management of his acute rib fractures and CHF exacerbation. Length of stay likely 3 to 4 days. Patient and daughter aware overall prognosis is very poor. - Mortality Measure Prognosis:: Poor (Given patient's severe cachexia, chronic lung disease, and cancer patient has very grim overall prognosis.) <Chago Huang - Last Filed: 07/20/20 17:45> H&P History of Present Illness - General Admit Problem/Dx: Admission Diagnosis/Problem Admission Diagnosis/Problem Fall as cause of accidental injury in home as place of occurrence Exam - Vital Signs Vital Signs: Last Vital Signs Temp 36.6 C 07/20/20 10:24 Pulse 88 07/20/20 13:30 Resp 20 07/20/20 13:30 BP 150/70 H 07/20/20 12:24 Pulse Ox 98 07/20/20 17:40 - Patient Data Lab Results Last 24 hrs: Laboratory Results - last 24 hr 07/20/20 07/20/20 07/20/20 Range/Units 07:25 07:25 07:25 WBC 17.27 H (4.23-9.07) K/mm3 RBC 2.80 L (4.63-6.08) M/mm3 Hgb 9.4 L D (13.7-17.5) gm/dl Hct 30.2 L (40.1-51.0) % MCV 107.9 H D (79.0-92.2) fl MCH 33.6 H (25.7-32.2) pg MCHC 31.1 L (32.2-35.5) g/dl RDW Std Deviation 65.7 H (35.1-43.9) fL Plt Count 210 (163-337) K/mm3 MPV 8.3 L (9.4-12.3) fl Neut % (Auto) 91.9 H (34.0-67.9) % Lymph % (Auto) 3.3 L (21.8-53.1) % Mccracken % (Auto) 4.1 L (5.3-12.2) % Eos % (Auto) 0.3 L (0.8-7.0) Baso % (Auto) 0.2 (0.1-1.2) % Neut # (Auto) 15.89 H (1.78-5.38) K/mm3 Lymph # (Auto) 0.57 L (1.32-3.57) K/mm3 Mccracken # (Auto) 0.70 (0.30-0.82) K/mm3 Eos # (Auto) 0.05 (0.04-0.54) K/mm3 Baso # (Auto) 0.03 (0.01-0.08) K/mm3 Manual Slide Review Abnormal smear PT 10.7 (9.7-12.0) SECONDS INR 1.00 Puncture Site ABG pH (7.35-7.45) ABG pCO2 (35.0-45.0) mmHg ABG pO2 (80.0-100.0) mmHg ABG HCO3 (22.0-26.0) meq/L ABG O2 Saturation (96.0-97.0) % ABG Base Excess (-2-2.0) A-a Gradient mmHg O2 Delivery Device Oxygen Flow Rate FiO2 (21.00-100.00) % Sodium 140 (136-145) mEq/L Potassium 4.2 (3.5-5.1) mEq/L Chloride 105 (98-107) mEq/L Carbon Dioxide 25 (21-32) mEq/L Anion Gap 14.2 (5-15) BUN 30 H (7-18) mg/dL Creatinine 1.0 (0.7-1.3) mg/dL Est Cr Clr Drug Dosing 46.87 mL/min Estimated GFR (MDRD) > 60 (>60) mL/min BUN/Creatinine Ratio 30.0 H (14-18) Glucose 104 H (70-99) mg/dL Calcium 8.7 (8.5-10.1) mg/dL Magnesium 2.0 (1.8-2.4) mg/dL Total Bilirubin 0.4 (0.2-1.0) mg/dL AST 17 (15-37) U/L ALT 16 (16-63) U/L Alkaline Phosphatase 71 (46-116) U/L Lactate Dehydrogenase 144 (85-227) U/L Creatine Kinase 51 (39-308) U/L CK-MB (CK-2) 1.7 (0-3.6) ng/ml Troponin I < 0.017 (0.00-0.056) ng/mL C-Reactive Protein 1.6 H* (<1.0) mg/dL NT-Pro-B Natriuret Pep (0-450) pg/mL Total Protein 6.3 L (6.4-8.2) g/dl Albumin 3.4 (3.4-5.0) g/dl Globulin 2.9 gm/dL Albumin/Globulin Ratio 1.2 (1-2) Urine Color (Yellow) Urine Appearance (Clear) Urine pH (5.0-8.0) Ur Specific [place] (1.005-1.030) Urine Protein (Negative) Urine Glucose (UA) (Negative) Urine Ketones (Negative) Urine Occult Blood (Negative) Urine Nitrite (Negative) Urine Bilirubin (Negative) Urine Urobilinogen (0.2-1.0) Ur Leukocyte Esterase (Negative) Urine RBC (0-5) /hpf Urine WBC (0-5) /hpf Ur Squamous Epith Cells (0-5) /hpf Urine Bacteria (FEW) /hpf Urine Mucus (FEW) /hpf SARS-CoV-2 RNA ([place]) (NEGATIVE) 07/20/20 07/20/20 07/20/20 Range/Units 07:25 07:41 07:42 WBC (4.23-9.07) K/mm3 RBC (4.63-6.08) M/mm3 Hgb (13.7-17.5) gm/dl Hct (40.1-51.0) % MCV (79.0-92.2) fl MCH (25.7-32.2) pg MCHC (32.2-35.5) g/dl RDW Std Deviation (35.1-43.9) fL Plt Count (163-337) K/mm3 MPV (9.4-12.3) fl Neut % (Auto) (34.0-67.9) % Lymph % (Auto) (21.8-53.1) % Mccracken % (Auto) (5.3-12.2) % Eos % (Auto) (0.8-7.0) Baso % (Auto) (0.1-1.2) % Neut # (Auto) (1.78-5.38) K/mm3 Lymph # (Auto) (1.32-3.57) K/mm3 M[place]racken # (Auto) (0.30-0.82) K/mm3 Eos # (Auto) (0.04-0.54) K/mm3 Baso # (Auto) (0.01-0.08) K/mm3 Manual Slide Review PT (9.7-12.0) SECONDS INR Puncture Site Lt radial ABG pH 7.37 (7.35-7.45) ABG pCO2 42.3 (35.0-45.0) mmHg ABG pO2 66.0 L (80.0-100.0) mmHg ABG HCO3 24.0 (22.0-26.0) meq/L ABG O2 Saturation 93.4 L (96.0-97.0) % ABG Base Excess -0.7 (-2-2.0) A-a Gradient 81 mmHg O2 Delivery Device Nasal cannula Oxygen Flow Rate 2.0 FiO2 28.00 (21.00-100.00) % Sodium (136-145) mEq/L Potassium (3.5-5.1) mEq/L Chloride (98-107) mEq/L Carbon Dioxide (21-32) mEq/L Anion Gap (5-15) BUN (7-18) mg/dL Creatinine (0.7-1.3) mg/dL Est Cr Clr Drug Dosing mL/min Estimated GFR (MDRD) (>60) mL/min BUN/Creatinine Ratio (14-18) Glucose (70-99) mg/dL Calcium (8.5-10.1) mg/dL Magnesium (1.8-2.4) mg/dL Total Bilirubin (0.2-1.0) mg/dL AST (15-37) U/L ALT (16-63) U/L Alkaline Phosphatase (46-116) U/L Lactate Dehydrogenase (85-227) U/L Creatine Kinase (39-308) U/L CK-MB (CK-2) (0-3.6) ng/ml Troponin I (0.00-0.056) ng/mL C-Reactive Protein (<1.0) mg/dL NT-Pro-B Natriuret Pep 441 (0-450) pg/mL Total Protein (6.4-8.2) g/dl Albumin (3.4-5.0) g/dl Globulin gm/dL Albumin/Globulin Ratio (1-2) Urine Color (Yellow) Urine Appearance (Clear) Urine pH (5.0-8.0) Ur Specific [place] (1.005-1.030) Urine Protein (Negative) Urine Glucose (UA) (Negative) Urine Ketones (Negative) Urine Occult Blood (Negative) Urine Nitrite (Negative) Urine Bilirubin (Negative) Urine Urobilinogen (0.2-1.0) Ur Leukocyte Esterase (Negative) Urine RBC (0-5) /hpf Urine WBC (0-5) /hpf Ur Squamous Epith Cells (0-5) /hpf Urine Bacteria (FEW) /hpf Urine Mucus (FEW) /hpf SARS-CoV-2 RNA ([place]) Negative (NEGATIVE) 07/20/20 Range/Units 08:55 WBC (4.23-9.07) K/mm3 RBC (4.63-6.08) M/mm3 Hgb (13.7-17.5) gm/dl Hct (40.1-51.0) % MCV (79.0-92.2) fl MCH (25.7-32.2) pg MCHC (32.2-35.5) g/dl RDW Std Deviation (35.1-43.9) fL Plt Count (163-337) K/mm3 MPV (9.4-12.3) fl Neut % (Auto) (34.0-67.9) % Lymph % (Auto) (21.8-53.1) % Mccracken % (Auto) (5.3-12.2) % Eos % (Auto) (0.8-7.0) Baso % (Auto) (0.1-1.2) % Neut # (Auto) (1.78-5.38) K/mm3 Lymph # (Auto) (1.32-3.57) K/mm3 M[place]racken # (Auto) (0.30-0.82) K/mm3 Eos # (Auto) (0.04-0.54) K/mm3 Baso # (Auto) (0.01-0.08) K/mm3 Manual Slide Review PT (9.7-12.0) SECONDS INR Puncture Site ABG pH (7.35-7.45) ABG pCO2 (35.0-45.0) mmHg ABG pO2 (80.0-100.0) mmHg ABG HCO3 (22.0-26.0) meq/L ABG O2 Saturation (96.0-97.0) % ABG Base Excess (-2-2.0) A-a Gradient mmHg O2 Delivery Device Oxygen Flow Rate FiO2 (21.00-100.00) % Sodium (136-145) mEq/L Potassium (3.5-5.1) mEq/L Chloride (98-107) mEq/L Carbon Dioxide (21-32) mEq/L Anion Gap (5-15) BUN (7-18) mg/dL Creatinine (0.7-1.3) mg/dL Est Cr Clr Drug Dosing mL/min Estimated GFR (MDRD) (>60) mL/min BUN/Creatinine Ratio (14-18) Glucose (70-99) mg/dL Calcium (8.5-10.1) mg/dL Magnesium (1.8-2.4) mg/dL Total Bilirubin (0.2-1.0) mg/dL AST (15-37) U/L ALT (16-63) U/L Alkaline Phosphatase (46-116) U/L Lactate Dehydrogenase (85-227) U/L Creatine Kinase (39-308) U/L CK-MB (CK-2) (0-3.6) ng/ml Troponin I (0.00-0.056) ng/mL C-Reactive Protein (<1.0) mg/dL NT-Pro-B Natriuret Pep (0-450) pg/mL Total Protein (6.4-8.2) g/dl Albumin (3.4-5.0) g/dl Globulin gm/dL Albumin/Globulin Ratio (1-2) Urine Color Yellow (Yellow) Urine Appearance Clear (Clear) Urine pH 6.0 (5.0-8.0) Ur Specific [place] 1.025 (1.005-1.030) Urine Protein 1+ H (Negative) Urine Glucose (UA) Negative (Negative) Urine Ketones Negative (Negative) Urine Occult Blood Trace-intact H (Negative) Urine Nitrite Negative (Negative) Urine Bilirubin 1+ H (Negative) Urine Urobilinogen 0.2 (0.2-1.0) Ur Leukocyte Esterase Negative (Negative) Urine RBC 5-10 H (0-5) /hpf Urine WBC 0-5 (0-5) /hpf Ur Squamous Epith Cells 0-5 (0-5) /hpf Urine Bacteria Few (FEW) /hpf Urine Mucus Few (FEW) /hpf SARS-CoV-2 RNA ([place]) (NEGATIVE) Result Diagrams: 07/20/20 07:25 07/20/20 07:25 Sepsis Event Note - Focused Exam Vital Signs: Vital Signs Temp Temp Pulse Pulse Resp BP BP 07/20/20 17:40 07/20/20 13:30 88 20 07/20/20 12:24 113 H 2 L 150/70 H 07/20/20 10:24 36.6 C 95 20 114/54 L 07/20/20 08:00 93 22 H 07/20/20 07:15 36.6 C 90 137/69 07/20/20 07:12 Pulse Ox Pulse Ox 07/20/20 17:40 98 07/20/20 13:30 97 07/20/20 12:24 94 L 07/20/20 10:24 100 07/20/20 08:00 07/20/20 07:15 100 07/20/20 07:12 100 Orders Last 24hrs: Active Orders 24 hr Category Date Time Status Admission Status [Patient Status] [ADT] Routine ADT 07/20/20 08:58 Active Height and Weight [RC] 06 Care 07/20/20 09:54 Active Intake and Output [RC] 04,16 Care 07/20/20 09:54 Active Oxygen Therapy [RC] ASDIRECTED Care 07/20/20 07:15 Active Pulse Oximetry [RC] PRN Care 07/20/20 09:55 Active RT Aerosol Therapy [RC] ASDIRECTED Care 07/20/20 09:55 Active RT Aerosol Therapy [RC] ASDIRECTED Care 07/20/20 12:20 Active RT Incentive Spirometry [RC] ASDIRECTED Care 07/20/20 09:54 Active Up With Assistance [RC] ASDIRECTED Care 07/20/20 09:55 Active Vital Signs [RC] Q6HR Care 07/20/20 09:54 Active Consult to Case Management/Police Guard [CONS] Cons 07/20/20 10:34 Active Routine Consult to Signals Collector/Analyst [CONS] Routine Cons 07/20/20 12:21 Active Consult to Spiritual Care [CONS] Routine Cons 07/20/20 09:54 Active OT Evaluation and Treatment [CONS] Routine Cons 07/20/20 09:56 Active PT Evaluation and Treatment [CONS] Routine Cons 07/20/20 09:56 Active Respiratory Care Assess and Treatment [CONS] Routine Cons 07/20/20 09:56 Acti ve Regular Diet [DIET] Diet 07/20/20 Dinner Active BASIC METABOLIC PANEL,BMP [CHEM] AM Lab 07/21/20 05:11 Ordered BASIC METABOLIC PANEL,BMP [CHEM] AM Lab 07/22/20 05:11 Ordered BASIC METABOLIC PANEL,BMP [CHEM] AM Lab 07/23/20 05:11 Ordered BASIC METABOLIC PANEL,BMP [CHEM] AM Lab 07/24/20 05:11 Ordered CBC WITH AUTO DIFF [HEME] AM Lab 07/21/20 05:11 Ordered CBC WITH AUTO DIFF [HEME] AM Lab 07/22/20 05:11 Ordered CBC WITH AUTO DIFF [HEME] AM Lab 07/23/20 05:11 Ordered CBC WITH AUTO DIFF [HEME] AM Lab 07/24/20 05:11 Ordered CULTURE BLOOD [BC] Stat Lab 07/20/20 07:25 Received CULTURE BLOOD [BC] Stat Lab 07/20/20 07:39 Received MAGNESIUM [CHEM] AM Lab 07/21/20 05:11 Ordered MAGNESIUM [CHEM] AM Lab 07/22/20 05:11 Ordered MAGNESIUM [CHEM] AM Lab 07/23/20 05:11 Ordered MAGNESIUM [CHEM] AM Lab 07/24/20 05:11 Ordered PROCALCITONIN [REF] Routine Lab 07/20/20 07:25 Received Acetaminophen [TylenoL] Med 07/20/20 09:54 Active 650 mg PO Q4H PRN Acetaminophen/oxyCODONE [Percocet 325-5 MG] Med 07/20/20 09:54 Active 1 tab PO Q4H PRN Albuterol/Ipratropium [DuoNeb 3.0-0.5 MG/3 ML] Med 07/20/20 12:19 Active 3 ml INH Q2H PRN Aspirin [Halfprin] Med 07/20/20 21:00 Active 81 mg PO BEDTIME Dextrose 5%-0.9% NaCl [Dextrose 5%-Normal Saline] 1,000 Med 07/20/20 08:45 Active ml IV ASDIRECTED Enoxaparin [Lovenox] Med 07/21/20 09:00 Active 30 mg SUBCUT DAILY HYDROmorphone [Dilaudid] Med 07/20/20 09:54 Active 0.5 mg IVPUSH Q2H PRN LORazepam [Ativan] Med 07/20/20 12:19 Active 0.5 - 1 mg PO QID PRN Mometasone/Formoterol [Dulera 200-5 MCG] Med 07/20/20 21:00 Active 2 puff IH BID Ondansetron [Zofran] Med 07/20/20 09:54 Active 4 mg IV Q6H PRN Remove Patch Med 07/21/20 09:00 Active 1 ea TRDERM Q72H Remove Patch Med 07/21/20 09:00 Active 1 ea TRDERM Q72H fentaNYL [Duragesic] Med 07/21/20 09:00 Active 12 mcg TRDERM Q72H fentaNYL [Duragesic] Med 07/21/20 09:00 Active 25 mcg TRDERM Q72H methylPREDNISolone Sod Succ [Solu-MEDROL] Med 07/20/20 13:00 Active 40 mg IVPUSH DAILY polyethylene glycoL 3350 [MiraLAX] Med 07/21/20 09:00 Active 17 gm PO Q48H Blood Culture x2 Reflex Set [OM.PC] Stat Oth 07/20/20 07:14 Ordered Code Status [Resuscitation Status] Routine Resus Stat 07/20/20 10:34 Ordered Medication Orders Acetaminophen (Acetaminophen 325 Mg Tab) 650 mg PO Q4H PRN PRN Reason: Pain (Mild 1-3)/fever Albuterol/Ipratropium (Albuterol/Ipratropium 3.0-0.5 Mg/3 Ml Neb Soln) 3 ml INH Q2H PRN PRN Reason: Shortness of Breath Aspirin (Aspirin 81 Mg Tab.Ec) 81 mg PO BEDTIME OBED Enoxaparin Sodium (Enoxaparin 30 Mg/0.3 Ml Syringe) 30 mg SUBCUT DAILY OBED Fentanyl (Fentanyl 12 Mcg/Hr Transdermal Patch) 12 mcg TRDERM Q72H OBED Fentanyl (Fentanyl 25 Mcg/Hr Transdermal Patch) 25 mcg TRDERM Q72H OBED Hydromorphone HCl (Hydromorphone 0.5 Mg/0.5 Ml Syringe) 0.5 mg IVPUSH Q2H PRN PRN Reason: Pain (severe 7-10) Last Admin: 07/20/20 15:58 Dose: 0.5 mg Documented by: AMANDA Dextrose/Sodium Chloride (Dextrose 5%-Normal Saline) 1,000 mls @ 125 mls/hr IV ASDIRECTED [facility] Last Admin: 07/20/20 15:13 Dose: 125 mls/hr Documented by: AMANDA Lorazepam (Lorazepam 0.5 Mg Tab) 0.5 - 1 mg PO QID PRN PRN Reason: Anxiety Last Admin: 07/20/20 12:39 Dose: 1 mg Documented by: AMANDA Methylprednisolone Sodium Succinate (Methylprednisolone Sodium Succinate 40 Mg/1 Ml Sdv) 40 mg IVPUSH DAILY [facility] Last Admin: 07/20/20 12:43 Dose: 40 mg Documented by: AMANDA Miscellaneous Information (Remove Fentanyl 12 Mcg Patch) 1 ea TRDERM Q72H OBED Miscellaneous Information (Remove Fentanyl 25 Mcg Patch) 1 ea TRDERM Q72H OBED Mometasone Furoate/Formoterol Fumar (Formoterol/Mometasone 200-5 Mcg 8.8 Gm Inhaler) 2 puff IH BID OBED Ondansetron HCl (Ondansetron 4 Mg/2 Ml Sdv) 4 mg IV Q6H PRN PRN Reason: Nausea/Vomiting Oxycodone/Acetaminophen (Acetaminophen/Oxycodone 325-5 Mg Tab) 1 tab PO Q4H PRN PRN Reason: Pain (moderate 4-6) Last Admin: 07/20/20 12:17 Dose: 1 tab Documented by: AMANDA Polyethylene Glycol (Polyethylene Glycol 3350 Powder 17 Gm Packet) 17 gm PO Q48H OBED Assessment/Plan Comment:: I have seen and examined the patient independently of Zechariah Jauregui PA-C, and have discussed the case with him. I have reviewed plan as outlined by him. I agree with the orders as outlined by him. Please see orders.
[2020-07-20] MEDS ORDERED: Ondansetron 4 MG/2 ML SDV IV PRN (09:54)
[2020-07-20] MEDS ORDERED: Acetaminophen 325 MG Tab PO PRN (09:54)
[2020-07-20] MEDS: Acetaminophen/oxyCODONE 325-5 MG Tab PO PRN ×2 (12:17→18:00)
[2020-07-20] MEDS: LORazepam 0.5 MG Tab PO PRN ×2 (12:39→20:20)
[2020-07-20] MEDS: methylPREDNISolone Sodium Succinate 40 MG/1 ML SDV IVPUSH SCH (12:43)
[2020-07-20] MEDS: Dextrose 5%-0.9% NaCl 1,000 ML IV SCH (15:13)
[2020-07-20] MEDS: HYDROmorphone 0.5 MG/0.5 ML Syringe IVPUSH PRN ×2 (15:58→20:29)
[2020-07-20] MEDS: Formoterol/Mometasone 200-5 MCG 8.8 GM Inhaler IH SCH (20:04)
[2020-07-20] MEDS: Aspirin 81 MG Tab.EC PO SCH (20:20)
[2020-07-20] MEDS: Albuterol/Ipratropium 3.0-0.5 MG/3 ML Neb Soln INH PRN (23:46)
[2020-07-21] MEDS: Acetaminophen/oxyCODONE 325-5 MG Tab PO PRN ×4 (00:10→17:49)
[2020-07-21] MEDS: Dextrose 5%-0.9% NaCl 1,000 ML IV SCH ×2 (02:57→16:14)
--- NOTE | 2020-07-21 07:40 | PCM.PN ---
<Zechariah Jauregui - Last Filed: 07/21/20 11:55> - General Info Date of Service: 07/21/20 Admission Dx/Problem (Free Text): Admission Diagnosis/Problem Admission Diagnosis/Problem Fall as cause of accidental injury in home as place of occurrence Functional Status: Reports: Ambulating, Urinating, Incentive Spirometry, Other (acapella ). Denies: Pain Controlled (quite a bit of pain - adjusting medications ), Tolerating Diet (minimal intake ), New Symptoms - Review of Systems General: Reports: Weakness, Fatigue, Malaise. Denies: Fever, Chills, Appetite HEENT: Reports: No Symptoms. Denies: Headaches, Sore Throat Pulmonary: Reports: Shortness of Breath, Cough, Sputum, Wheezing Cardiovascular: Reports: Chest Pain (rib fractures ), Dyspnea on Exertion Gastrointestinal: Reports: Decreased Appetite. Denies: Abdominal Pain, Constipation, Diarrhea, Nausea, Vomiting Genitourinary: Reports: No Symptoms. Denies: Pain Musculoskeletal: Reports: No Symptoms Skin: Reports: No Symptoms. Denies: Cyanosis Neurological: Reports: Difficulty Walking, Weakness. Denies: Confusion, Dizziness, Headache, Numbness, Pre-Existing Deficit, Syncope, Tingling, Gait Disturbance Psychiatric: Reports: No Symptoms - Patient Data Vitals - Most Recent: Last Vital Signs Temp 97.9 F 07/21/20 00:11 Pulse 94 07/21/20 00:11 Resp 14 07/21/20 00:11 BP 111/52 L 07/21/20 00:11 Pulse Ox 99 07/21/20 00:11 Weight - Most Recent: 56.427 kg I&O - Last 24 Hours: Intake & Output 07/20/20 07/21/20 07/21/20 22:59 06:59 14:59 Intake Total 1000 1050 Output Total 300 400 Balance 700 650 Lab Results Last 24 Hours: Laboratory Results - last 24 hr 07/20/20 07/20/20 07/20/20 Range/Units 07:25 07:25 07:25 WBC 17.27 H (4.23-9.07) K/mm3 RBC 2.80 L (4.63-6.08) M/mm3 Hgb 9.4 L D (13.7-17.5) gm/dl Hct 30.2 L (40.1-51.0) % MCV 107.9 H D (79.0-92.2) fl MCH 33.6 H (25.7-32.2) pg MCHC 31.1 L (32.2-35.5) g/dl RDW Std Deviation 65.7 H (35.1-43.9) fL Plt Count 210 (163-337) K/mm3 MPV 8.3 L (9.4-12.3) fl Neut % (Auto) 91.9 H (34.0-67.9) % Lymph % (Auto) 3.3 L (21.8-53.1) % [place] % (Auto) 4.1 L (5.3-12.2) % Eos % (Auto) 0.3 L (0.8-7.0) Baso % (Auto) 0.2 (0.1-1.2) % Neut # (Auto) 15.89 H (1.78-5.38) K/mm3 Lymph # (Auto) 0.57 L (1.32-3.57) K/mm3 [place] # (Auto) 0.70 (0.30-0.82) K/mm3 Eos # (Auto) 0.05 (0.04-0.54) K/mm3 Baso # (Auto) 0.03 (0.01-0.08) K/mm3 Manual Slide Review Abnormal smear PT 10.7 (9.7-12.0) SECONDS INR 1.00 Puncture Site ABG pH (7.35-7.45) ABG pCO2 (35.0-45.0) mmHg ABG pO2 (80.0-100.0) mmHg ABG HCO3 (22.0-26.0) meq/L ABG O2 Saturation (96.0-97.0) % ABG Base Excess (-2-2.0) A-a Gradient mmHg O2 Delivery Device Oxygen Flow Rate FiO2 (21.00-100.00) % Sodium 140 (136-145) mEq/L Potassium 4.2 (3.5-5.1) mEq/L Chloride 105 (98-107) mEq/L Carbon Dioxide 25 (21-32) mEq/L Anion Gap 14.2 (5-15) BUN 30 H (7-18) mg/dL Creatinine 1.0 (0.7-1.3) mg/dL Est Cr Clr Drug Dosing 46.87 mL/min Estimated GFR (MDRD) > 60 (>60) mL/min BUN/Creatinine Ratio 30.0 H (14-18) Glucose 104 H (70-99) mg/dL Calcium 8.7 (8.5-10.1) mg/dL Magnesium 2.0 (1.8-2.4) mg/dL Total Bilirubin 0.4 (0.2-1.0) mg/dL AST 17 (15-37) U/L ALT 16 (16-63) U/L Alkaline Phosphatase 71 (46-116) U/L Lactate Dehydrogenase 144 (85-227) U/L Creatine Kinase 51 (39-308) U/L CK-MB (CK-2) 1.7 (0-3.6) ng/ml Troponin I < 0.017 (0.00-0.056) ng/mL C-Reactive Protein 1.6 H* (<1.0) mg/dL NT-Pro-B Natriuret Pep (0-450) pg/mL Total Protein 6.3 L (6.4-8.2) g/dl Albumin 3.4 (3.4-5.0) g/dl Globulin 2.9 gm/dL Albumin/Globulin Ratio 1.2 (1-2) Procalcitonin ng/mL Urine Color (Yellow) Urine Appearance (Clear) Urine pH (5.0-8.0) Ur Specific [place] (1.005-1.030) Urine Protein (Negative) Urine Glucose (UA) (Negative) Urine Ketones (Negative) Urine Occult Blood (Negative) Urine Nitrite (Negative) Urine Bilirubin (Negative) Urine Urobilinogen (0.2-1.0) Ur Leukocyte Esterase (Negative) Urine RBC (0-5) /hpf Urine WBC (0-5) /hpf Ur Squamous Epith Cells (0-5) /hpf Urine Bacteria (FEW) /hpf Urine Mucus (FEW) /hpf SARS-CoV-2 RNA ([place]) (NEGATIVE) 07/20/20 07/20/20 07/20/20 Range/Units 07:25 07:25 07:41 WBC (4.23-9.07) K/mm3 RBC (4.63-6.08) M/mm3 Hgb (13.7-17.5) gm/dl Hct (40.1-51.0) % MCV (79.0-92.2) fl MCH (25.7-32.2) pg MCHC (32.2-35.5) g/dl RDW Std Deviation (35.1-43.9) fL Plt Count (163-337) K/mm3 MPV (9.4-12.3) fl Neut % (Auto) (34.0-67.9) % Lymph % (Auto) (21.8-53.1) % [place] % (Auto) (5.3-12.2) % Eos % (Auto) (0.8-7.0) Baso % (Auto) (0.1-1.2) % Neut # (Auto) (1.78-5.38) K/mm3 Lymph # (Auto) (1.32-3.57) K/mm3 [place] # (Auto) (0.30-0.82) K/mm3 Eos # (Auto) (0.04-0.54) K/mm3 Baso # (Auto) (0.01-0.08) K/mm3 Manual Slide Review PT (9.7-12.0) SECONDS INR Puncture Site ABG pH (7.35-7.45) ABG pCO2 (35.0-45.0) mmHg ABG pO2 (80.0-100.0) mmHg ABG HCO3 (22.0-26.0) meq/L ABG O2 Saturation (96.0-97.0) % ABG Base Excess (-2-2.0) A-a Gradient mmHg O2 Delivery Device Oxygen Flow Rate FiO2 (21.00-100.00) % Sodium (136-145) mEq/L Potassium (3.5-5.1) mEq/L Chloride (98-107) mEq/L Carbon Dioxide (21-32) mEq/L Anion Gap (5-15) BUN (7-18) mg/dL Creatinine (0.7-1.3) mg/dL Est Cr Clr Drug Dosing mL/min Estimated GFR (MDRD) (>60) mL/min BUN/Creatinine Ratio (14-18) Glucose (70-99) mg/dL Calcium (8.5-10.1) mg/dL Magnesium (1.8-2.4) mg/dL Total Bilirubin (0.2-1.0) mg/dL AST (15-37) U/L ALT (16-63) U/L Alkaline Phosphatase (46-116) U/L Lactate Dehydrogenase (85-227) U/L Creatine Kinase (39-308) U/L CK-MB (CK-2) (0-3.6) ng/ml Troponin I (0.00-0.056) ng/mL C-Reactive Protein (<1.0) mg/dL NT-Pro-B Natriuret Pep 441 (0-450) pg/mL Total Protein (6.4-8.2) g/dl Albumin (3.4-5.0) g/dl Globulin gm/dL Albumin/Globulin Ratio (1-2) Procalcitonin 0.22 H ng/mL Urine Color (Yellow) Urine Appearance (Clear) Urine pH (5.0-8.0) Ur Specific [place] (1.005-1.030) Urine Protein (Negative) Urine Glucose (UA) (Negative) Urine Ketones (Negative) Urine Occult Blood (Negative) Urine Nitrite (Negative) Urine Bilirubin (Negative) Urine Urobilinogen (0.2-1.0) Ur Leukocyte Esterase (Negative) Urine RBC (0-5) /hpf Urine WBC (0-5) /hpf Ur Squamous Epith Cells (0-5) /hpf Urine Bacteria (FEW) /hpf Urine Mucus (FEW) /hpf SARS-CoV-2 RNA ([place]) Negative (NEGATIVE) 07/20/20 07/20/20 07/21/20 Range/Units 07:42 08:55 04:49 WBC 25.11 H (4.23-9.07) K/mm3 RBC 2.51 L (4.63-6.08) M/mm3 Hgb 8.4 L (13.7-17.5) gm/dl Hct 27.6 L (40.1-51.0) % MCV 110.0 H (79.0-92.2) fl MCH 33.5 H (25.7-32.2) pg MCHC 30.4 L (32.2-35.5) g/dl RDW Std Deviation 67.1 H (35.1-43.9) fL Plt Count 148 L (163-337) K/mm3 MPV 8.6 L (9.4-12.3) fl Neut % (Auto) 88.4 H (34.0-67.9) % Lymph % (Auto) 1.9 L (21.8-53.1) % [place] % (Auto) 2.5 L (5.3-12.2) % Eos % (Auto) 0 L (0.8-7.0) Baso % (Auto) 0.1 (0.1-1.2) % Neut # (Auto) 22.18 H (1.78-5.38) K/mm3 Lymph # (Auto) 0.47 L (1.32-3.57) K/mm3 [place] # (Auto) 0.64 (0.30-0.82) K/mm3 Eos # (Auto) 0.00 L (0.04-0.54) K/mm3 Baso # (Auto) 0.03 (0.01-0.08) K/mm3 Manual Slide Review Abnormal smear PT (9.7-12.0) SECONDS INR Puncture Site Lt radial ABG pH 7.37 (7.35-7.45) ABG pCO2 42.3 (35.0-45.0) mmHg ABG pO2 66.0 L (80.0-100.0) mmHg ABG HCO3 24.0 (22.0-26.0) meq/L ABG O2 Saturation 93.4 L (96.0-97.0) % ABG Base Excess -0.7 (-2-2.0) A-a Gradient 81 mmHg O2 Delivery Device Nasal cannula Oxygen Flow Rate 2.0 FiO2 28.00 (21.00-100.00) % Sodium (136-145) mEq/L Potassium (3.5-5.1) mEq/L Chloride (98-107) mEq/L Carbon Dioxide (21-32) mEq/L Anion Gap (5-15) BUN (7-18) mg/dL Creatinine (0.7-1.3) mg/dL Est Cr Clr Drug Dosing mL/min Estimated GFR (MDRD) (>60) mL/min BUN/Creatinine Ratio (14-18) Glucose (70-99) mg/dL Calcium (8.5-10.1) mg/dL Magnesium (1.8-2.4) mg/dL Total Bilirubin (0.2-1.0) mg/dL AST (15-37) U/L ALT (16-63) U/L Alkaline Phosphatase (46-116) U/L Lactate Dehydrogenase (85-227) U/L Creatine Kinase (39-308) U/L CK-MB (CK-2) (0-3.6) ng/ml Troponin I (0.00-0.056) ng/mL C-Reactive Protein (<1.0) mg/dL NT-Pro-B Natriuret Pep (0-450) pg/mL Total Protein (6.4-8.2) g/dl Albumin (3.4-5.0) g/dl Globulin gm/dL Albumin/Globulin Ratio (1-2) Procalcitonin ng/mL Urine Color Yellow (Yellow) Urine Appearance Clear (Clear) Urine pH 6.0 (5.0-8.0) Ur Specific [place] 1.025 (1.005-1.030) Urine Protein 1+ H (Negative) Urine Glucose (UA) Negative (Negative) Urine Ketones Negative (Negative) Urine Occult Blood Trace-intact H (Negative) Urine Nitrite Negative (Negative) Urine Bilirubin 1+ H (Negative) Urine Urobilinogen 0.2 (0.2-1.0) Ur Leukocyte Esterase Negative (Negative) Urine RBC 5-10 H (0-5) /hpf Urine WBC 0-5 (0-5) /hpf Ur Squamous Epith Cells 0-5 (0-5) /hpf Urine Bacteria Few (FEW) /hpf Urine Mucus Few (FEW) /hpf SARS-CoV-2 RNA ([place]) (NEGATIVE) 07/21/20 Range/Units 04:49 WBC (4.23-9.07) K/mm3 RBC (4.63-6.08) M/mm3 Hgb (13.7-17.5) gm/dl Hct (40.1-51.0) % MCV (79.0-92.2) fl MCH (25.7-32.2) pg MCHC (32.2-35.5) g/dl RDW Std Deviation (35.1-43.9) fL Plt Count (163-337) K/mm3 MPV (9.4-12.3) fl Neut % (Auto) (34.0-67.9) % Lymph % (Auto) (21.8-53.1) % [place] % (Auto) (5.3-12.2) % Eos % (Auto) (0.8-7.0) Baso % (Auto) (0.1-1.2) % Neut # (Auto) (1.78-5.38) K/mm3 Lymph # (Auto) (1.32-3.57) K/mm3 [place] # (Auto) (0.30-0.82) K/mm3 Eos # (Auto) (0.04-0.54) K/mm3 Baso # (Auto) (0.01-0.08) K/mm3 Manual Slide Review PT (9.7-12.0) SECONDS INR Puncture Site ABG pH (7.35-7.45) ABG pCO2 (35.0-45.0) mmHg ABG pO2 (80.0-100.0) mmHg ABG HCO3 (22.0-26.0) meq/L ABG O2 Saturation (96.0-97.0) % ABG Base Excess (-2-2.0) A-a Gradient mmHg O2 Delivery Device Oxygen Flow Rate FiO2 (21.00-100.00) % Sodium 141 (136-145) mEq/L Potassium 4.8 (3.5-5.1) mEq/L Chloride 108 H (98-107) mEq/L Carbon Dioxide 27 (21-32) mEq/L Anion Gap 10.8 (5-15) BUN 26 H (7-18) mg/dL Creatinine 0.8 (0.7-1.3) mg/dL Est Cr Clr Drug Dosing 60.74 mL/min Estimated GFR (MDRD) > 60 (>60) mL/min BUN/Creatinine Ratio 32.5 H (14-18) Glucose 122 H (70-99) mg/dL Calcium 8.5 (8.5-10.1) mg/dL Magnesium 2.0 (1.8-2.4) mg/dL Total Bilirubin (0.2-1.0) mg/dL AST (15-37) U/L ALT (16-63) U/L Alkaline Phosphatase (46-116) U/L Lactate Dehydrogenase (85-227) U/L Creatine Kinase (39-308) U/L CK-MB (CK-2) (0-3.6) ng/ml Troponin I (0.00-0.056) ng/mL C-Reactive Protein (<1.0) mg/dL NT-Pro-B Natriuret Pep (0-450) pg/mL Total Protein (6.4-8.2) g/dl Albumin (3.4-5.0) g/dl Globulin gm/dL Albumin/Globulin Ratio (1-2) Procalcitonin ng/mL Urine Color (Yellow) Urine Appearance (Clear) Urine pH (5.0-8.0) Ur Specific [place] (1.005-1.030) Urine Protein (Negative) Urine Glucose (UA) (Negative) Urine Ketones (Negative) Urine Occult Blood (Negative) Urine Nitrite (Negative) Urine Bilirubin (Negative) Urine Urobilinogen (0.2-1.0) Ur Leukocyte Esterase (Negative) Urine RBC (0-5) /hpf Urine WBC (0-5) /hpf Ur Squamous Epith Cells (0-5) /hpf Urine Bacteria (FEW) /hpf Urine Mucus (FEW) /hpf SARS-CoV-2 RNA ([place]) (NEGATIVE) Med Orders - Current: Current Medications Acetaminophen (Acetaminophen 325 Mg Tab) 650 mg PO Q4H PRN PRN Reason: Pain (Mild 1-3)/fever Albuterol/Ipratropium (Albuterol/Ipratropium 3.0-0.5 Mg/3 Ml Neb Soln) 3 ml INH Q2H PRN PRN Reason: Shortness of Breath Last Admin: 07/20/20 23:46 Dose: 3 ml Documented by: Aspirin (Aspirin 81 Mg Tab.Ec) 81 mg PO BEDTIME OBED Last Admin: 07/20/20 20:20 Dose: 81 mg Documented by: Enoxaparin Sodium (Enoxaparin 30 Mg/0.3 Ml Syringe) 30 mg SUBCUT DAILY OBED Fentanyl (Fentanyl 12 Mcg/Hr Transdermal Patch) 12 mcg TRDERM Q72H OBED Fentanyl (Fentanyl 25 Mcg/Hr Transdermal Patch) 25 mcg TRDERM Q72H OBED Hydromorphone HCl (Hydromorphone 0.5 Mg/0.5 Ml Syringe) 0.5 mg IVPUSH Q2H PRN PRN Reason: Pain (severe 7-10) Last Admin: 07/20/20 20:29 Dose: 0.5 mg Documented by: Dextrose/Sodium Chloride (Dextrose 5%-Normal Saline) 1,000 mls @ 125 mls/hr IV ASDIRECTED [facility] Last Admin: 07/21/20 02:57 Dose: 75 mls/hr Documented by: Lorazepam (Lorazepam 0.5 Mg Tab) 0.5 - 1 mg PO QID PRN PRN Reason: Anxiety Last Admin: 07/20/20 20:20 Dose: 0.5 mg Documented by: Methylprednisolone Sodium Succinate (Methylprednisolone Sodium Succinate 40 Mg/1 Ml Sdv) 40 mg IVPUSH DAILY [facility] Last Admin: 07/20/20 12:43 Dose: 40 mg Documented by: Miscellaneous Information (Remove Fentanyl 12 Mcg Patch) 1 ea TRDERM Q72H [facility] Miscellaneous Information (Remove Fentanyl 25 Mcg Patch) 1 ea TRDERM Q72H [facility] Mometasone Furoate/Formoterol Fumar (Formoterol/Mometasone 200-5 Mcg 8.8 Gm Inhaler) 2 puff IH BID [facility] Last Admin: 07/20/20 20:04 Dose: 2 puff Documented by: Ondansetron HCl (Ondansetron 4 Mg/2 Ml Sdv) 4 mg IV Q6H PRN PRN Reason: Nausea/Vomiting Oxycodone/Acetaminophen (Acetaminophen/Oxycodone 325-5 Mg Tab) 1 tab PO Q4H PRN PRN Reason: Pain (moderate 4-6) Last Admin: 07/21/20 05:53 Dose: 1 tab Documented by: Polyethylene Glycol (Polyethylene Glycol 3350 Powder 17 Gm Packet) 17 gm PO Q48H [facility] Discontinued Medications Albuterol/Ipratropium (Albuterol/Ipratropium 3.0-0.5 Mg/3 Ml Neb Soln) 3 ml NEB Q4H PRN PRN Reason: Shortness Of Breath/wheezing Last Admin: 07/20/20 07:36 Dose: 3 ml Documented by: Albuterol/Ipratropium (Albuterol/Ipratropium 3.0-0.5 Mg/3 Ml Neb Soln) 3 ml NEB Q4H PRN PRN Reason: Shortness Of Breath/wheezing Albuterol/Ipratropium (Albuterol/Ipratropium 3.0-0.5 Mg/3 Ml Neb Soln) 3 ml NEB QIDRT PRN PRN Reason: Shortness Of Breath/wheezing Hydromorphone HCl (Hydromorphone 0.5 Mg/0.5 Ml Syringe) 0.5 mg IVPUSH ONETIME ONE Stop: 07/20/20 08:35 Last Admin: 07/20/20 10:01 Dose: 0.5 mg Documented by: Dextrose/Sodium Chloride (Dextrose 5%-Normal Saline) 1,000 mls @ 100 mls/hr IV ASDIRECTED [facility] Last Admin: 07/20/20 07:35 Dose: 100 mls/hr Documented by: - Exam Quality Assessment: Supplemental Oxygen (3L), DVT Prophylaxis. No: Urine Catheter General: Alert, Oriented, Cooperative, Mild Distress (Appears to have some baseline respiratory distress and uncomfortable from rib fractures ) HEENT: Pupils Equal, Pupils Reactive, Mucous Membr. Moist/[place] Neck: Supple, Trachea Midline Lungs: Rhonchi, Wheezing. 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) (Male) Exam: Deferred Back Exam: Normal Inspection, Full Range of Motion Extremities: Normal Inspection, Normal Range of Motion, Non-Tender, No Pedal Edema, Normal Capillary Refill Peripheral Pulses: 3+: Radial (L), Radial (R), Dorsalis Pedis (L), Dorsalis Pedis (R) Skin: Warm, Dry, Intact Neurological: No New Focal Deficit Psy/Mental Status: Alert, Anxious, Depressed - Patient Data Lab Results Last 24 hrs: Laboratory Results - last 24 hr 07/20/20 07/20/20 07/20/20 Range/Units 07:25 07:25 07:25 WBC 17.27 H (4.23-9.07) K/mm3 RBC 2.80 L (4.63-6.08) M/mm3 Hgb 9.4 L D (13.7-17.5) gm/dl Hct 30.2 L (40.1-51.0) % MCV 107.9 H D (79.0-92.2) fl MCH 33.6 H (25.7-32.2) pg MCHC 31.1 L (32.2-35.5) g/dl RDW Std Deviation 65.7 H (35.1-43.9) fL Plt Count 210 (163-337) K/mm3 MPV 8.3 L (9.4-12.3) fl Neut % (Auto) 91.9 H (34.0-67.9) % Lymph % (Auto) 3.3 L (21.8-53.1) % [place] % (Auto) 4.1 L (5.3-12.2) % Eos % (Auto) 0.3 L (0.8-7.0) Baso % (Auto) 0.2 (0.1-1.2) % Neut # (Auto) 15.89 H (1.78-5.38) K/mm3 Lymph # (Auto) 0.57 L (1.32-3.57) K/mm3 [place] # (Auto) 0.70 (0.30-0.82) K/mm3 Eos # (Auto) 0.05 (0.04-0.54) K/mm3 Baso # (Auto) 0.03 (0.01-0.08) K/mm3 Manual Slide Review Abnormal smear PT 10.7 (9.7-12.0) SECONDS INR 1.00 Puncture Site ABG pH (7.35-7.45) ABG pCO2 (35.0-45.0) mmHg ABG pO2 (80.0-100.0) mmHg ABG HCO3 (22.0-26.0) meq/L ABG O2 Saturation (96.0-97.0) % ABG Base Excess (-2-2.0) A-a Gradient mmHg O2 Delivery Device Oxygen Flow Rate FiO2 (21.00-100.00) % Sodium 140 (136-145) mEq/L Potassium 4.2 (3.5-5.1) mEq/L Chloride 105 (98-107) mEq/L Carbon Dioxide 25 (21-32) mEq/L Anion Gap 14.2 (5-15) BUN 30 H (7-18) mg/dL Creatinine 1.0 (0.7-1.3) mg/dL Est Cr Clr Drug Dosing 46.87 mL/min Estimated GFR (MDRD) > 60 (>60) mL/min BUN/Creatinine Ratio 30.0 H (14-18) Glucose 104 H (70-99) mg/dL Calcium 8.7 (8.5-10.1) mg/dL Magnesium 2.0 (1.8-2.4) mg/dL Total Bilirubin 0.4 (0.2-1.0) mg/dL AST 17 (15-37) U/L ALT 16 (16-63) U/L Alkaline Phosphatase 71 (46-116) U/L Lactate Dehydrogenase 144 (85-227) U/L Creatine Kinase 51 (39-308) U/L CK-MB (CK-2) 1.7 (0-3.6) ng/ml Troponin I < 0.017 (0.00-0.056) ng/mL C-Reactive Protein 1.6 H* (<1.0) mg/dL NT-Pro-B Natriuret Pep (0-450) pg/mL Total Protein 6.3 L (6.4-8.2) g/dl Albumin 3.4 (3.4-5.0) g/dl Globulin 2.9 gm/dL Albumin/Globulin Ratio 1.2 (1-2) Procalcitonin ng/mL Urine Color (Yellow) Urine Appearance (Clear) Urine pH (5.0-8.0) Ur Specific [place] (1.005-1.030) Urine Protein (Negative) Urine Glucose (UA) (Negative) Urine Ketones (Negative) Urine Occult Blood (Negative) Urine Nitrite (Negative) Urine Bilirubin (Negative) Urine Urobilinogen (0.2-1.0) Ur Leukocyte Esterase (Negative) Urine RBC (0-5) /hpf Urine WBC (0-5) /hpf Ur Squamous Epith Cells (0-5) /hpf Urine Bacteria (FEW) /hpf Urine Mucus (FEW) /hpf SARS-CoV-2 RNA ([place]) (NEGATIVE) 07/20/20 07/20/20 07/20/20 Range/Units 07:25 07:25 07:41 WBC (4.23-9.07) K/mm3 RBC (4.63-6.08) M/mm3 Hgb (13.7-17.5) gm/dl Hct (40.1-51.0) % MCV (79.0-92.2) fl MCH (25.7-32.2) pg MCHC (32.2-35.5) g/dl RDW Std Deviation (35.1-43.9) fL Plt Count (163-337) K/mm3 MPV (9.4-12.3) fl Neut % (Auto) (34.0-67.9) % Lymph % (Auto) (21.8-53.1) % [place] % (Auto) (5.3-12.2) % Eos % (Auto) (0.8-7.0) Baso % (Auto) (0.1-1.2) % Neut # (Auto) (1.78-5.38) K/mm3 Lymph # (Auto) (1.32-3.57) K/mm3 [place] # (Auto) (0.30-0.82) K/mm3 Eos # (Auto) (0.04-0.54) K/mm3 Baso # (Auto) (0.01-0.08) K/mm3 Manual Slide Review PT (9.7-12.0) SECONDS INR Puncture Site ABG pH (7.35-7.45) ABG pCO2 (35.0-45.0) mmHg ABG pO2 (80.0-100.0) mmHg ABG HCO3 (22.0-26.0) meq/L ABG O2 Saturation (96.0-97.0) % ABG Base Excess (-2-2.0) A-a Gradient mmHg O2 Delivery Device Oxygen Flow Rate FiO2 (21.00-100.00) % Sodium (136-145) mEq/L Potassium (3.5-5.1) mEq/L Chloride (98-107) mEq/L Carbon Dioxide (21-32) mEq/L Anion Gap (5-15) BUN (7-18) mg/dL Creatinine (0.7-1.3) mg/dL Est Cr Clr Drug Dosing mL/min Estimated GFR (MDRD) (>60) mL/min BUN/Creatinine Ratio (14-18) Glucose (70-99) mg/dL Calcium (8.5-10.1) mg/dL Magnesium (1.8-2.4) mg/dL Total Bilirubin (0.2-1.0) mg/dL AST (15-37) U/L ALT (16-63) U/L Alkaline Phosphatase (46-116) U/L Lactate Dehydrogenase (85-227) U/L Creatine Kinase (39-308) U/L CK-MB (CK-2) (0-3.6) ng/ml Troponin I (0.00-0.056) ng/mL C-Reactive Protein (<1.0) mg/dL NT-Pro-B Natriuret Pep 441 (0-450) pg/mL Total Protein (6.4-8.2) g/dl Albumin (3.4-5.0) g/dl Globulin gm/dL Albumin/Globulin Ratio (1-2) Procalcitonin 0.22 H ng/mL Urine Color (Yellow) Urine Appearance (Clear) Urine pH (5.0-8.0) Ur Specific [place] (1.005-1.030) Urine Protein (Negative) Urine Glucose (UA) (Negative) Urine Ketones (Negative) Urine Occult Blood (Negative) Urine Nitrite (Negative) Urine Bilirubin (Negative) Urine Urobilinogen (0.2-1.0) Ur Leukocyte Esterase (Negative) Urine RBC (0-5) /hpf Urine WBC (0-5) /hpf Ur Squamous Epith Cells (0-5) /hpf Urine Bacteria (FEW) /hpf Urine Mucus (FEW) /hpf SARS-CoV-2 RNA ([place]) Negative (NEGATIVE) 07/20/20 07/20/20 07/21/20 Range/Units 07:42 08:55 04:49 WBC 25.11 H (4.23-9.07) K/mm3 RBC 2.51 L (4.63-6.08) M/mm3 Hgb 8.4 L (13.7-17.5) gm/dl Hct 27.6 L (40.1-51.0) % MCV 110.0 H (79.0-92.2) fl MCH 33.5 H (25.7-32.2) pg MCHC 30.4 L (32.2-35.5) g/dl RDW Std Deviation 67.1 H (35.1-43.9) fL Plt Count 148 L (163-337) K/mm3 MPV 8.6 L (9.4-12.3) fl Neut % (Auto) 88.4 H (34.0-67.9) % Lymph % (Auto) 1.9 L (21.8-53.1) % [place] % (Auto) 2.5 L (5.3-12.2) % Eos % (Auto) 0 L (0.8-7.0) Baso % (Auto) 0.1 (0.1-1.2) % Neut # (Auto) 22.18 H (1.78-5.38) K/mm3 Lymph # (Auto) 0.47 L (1.32-3.57) K/mm3 [place] # (Auto) 0.64 (0.30-0.82) K/mm3 Eos # (Auto) 0.00 L (0.04-0.54) K/mm3 Baso # (Auto) 0.03 (0.01-0.08) K/mm3 Manual Slide Review Abnormal smear PT (9.7-12.0) SECONDS INR Puncture Site Lt radial ABG pH 7.37 (7.35-7.45) ABG pCO2 42.3 (35.0-45.0) mmHg ABG pO2 66.0 L (80.0-100.0) mmHg ABG HCO3 24.0 (22.0-26.0) meq/L ABG O2 Saturation 93.4 L (96.0-97.0) % ABG Base Excess -0.7 (-2-2.0) A-a Gradient 81 mmHg O2 Delivery Device Nasal cannula Oxygen Flow Rate 2.0 FiO2 28.00 (21.00-100.00) % Sodium (136-145) mEq/L Potassium (3.5-5.1) mEq/L Chloride (98-107) mEq/L Carbon Dioxide (21-32) mEq/L Anion Gap (5-15) BUN (7-18) mg/dL Creatinine (0.7-1.3) mg/dL Est Cr Clr Drug Dosing mL/min Estimated GFR (MDRD) (>60) mL/min BUN/Creatinine Ratio (14-18) Glucose (70-99) mg/dL Calcium (8.5-10.1) mg/dL Magnesium (1.8-2.4) mg/dL Total Bilirubin (0.2-1.0) mg/dL AST (15-37) U/L ALT (16-63) U/L Alkaline Phosphatase (46-116) U/L Lactate Dehydrogenase (85-227) U/L Creatine Kinase (39-308) U/L CK-MB (CK-2) (0-3.6) ng/ml Troponin I (0.00-0.056) ng/mL C-Reactive Protein (<1.0) mg/dL NT-Pro-B Natriuret Pep (0-450) pg/mL Total Protein (6.4-8.2) g/dl Albumin (3.4-5.0) g/dl Globulin gm/dL Albumin/Globulin Ratio (1-2) Procalcitonin ng/mL Urine Color Yellow (Yellow) Urine Appearance Clear (Clear) Urine pH 6.0 (5.0-8.0) Ur Specific [place] 1.025 (1.005-1.030) Urine Protein 1+ H (Negative) Urine Glucose (UA) Negative (Negative) Urine Ketones Negative (Negative) Urine Occult Blood Trace-intact H (Negative) Urine Nitrite Negative (Negative) Urine Bilirubin 1+ H (Negative) Urine Urobilinogen 0.2 (0.2-1.0) Ur Leukocyte Esterase Negative (Negative) Urine RBC 5-10 H (0-5) /hpf Urine WBC 0-5 (0-5) /hpf Ur Squamous Epith Cells 0-5 (0-5) /hpf Urine Bacteria Few (FEW) /hpf Urine Mucus Few (FEW) /hpf SARS-CoV-2 RNA ([place]) (NEGATIVE) 07/21/20 Range/Units 04:49 WBC (4.23-9.07) K/mm3 RBC (4.63-6.08) M/mm3 Hgb (13.7-17.5) gm/dl Hct (40.1-51.0) % MCV (79.0-92.2) fl MCH (25.7-32.2) pg MCHC (32.2-35.5) g/dl RDW Std Deviation (35.1-43.9) fL Plt Count (163-337) K/mm3 MPV (9.4-12.3) fl Neut % (Auto) (34.0-67.9) % Lymph % (Auto) (21.8-53.1) % [place] % (Auto) (5.3-12.2) % Eos % (Auto) (0.8-7.0) Baso % (Auto) (0.1-1.2) % Neut # (Auto) (1.78-5.38) K/mm3 Lymph # (Auto) (1.32-3.57) K/mm3 [place] # (Auto) (0.30-0.82) K/mm3 Eos # (Auto) (0.04-0.54) K/mm3 Baso # (Auto) (0.01-0.08) K/mm3 Manual Slide Review PT (9.7-12.0) SECONDS INR Puncture Site ABG pH (7.35-7.45) ABG pCO2 (35.0-45.0) mmHg ABG pO2 (80.0-100.0) mmHg ABG HCO3 (22.0-26.0) meq/L ABG O2 Saturation (96.0-97.0) % ABG Base Excess (-2-2.0) A-a Gradient mmHg O2 Delivery Device Oxygen Flow Rate FiO2 (21.00-100.00) % Sodium 141 (136-145) mEq/L Potassium 4.8 (3.5-5.1) mEq/L Chloride 108 H (98-107) mEq/L Carbon Dioxide 27 (21-32) mEq/L Anion Gap 10.8 (5-15) BUN 26 H (7-18) mg/dL Creatinine 0.8 (0.7-1.3) mg/dL Est Cr Clr Drug Dosing 60.74 mL/min Estimated GFR (MDRD) > 60 (>60) mL/min BUN/Creatinine Ratio 32.5 H (14-18) Glucose 122 H (70-99) mg/dL Calcium 8.5 (8.5-10.1) mg/dL Magnesium 2.0 (1.8-2.4) mg/dL Total Bilirubin (0.2-1.0) mg/dL AST (15-37) U/L ALT (16-63) U/L Alkaline Phosphatase (46-116) U/L Lactate Dehydrogenase (85-227) U/L Creatine Kinase (39-308) U/L CK-MB (CK-2) (0-3.6) ng/ml Troponin I (0.00-0.056) ng/mL C-Reactive Protein (<1.0) mg/dL NT-Pro-B Natriuret Pep (0-450) pg/mL Total Protein (6.4-8.2) g/dl Albumin (3.4-5.0) g/dl Globulin gm/dL Albumin/Globulin Ratio (1-2) Procalcitonin ng/mL Urine Color (Yellow) Urine Appearance (Clear) Urine pH (5.0-8.0) Ur Specific [place] (1.005-1.030) Urine Protein (Negative) Urine Glucose (UA) (Negative) Urine Ketones (Negative) Urine Occult Blood (Negative) Urine Nitrite (Negative) Urine Bilirubin (Negative) Urine Urobilinogen (0.2-1.0) Ur Leukocyte Esterase (Negative) Urine RBC (0-5) /hpf Urine WBC (0-5) /hpf Ur Squamous Epith Cells (0-5) /hpf Urine Bacteria (FEW) /hpf Urine Mucus (FEW) /hpf SARS-CoV-2 RNA ([place]) (NEGATIVE) Result Diagrams: 07/21/20 04:49 07/21/20 04:49 Sepsis Event Note - Evaluation Sepsis Screening Result: No Definite Risk - Focused Exam Vital Signs: Vital Signs Temp Pulse Resp BP Pulse Ox Pulse Ox 07/21/20 00:11 97.9 F 94 14 111/52 L 99 07/20/20 23:47 97 07/20/20 20:06 98 - Problem List & Annotations (1) Pulmonary cachexia due to chronic obstructive pulmonary disease SNOMED Code(s): 799646882 Code(s): J44.9 - CHRONIC OBSTRUCTIVE PULMONARY DISEASE, UNSPECIFIED; R64 - [place] Status: Chronic Priority: High Current Visit: Yes (2) Cachexia associated with pulmonary fibrosis SNOMED Code(s): 399082246 Code(s): J84.10 - PULMONARY FIBROSIS, UNSPECIFIED; R64 - CACHEXIA Status: Chronic Priority: High Current Visit: Yes (3) COPD exacerbation SNOMED Code(s): 261351326 Code(s): J44.1 - CHRONIC OBSTRUCTIVE PULMONARY DISEASE W (ACUTE) EXACERBATION Status: Acute Priority: High Current Visit: Yes (4) BPH (benign prostatic hyperplasia) SNOMED Code(s): 290652905 Code(s): N40.0 - BENIGN PROSTATIC HYPERPLASIA WITHOUT LOWER URINRY TRACT SYMP Status: Chronic Priority: Low Current Visit: No Qualifiers: Lower urinary tract symptom presence: unspecified whether lower urinary tract symptoms present Qualified Code(s): N40.0 - Benign prostatic hyperplasia without lower urinary tract symptoms (5) Chronic back pain SNOMED Code(s): 532532035 Code(s): M54.9 - DORSALGIA, UNSPECIFIED; G89.29 - OTHER CHRONIC PAIN Status: Chronic Priority: Medium Current Visit: No Qualifiers: Back pain location: back pain in unspecified location Back pain laterality: unspecified Qualified Code(s): M54.9 - Dorsalgia, unspecified; G89.29 - Other chronic pain (6) Osteoarthritis SNOMED Code(s): 322008719 Code(s): M19.90 - UNSPECIFIED OSTEOARTHRITIS, UNSPECIFIED SITE Status: Chronic Priority: Medium Current Visit: No Qualifiers: Osteoarthritis location: unspecified site Osteoarthritis type: unspecified Qualified Code(s): M19.90 - Unspecified osteoarthritis, unspecified site (7) COPD (chronic obstructive pulmonary disease) SNOMED Code(s): 72988112 Code(s): J44.9 - CHRONIC OBSTRUCTIVE PULMONARY DISEASE, UNSPECIFIED Status: Chronic Priority: High Current Visit: Yes Qualifiers: COPD type: emphysema Emphysema type: panlobular Qualified Code(s): J43.1 - Panlobular emphysema (8) Dependence on supplemental oxygen SNOMED Code(s): 674142736090 Code(s): Z99.81 - DEPENDENCE ON SUPPLEMENTAL OXYGEN Status: Chronic Priority: High Current Visit: Yes (9) Fall as cause of accidental injury at home as place of occurrence SNOMED Code(s): 68257574 Code(s): W19.XXXA - UNSPECIFIED FALL, INITIAL ENCOUNTER; Y92.009 - UNSP PLACE IN UNSP NON-INSTITUT (PRIVATE) RESIDENCE PLACE Status: Acute Priority: High Current Visit: Yes Qualifiers: Encounter type: initial encounter Qualified Code(s): W19.XXXA - Unspecified fall, initial encounter; Y92.009 - Unspecified place in unspecified non- institutional (private) residence as the place of occurrence of the external cause (10) Malnutrition SNOMED Code(s): 75646402 Code(s): E46 - UNSPECIFIED PROTEIN-CALORIE MALNUTRITION Status: Acute Current Visit: Yes Qualifiers: Malnutrition type: protein-calorie malnutrition Protein-calorie malnutrition severity: severe Qualified Code(s): E43 - Unspecified severe protein-calorie malnutrition (11) Primary cancer of right lung SNOMED Code(s): 852309837 Code(s): C34.91 - MALIGNANT NEOPLASM OF UNSP PART OF RIGHT BRONCHUS OR LUNG Status: Chronic Priority: High Current Visit: Yes (12) Rib fractures SNOMED Code(s): 5882555 Code(s): S22.49XA - MULTIPLE FRACTURES OF RIBS, UNSP SIDE, INIT FOR CLOS FX Status: Acute Priority: High Current Visit: Yes Qualifiers: Encounter type: initial encounter Fracture type: closed Laterality: left Qualified Code(s): S22.42XA - Multiple fractures of ribs, left side, initial encounter for closed fracture (13) Abnormal weight loss SNOMED Code(s): 968712856 Code(s): R63.4 - ABNORMAL WEIGHT LOSS Status: Chronic Priority: High Current Visit: Yes (14) Anxiety SNOMED Code(s): 50599961 Code(s): F41.9 - ANXIETY DISORDER, UNSPECIFIED Status: Chronic Priority: Medium Current Visit: Yes (15) Chronic hypoxemic respiratory failure SNOMED Code(s): 328981056 Code(s): J96.11 - CHRONIC RESPIRATORY FAILURE WITH HYPOXIA Status: Chronic Priority: High Current Visit: Yes (16) Colostomy in place SNOMED Code(s): 679273110, 380908161 Code(s): Z93.3 - COLOSTOMY STATUS Status: Chronic Priority: Medium Current Visit: No (17) Abdominal hernia SNOMED Code(s): 41863823 Code(s): K46.9 - UNSPECIFIED ABDOMINAL HERNIA WITHOUT OBSTRUCTION OR GANGRENE Status: Chronic Priority: Low Current Visit: No Qualifiers: Hernia type: unspecified Obstruction and gangrene presence: without obstruction or gangrene Recurrence: not specified as recurrent Qualified Code(s): K46.9 - Unspecified abdominal hernia without obstruction or gangrene (18) Generalized weakness SNOMED Code(s): 54297695 Code(s): R53.1 - WEAKNESS Status: Acute Priority: High Current Visit: Yes (19) Failure to thrive SNOMED Code(s): 36951142 Code(s): WAO9565 - Status: Acute Priority: High Current Visit: Yes Qualifiers: Failure to thrive age range: in adult Qualified Code(s): R62.7 - Adult failure to thrive (20) S/P PICC central line placement SNOMED Code(s): 947446582, 406061253, 801621991, 611120212 Code(s): Z95.828 - PRESENCE OF OTHER VASCULAR IMPLANTS AND GRAFTS Status: Chronic Priority: Low Current Visit: No (21) Aortic aneurysm SNOMED Code(s): 56032938 Code(s): I71.9 - AORTIC ANEURYSM OF UNSPECIFIED SITE, WITHOUT RUPTURE Status: Chronic Priority: Medium Current Visit: Yes Qualifiers: Aortic location: unspecified Presence of rupture: without rupture Qualified Code(s): I71.9 - Aortic aneurysm of unspecified site, without rupture - Problem List Review Problem List Initiated/Reviewed/Updated: Yes - My Orders Last 24 Hours: My Active Orders 07/20/20 09:54 Height and Weight [RC] 06 Intake and Output [RC] 04,16 RT Incentive Spirometry [RC] ASDIRECTED Vital Signs [RC] Q6HR Consult to Spiritual Care [CONS] Routine Acetaminophen [TylenoL] 650 mg PO Q4H PRN Acetaminophen/oxyCODONE [Percocet 325-5 MG] 1 tab PO Q4H PRN HYDROmorphone [Dilaudid] 0.5 mg IVPUSH Q2H PRN Ondansetron [Zofran] 4 mg IV Q6H PRN 07/20/20 09:55 Pulse Oximetry [RC] PRN RT Aerosol Therapy [RC] ASDIRECTED Up With Assistance [RC] BID 07/20/20 09:56 OT Evaluation and Treatment [CONS] Routine PT Evaluation and Treatment [CONS] Routine Respiratory Care Assess and Treatment [CONS] Routine 07/20/20 10:34 Consult to Case Management/Environmental Specialist [CONS] Routine Code Status [Resuscitation Status] Routine 07/20/20 12:19 Albuterol/Ipratropium [DuoNeb 3.0-0.5 MG/3 ML] 3 ml INH Q2H PRN LORazepam [Ativan] 0.5 - 1 mg PO QID PRN 07/20/20 12:20 RT Aerosol Therapy [RC] ASDIRECTED 07/20/20 12:21 Consult to Engineer Booster And Exhauster [CONS] Routine 07/20/20 13:00 methylPREDNISolone Sod Succ [Solu-MEDROL] 40 mg IVPUSH DAILY 07/20/20 Dinner Regular Diet [DIET] 07/20/20 21:00 Aspirin [Halfprin] 81 mg PO BEDTIME Mometasone/Formoterol [Dulera 200-5 MCG] 2 puff IH BID 07/21/20 09:00 Enoxaparin [Lovenox] 30 mg SUBCUT DAILY Remove Patch 1 ea TRDERM Q72H Remove Patch 1 ea TRDERM Q72H fentaNYL [Duragesic] 12 mcg TRDERM Q72H fentaNYL [Duragesic] 25 mcg TRDERM Q72H polyethylene glycoL 3350 [MiraLAX] 17 gm PO Q48H 07/22/20 05:11 BASIC METABOLIC PANEL,BMP [CHEM] AM CBC WITH AUTO DIFF [HEME] AM MAGNESIUM [CHEM] AM 07/23/20 05:11 BASIC METABOLIC PANEL,BMP [CHEM] AM CBC WITH AUTO DIFF [HEME] AM MAGNESIUM [CHEM] AM 07/24/20 05:11 BASIC METABOLIC PANEL,BMP [CHEM] AM CBC WITH AUTO DIFF [HEME] AM MAGNESIUM [CHEM] AM - Assessment Assessment:: Assessment - day of admission 07/20/2020 * 79-year-old male presents via [facility] after fall at home * Reports chair rolled out from underneath him and he fell on left back with resulting pain with inspiration * History of COPD on 2 to 3 L chronic O2, prior COVID-19 illness, diverticulosis, hiatal hernia, colostomy bag, BPH, chronic back pain, osteoarthritis, lung cancer, abdominal hernia. Has PICC line in place and right arm. Neulasta sponge in place on posterior left arm. * He is reportedly undergoing chemotherapy for his lung cancer with Dr. Swan. * Denies any infectious symptoms but states he does have a chronic productive cough and chronic dyspnea. * Twelve-lead EKG obtained in ED shows sinus rhythm at 86 bpm with right axis deviation and a left bundle branch block. * CT of the chest shows adenopathy within the mediastinum and hilar regions whi ch appear less prominent on this noncontrast study than was seen previously. Nodularity within the right chest has slightly diminished from prior exam. Fibrosis is noted within the right lung base and there is diffuse emphysematous change noted. There is a partially visualized 4.3 cm aneurysm within the abdominal aorta. Radiologist states no acute osseous finding is seen however there is fracture noted in 11th and 12th left posterior ribs. * Labs are obtained: * WBC 17.27 (likely elevated from stress and neulasta sponge) * Hemoglobin 9.4 * Platelet 210,000 * Neutrophils 91.9% * INR 1.0 * Sodium 140 * Potassium 4.2 * Chloride 105 * Carbon dioxide 25 * Anion gap 14.2 * BUN 30, creatinine 1.0, GFR greater than 60. * Glucose 104 * Calcium 8.7 * Magnesium 2.0 * Total bilirubin 0.4 * AST 17, ALT 16, alkaline phosphatase 71. * Creatinine kinase 51 * CK-MB 1.7 * Troponin less than 0.017 * CRP 1.6 * Protein 6.3 * Albumin 3.4 * proBNP 441 * SARS Covid 2 RNA negative * ABG obtained in the left radial with pH of 7.37, PCO2 42.3, PO2 of 66.0, HCO3 of 24, O2 saturation 93.4, base excess -0.7, AA gradient 81, obtained on 2 L via NC * Patient given Dilaudid for pain and DuoNebs in the ED. Started on IV fluids. * Patient admitted to medical surgical floor for pain management due to rib fractures and worsening dyspnea. Patient also is severely malnourished. 07/21/2020 * Labs today: * WBC 25.11 (on steroid). * Hemoglobin 8.4. * Platelet 148,000. * Neutrophils 88.4. * Sodium 141. * Potassium 4.8. * Chloride 108. * Carbon dioxide 27. * Anion gap 10.8. * BUN 26, creatinine 0.8, GFR greater than 60. * Glucose 122. * Magnesium 2.0. * Patient continues to have rather significant pain. Will increase home fentanyl dosing to 50 mcg daily. We will also increase as needed Dilaudid from 0.5 mg every 2 hour to 1 mg every 2 hour. * Old records from Dr. Swan are in chart * Continues to have significant work of breathing. * Saturations in upper 90's on 3L O2. * Per social work patient's daughter reports that she cannot provide 24/7 care to patient. We will explore placement. * Earliest patient can discharge to SNF is 07/25/2020 due to holiday weekend. * Patient knows he cannot continue on at home how he is because he is failing. * Discussed case with Bessie Rome EXHAUSTER ENGINEER with Dr. Swan' office. She reports patient has been quite depressed lately but was happy PET scan showed improvement. She is OK with up pursing hospice if the patient is interested. She reports they have tried appetite stimulation meds in the past but the patient would not tolerate them well. She states patients daughter has been very active in his care. She told us to anticipate spike in WBC soon with patients meds. * Discussed hospice with patient. He is not interested in this at this time. * Continue current treatment plan with increased pain medications. - Plan Plan:: Fall as cause of accidental injury at home as place of occurrence Rib fractures Osteoarthritis * PT/OT * IS * Pain medications as ordered * Increase home fentanyl patch to 50mcg today. 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 Malnutrition Abnormal weight loss Failure to thrive Generalized weakness * Engineer Booster And Exhauster consultation * PT/OT * IV fluids as ordered * Daily labs * CM/SW consultation - may need placement * Discuss hospice care COPD exacerbation Chronic hypoxemic respiratory failure COPD (chronic obstructive pulmonary disease) Dependence on supplemental oxygen Primary cancer of right lung S/P PICC central line placement * 40mg IVP solumedrol daily * 500mg Daily azithromycin - day 02/26 * O2 as need - Goal saturations >88%, Home O2 at 2-3L * Obtain procalcitonin * Monitor vital signs * IS * RT consultation * Home respiratory meds * Obtain notes from Dr. Swan - patient reportedly recently underwent a PET scan * PT/OT * Access PICC Line * Await blood cultures - negative after 1 day BPH (benign prostatic hyperplasia) * No acute concerns * Continue home Flomax Chronic back pain * No acute concerns * Continue home fentanyl patch * Pain medications as ordered * PT/OT Anxiety * No acute cancers * Home Ativan PRN as ordered Colostomy in place Abdominal hernia Chronic constipation * Home and PRN laxatives/stool softeners as ordered * Colostomy cares by nursing * Monitor intake and output Aortic aneurism * No acute concerns * PCP to monitor Code Status: DNR/DNI PCP: THERESA CortesC Oncology: Dr. Swan DVT prophylaxis: Lovenox Social: [place] and has paid manager sourcing and daughter who check in on him and help him with things. Will likely require placement. Disposition: Patient admitted to medical floor for management of his acute rib fractures and CHF exacerbation. Length of stay likely 3 to 4 days. Patient and daughter aware overall prognosis is very poor. Anticipated LOS >96hrs due to need for placement and holiday weekend. <Chago Huang - Last Filed: 07/21/20 14:31> - Patient Data Vitals - Most Recent: Last Vital Signs Temp 36.7 C 07/21/20 11:30 Pulse 94 07/21/20 11:30 Resp 14 07/21/20 11:30 BP 122/50 L 07/21/20 11:30 Pulse Ox 97 07/21/20 13:26 I&O - Last 24 Hours: Intake & Output 07/20/20 07/21/20 07/21/20 22:59 06:59 14:59 Intake Total 1000 1050 400 Output Total 300 400 Balance 700 650 400 Lab Results Last 24 Hours: Laboratory Results - last 24 hr 07/20/20 07/20/20 07/21/20 Range/Units 07:25 07:25 04:49 WBC 25.11 H (4.23-9.07) K/mm3 RBC 2.51 L (4.63-6.08) M/mm3 Hgb 8.4 L (13.7-17.5) gm/dl Hct 27.6 L (40.1-51.0) % MCV 110.0 H (79.0-92.2) fl MCH 33.5 H (25.7-32.2) pg MCHC 30.4 L (32.2-35.5) g/dl RDW Std Deviation 67.1 H (35.1-43.9) fL Plt Count 148 L (163-337) K/mm3 MPV 8.6 L (9.4-12.3) fl Neut % (Auto) 88.4 H (34.0-67.9) % Lymph % (Auto) 1.9 L (21.8-53.1) % [place] % (Auto) 2.5 L (5.3-12.2) % Eos % (Auto) 0 L (0.8-7.0) Baso % (Auto) 0.1 (0.1-1.2) % Neut # (Auto) 22.18 H (1.78-5.38) K/mm3 Lymph # (Auto) 0.47 L (1.32-3.57) K/mm3 [place] # (Auto) 0.64 (0.30-0.82) K/mm3 Eos # (Auto) 0.00 L (0.04-0.54) K/mm3 Baso # (Auto) 0.03 (0.01-0.08) K/mm3 Manual Slide Review Abnormal smear Sodium (136-145) mEq/L Potassium (3.5-5.1) mEq/L Chloride (98-107) mEq/L Carbon Dioxide (21-32) mEq/L Anion Gap (5-15) BUN (7-18) mg/dL Creatinine (0.7-1.3) mg/dL Est Cr Clr Drug Dosing mL/min Estimated GFR (MDRD) (>60) mL/min BUN/Creatinine Ratio (14-18) Glucose (70-99) mg/dL Calcium (8.5-10.1) mg/dL Magnesium (1.8-2.4) mg/dL Lactate Dehydrogenase 144 (85-227) U/L Procalcitonin 0.22 H ng/mL 07/21/20 Range/Units 04:49 WBC (4.23-9.07) K/mm3 RBC (4.63-6.08) M/mm3 Hgb (13.7-17.5) gm/dl Hct (40.1-51.0) % MCV (79.0-92.2) fl MCH (25.7-32.2) pg MCHC (32.2-35.5) g/dl RDW Std Deviation (35.1-43.9) fL Plt Count (163-337) K/mm3 MPV (9.4-12.3) fl Neut % (Auto) (34.0-67.9) % Lymph % (Auto) (21.8-53.1) % [place] % (Auto) (5.3-12.2) % Eos % (Auto) (0.8-7.0) Baso % (Auto) (0.1-1.2) % Neut # (Auto) (1.78-5.38) K/mm3 Lymph # (Auto) (1.32-3.57) K/mm3 [place] # (Auto) (0.30-0.82) K/mm3 Eos # (Auto) (0.04-0.54) K/mm3 Baso # (Auto) (0.01-0.08) K/mm3 Manual Slide Review Sodium 141 (136-145) mEq/L Potassium 4.8 (3.5-5.1) mEq/L Chloride 108 H (98-107) mEq/L Carbon Dioxide 27 (21-32) mEq/L Anion Gap 10.8 (5-15) BUN 26 H (7-18) mg/dL Creatinine 0.8 (0.7-1.3) mg/dL Est Cr Clr Drug Dosing 60.74 mL/min Estimated GFR (MDRD) > 60 (>60) mL/min BUN/Creatinine Ratio 32.5 H (14-18) Glucose 122 H (70-99) mg/dL Calcium 8.5 (8.5-10.1) mg/dL Magnesium 2.0 (1.8-2.4) mg/dL Lactate Dehydrogenase (85-227) U/L Procalcitonin ng/mL Js Results Last 24 Hours: Microbiology 07/20/20 07:39 Aerobic Blood Culture - Preliminary Blood - Venous - Lab Draw NO GROWTH AFTER 1 DAY Anaerobic Blood Culture - Preliminary NO GROWTH AFTER 1 DAY 07/20/20 07:25 Aerobic Blood Culture - Preliminary Blood - Venous NO GROWTH AFTER 1 DAY Anaerobic Blood Culture - Preliminary NO GROWTH AFTER 1 DAY Med Orders - Current: Current Medications Acetaminophen (Acetaminophen 325 Mg Tab) 650 mg PO Q4H PRN PRN Reason: Pain (Mild 1-3)/fever Albuterol/Ipratropium (Albuterol/Ipratropium 3.0-0.5 Mg/3 Ml Neb Soln) 3 ml INH Q2H PRN PRN Reason: Shortness of Breath Last Admin: 07/21/20 13:26 Dose: 3 ml Documented by: Aspirin (Aspirin 81 Mg Tab.Ec) 81 mg PO BEDTIME [facility] Last Admin: 07/20/20 20:20 Dose: 81 mg Documented by: Azithromycin (Azithromycin 250 Mg Tab) 500 mg PO DAILY [facility] Stop: 07/23/20 09:01 Last Admin: 07/21/20 09:33 Dose: 500 mg Documented by: Enoxaparin Sodium (Enoxaparin 30 Mg/0.3 Ml Syringe) 30 mg SUBCUT DAILY [facility] Last Admin: 07/21/20 09:33 Dose: 30 mg Documented by: Fentanyl (Fentanyl 50 Mcg/Hr Transdermal Patch) 50 mcg TRDERM Q72H [facility] Last Admin: 07/21/20 09:35 Dose: 50 mcg Documented by: Hydromorphone HCl (Hydromorphone 1 Mg/Ml Syringe) 1 mg IVPUSH Q2H PRN PRN Reason: Pain (severe 7-10) Dextrose/Sodium Chloride (Dextrose 5%-Normal Saline) 1,000 mls @ 50 mls/hr IV ASDIRECTED [facility] Lorazepam (Lorazepam 0.5 Mg Tab) 0.5 - 1 mg PO QID PRN PRN Reason: Anxiety Last Admin: 07/21/20 09:35 Dose: 1 mg Documented by: Methylprednisolone Sodium Succinate (Methylprednisolone Sodium Succinate 40 Mg/1 Ml Sdv) 40 mg IVPUSH DAILY [facility] Last Admin: 07/21/20 09:34 Dose: 40 mg Documented by: Miscellaneous Information (Remove And Replace Fentanyl 50mcg Patch) 1 ea TRDERM Q72H [facility] Mometasone Furoate/Formoterol Fumar (Formoterol/Mometasone 200-5 Mcg 8.8 Gm Inhaler) 2 puff IH BID [facility] Last Admin: 07/21/20 08:37 Dose: 2 puff Documented by: Ondansetron HCl (Ondansetron 4 Mg/2 Ml Sdv) 4 mg IV Q6H PRN PRN Reason: Nausea/Vomiting Oxycodone/Acetaminophen (Acetaminophen/Oxycodone 325-5 Mg Tab) 1 tab PO Q4H PRN PRN Reason: Pain (moderate 4-6) Last Admin: 07/21/20 13:12 Dose: 1 tab Documented by: Polyethylene Glycol (Polyethylene Glycol 3350 Powder 17 Gm Packet) 17 gm PO Q48H [facility] Last Admin: 07/21/20 09:34 Dose: 17 gm Documented by: Discontinued Medications Albuterol/Ipratropium (Albuterol/Ipratropium 3.0-0.5 Mg/3 Ml Neb Soln) 3 ml NEB Q4H PRN PRN Reason: Shortness Of Breath/wheezing Last Admin: 07/20/20 07:36 Dose: 3 ml Documented by: Albuterol/Ipratropium (Albuterol/Ipratropium 3.0-0.5 Mg/3 Ml Neb Soln) 3 ml NEB Q4H PRN PRN Reason: Shortness Of Breath/wheezing Albuterol/Ipratropium (Albuterol/Ipratropium 3.0-0.5 Mg/3 Ml Neb Soln) 3 ml NEB QIDRT PRN PRN Reason: Shortness Of Breath/wheezing Fentanyl (Fentanyl 12 Mcg/Hr Transdermal Patch) 12 mcg TRDERM Q72H [facility] Stop: 07/22/20 05:00 Last Admin: 07/21/20 10:03 Dose: Not Given Documented by: Fentanyl (Fentanyl 25 Mcg/Hr Transdermal Patch) 25 mcg TRDERM Q72H [facility] Stop: 07/22/20 05:00 Last Admin: 07/21/20 10:04 Dose: Not Given Documented by: Hydromorphone HCl (Hydromorphone 0.5 Mg/0.5 Ml Syringe) 0.5 mg IVPUSH ONETIME ONE Stop: 07/20/20 08:35 Last Admin: 07/20/20 10:01 Dose: 0.5 mg Documented by: Hydromorphone HCl (Hydromorphone 0.5 Mg/0.5 Ml Syringe) 0.5 mg IVPUSH Q2H PRN PRN Reason: Pain (severe 7-10) Last Admin: 07/20/20 20:29 Dose: 0.5 mg Documented by: Hydromorphone HCl (Hydromorphone 0.5 Mg/0.5 Ml Syringe) 1 mg IVPUSH Q2H PRN PRN Reason: Pain (severe 7-10) Last Admin: 07/21/20 11:52 Dose: 1 mg Documented by: Dextrose/Sodium Chloride (Dextrose 5%-Normal Saline) 1,000 mls @ 100 mls/hr IV ASDIRECTED [facility] Last Admin: 07/20/20 07:35 Dose: 100 mls/hr Documented by: Dextrose/Sodium Chloride (Dextrose 5%-Normal Saline) 1,000 mls @ 125 mls/hr IV ASDIRECTED [facility] Last Admin: 07/21/20 02:57 Dose: 75 mls/hr Documented by: Miscellaneous Information (Remove Fentanyl 12 Mcg Patch) 1 ea TRDERM Q72H [facility] Stop: 07/22/20 05:00 Last Admin: 07/21/20 09:36 Dose: 1 ea Documented by: Miscellaneous Information (Remove Fentanyl 25 Mcg Patch) 1 ea PABLO Q72H [facility] Stop: 07/22/20 05:00 Last Admin: 07/21/20 09:37 Dose: 1 ea Documented by: - Patient Data Lab Results Last 24 hrs: Laboratory Results - last 24 hr 07/20/20 07/20/20 07/21/20 Range/Units 07:25 07:25 04:49 WBC 25.11 H (4.23-9.07) K/mm3 RBC 2.51 L (4.63-6.08) M/mm3 Hgb 8.4 L (13.7-17.5) gm/dl Hct 27.6 L (40.1-51.0) % MCV 110.0 H (79.0-92.2) fl MCH 33.5 H (25.7-32.2) pg MCHC 30.4 L (32.2-35.5) g/dl RDW Std Deviation 67.1 H (35.1-43.9) fL Plt Count 148 L (163-337) K/mm3 MPV 8.6 L (9.4-12.3) fl Neut % (Auto) 88.4 H (34.0-67.9) % Lymph % (Auto) 1.9 L (21.8-53.1) % [place] % (Auto) 2.5 L (5.3-12.2) % Eos % (Auto) 0 L (0.8-7.0) Baso % (Auto) 0.1 (0.1-1.2) % Neut # (Auto) 22.18 H (1.78-5.38) K/mm3 Lymph # (Auto) 0.47 L (1.32-3.57) K/mm3 [place] # (Auto) 0.64 (0.30-0.82) K/mm3 Eos # (Auto) 0.00 L (0.04-0.54) K/mm3 Baso # (Auto) 0.03 (0.01-0.08) K/mm3 Manual Slide Review Abnormal smear Sodium (136-145) mEq/L Potassium (3.5-5.1) mEq/L Chloride (98-107) mEq/L Carbon Dioxide (21-32) mEq/L Anion Gap (5-15) BUN (7-18) mg/dL Creatinine (0.7-1.3) mg/dL Est Cr Clr Drug Dosing mL/min Estimated GFR (MDRD) (>60) mL/min BUN/Creatinine Ratio (14-18) Glucose (70-99) mg/dL Calcium (8.5-10.1) mg/dL Magnesium (1.8-2.4) mg/dL Lactate Dehydrogenase 144 (85-227) U/L Procalcitonin 0.22 H ng/mL 07/21/20 Range/Units 04:49 WBC (4.23-9.07) K/mm3 RBC (4.63-6.08) M/mm3 Hgb (13.7-17.5) gm/dl Hct (40.1-51.0) % MCV (79.0-92.2) fl MCH (25.7-32.2) pg MCHC (32.2-35.5) g/dl RDW Std Deviation (35.1-43.9) fL Plt Count (163-337) K/mm3 MPV (9.4-12.3) fl Neut % (Auto) (34.0-67.9) % Lymph % (Auto) (21.8-53.1) % [place] % (Auto) (5.3-12.2) % Eos % (Auto) (0.8-7.0) Baso % (Auto) (0.1-1.2) % Neut # (Auto) (1.78-5.38) K/mm3 Lymph # (Auto) (1.32-3.57) K/mm3 [place] # (Auto) (0.30-0.82) K/mm3 Eos # (Auto) (0.04-0.54) K/mm3 Baso # (Auto) (0.01-0.08) K/mm3 Manual Slide Review Sodium 141 (136-145) mEq/L Potassium 4.8 (3.5-5.1) mEq/L Chloride 108 H (98-107) mEq/L Carbon Dioxide 27 (21-32) mEq/L Anion Gap 10.8 (5-15) BUN 26 H (7-18) mg/dL Creatinine 0.8 (0.7-1.3) mg/dL Est Cr Clr Drug Dosing 60.74 mL/min Estimated GFR (MDRD) > 60 (>60) mL/min BUN/Creatinine Ratio 32.5 H (14-18) Glucose 122 H (70-99) mg/dL Calcium 8.5 (8.5-10.1) mg/dL Magnesium 2.0 (1.8-2.4) mg/dL Lactate Dehydrogenase (85-227) U/L Procalcitonin ng/mL Result Diagrams: 07/21/20 04:49 07/21/20 04:49 Js Results Last 24 hrs: Microbiology 07/20/20 07:39 Aerobic Blood Culture - Preliminary Blood - Venous - Lab Draw NO GROWTH AFTER 1 DAY Anaerobic Blood Culture - Preliminary NO GROWTH AFTER 1 DAY 07/20/20 07:25 Aerobic Blood Culture - Preliminary Blood - Venous NO GROWTH AFTER 1 DAY Anaerobic Blood Culture - Preliminary NO GROWTH AFTER 1 DAY Sepsis Event Note - Focused Exam Vital Signs: Vital Signs Temp Pulse Resp BP Pulse Ox Pulse Ox 07/21/20 13:26 97 07/21/20 11:30 36.7 C 94 14 122/50 L 99 07/21/20 09:21 36.7 C 96 20 121/52 L 94 L 07/21/20 08:39 97 - Plan Plan:: I have seen and examined the patient independently of Zechariah Jauregui PA-C, and have discussed the case with him. I have reviewed and agree with the plan and orders as outlined by him. Please see orders.
[2020-07-21] MEDS: Formoterol/Mometasone 200-5 MCG 8.8 GM Inhaler IH SCH ×2 (08:37→20:37)
[2020-07-21] MEDS ORDERED: Polyethylene Glycol 3350 Powder 17 GM Packet PO SCH (09:00)
[2020-07-21] MEDS ORDERED: Remove Fentanyl 12 mcg Patch TRDERM SCH (09:00)
[2020-07-21] MEDS ORDERED: fentaNYL 25 MCG/HR Transdermal Patch TRDERM SCH (09:00)
[2020-07-21] MEDS ORDERED: fentaNYL 12 MCG/HR Transdermal Patch TRDERM SCH (09:00)
[2020-07-21] MEDS ORDERED: fentaNYL 50 MCG/HR Transdermal Patch TRDERM SCH (09:15)
[2020-07-21] MEDS: Azithromycin 250 MG Tab PO SCH (09:33)
[2020-07-21] MEDS: Enoxaparin 30 MG/0.3 ML Syringe SUBCUT SCH (09:33)
[2020-07-21] MEDS: methylPREDNISolone Sodium Succinate 40 MG/1 ML SDV IVPUSH SCH (09:34)
[2020-07-21] MEDS: LORazepam 0.5 MG Tab PO PRN ×2 (09:35→21:06)
[2020-07-21] MEDS: HYDROmorphone 0.5 MG/0.5 ML Syringe IVPUSH PRN ×2 (09:36→11:52)
[2020-07-21] MEDS: Albuterol/Ipratropium 3.0-0.5 MG/3 ML Neb Soln INH PRN (13:26)
[2020-07-21] MEDS: HYDROmorphone 1 MG/ML Syringe IVPUSH PRN (15:38)
[2020-07-21] MEDS: Aspirin 81 MG Tab.EC PO SCH (21:05)
[2020-07-22] MEDS: Acetaminophen/oxyCODONE 325-5 MG Tab PO PRN ×2 (00:19→10:12)
[2020-07-22] MEDS: Albuterol/Ipratropium 3.0-0.5 MG/3 ML Neb Soln INH PRN ×3 (00:22→17:28)
[2020-07-22] MEDS: HYDROmorphone 1 MG/ML Syringe IVPUSH PRN ×3 (05:39→14:12)
--- NOTE | 2020-07-22 07:02 | PCM.PN ---
- General Info Date of Service: 07/22/20 Admission Dx/Problem (Free Text): Admission Diagnosis/Problem Admission Diagnosis/Problem Fall as cause of accidental injury in home as place of occurrence Subjective Update: The patient is a chronically ill 79-year-old gentleman who had been admitted through the emergency department for respiratory complaint. The patient also has been falling at home. The patient has severe oxygen dependent COPD as well as small cell lung cancer with metastases. Today the patient reports that he has been increasingly short of breath. Walking to the bathroom is caused the patient to be very short of breath. He has been tolerating his diet. The patient says that his pain is much better today. The patient has a poor appetite. Functional Status: Reports: Pain Controlled. Denies: Tolerating Diet - Review of Systems General: Reports: Weakness, Fatigue, Malaise HEENT: Reports: No Symptoms Pulmonary: Reports: Shortness of Breath, Cough, Wheezing. Denies: Hemoptysis Cardiovascular: Reports: No Symptoms Gastrointestinal: Reports: No Symptoms Genitourinary: Reports: No Symptoms Musculoskeletal: Reports: No Symptoms Skin: Reports: No Symptoms Neurological: Reports: No Symptoms Psychiatric: Reports: No Symptoms - Patient Data Vitals - Most Recent: Last Vital Signs Temp 36.7 C 07/22/20 05:39 Pulse 76 07/22/20 05:39 Resp 20 07/22/20 05:39 BP 112/54 L 07/22/20 05:39 Pulse Ox 97 07/22/20 05:39 Weight - Most Recent: 57.062 kg I&O - Last 24 Hours: Intake & Output 07/21/20 07/22/20 07/22/20 22:59 06:59 14:59 Intake Total 1675 1100 Output Total 225 720 Balance 1450 380 Lab Results Last 24 Hours: Laboratory Results - last 24 hr 07/22/20 07/22/20 Range/Units 05:28 05:28 WBC 19.86 H (4.23-9.07) K/mm3 RBC 2.32 L (4.63-6.08) M/mm3 Hgb 8.1 L (13.7-17.5) gm/dl Hct 25.9 L (40.1-51.0) % MCV 111.6 H (79.0-92.2) fl MCH 34.9 H (25.7-32.2) pg MCHC 31.3 L (32.2-35.5) g/dl RDW Std Deviation 66.7 H (35.1-43.9) fL Plt Count 79 L (163-337) K/mm3 MPV 8.8 L (9.4-12.3) fl Neut % (Auto) 84.3 H (34.0-67.9) % Lymph % (Auto) 2.7 L (21.8-53.1) % [place] % (Auto) 1.6 L (5.3-12.2) % Eos % (Auto) 0 L (0.8-7.0) Baso % (Auto) 0.2 (0.1-1.2) % Neut # (Auto) 16.75 H (1.78-5.38) K/mm3 Lymph # (Auto) 0.53 L (1.32-3.57) K/mm3 [place] # (Auto) 0.32 (0.30-0.82) K/mm3 Eos # (Auto) 0.00 L (0.04-0.54) K/mm3 Baso # (Auto) 0.03 (0.01-0.08) K/mm3 Manual Slide Review Abnormal smear Sodium 139 (136-145) mEq/L Potassium 4.6 (3.5-5.1) mEq/L Chloride 106 (98-107) mEq/L Carbon Dioxide 27 (21-32) mEq/L Anion Gap 10.6 (5-15) BUN 28 H (7-18) mg/dL Creatinine 0.8 (0.7-1.3) mg/dL Est Cr Clr Drug Dosing 61.42 mL/min Estimated GFR (MDRD) > 60 (>60) mL/min BUN/Creatinine Ratio 35.0 H (14-18) Glucose 101 H (70-99) mg/dL Calcium 8.8 (8.5-10.1) mg/dL Magnesium 1.9 (1.8-2.4) mg/dL Js Results Last 24 Hours: Microbiology 07/20/20 07:39 Aerobic Blood Culture - Preliminary Blood - Venous - Lab Draw NO GROWTH AFTER 1 DAY Anaerobic Blood Culture - Preliminary NO GROWTH AFTER 1 DAY 07/20/20 07:25 Aerobic Blood Culture - Preliminary Blood - Venous NO GROWTH AFTER 1 DAY Anaerobic Blood Culture - Preliminary NO GROWTH AFTER 1 DAY Med Orders - Current: Current Medications Acetaminophen (Acetaminophen 325 Mg Tab) 650 mg PO Q4H PRN PRN Reason: Pain (Mild 1-3)/fever Albuterol/Ipratropium (Albuterol/Ipratropium 3.0-0.5 Mg/3 Ml Neb Soln) 3 ml INH Q2H PRN PRN Reason: Shortness of Breath Last Admin: 07/22/20 00:22 Dose: 3 ml Documented by: Aspirin (Aspirin 81 Mg Tab.Ec) 81 mg PO BEDTIME [facility] Last Admin: 07/21/20 21:05 Dose: 81 mg Documented by: Azithromycin (Azithromycin 250 Mg Tab) 500 mg PO DAILY [facility] Stop: 07/23/20 09:01 Last Admin: 07/21/20 09:33 Dose: 500 mg Documented by: Enoxaparin Sodium (Enoxaparin 30 Mg/0.3 Ml Syringe) 30 mg SUBCUT DAILY [facility] Last Admin: 07/21/20 09:33 Dose: 30 mg Documented by: Fentanyl (Fentanyl 50 Mcg/Hr Transdermal Patch) 50 mcg TRDERM Q72H [facility] Last Admin: 07/21/20 09:35 Dose: 50 mcg Documented by: Hydromorphone HCl (Hydromorphone 1 Mg/Ml Syringe) 1 mg IVPUSH Q2H PRN PRN Reason: Pain (severe 7-10) Last Admin: 07/22/20 05:39 Dose: 1 mg Documented by: Dextrose/Sodium Chloride (Dextrose 5%-Normal Saline) 1,000 mls @ 50 mls/hr IV ASDIRECTED [facility] Last Admin: 07/21/20 16:14 Dose: 50 mls/hr Documented by: Lorazepam (Lorazepam 0.5 Mg Tab) 0.5 - 1 mg PO QID PRN PRN Reason: Anxiety Last Admin: 07/21/20 21:06 Dose: 0.5 mg Documented by: Methylprednisolone Sodium Succinate (Methylprednisolone Sodium Succinate 40 Mg/1 Ml Sdv) 40 mg IVPUSH DAILY [facility] Last Admin: 07/21/20 09:34 Dose: 40 mg Documented by: Miscellaneous Information (Remove And Replace Fentanyl 50mcg Patch) 1 ea TRDERM Q72H [facility] Mometasone Furoate/Formoterol Fumar (Formoterol/Mometasone 200-5 Mcg 8.8 Gm Inhaler) 2 puff IH BID [facility] Last Admin: 07/21/20 20:37 Dose: 2 puff Documented by: Ondansetron HCl (Ondansetron 4 Mg/2 Ml Sdv) 4 mg IV Q6H PRN PRN Reason: Nausea/Vomiting Oxycodone/Acetaminophen (Acetaminophen/Oxycodone 325-5 Mg Tab) 1 tab PO Q4H PRN PRN Reason: Pain (moderate 4-6) Last Admin: 07/22/20 00:19 Dose: 1 tab Documented by: Polyethylene Glycol (Polyethylene Glycol 3350 Powder 17 Gm Packet) 17 gm PO Q48 H [facility] Last Admin: 07/21/20 09:34 Dose: 17 gm Documented by: Discontinued Medications Albuterol/Ipratropium (Albuterol/Ipratropium 3.0-0.5 Mg/3 Ml Neb Soln) 3 ml NEB Q4H PRN PRN Reason: Shortness Of Breath/wheezing Last Admin: 07/20/20 07:36 Dose: 3 ml Documented by: Albuterol/Ipratropium (Albuterol/Ipratropium 3.0-0.5 Mg/3 Ml Neb Soln) 3 ml NEB Q4H PRN PRN Reason: Shortness Of Breath/wheezing Albuterol/Ipratropium (Albuterol/Ipratropium 3.0-0.5 Mg/3 Ml Neb Soln) 3 ml NEB QIDRT PRN PRN Reason: Shortness Of Breath/wheezing Fentanyl (Fentanyl 12 Mcg/Hr Transdermal Patch) 12 mcg TRDERM Q72H [facility] Stop: 07/22/20 05:00 Last Admin: 07/21/20 10:03 Dose: Not Given Documented by: Fentanyl (Fentanyl 25 Mcg/Hr Transdermal Patch) 25 mcg TRDERM Q72H [facility] Stop: 07/22/20 05:00 Last Admin: 07/21/20 10:04 Dose: Not Given Documented by: Hydromorphone HCl (Hydromorphone 0.5 Mg/0.5 Ml Syringe) 0.5 mg IVPUSH ONETIME ONE Stop: 07/20/20 08:35 Last Admin: 07/20/20 10:01 Dose: 0.5 mg Documented by: Hydromorphone HCl (Hydromorphone 0.5 Mg/0.5 Ml Syringe) 0.5 mg IVPUSH Q2H PRN PRN Reason: Pain (severe 7-10) Last Admin: 07/20/20 20:29 Dose: 0.5 mg Documented by: Hydromorphone HCl (Hydromorphone 0.5 Mg/0.5 Ml Syringe) 1 mg IVPUSH Q2H PRN PRN Reason: Pain (severe 7-10) Last Admin: 07/21/20 11:52 Dose: 1 mg Documented by: Dextrose/Sodium Chloride (Dextrose 5%-Normal Saline) 1,000 mls @ 100 mls/hr IV ASDIRECTED [facility] Last Admin: 07/20/20 07:35 Dose: 100 mls/hr Documented by: Dextrose/Sodium Chloride (Dextrose 5%-Normal Saline) 1,000 mls @ 125 mls/hr IV ASDIRECTED [facility] Last Admin: 07/21/20 02:57 Dose: 75 mls/hr Documented by: Miscellaneous Information (Remove Fentanyl 12 Mcg Patch) 1 ea TRDERM Q72H [facility] Stop: 07/22/20 05:00 Last Admin: 07/21/20 09:36 Dose: 1 ea Documented by: Miscellaneous Information (Remove Fentanyl 25 Mcg Patch) 1 ea TRDERM Q72H [facility] Stop: 07/22/20 05:00 Last Admin: 07/21/20 09:37 Dose: 1 ea Documented by: - Exam Quality Assessment: Supplemental Oxygen, DVT Prophylaxis General: Alert, Oriented, Cooperative, Other (Cachectic) HEENT: Pupils Equal, Pupils Reactive, EOMI. No: Mucous Membr. Moist/[place] (Dry) Neck: Supple, Trachea Midline Lungs: Decreased Breath Sounds, Crackles, Wheezing, Other (Stiff thoracic cage) Cardiovascular: Regular Rate, Regular Rhythm GI/Abdominal Exam: Normal Bowel Sounds, Soft, Non-Tender, No Distention (Male) Exam: Deferred Back Exam: Normal Inspection, Full Range of Motion Extremities: Normal Inspection, No Pedal Edema Skin: Warm, Dry, Intact Neurological: No New Focal Deficit Psy/Mental Status: Alert, Normal Affect - Patient Data Lab Results Last 24 hrs: Laboratory Results - last 24 hr 07/22/20 07/22/20 Range/Units 05:28 05:28 WBC 19.86 H (4.23-9.07) K/mm3 RBC 2.32 L (4.63-6.08) M/mm3 Hgb 8.1 L (13.7-17.5) gm/dl Hct 25.9 L (40.1-51.0) % MCV 111.6 H (79.0-92.2) fl MCH 34.9 H (25.7-32.2) pg MCHC 31.3 L (32.2-35.5) g/dl RDW Std Deviation 66.7 H (35.1-43.9) fL Plt Count 79 L (163-337) K/mm3 MPV 8.8 L (9.4-12.3) fl Neut % (Auto) 84.3 H (34.0-67.9) % Lymph % (Auto) 2.7 L (21.8-53.1) % [place] % (Auto) 1.6 L (5.3-12.2) % Eos % (Auto) 0 L (0.8-7.0) Baso % (Auto) 0.2 (0.1-1.2) % Neut # (Auto) 16.75 H (1.78-5.38) K/mm3 Lymph # (Auto) 0.53 L (1.32-3.57) K/mm3 [place] # (Auto) 0.32 (0.30-0.82) K/mm3 Eos # (Auto) 0.00 L (0.04-0.54) K/mm3 Baso # (Auto) 0.03 (0.01-0.08) K/mm3 Manual Slide Review Abnormal smear Sodium 139 (136-145) mEq/L Potassium 4.6 (3.5-5.1) mEq/L Chloride 106 (98-107) mEq/L Carbon Dioxide 27 (21-32) mEq/L Anion Gap 10.6 (5-15) BUN 28 H (7-18) mg/dL Creatinine 0.8 (0.7-1.3) mg/dL Est Cr Clr Drug Dosing 61.42 mL/min Estimated GFR (MDRD) > 60 (>60) mL/min BUN/Creatinine Ratio 35.0 H (14-18) Glucose 101 H (70-99) mg/dL Calcium 8.8 (8.5-10.1) mg/dL Magnesium 1.9 (1.8-2.4) mg/dL Result Diagrams: 07/22/20 05:28 07/22/20 05:28 Js Results Last 24 hrs: Microbiology 07/20/20 07:39 Aerobic Blood Culture - Preliminary Blood - Venous - Lab Draw NO GROWTH AFTER 1 DAY Anaerobic Blood Culture - Preliminary NO GROWTH AFTER 1 DAY 07/20/20 07:25 Aerobic Blood Culture - Preliminary Blood - Venous NO GROWTH AFTER 1 DAY Anaerobic Blood Culture - Preliminary NO GROWTH AFTER 1 DAY Sepsis Event Note - Evaluation Sepsis Screening Result: No Definite Risk - Focused Exam Vital Signs: Vital Signs Temp Pulse Resp BP Pulse Ox Pulse Ox 07/22/20 05:39 36.7 C 76 20 112/54 L 97 07/22/20 00:25 97 07/22/20 00:15 36.6 C 95 20 117/58 L 95 07/21/20 21:04 36.7 C 89 20 110/58 L 100 07/21/20 20:04 96 - Problem List & Annotations (1) Fall as cause of accidental injury at home as place of occurrence SNOMED Code(s): 37096573 Code(s): W19.XXXA - UNSPECIFIED FALL, INITIAL ENCOUNTER; Y92.009 - UNSP PLACE IN UNSP NON-INSTITUT (PRIVATE) RESIDENCE PLACE Status: Acute Priority: High Current Visit: Yes Qualifiers: Encounter type: subsequent encounter Qualified Code(s): W19.XXXD - Unspecified fall, subsequent encounter; Y92.009 - Unspecified place in unspecified non-institutional (private) residence as the place of occurrence of the external cause (2) Failure to thrive SNOMED Code(s): 27800550 Code(s): CME2252 - Status: Acute Priority: High Current Visit: Yes Qualifiers: Failure to thrive age range: in adult Qualified Code(s): R62.7 - Adult failure to thrive (3) Rib fractures SNOMED Code(s): 4718745 Code(s): S22.49XA - MULTIPLE FRACTURES OF RIBS, UNSP SIDE, INIT FOR CLOS FX Status: Acute Priority: High Current Visit: Yes Qualifiers: Encounter type: subsequent encounter Fracture type: closed Laterality: left Qualified Code(s): S22.42XA - Multiple fractures of ribs, left side, initial encounter for closed fracture (4) Cachexia associated with pulmonary fibrosis SNOMED Code(s): 793483893 Code(s): J84.10 - PULMONARY FIBROSIS, UNSPECIFIED; R64 - [place] Status: Chronic Priority: High Current Visit: Yes (5) Cancer of right lung SNOMED Code(s): 495832703 Code(s): C34.91 - MALIGNANT NEOPLASM OF UNSP PART OF RIGHT BRONCHUS OR LUNG Status: Acute Priority: Medium Current Visit: No Qualifiers: Lung location: lower lobe of lung Qualified Code(s): C34.31 - Malignant neoplasm of lower lobe, right bronchus or lung (6) Constipation SNOMED Code(s): 80459281 Code(s): K59.00 - CONSTIPATION, UNSPECIFIED Status: Acute Current Visit: No Qualifiers: Constipation type: slow transit constipation Qualified Code(s): K59.01 - Slow transit constipation - Problem List Review Problem List Initiated/Reviewed/Updated: Yes - My Orders Last 24 Hours: My Active Orders 07/25/20 07:00 CORONAVIRUS COVID-19 [facility] [[facility]] Routine - Assessment Assessment:: Assessment - day of admission 07/20/2020 * 79-year-old male presents via [facility] after fall at home * Reports chair rolled out from underneath him and he fell on left back with resulting pain with inspiration * History of COPD on 2 to 3 L chronic O2, prior COVID-19 illness, diverticulosis, hiatal hernia, colostomy bag, BPH, chronic back pain, osteoarthritis, lung cancer, abdominal hernia. Has PICC line in place and right arm. Neulasta sponge in place on posterior left arm. * He is reportedly undergoing chemotherapy for his lung cancer with Dr. Swan. * Denies any infectious symptoms but states he does have a chronic productive cough and chronic dyspnea. * Twelve-lead EKG obtained in ED shows sinus rhythm at 86 bpm with right axis deviation and a left bundle branch block. * CT of the chest shows adenopathy within the mediastinum and hilar regions which appear less prominent on this noncontrast study than was seen previously. Nodularity within the right chest has slightly diminished from prior exam. Fibrosis is noted within the right lung base and there is diffuse emphysematous change noted. There is a partially visualized 4.3 cm aneurysm within the abdominal aorta. Radiologist states no acute osseous finding is seen however there is fracture noted in 11th and 12th left posterior ribs. * Labs are obtained: * WBC 17.27 (likely elevated from stress and neulasta sponge) * Hemoglobin 9.4 * Platelet 210,000 * Neutrophils 91.9% * INR 1.0 * Sodium 140 * Potassium 4.2 * Chloride 105 * Carbon dioxide 25 * Anion gap 14.2 * BUN 30, creatinine 1.0, GFR greater than 60. * Glucose 104 * Calcium 8.7 * Magnesium 2.0 * Total bilirubin 0.4 * AST 17, ALT 16, alkaline phosphatase 71. * Creatinine kinase 51 * CK-MB 1.7 * Troponin less than 0.017 * CRP 1.6 * Protein 6.3 * Albumin 3.4 * proBNP 441 * SARS Covid 2 RNA negative * ABG obtained in the left radial with pH of 7.37, PCO2 42.3, PO2 of 66.0, HC O3 of 24, O2 saturation 93.4, base excess -0.7, AA gradient 81, obtained on 2 L via NC * Patient given Dilaudid for pain and DuoNebs in the ED. Started on IV fluids. * Patient admitted to medical surgical floor for pain management due to rib fractures and worsening dyspnea. Patient also is severely malnourished. 07/21/2020 * Labs today: * WBC 25.11 (on steroid). * Hemoglobin 8.4. * Platelet 148,000. * Neutrophils 88.4. * Sodium 141. * Potassium 4.8. * Chloride 108. * Carbon dioxide 27. * Anion gap 10.8. * BUN 26, creatinine 0.8, GFR greater than 60. * Glucose 122. * Magnesium 2.0. * Patient continues to have rather significant pain. Will increase home fentanyl dosing to 50 mcg daily. We will also increase as needed Dilaudid from 0.5 mg every 2 hour to 1 mg every 2 hour. * Old records from Dr. Swan are in chart * Continues to have significant work of breathing. * Saturations in upper 90's on 3L O2. * Per social work patient's daughter reports that she cannot provide 24/7 care to patient. We will explore placement. * Earliest patient can discharge to SNF is 07/25/2020 due to holiday weekend. * Patient knows he cannot continue on at home how he is because he is failing. * Discussed case with Bessie Rome NP with Dr. Wos' office. She reports patient has been quite depressed lately but was happy PET scan showed improvem ent. She is OK with up pursing hospice if the patient is interested. She reports they have tried appetite stimulation meds in the past but the patient would not tolerate them well. She states patients daughter has been very active in his care. She told us to anticipate spike in WBC soon with patients meds. * Discussed hospice with patient. He is not interested in this at this time. * Continue current treatment plan with increased pain medications. 07/17/2020 The patient is a chronically ill 79-year-old gentleman who has been having worsening fatigue, weakness and increased pain. 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 Is also liver metastases. I have changed the patient's pain medications from as needed to scheduled to help the patient with his pain control. The patient is oxygen dependent and he will be on oxygen to help keep his saturations above 92%. The patient lives alone and at this point is not safe to be discharged and he cannot take care of himself. I have also discussed hospice with the patient. PT OT will be continued. Repeat laboratory studies have been ordered. He has been encouraged to ambulate as he can. Patient is currently awaiting placement. Overall, the patient's prognosis is poor. - Plan Plan:: I have seen and examined the patient independently of Zechariah Jauregui PA-C, and have discussed the case with him. I have reviewed and agree with the plan and orders as outlined by him. Please see orders.
[2020-07-22] MEDS: Formoterol/Mometasone 200-5 MCG 8.8 GM Inhaler IH SCH ×2 (08:21→20:18)
[2020-07-22] MEDS: Enoxaparin 30 MG/0.3 ML Syringe SUBCUT SCH (09:00)
[2020-07-22] MEDS: methylPREDNISolone Sodium Succinate 40 MG/1 ML SDV IVPUSH SCH (09:01)
[2020-07-22] MEDS: Azithromycin 250 MG Tab PO SCH (09:01)
[2020-07-22] MEDS: Polyethylene Glycol 3350 Powder 17 GM Packet PO SCH (11:43)
[2020-07-22] MEDS: LORazepam 0.5 MG Tab PO PRN (12:07)
[2020-07-22] MEDS: Dextrose 5%-0.9% NaCl 1,000 ML IV SCH (12:08)
[2020-07-22] MEDS: Acetaminophen/oxyCODONE 325-5 MG Tab PO SCH ×3 (14:49→21:02)
[2020-07-22] MEDS: Aluminum Hydroxide/Magnesium Hydroxide/Simethicone Susp 30 ML Cup PO PRN (18:05)
[2020-07-22] MEDS: Aspirin 81 MG Tab.EC PO SCH (21:01)
[2020-07-23] MEDS: Albuterol/Ipratropium 3.0-0.5 MG/3 ML Neb Soln INH PRN ×3 (01:10→15:00)
[2020-07-23] MEDS: Acetaminophen/oxyCODONE 325-5 MG Tab PO SCH ×6 (01:30→21:22)
[2020-07-23] MEDS: LORazepam 0.5 MG Tab PO PRN ×2 (05:10→20:19)
[2020-07-23] MEDS: Enoxaparin 30 MG/0.3 ML Syringe SUBCUT SCH (08:20)
[2020-07-23] MEDS: Dextrose 5%-0.9% NaCl 1,000 ML IV SCH (08:32)
--- NOTE | 2020-07-23 08:37 | PCM.PN ---
- General Info Date of Service: 07/23/20 (The patient has been retained longer than 96 hours due to him needing greater support, PT OT, close monitoring.) Admission Dx/Problem (Free Text): Admission Diagnosis/Problem Admission Diagnosis/Problem Fall as cause of accidental injury in home as place of occurrence Subjective Update: The patient is a chronically ill 79-year-old gentleman who was admitted to acute hospitalization on July 20, 2020 due to COPD, oxygen dependency and small cell lung cancer. The patient overall has felt weak and fatigued. The patient today says that he is feeling somewhat better. He still gets short of breath when moving around the room. The patient's pain has been better controlled. He has been tolerating his diet. Functional Status: Reports: Pain Controlled, Tolerating Diet - Review of Systems General: Reports: Weakness, Fatigue HEENT: Reports: No Symptoms Pulmonary: Reports: Shortness of Breath, Cough Cardiovascular: Reports: No Symptoms Gastrointestinal: Reports: No Symptoms Genitourinary: Reports: No Symptoms Musculoskeletal: Reports: Back Pain Skin: Reports: No Symptoms Neurological: Reports: No Symptoms Psychiatric: Reports: Anxiety - Patient Data Vitals - Most Recent: Last Vital Signs Temp 36.7 C 07/23/20 07:22 Pulse 89 07/23/20 07:22 Resp 16 07/23/20 07:22 BP 125/63 07/23/20 07:22 Pulse Ox 99 07/23/20 07:22 Weight - Most Recent: 57.47 kg I&O - Last 24 Hours: Intake & Output 07/22/20 07/23/20 07/23/20 22:59 06:59 14:59 Intake Total 465 900 Output Total 950 690 Balance -485 210 Lab Results Last 24 Hours: Laboratory Results - last 24 hr 07/23/20 07/23/20 Range/Units 06:00 06:00 WBC 11.41 H (4.23-9.07) K/mm3 RBC 2.40 L (4.63-6.08) M/mm3 Hgb 8.1 L (13.7-17.5) gm/dl Hct 26.6 L (40.1-51.0) % MCV 110.8 H (79.0-92.2) fl MCH 33.8 H (25.7-32.2) pg MCHC 30.5 L (32.2-35.5) g/dl RDW Std Deviation 63.5 H (35.1-43.9) fL Plt Count 49 L (163-337) K/mm3 MPV 9.1 L (9.4-12.3) fl Neut % (Auto) 81.8 H (34.0-67.9) % Lymph % (Auto) 4.2 L (21.8-53.1) % [place] % (Auto) 1.5 L (5.3-12.2) % Eos % (Auto) 0.1 L (0.8-7.0) Baso % (Auto) 0.2 (0.1-1.2) % Neut # (Auto) 9.34 H (1.78-5.38) K/mm3 Lymph # (Auto) 0.48 L (1.32-3.57) K/mm3 [place] # (Auto) 0.17 L (0.30-0.82) K/mm3 Eos # (Auto) 0.01 L (0.04-0.54) K/mm3 Baso # (Auto) 0.02 (0.01-0.08) K/mm3 Manual Slide Review Abnormal smear Sodium 139 (136-145) mEq/L Potassium 4.6 (3.5-5.1) mEq/L Chloride 105 (98-107) mEq/L Carbon Dioxide 27 (21-32) mEq/L Anion Gap 11.6 (5-15) BUN 32 H (7-18) mg/dL Creatinine 0.8 (0.7-1.3) mg/dL Est Cr Clr Drug Dosing 61.86 mL/min Estimated GFR (MDRD) > 60 (>60) mL/min BUN/Creatinine Ratio 40.0 H (14-18) Glucose 111 H (70-99) mg/dL Calcium 8.9 (8.5-10.1) mg/dL Magnesium 1.9 (1.8-2.4) mg/dL Js Results Last 24 Hours: Microbiology 07/20/20 07:39 Aerobic Blood Culture - Preliminary Blood - Venous - Lab Draw NO GROWTH AFTER 3 DAYS Anaerobic Blood Culture - Preliminary NO GROWTH AFTER 3 DAYS 07/20/20 07:25 Aerobic Blood Culture - Preliminary Blood - Venous NO GROWTH AFTER 3 DAYS Anaerobic Blood Culture - Preliminary NO GROWTH AFTER 3 DAYS Med Orders - Current: Current Medications Acetaminophen (Acetaminophen 325 Mg Tab) 650 mg PO Q4H PRN PRN Reason: Pain (Mild 1-3)/fever Last Admin: 07/22/20 12:06 Dose: 650 mg Documented by: Al Hydroxide/Mg Hydroxide (Aluminum Hydroxide/Magnesium Hydroxide/Simethicone Susp 30 Ml Cup) 30 ml PO Q4H PRN PRN Reason: Heartburn Last Admin: 07/22/20 18:05 Dose: 30 ml Documented by: Albuterol/Ipratropium (Albuterol/Ipratropium 3.0-0.5 Mg/3 Ml Neb Soln) 3 ml INH Q2H PRN PRN Reason: Shortness of Breath Last Admin: 07/23/20 01:10 Dose: 3 ml Documented by: Aspirin (Aspirin 81 Mg Tab.Ec) 81 mg PO BEDTIME [facility] Last Admin: 07/22/20 21:01 Dose: 81 mg Documented by: Azithromycin (Azithromycin 250 Mg Tab) 500 mg PO DAILY [facility] Stop: 07/23/20 09:01 Last Admin: 07/22/20 09:01 Dose: 500 mg Documented by: Fentanyl (Fentanyl 50 Mcg/Hr Transdermal Patch) 50 mcg TRDERM Q72H [facility] Last Admin: 07/21/20 09:35 Dose: 50 mcg Documented by: Hydromorphone HCl (Hydromorphone 1 Mg/Ml Syringe) 1 mg IVPUSH Q2H PRN PRN Reason: Pain (severe 7-10) Last Admin: 07/22/20 14:12 Dose: 1 mg Documented by: Dextrose/Sodium Chloride (Dextrose 5%-Normal Saline) 1,000 mls @ 50 mls/hr IV ASDIRECTED [facility] Last Admin: 07/23/20 08:32 Dose: 50 mls/hr Documented by: Lorazepam (Lorazepam 0.5 Mg Tab) 0.5 - 1 mg PO QID PRN PRN Reason: Anxiety Last Admin: 07/23/20 05:10 Dose: 0.5 mg Documented by: Methylprednisolone Sodium Succinate (Methylprednisolone Sodium Succinate 40 Mg/1 Ml Sdv) 40 mg IVPUSH DAILY [facility] Last Admin: 07/22/20 09:01 Dose: 40 mg Documented by: Miscellaneous Information (Remove And Replace Fentanyl 50mcg Patch) 1 ea TRDERM Q72H [facility] Mometasone Furoate/Formoterol Fumar (Formoterol/Mometasone 200-5 Mcg 8.8 Gm Inhaler) 2 puff IH BID [facility] Last Admin: 07/22/20 20:18 Dose: 2 puff Documented by: Ondansetron HCl (Ondansetron 4 Mg/2 Ml Sdv) 4 mg IV Q6H PRN PRN Reason: Nausea/Vomiting Oxycodone/Acetaminophen (Acetaminophen/Oxycodone 325-5 Mg Tab) 1 tab PO Q4H [facility] Last Admin: 07/23/20 05:09 Dose: 1 tab Documented by: Polyethylene Glycol (Polyethylene Glycol 3350 Powder 17 Gm Packet) 17 gm PO DAILY [facility] Last Admin: 07/22/20 11:43 Dose: 17 gm Documented by: Discontinued Medications Albuterol/Ipratropium (Albuterol/Ipratropium 3.0-0.5 Mg/3 Ml Neb Soln) 3 ml NEB Q4H PRN PRN Reason: Shortness Of Breath/wheezing Last Admin: 07/20/20 07:36 Dose: 3 ml Documented by: Albuterol/Ipratropium (Albuterol/Ipratropium 3.0-0.5 Mg/3 Ml Neb Soln) 3 ml NEB Q4H PRN PRN Reason: Shortness Of Breath/wheezing Albuterol/Ipratropium (Albuterol/Ipratropium 3.0-0.5 Mg/3 Ml Neb Soln) 3 ml NEB QIDRT PRN PRN Reason: Shortness Of Breath/wheezing Enoxaparin Sodium (Enoxaparin 30 Mg/0.3 Ml Syringe) 30 mg SUBCUT DAILY [facility] Last Admin: 07/23/20 08:20 Dose: Not Given Documented by: Fentanyl (Fentanyl 12 Mcg/Hr Transdermal Patch) 12 mcg TRDERM Q72H [facility] Stop: 07/22/20 05:00 Last Admin: 07/21/20 10:03 Dose: Not Given Documented by: Fentanyl (Fentanyl 25 Mcg/Hr Transdermal Patch) 25 mcg TRDERM Q72H [facility] Stop: 07/22/20 05:00 Last Admin: 07/21/20 10:04 Dose: Not Given Documented by: Hydromorphone HCl (Hydromorphone 0.5 Mg/0.5 Ml Syringe) 0.5 mg IVPUSH ONETIME ONE Stop: 07/20/20 08:35 Last Admin: 07/20/20 10:01 Dose: 0.5 mg Documented by: Hydromorphone HCl (Hydromorphone 0.5 Mg/0.5 Ml Syringe) 0.5 mg IVPUSH Q2H PRN PRN Reason: Pain (severe 7-10) Last Admin: 07/20/20 20:29 Dose: 0.5 mg Documented by: Hydromorphone HCl (Hydromorphone 0.5 Mg/0.5 Ml Syringe) 1 mg IVPUSH Q2H PRN PRN Reason: Pain (severe 7-10) Last Admin: 07/21/20 11:52 Dose: 1 mg Documented by: Dextrose/Sodium Chloride (Dextrose 5%-Normal Saline) 1,000 mls @ 100 mls/hr IV ASDIRECTED [facility] Last Admin: 07/20/20 07:35 Dose: 100 mls/hr Documented by: Dextrose/Sodium Chloride (Dextrose 5%-Normal Saline) 1,000 mls @ 125 mls/hr IV ASDIRECTED [facility] Last Admin: 07/21/20 02:57 Dose: 75 mls/hr Documented by: Miscellaneous Information (Remove Fentanyl 12 Mcg Patch) 1 ea TRDERM Q72H [facility] Stop: 07/22/20 05:00 Last Admin: 07/21/20 09:36 Dose: 1 ea Documented by: Miscellaneous Information (Remove Fentanyl 25 Mcg Patch) 1 ea TRDERM Q72H [facility] Stop: 07/22/20 05:00 Last Admin: 07/21/20 09:37 Dose: 1 ea Documented by: Oxycodone/Acetaminophen (Acetaminophen/Oxycodone 325-5 Mg Tab) 1 tab PO Q4H PRN PRN Reason: Pain (moderate 4-6) Last Admin: 07/22/20 10:12 Dose: 1 tab Documented by: Polyethylene Glycol (Polyethylene Glycol 3350 Powder 17 Gm Packet) 17 gm PO Q48H [facility] Last Admin: 07/21/20 09:34 Dose: 17 gm Documented by: - Exam Quality Assessment: Supplemental Oxygen, Central Line/PICC. No: DVT Prophylaxis General: Alert, Oriented, Cooperative, Other (Frail, cachectic) HEENT: Pupils Equal, Pupils Reactive, EOMI. No: Mucous Membr. Moist/[place] (Dry) Neck: Supple, Trachea Midline Lungs: Decreased Breath Sounds, Crackles (Widely scattered), Rales Cardiovascular: Regular Rate, Regular Rhythm GI/Abdominal Exam: Normal Bowel Sounds, Soft, Non-Tender, No Distention (Male) Exam: Deferred Back Exam: Normal Inspection (Age-appropriate), Full Range of Motion Extremities: Normal Inspection (Age-appropriate), Normal Range of Motion, No Pedal Edema Skin: Warm, Dry, Intact Neurological: No New Focal Deficit, Normal Speech Psy/Mental Status: Alert, Depressed - Patient Data Lab Results Last 24 hrs: Laboratory Results - last 24 hr 07/23/20 07/23/20 Range/Units 06:00 06:00 WBC 11.41 H (4.23-9.07) K/mm3 RBC 2.40 L (4.63-6.08) M/mm3 Hgb 8.1 L (13.7-17.5) gm/dl Hct 26.6 L (40.1-51.0) % MCV 110.8 H (79.0-92.2) fl MCH 33.8 H (25.7-32.2) pg MCHC 30.5 L (32.2-35.5) g/dl RDW Std Deviation 63.5 H (35.1-43.9) fL Plt Count 49 L (163-337) K/mm3 MPV 9.1 L (9.4-12.3) fl Neut % (Auto) 81.8 H (34.0-67.9) % Lymph % (Auto) 4.2 L (21.8-53.1) % [place] % (Auto) 1.5 L (5.3-12.2) % Eos % (Auto) 0.1 L (0.8-7.0) Baso % (Auto) 0.2 (0.1-1.2) % Neut # (Auto) 9.34 H (1.78-5.38) K/mm3 Lymph # (Auto) 0.48 L (1.32-3.57) K/mm3 [place] # (Auto) 0.17 L (0.30-0.82) K/mm3 Eos # (Auto) 0.01 L (0.04-0.54) K/mm3 Baso # (Auto) 0.02 (0.01-0.08) K/mm3 Manual Slide Review Abnormal smear Sodium 139 (136-145) mEq/L Potassium 4.6 (3.5-5.1) mEq/L Chloride 105 (98-107) mEq/L Carbon Dioxide 27 (21-32) mEq/L Anion Gap 11.6 (5-15) BUN 32 H (7-18) mg/dL Creatinine 0.8 (0.7-1.3) mg/dL Est Cr Clr Drug Dosing 61.86 mL/min Estimated GFR (MDRD) > 60 (>60) mL/min BUN/Creatinine Ratio 40.0 H (14-18) Glucose 111 H (70-99) mg/dL Calcium 8.9 (8.5-10.1) mg/dL Magnesium 1.9 (1.8-2.4) mg/dL Result Diagrams: 07/23/20 06:00 07/23/20 06:00 Js Results Last 24 hrs: Microbiology 07/20/20 07:39 Aerobic Blood Culture - Preliminary Blood - Venous - Lab Draw NO GROWTH AFTER 3 DAYS Anaerobic Blood Culture - Preliminary NO GROWTH AFTER 3 DAYS 07/20/20 07:25 Aerobic Blood Culture - Preliminary Blood - Venous NO GROWTH AFTER 3 DAYS Anaerobic Blood Culture - Preliminary NO GROWTH AFTER 3 DAYS Sepsis Event Note - Evaluation Sepsis Screening Result: No Definite Risk - Focused Exam Vital Signs: Vital Signs Temp Pulse Resp BP Pulse Ox Pulse Ox 07/23/20 07:22 36.7 C 89 16 125/63 99 07/23/20 05:06 36.8 C 85 24 H 139/70 99 07/23/20 01:31 36.8 C 20 120/60 07/23/20 01:11 98 07/22/20 20:58 36.7 C 96 24 H 107/53 L 98 - Problem List & Annotations (1) Fall as cause of accidental injury at home as place of occurrence SNOMED Code(s): 19832598 Code(s): W19.XXXA - UNSPECIFIED FALL, INITIAL ENCOUNTER; Y92.009 - UNSP PLACE IN UNSP NON-INSTITUT (PRIVATE) RESIDENCE PLACE Status: Acute Priority: High Current Visit: Yes Qualifiers: Encounter type: subsequent encounter Qualified Code(s): W19.XXXD - Unspecified fall, subsequent encounter; Y92.009 - Unspecified place in unspecified non-institutional (private) residence as the place of occurrence of the external cause (2) Failure to thrive SNOMED Code(s): 26499304 Code(s): AWW4331 - Status: Acute Priority: High Current Visit: Yes Qualifiers: Failure to thrive age range: in adult Qualified Code(s): R62.7 - Adult failure to thrive (3) Rib fractures SNOMED Code(s): 1867266 Code(s): S22.49XA - MULTIPLE FRACTURES OF RIBS, UNSP SIDE, INIT FOR CLOS FX Status: Acute Priority: High Current Visit: Yes Qualifiers: Encounter type: subsequent encounter Fracture type: closed Laterality: left (4) Cachexia associated with pulmonary fibrosis SNOMED Code(s): 015938086 Code(s): J84.10 - PULMONARY FIBROSIS, UNSPECIFIED; R64 - [place]XIA Status: Chronic Priority: High Current Visit: Yes (5) Cancer of right lung SNOMED Code(s): 270569164 Code(s): C34.91 - MALIGNANT NEOPLASM OF UNSP PART OF RIGHT BRONCHUS OR LUNG Status: Acute Priority: Medium Current Visit: No Qualifiers: Lung location: lower lobe of lung Qualified Code(s): C34.31 - Malignant neoplasm of lower lobe, right bronchus or lung (6) Constipation SNOMED Code(s): 80210013 Code(s): K59.00 - CONSTIPATION, UNSPECIFIED Status: Acute Current Visit: No Qualifiers: Constipation type: slow transit constipation Qualified Code(s): K59.01 - Slow transit constipation (7) Chemotherapy-induced thrombocytopenia SNOMED Code(s): 192964108 Code(s): D69.59 - OTHER SECONDARY THROMBOCYTOPENIA; T45.1X5A - ADVERSE EFFECT OF ANTINEOPLASTIC AND IMMUNOSUP DRUGS, INIT Status: Acute Priority: High Current Visit: Yes - Problem List Review Problem List Initiated/Reviewed/Updated: Yes - My Orders Last 24 Hours: My Active Orders 07/22/20 11:15 polyethylene glycoL 3350 [MiraLAX] 17 gm PO DAILY 07/22/20 13:50 Renew/Continue Central Line Access [OM.PC] Routine 07/22/20 14:00 Acetaminophen/oxyCODONE [Percocet 325-5 MG] 1 tab PO Q4H 07/22/20 17:52 Alum Hydrox/Mag Hydrox/Simeth [Mag-Al Plus] 30 ml PO Q4H PRN 07/23/20 07:20 Renew/Continue Central Line Access [OM.PC] Routine 07/25/20 07:00 CORONAVIRUS COVID-19 [place] [[facility]] Routine - Assessment Assessment:: Assessment - day of admission 07/20/2020 * 79-year-old male presents via [facility] after fall at home * Reports chair rolled out from underneath him and he fell on left back with resulting pain with inspiration * History of COPD on 2 to 3 L chronic O2, prior COVID-19 illness, diverticulosis, hiatal hernia, colostomy bag, BPH, chronic back pain, osteoarthritis, lung cancer, abdominal hernia. Has PICC line in place and right arm. Neulasta sponge in place on posterior left arm. * He is reportedly undergoing chemotherapy for his lung cancer with Dr. Swan. * Denies any infectious symptoms but states he does have a chronic productive cough and chronic dyspnea. * Twelve-lead EKG obtained in ED shows sinus rhythm at 86 bpm with right axis deviation and a left bundle branch block. * CT of the chest shows adenopathy within the mediastinum and hilar regions which appear less prominent on this noncontrast study than was seen previously. Nodularity within the right chest has slightly diminished from prior exam. Fibrosis is noted within the right lung base and there is diffuse emphysematous change noted. There is a partially visualized 4.3 cm aneurysm within the abdominal aorta. Radiologist states no acute osseous finding is seen however there is fracture noted in 11th and 12th left posterior ribs. * Labs are obtained: * WBC 17.27 (likely elevated from stress and neulasta sponge) * Hemoglobin 9.4 * Platelet 210,000 * Neutrophils 91.9% * INR 1.0 * Sodium 140 * Potassium 4.2 * Chloride 105 * Carbon dioxide 25 * Anion gap 14.2 * BUN 30, creatinine 1.0, GFR greater than 60. * Glucose 104 * Calcium 8.7 * Magnesium 2.0 * Total bilirubin 0.4 * AST 17, ALT 16, alkaline phosphatase 71. * Creatinine kinase 51 * CK-MB 1.7 * Troponin less than 0.017 * CRP 1.6 * Protein 6.3 * Albumin 3.4 * proBNP 441 * SARS Covid 2 RNA negative * ABG obtained in the left radial with pH of 7.37, PCO2 42.3, PO2 of 66.0, HCO3 of 24, O2 saturation 93.4, base excess -0.7, AA gradient 81, obtained on 2 L via NC * Patient given Dilaudid for pain and DuoNebs in the ED. Started on IV fluids. * Patient admitted to medical surgical floor for pain management due to rib fractures and worsening dyspnea. Patient also is severely malnourished. 07/21/2020 * Labs today: * WBC 25.11 (on steroid). * Hemoglobin 8.4. * Platelet 148,000. * Neutrophils 88.4. * Sodium 141. * Potassium 4.8. * Chloride 108. * Carbon dioxide 27. * Anion gap 10.8. * BUN 26, creatinine 0.8, GFR greater than 60. * Glucose 122. * Magnesium 2.0. * Patient continues to have rather significant pain. Will increase home fentanyl dosing to 50 mcg daily. We will also increase as needed Dilaudid from 0.5 mg every 2 hour to 1 mg every 2 hour. * Old records from Dr. Swan are in chart * Continues to have significant work of breathing. * Saturations in upper 90's on 3L O2. * Per social work patient's daughter reports that she cannot provide 24/7 care to patient. We will explore placement. * Earliest patient can discharge to SNF is 07/25/2020 due to holiday weekend. * Patient knows he cannot continue on at home how he is because he is failing. * Discussed case with Bessie Rome NP with Dr. Swan' office. She reports patient has been quite depressed lately but was happy PET scan showed improvement. She is OK with up pursing hospice if the patient is interested. She reports they have tried appetite stimulation meds in the past but the patient would not tolerate them well. She states patients daughter has been very active in his care. She told us to anticipate spike in WBC soon with patients meds. * Discussed hospice with patient. He is not interested in this at this time. * Continue current treatment plan with increased pain medications. 07/17/2020 The patient is a chronically ill 79-year-old gentleman who has been having worsening fatigue, weakness and increased pain. 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 Is also liver metastases. I have changed the patient's pain medications from as needed to scheduled to help the patient with his pain control. The patient is oxygen dependent and he will be on oxygen to help keep his saturations above 92%. The patient lives alone and at this point is not safe to be discharged and he cannot take care of himself. I have also discussed hospice with the patient. PT OT will be continued. Repeat laboratory studies have been ordered. He has been encouraged to ambulate as he can. Patient is currently awaiting placement. Overall, the patient's prognosis is poor. 07/23/2020 - Plan Plan:: The patient is a chronically ill 79-year-old gentleman who still has oxygen requirements to help keep his oxygen saturations above 94% and the patient quickly desats when ambulating or off oxygen. The patient will be continued on oxygen. Respiratory therapy is following. The patient's pain will be continued with narcotic medication. His vital signs will be monitored and his medications will be adjusted as necessary. PT OT will continue with the patient. Repeat laboratory studies have been ordered. I have discussed hospice care with the patient. No decision made. The patient's Lovenox has been discontinued secondary to the patient's severe chemotherapy induced thrombocytopenia. Overall, the patient's prognosis is poor.
[2020-07-23] MEDS: Formoterol/Mometasone 200-5 MCG 8.8 GM Inhaler IH SCH ×2 (08:40→20:11)
[2020-07-23] MEDS: Polyethylene Glycol 3350 Powder 17 GM Packet PO SCH (09:14)
[2020-07-23] MEDS: methylPREDNISolone Sodium Succinate 40 MG/1 ML SDV IVPUSH SCH (09:15)
[2020-07-23] MEDS: Azithromycin 250 MG Tab PO SCH (10:13)
[2020-07-23] MEDS: Aspirin 81 MG Tab.EC PO SCH (20:19)
[2020-07-23] MEDS: Aluminum Hydroxide/Magnesium Hydroxide/Simethicone Susp 30 ML Cup PO PRN (20:21)
[2020-07-24] MEDS: Acetaminophen/oxyCODONE 325-5 MG Tab PO SCH ×3 (01:51→09:08)
[2020-07-24] MEDS: Dextrose 5%-0.9% NaCl 1,000 ML IV SCH (04:42)
[2020-07-24] MEDS: Formoterol/Mometasone 200-5 MCG 8.8 GM Inhaler IH SCH (08:30)
--- NOTE | 2020-07-24 08:52 | PCM.DCSUM1 ---
Discharge Summary - Hospital Course Free Text/Narrative:: Rapid decline throughout hospitalization. Diagnosis: Stroke: No - Discharge Data Discharge Date: 07/24/20 Discharge Disposition: DC/Tfer to Acute Hospital 02 Condition: Poor - Referral to Home Health Primary Care Physician: Suleman Swan MD - Discharge Diagnosis/Problem(s) (1) Fall as cause of accidental injury at home as place of occurrence SNOMED Code(s): 08696743 ICD Code: W19.XXXA - UNSPECIFIED FALL, INITIAL ENCOUNTER; Y92.009 - UNSP PLACE IN UNSP NON-INSTITUT (PRIVATE) RESIDENCE PLACE Status: Acute Priority: High Current Visit: Yes Qualifiers: Encounter type: subsequent encounter Qualified Code(s): W19.XXXD - Unspecified fall, subsequent encounter; Y92.009 - Unspecified place in unspecified non-institutional (private) residence as the place of occurrence of the external cause (2) Failure to thrive SNOMED Code(s): 73535618 ICD Code: [id number] - Status: Acute Priority: High Current Visit: Yes Qualifiers: Failure to thrive age range: in adult Qualified Code(s): R62.7 - Adult failure to thrive (3) Rib fractures SNOMED Code(s): 8059782 ICD Code: S22.49XA - MULTIPLE FRACTURES OF RIBS, UNSP SIDE, INIT FOR CLOS FX Status: Acute Priority: High Current Visit: Yes Qualifiers: Encounter type: subsequent encounter Fracture type: closed Laterality: left (4) Cachexia associated with pulmonary fibrosis SNOMED Code(s): 259332361 ICD Code: J84.10 - PULMONARY FIBROSIS, UNSPECIFIED; R64 - CACHEXIA Status: Chronic Priority: High Current Visit: Yes (5) Cancer of right lung SNOMED Code(s): 238073839 ICD Code: C34.91 - MALIGNANT NEOPLASM OF UNSP PART OF RIGHT BRONCHUS OR LUNG Status: Chronic Priority: Medium Current Visit: No Qualifiers: Lung location: lower lobe of lung Qualified Code(s): C34.31 - Malignant neoplasm of lower lobe, right bronchus or lung (6) Constipation SNOMED Code(s): 67435332 ICD Code: K59.00 - CONSTIPATION, UNSPECIFIED Status: Acute Current Visit: No Qualifiers: Constipation type: slow transit constipation Qualified Code(s): K59.01 - Slow transit constipation (7) Pancytopenia due to chemotherapy SNOMED Code(s): 2952736, 776292428 ICD Code: D61.810 - ANTINEOPLASTIC CHEMOTHERAPY INDUCED PANCYTOPENIA Status: Acute Priority: High Current Visit: Yes - Patient Summary/Data Consults: Consultations 07/20/20 09:54 Consult to Spiritual Care [CONS] Routine 07/20/20 09:56 OT Evaluation and Treatment [CONS] Routine PT Evaluation and Treatment [CONS] Routine Respiratory Care Assess and Treatment [CONS] Routine 07/20/20 10:34 Consult to Case Management/Director Family [CONS] Routine 07/20/20 12:21 Consult to Assistant Front End Manager [CONS] Routine Hospital Course: This is a 79-year-old male who presents to ED on 07/20/2020 via [facility] after a fall. Patient reports that he went to go sit down in the chair and the chair rolled out from under him and he fell hard on his posterior back on the left side. Since then he has been unable to sleep and has had significant pain with breathing. 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 He has right lung cancer and per the family there metastasis to other ar eas including the liver. The patient has had a significant decline over the past several days of hospitalization. The patient has been extremely short of breath. The patient also has a history of severe COPD and he has required oxygen support while at home. The patient has not required antibiotics as it was believed that the patient's initial leukocytosis was a result of his Neulasta as well as the demarginalization from trauma. With fluid resuscitation the patient's white blood cell count had trended downward. The patient had remained afebrile through the course of hospitalization. The patient also has a PICC line of his right arm. He has a poor appetite. Initially on presentation the patient's white blood cell count was at 17,000 and had declined to 2900. The patient has been taking oral chemotherapy agents. The patient's platelets have also declined to critically low levels of 23,000. Predominantly the patient's issues have been with pain both due to his cancer as well as his rib fractures. He has been requiring increasing amounts of Dilaudid as well as increased activity of his fentanyl patch. The patient also has been noted today to have pancytopenia his hemoglobin is also decreased to 7.8 and his hematocrit is 24.9%. The patient's vital signs show a blood pressure 117/76. Respirations are 20 and he has exhibited air hunger. His pulse rate has been at 85. His O2 saturations are 97 well on 3 L of oxygen via nasal cannula although with activity he will desaturate into the upper 80s. Patient's temperature is 36.6 C. Because of the worsening condition of the patient he has been ordered for transfer to tertiary [facility]. I spoke directly with the hospitalist, Dr. Croft, at [facility] in [place] who accepts patient. The patient will be transported with oxygen support via ground ambulance. The patient has been discharged from [facility] to [facility]. - Patient Instructions Diet: Heart Healthy Diet - Discharge Plan *PRESCRIPTION DRUG MONITORING PROGRAM REVIEWED*: Not Applicable *COPY OF PRESCRIPTION DRUG MONITORING REPORT IN PATIENT DA: Not Applicable Home Medications: Home Meds Acetaminophen [Acetaminophen Extra Strength] 500 mg PO ASDIRECTED PRN 07/20/20 [History] Albuterol [Ventolin HFA] 2 puff INH Q4H PRN 07/20/20 [History] Fluticasone Propion/Salmeterol [Advair 250-50 Diskus] 1 puff INH BID 07/20/20 [History] Ipratropium/Albuterol Sulfate [Iprat-Albut 0.5-3(2.5) MG/3 ML] 3 ml INH Q2H PRN 07/20/20 [History] LORazepam [Ativan] 1 - 2 tab PO QID PRN 07/20/20 [History] Ondansetron [Zofran ODT] 4 mg PO TID PRN 07/20/20 [History] Prochlorperazine [Compazine] 10 mg PO QID PRN 07/20/20 [History] fentaNYL [Duragesic] 25 mcg TRDERM Q72H 07/20/20 [History] oxyCODONE HCl [Oxycodone HCl] 1 - 1.5 tab PO Q4H PRN 07/20/20 [History] polyethylene glycoL 3350 [MiraLAX] 17 g PO Q48H 07/20/20 [History] Acetaminophen/oxyCODONE [Percocet 325-5 MG] 1 tab PO Q4H tablet 07/24/20 [Rx] fentaNYL [Duragesic] 50 mcg TRDERM Q72H patch 07/24/20 [Rx] Oxygen Therapy Mode: Nasal Cannula Oxygen Flow Rate (L/min): 3 Maintain SPO2% less than: 95 Maintain SpO2% greater than: 92 Patient Handouts: Chronic Obstructive Pulmonary Disease, Rib Fracture, Lung Cancer Forms: ED Department Discharge Referrals: Audra Li PA-C [Physician Customs Agent] - 07/28/20 2:00 pm (come 10 minutes prior to the appointment to register.) Suleman Swan MD [Primary Care Provider] - - Discharge Summary/Plan Comment DC Time >30 min.: Yes - General Info Date of Service: 07/24/20 Admission Dx/Problem (Free Text: Admission Diagnosis/Problem Admission Diagnosis/Problem Fall as cause of accidental injury in home as place of occurrence, Small cell lung cancer Subjective Update: The patient says that he feels like he is condition is worsening. He feels increasingly weak. The patient also says that his breathing is worsening. Functional Status: Reports: Pain Controlled. Denies: Tolerating Diet (Poor appetite) - Review of Systems General: Reports: Weakness, Fatigue, Malaise HEENT: Reports: No Symptoms Pulmonary: Reports: Shortness of Breath, Pleuritic Chest Pain (Due to rib fractures), Cough Cardiovascular: Reports: No Symptoms Gastrointestinal: Reports: No Symptoms Genitourinary: Reports: No Symptoms Musculoskeletal: Reports: Back Pain Skin: Reports: Bruising Neurological: Reports: No Symptoms Psychiatric: Reports: No Symptoms - Patient Data Vitals - Most Recent: Last Vital Signs Temp 36.6 C 07/24/20 07:17 Pulse 85 07/23/20 20:17 Resp 20 07/24/20 07:17 BP 117/76 07/24/20 07:17 Pulse Ox 97 07/24/20 08:30 Weight - Most Recent: 57.017 kg I&O - Last 24 hours: Intake & Output 07/23/20 07/24/20 07/24/20 22:59 06:59 14:59 Intake Total 970 1496 Output Total 550 750 Balance 420 746 Lab Results - Last 24 hrs: Laboratory Results - last 24 hr 07/24/20 07/24/20 Range/Units 06:09 06:09 WBC 2.99 L (4.23-9.07) K/mm3 RBC 2.30 L (4.63-6.08) M/mm3 Hgb 7.8 L (13.7-17.5) gm/dl Hct 24.9 L (40.1-51.0) % MCV 108.3 H (79.0-92.2) fl MCH 33.9 H (25.7-32.2) pg MCHC 31.3 L (32.2-35.5) g/dl RDW Std Deviation 58.7 H (35.1-43.9) fL Plt Count 23 L* (163-337) K/mm3 MPV 9.9 (9.4-12.3) fl Neut % (Auto) 77.5 H (34.0-67.9) % Lymph % (Auto) 16.1 L (21.8-53.1) % [place] % (Auto) 5.7 (5.3-12.2) % Eos % (Auto) 0 L (0.8-7.0) Baso % (Auto) 0.0 L (0.1-1.2) % Neut # (Auto) 2.32 (1.78-5.38) K/mm3 Lymph # (Auto) 0.48 L (1.32-3.57) K/mm3 [place] # (Auto) 0.17 L (0.30-0.82) K/mm3 Eos # (Auto) 0.00 L (0.04-0.54) K/mm3 Baso # (Auto) 0.00 L (0.01-0.08) K/mm3 Manual Slide Review Abnormal smear Sodium 134 L (136-145) mEq/L Potassium 4.6 (3.5-5.1) mEq/L Chloride 101 (98-107) mEq/L Carbon Dioxide 28 (21-32) mEq/L Anion Gap 9.6 (5-15) BUN 26 H (7-18) mg/dL Creatinine 0.7 (0.7-1.3) mg/dL Est Cr Clr Drug Dosing 70.14 mL/min Estimated GFR (MDRD) > 60 (>60) mL/min BUN/Creatinine Ratio 37.1 H (14-18) Glucose 94 (70-99) mg/dL Calcium 8.6 (8.5-10.1) mg/dL Magnesium 1.8 (1.8-2.4) mg/dL JESSICA Results - Last 24 hrs: Microbiology 07/20/20 07:39 Aerobic Blood Culture - Preliminary Blood - Venous - Lab Draw NO GROWTH AFTER 4 DAYS Anaerobic Blood Culture - Preliminary NO GROWTH AFTER 4 DAYS 07/20/20 07:25 Aerobic Blood Culture - Preliminary Blood - Venous NO GROWTH AFTER 4 DAYS Anaerobic Blood Culture - Preliminary NO GROWTH AFTER 4 DAYS Med Orders - Current: Current Medications Acetaminophen (Acetaminophen 325 Mg Tab) 650 mg PO Q4H PRN PRN Reason: Pain (Mild 1-3)/fever Last Admin: 07/22/20 12:06 Dose: 650 mg Documented by: Al Hydroxide/Mg Hydroxide (Aluminum Hydroxide/Magnesium Hydroxide/Simethicone Susp 30 Ml Cup) 30 ml PO Q4H PRN PRN Reason: Heartburn Last Admin: 07/23/20 20:21 Dose: 30 ml Documented by: Albuterol/Ipratropium (Albuterol/Ipratropium 3.0-0.5 Mg/3 Ml Neb Soln) 3 ml INH Q2H PRN PRN Reason: Shortness of Breath Last Admin: 07/23/20 15:00 Dose: 3 ml Documented by: Aspirin (Aspirin 81 Mg Tab.Ec) 81 mg PO BEDTIME [facility] Last Admin: 07/23/20 20:19 Dose: 81 mg Documented by: Fentanyl (Fentanyl 50 Mcg/Hr Transdermal Patch) 50 mcg TRDERM Q72H [facility] Last Admin: 07/21/20 09:35 Dose: 50 mcg Documented by: Hydromorphone HCl (Hydromorphone 1 Mg/Ml Syringe) 1 mg IVPUSH Q2H PRN PRN Reason: Pain (severe 7-10) Last Admin: 07/22/20 14:12 Dose: 1 mg Documented by: Dextrose/Sodium Chloride (Dextrose 5%-Normal Saline) 1,000 mls @ 50 mls/hr IV ASDIRECTED [facility] Last Admin: 07/24/20 04:42 Dose: 50 mls/hr Documented by: Lorazepam (Lorazepam 0.5 Mg Tab) 0.5 - 1 mg PO QID PRN PRN Reason: Anxiety Last Admin: 07/23/20 20:19 Dose: 1 mg Documented by: Methylprednisolone Sodium Succinate (Methylprednisolone Sodium Succinate 40 Mg/1 Ml Sdv) 40 mg IVPUSH DAILY [facility] Last Admin: 07/23/20 09:15 Dose: 40 mg Documented by: Miscellaneous Information (Remove And Replace Fentanyl 50mcg Patch) 1 ea TRDERM Q72H [facility] Mometasone Furoate/Formoterol Fumar (Formoterol/Mometasone 200-5 Mcg 8.8 Gm Inhaler) 2 puff IH BID [facility] Last Admin: 07/24/20 08:30 Dose: 2 puff Documented by: Ondansetron HCl (Ondansetron 4 Mg/2 Ml Sdv) 4 mg IV Q6H PRN PRN Reason: Nausea/Vomiting Oxycodone/Acetaminophen (Acetaminophen/Oxycodone 325-5 Mg Tab) 1 tab PO Q4H [facility] Last Admin: 07/24/20 05:43 Dose: 1 tab Documented by: Polyethylene Glycol (Polyethylene Glycol 3350 Powder 17 Gm Packet) 17 gm PO DAILY [facility] Last Admin: 07/23/20 09:14 Dose: 17 gm Documented by: Discontinued Medications Albuterol/Ipratropium (Albuterol/Ipratropium 3.0-0.5 Mg/3 Ml Neb Soln) 3 ml NEB Q4H PRN PRN Reason: Shortness Of Breath/wheezing Last Admin: 07/20/20 07:36 Dose: 3 ml Documented by: Albuterol/Ipratropium (Albuterol/Ipratropium 3.0-0.5 Mg/3 Ml Neb Soln) 3 ml NEB Q4H PRN PRN Reason: Shortness Of Breath/wheezing Albuterol/Ipratropium (Albuterol/Ipratropium 3.0-0.5 Mg/3 Ml Neb Soln) 3 ml NEB QIDRT PRN PRN Reason: Shortness Of Breath/wheezing Azithromycin (Azithromycin 250 Mg Tab) 500 mg PO DAILY [facility] Stop: 07/23/20 09:01 Last Admin: 07/23/20 10:13 Dose: Not Given Documented by: Enoxaparin Sodium (Enoxaparin 30 Mg/0.3 Ml Syringe) 30 mg SUBCUT DAILY [facility] Last Admin: 07/23/20 08:20 Dose: Not Given Documented by: Fentanyl (Fentanyl 12 Mcg/Hr Transdermal Patch) 12 mcg TRDERM Q72H [facility] Stop: 07/22/20 05:00 Last Admin: 07/21/20 10:03 Dose: Not Given Documented by: Fentanyl (Fentanyl 25 Mcg/Hr Transdermal Patch) 25 mcg TRDERM Q72H [facility] Stop: 07/22/20 05:00 Last Admin: 07/21/20 10:04 Dose: Not Given Documented by: Hydromorphone HCl (Hydromorphone 0.5 Mg/0.5 Ml Syringe) 0.5 mg IVPUSH ONETIME ONE Stop: 07/20/20 08:35 Last Admin: 07/20/20 10:01 Dose: 0.5 mg Documented by: Hydromorphone HCl (Hydromorphone 0.5 Mg/0.5 Ml Syringe) 0.5 mg IVPUSH Q2H PRN PRN Reason: Pain (severe 7-10) Last Admin: 07/20/20 20:29 Dose: 0.5 mg Documented by: Hydromorphone HCl (Hydromorphone 0.5 Mg/0.5 Ml Syringe) 1 mg IVPUSH Q2H PRN PRN Reason: Pain (severe 7-10) Last Admin: 07/21/20 11:52 Dose: 1 mg Documented by: Dextrose/Sodium Chloride (Dextrose 5%-Normal Saline) 1,000 mls @ 100 mls/hr IV ASDIRECTED [facility] Last Admin: 07/20/20 07:35 Dose: 100 mls/hr Documented by: Dextrose/Sodium Chloride (Dextrose 5%-Normal Saline) 1,000 mls @ 125 mls/hr IV ASDIRECTED [facility] Last Admin: 07/21/20 02:57 Dose: 75 mls/hr Documented by: Miscellaneous Information (Remove Fentanyl 12 Mcg Patch) 1 ea TRDERM Q72H [facility] Stop: 07/22/20 05:00 Last Admin: 07/21/20 09:36 Dose: 1 ea Documented by: Miscellaneous Information (Remove Fentanyl 25 Mcg Patch) 1 ea TRDERM Q72H [facility] Stop: 07/22/20 05:00 Last Admin: 07/21/20 09:37 Dose: 1 ea Documented by: Oxycodone/Acetaminophen (Acetaminophen/Oxycodone 325-5 Mg Tab) 1 tab PO Q4H PRN PRN Reason: Pain (moderate 4-6) Last Admin: 07/22/20 10:12 Dose: 1 tab Documented by: Polyethylene Glycol (Polyethylene Glycol 3350 Powder 17 Gm Packet) 17 gm PO Q48H [facility] Last Admin: 07/21/20 09:34 Dose: 17 gm Documented by: - Exam Quality Assessment: Reports: Supplemental Oxygen, Central Line/PICC. Denies: DVT Prophylaxis (Due to thrombocytopenia) General: Reports: Alert, Oriented, Cooperative, Mild Distress HEENT: Reports: Pupils Equal, Pupils Reactive, EOMI. Denies: Mucous Membr. Moist/[place] (Dry) Neck: Reports: Supple, Trachea Midline Lungs: Reports: Decreased Breath Sounds, Crackles (Scattered throughout), Rales Cardiovascular: Reports: Regular Rate, Regular Rhythm GI/Abdominal Exam: Normal Bowel Sounds, Soft, No Distention (Male) Exam: Deferred Rectal (Males) Exam: Deferred Back Exam: Denies: Normal Inspection (Appropriate for age), Full Range of Motion Extremities: Normal Inspection, No Pedal Edema Skin: Reports: Warm, Dry, Intact, Ecchymosis (Left chest wall) Psy/Mental Status: Reports: Alert, Anxious
--- NOTE | 2020-07-24 09:02 | CR ---
Chest: Portable view of the chest was obtained. Comparison: Prior chest x-ray of 04/02/[address] study of 07/20/20. Right-sided central line is seen. Tip of the central line lies within the superior vena cava. Patchy increased density within the right lung base which is stable. Emphysematous changes are noted. Lung markings are slightly increased but appear stable. Heart size appears within normal limits. Tortuous thoracic aorta is noted. Impression: 1. Right-sided central line. 2. Chronic change within the right lung base. 3. Emphysematous change. 4. Nothing acute is definitely appreciated. Diagnostic code #3
[2020-07-24] MEDS: methylPREDNISolone Sodium Succinate 40 MG/1 ML SDV IVPUSH SCH (09:08)
[2020-07-24] MEDS ORDERED: [UNRECOGNIZED DRUG - REMARK] TRDERM SCH (09:15)
[2020-07-24] MEDS ORDERED: Sodium Chloride 0.9% 1,000 ML IV SCH (09:15)
== END 2020-07-24 09:37 | DRG 183 ==
LOC: JD.ED 07:06 → JD.MS 08:58
PROVIDERS: ADMIT Internal Medicine; ATTEND Internal Medicine
DX: S22.42XA Multiple fractures of ribs, left side, initial encounter for closed fracture (principal); D61.810 Antineoplastic chemotherapy induced pancytopenia; E43 Unspecified severe protein-calorie malnutrition; C34.91 Malignant neoplasm of unspecified part of right bronchus or lung; C34.31 Malignant neoplasm of lower lobe, right bronchus or lung; R64 Cachexia; J96.11 Chronic respiratory failure with hypoxia; C78.7 Secondary malignant neoplasm of liver and intrahepatic bile duct; Z68.1 Body mass index [BMI] 19.9 or less, adult; W07.XXXA Fall from chair, initial encounter; J43.1 Panlobular emphysema; Z86.16 Personal history of COVID-19; Z66 Do not resuscitate; G89.3 Neoplasm related pain (acute) (chronic); J84.10 Pulmonary fibrosis, unspecified; R62.7 Adult failure to thrive; T45.1X5A Adverse effect of antineoplastic and immunosuppressive drugs, initial encounter; K59.01 Slow transit constipation; Z20.822 Contact with and (suspected) exposure to COVID-19; I71.9 Aortic aneurysm of unspecified site, without rupture; W18.30XA Fall on same level, unspecified, initial encounter; H91.90 Unspecified hearing loss, unspecified ear; K44.9 Diaphragmatic hernia without obstruction or gangrene; K57.90 Diverticulosis of intestine, part unspecified, without perforation or abscess without bleeding; N40.0 Benign prostatic hyperplasia without lower urinary tract symptoms; M54.9 Dorsalgia, unspecified; M19.90 Unspecified osteoarthritis, unspecified site; F17.210 Nicotine dependence, cigarettes, uncomplicated; Z90.89 Acquired absence of other organs; Z79.899 Other long term (current) drug therapy; Y92.009 Unspecified place in unspecified non-institutional (private) residence as the place of occurrence of the external cause; Z88.1 Allergy status to other antibiotic agents; Z91.013 Allergy to seafood; Z79.82 Long term (current) use of aspirin; Z90.49 Acquired absence of other specified parts of digestive tract; Z99.81 Dependence on supplemental oxygen; Z93.3 Colostomy status
CPT/HCPCS: 36415; 36600; 71250; 80053; 81001; 82550; 82553; 82803; 83615; 83735; 83880; 84145; 84484; 85025; 85610; 86140; 87040 ×2; 93005; 94640; 99285; J7042; U0002; 71045; 71045-26; 80048; 93010; 94761; 97162-GP; 99223; 99233; 99239; A9270-GY; J1170; J1650; J2920; J7030; J7620-GY